=== PATIENT | female | born 1990 | race Caucasian/White ===

== ENCOUNTER → 2025-02-27 | Outpatient (CLI) | payer OTHER, SELFPAY ==
[2025-03-03 21:07] LABS: Chlamydia By Nucleic Acid AMP Negative (Negative); Gonococcus By Nucleic Acid AMP Negative (Negative)
== END | disposition home or self-care (01) ==
LOC: LABSPEC 15:17
PROVIDERS: PCP Nurse Practitioner Family; Referring Provider Advanced Practice Midwife; Visit Provider Advanced Practice Midwife
DX: O09.91 Supervision of high risk pregnancy, unspecified, first trimester (principal); Z3A.00 Weeks of gestation of pregnancy not specified
CPT/HCPCS: 87086; 87088; 87491; 87591

== ENCOUNTER → 2025-03-27 | Outpatient (CLI) | payer OTHER, SELFPAY ==
[2025-03-27 10:53] LABS: Absolute Lymphocyte Count 1.56 X10^3/uL (0.83-4.51); Absolute Neutrophil Count 7.1 X10^3/uL (2.0-7.7); Basophil# 0.04 X10^3/uL; Basophil% 0.4 % (0-1); Eosinophil# 0.08 X10^3/uL; Eosinophils% 0.9 % (0-5); Hematocrit 36.3 % (37-47); Hemoglobin 12.4 g/dL (12.0-15.0); Lymphocyte # 1.56 X10^3/ul (0.83-4.51); Lymphocyte % 16.8 % (19-41); Mean Corp Hgb Conc 34.2 g/dL (32-36); Mean Corpuscular Hgb 32.4 pg (27.0-32.0); Mean Corpuscular Volume 94.8 fL (81-99); Mean Platelet Vol. 11.5 fl (6.2-12.0); Monocyte# 0.49 X10^3/uL; Monocyte% 5.3 % (0-10); NRBC Flagged by Analyzer 0 % (0-5); Neutrophil # 7.07 X10^3/uL (2.7-7.7); Neutrophil % 76.1 % (47-70); Platelet Count 288 K/mm3 (150-450); RBC Distribution Width CV 13.9 % (11.6-14.6); RBC Distribution Width SD 47.7 fl (35.1-43.9); Red Blood Count 3.83 M/mm3 (4.2-5.4); White Blood Count 9.3 K/mm3 (4.4-11.0)
[2025-03-27 11:36] LABS: Hepatitis B Surface Antigen Nonreactive (Nonreactive); Hepatitis C Antibody Nonreactive (Nonreactive); Rubella IgG REAC (Nonreactive); Syphilis Antibodies Nonreactive (Nonreactive)
[2025-03-28 05:20] LABS: HIV Nonreactive (Nonreactive)
== END | disposition home or self-care (01) ==
PROVIDERS: PCP Nurse Practitioner Family; Referring Provider Advanced Practice Midwife; Visit Provider Advanced Practice Midwife
DX: O09.91 Supervision of high risk pregnancy, unspecified, first trimester (principal); Z3A.00 Weeks of gestation of pregnancy not specified
CPT/HCPCS: 36415; 85025; 86703; 86762; 86780; 86803; 86850; 86900; 86901; 87340

== ENCOUNTER → 2025-06-03 | Outpatient (CLI) | payer OTHER, SELFPAY ==
--- OUTSIDE RECORDS SUMMARY | 2025-06-03 18:24 | XMS RPT_ITS | CCD ---
Author Organization [facility] [place] Care Team Providers Care Traffic Assistant Name Role Phone Unavailable Unavailable Unavailable Benny Cooper Unavailable Unavailable Unavailable Unavailable Unavailable Angel Acevedo Unavailable Unavailable Vinay Ramos Unavailable Unavailable Unavailable Unavailable Unavailable Unavailable Unavailable Khang Herbert Unavailable Unavailable Marsh, Zayda Unavailable Unavailable Wood, Jeanine L Unavailable Mirella [facility] Primary Care Provide r JF WASHINGTON JR. Attending Unavailable [facility] Unavaila JF Vaca JR. Attending Unavailable [facility] Primary Care Unavaila ble Wood Jeanine L Unavailable Kenneth Benny R Unavailable Wood, . [facility] Primary Care Unav ailable MARSH M.D., ZAYDA Attending Unavailable MARSH M.D., ZAYDA Referring Unavailable Wood, Ms. [facility] Unav ailable MARSH M.D., ZAYDA Attending Unavailable Wood, Ms. [facility] Primary Care Unav ailable MARSH M.D., ZAYDA Attending Unavailable MARSH M.D., ZAYDA Referring Unavailable MARSH M.D., ZAYDA Attending Unavailable [facility], [facility]. [facility]av [facility] MARSH M.D., ZAYDA Referring Unavailable MARSH M.D., ZAYDA Attending Unavailable Wood, Ms. Jeanine Dariana Primary Care Unav ailable MARSH M.D., ZAYDA Referring Unavailable Wood, Ms. Jeanine Dariana Primary Care Unav ailable MARSH M.D., ZAYDA Referring Unavailable MARSH M.D., ZAYDA Attending Unavailable Sarbjit Villarreal Unavailable Unavailable Wood MATERIAL DISPATCHER-POLYETHYLENE COMBINER, Jeanine L Primary Care Provider Mirella MATERIAL DISPATCHER-POLYETHYLENE COMBINER, Jeanine L Primary Care Provider BENNY COOPER Attending Unavailable WOOD, JEANINE L Primary Care Unavailable WOOD, JEANINE L Attending Unavailable WOOD, JEANINE L Primary Care Unavailable WOOD SHELF FILLER-C, JEANINE Primary Care Provider MIRELLA SHELF FILLER-C, JEANINE Referring Provider Stephanie SHELF FILLER-C, Vernell Attending Provider [phone] Chris IZAGUIRRE, Ramone Attending Provider Ramone Bauer CNM Referring Provider Greg TIPTON, Dr. Holliday Attending Provider [phone] WOOD, JEANINE L Primary Care Unavailable RAMONE BAUER Referring Unavailable ARAM COTO Attending Unavailable WOOD, JEANINE Referring Unavailable Ramone Bauer Attending Unavailable WOOD, JEANINE Primary Care Unavailable Ramone Bauer Attending Unavailable Ramone Bauer Referring Unavailable WOOD, JEANINE Primary Care Unavailable Ramone Bauer Referring Unavailable WOOD, JEANINE Primary Care Unavailable Ramone Bauer Attending Unavailable WOOD, JEANINE Referring Unavailable Ramone Bauer Attending Unavailable WOOD, WOOLWICH Primary Care Unavailable WOOD, JEANINE Referring Unavailable WOOD, WOOLWICH Primary Care Unavailable Miya Garza Attending Unavailable WOOD, WOOLWICH Primary Care Unavailable Miya Garza Attending Unavailable WOOD, JEANINE Referring Unavailable WOOD, WOOLWICH Primary Care Unavailable Ramone Bauer Attending Unavailable WOOD, JEANINE Referring Unavailable WOOD, JEANINE Referring Unavailable Vernell Brown Attending Unavailable WOOD, WOOLWICH Primary Care Unavailable Allergies Allergy Classification Reported Allergen(s) Allergy Type Date of Onset Reaction(s) Facility Penicillins (antibiotic) (1 source) Penicillins; Translations: [Penicillins] Drug Allergy [facility] [address] Work Phone: Sulfonamides (antibiotic) (1 source) Sulfonamides (Antibiotic) Drug Allergy [facility] [address] Work Phone: (20 sources) Penicillins; Translations: [Penicillins] drug allergy 2 H[facility] [address] Work Phone: (20 sources) Sulfonamides (Antibiotic); Translations: [Sulfa Drugs] drug allergy [facility] [address] [place] Work Phone: (6 sources) sulfADIAZINE; Translations: [SULFADIAZINE] Drug Allergy 2 [facility] Comment on above: ALL SULFA DRUGS (2 sources) Penicillins Propensity to adverse reactions to drug 2 [facility] (4 sources) Penicillin; Translations: [PENICILLIN] Drug Allergy 3 [facility] (2 sources) Penicillins Drug Allergy 2 [facility] Work Phone: (4 sources) Sulfonamides (Antibiotic); Translations: [SULFA (SULFONAMIDE ANTIBIOTICS)] Drug Allergy 2 Unknown, [facility] Work Phone: (6 sources) Penicillins Allergy to substance 5 [facility] Comment on above: vomiting (6 sources) Sulfonamides (Antibiotic) Allergy to substance 5 [facility] (1 source) Penicillins Drug allergy (disorder) 5 [facility] (1 source) Sulfonamides (Antibiotic) Drug allergy (disorder) 5 [facility] Medications Current Medications Medication Drug Class(es) Dates Sig (Normalized) Sig (Original) acetaminophen 500 mg oral tablet (2 sources) Tylenol 500 mg o ral tablet ; 2 tab(s) orally , As Needed Quantity: 0 Refills: 0 Ordered: 30-Jun-2023 Rani Mclaughlin Generic Substitution Allowed take 3 capsules by mouth every s ix hours Tylenol 325 mg oral capsule ; 3 cap(s) orally every 6 hours Quantity: 0 Refills: 0 Ordered: 01-Mar-2022 Desire Aldrich Generic Substitution Allowed alpha-tocopherol acetate 30 unt / ascorbic acid 100 mg / beta carotene 1000 unt / calcium carbonate 200 mg / calcium pantothenate 7 mg / cholecalciferol 400 unt / docusate sodium 25 mg / ferrous fumarate 29 mg / folic acid 1 mg / niacinamide 15 mg / pyridoxine hydrochloride 20 mg / riboflavin 3 mg / thiamine 3 mg / vitamin b12 0.012 mg / zinc oxide 20 mg oral tablet (3 sources) Vitamin B12, Vitamin D, Vitamin C take 1 tablet by mouth once daily 19 ([place]) oral tablet ; 1 tab(s) orally once a day Quantity: 0 Refills: 0 Ordered: 28-May-2020 Edenilson Moran Generic Substitution Allowed ascorbic acid 100 mg oral tablet (7 sources) Vitamin C ascorbic acid (Vitamin C) 100 mg tablet Take 1 tablet (100 mg) by mouth. Active azithromycin 500 mg oral tablet (1 source) Macrolide Antimicrobial Start: End: 023 take 1 tablet by mouth once daily azithromycin 500 mg oral tablet ; 1 tab(s) orally once a day Quantity: 4 Refills: 0 Ordered: 30-Jun-2023 Phil Sarbjit Marie Start: 30-Jun-2023 End: 03-Jul-2023 Generic Substitution Allowed Comments: Do not take dairy products, antacids, or iron preparations within one hour of this medication.Finish all this medication unless otherwise directed by prescriber. Comment on above: Do not take dairy pr oducts, antacids, or iron preparations within one hour of this medication.Finish all this medication unless otherwise directed by prescriber. Benzocaine / Dextromethorphan (1 source) Uncompetitive F-jloozn-[id number]-aspartate Receptor Antagonist, Sigma-1 Agonist, Standardized Chemical Allergen benzocaine-dextromet h orphan 2 mg-5 mg oral lozenge ; 1 lozenge orally , As Needed Quantity: 0 Refills: 0 Ordered: 30-Jun-2023 Rani Mclaughlin Generic Substitution Allowed calcium carbonate 250 mg/ml oral suspension (2 sources) take 500 mg by mouth twice daily at mealtime calcium carbonate 500 mg/5 mL (1,250 mg/5 mL) Take 500 mg of calcium by mouth 2 (two) times a day with meals . 0 Active cholecalciferol 0.05 mg oral capsule (8 sources) Vitamin D Start: 025 take 1 capsule by mouth once daily Cholecalciferol (Vitamin D3) 50 mcg (2,000 unit) capsule Active 50 ug PO daily February 05, 2025 12:00am Vitamin D3 Quant ity: 0 Refills: 0 Ordered: 12-Jul-2021 Ish Harvey Status: Other Generic Substitution Allowed Vitamin D3 Quant ity: 0 Refills: 0 Ordered: 12-Jul-2021 Mekoleske, Kandus Generic Substitution Allowed docosahexaenoic acid 200 mg oral capsule (8 sources) Start: 02-05-2025 Docosahexaenoi c Acid ( Dha) 200 mg capsule Active mg PO February 05, 2025 12:00am docosahexaenoic acid (DHA ORAL) Take by mouth . 0 Active docusate sodium 100 mg oral capsule (1 source) take 1 capsule by mouth twice daily Colace 100 mg oral capsule ; 1 cap(s) orally 2 times a day Quantity: 0 Refills: 0 Ordered: 01-Mar-2022 Desire Aldrich Generic Substitution Allowed fluconazole 150 mg oral tablet (7 sources) Azole Antifungal Start: 06-22-2023 take 1 tablet by mouth every week fluconazole (Diflucan) 150 mg tablet Indications: Vaginitis due to Deisi albicans Take 1 tablet (150 mg) by mouth 1 (one) time per week. 4 tablet 06/22/2023 Active Start: 03-30-2023 take 1 tablet by hunter th every other day Fluconazole 100 MG Oral Tablet TAKE 1 TABLET Other every 2 days x 3 doses Quantity: 3 Refills: 2 Ordered: 30-Mar-2023 Zayda Marsh MD Start : 30-Mar-2023 Active take 1 tablet by hunter th four times weekly fluconazole 150 mg oral tablet ; 1 tab(s) orally 4 times a week Quantity: 0 Refills: 0 Ordered: 30-Jun-2023 Rani Mclaughlin Generic Substitution Allowed gentamicin 0.001 mg/mg topical ointment (2 sources) Start: 12-24-2021 gentamicin (GARAMYCIN) 0.1 % ointment Indications: Cellulitis and abscess of foot Apply topically 3 (three) times a day Apply to toe 3 times daily for one week . 30 g 0 12/24/2021 Active lansoprazole 30 mg delayed release oral capsule (1 source) Proton Pump Inhibitor take 1 capsule by mouth once daily lansoprazole 30 mg oral delayed release capsule ; 1 cap(s) orally once a day Quantity: 0 Refills: 0 Ordered: 02-Feb-2022 Ryan Jaramillo Generic Substitution Allowed lisdexamfetamine dimesylate 40 mg oral capsule (1 source) Central Nervous System Stimulant Start: 12-14-2024 take 1 capsule by mouth once daily in the morning lisdexamfetamine (Vyvanse) 40 mg capsule Take 1 capsule (40 mg) by mouth once daily in the morning. 12/14/2024 Active mupirocin 0.02 mg/mg topical ointment (1 source) RNA Synthetase Inhibitor Antibacterial Start: 01-08-2025 End: 01-15-2025 mupirocin (Bactroban) 2 % ointment Indications: Irritant contact dermatitis due to other chemical products Apply topically 2 times a day for 7 days. 22 g 01/08/2025 01/15/2025 Active Hernshaw-3 Fatty Acids (2 sources) Hernshaw-3 Fatty Acid take 3 capsules by mouth once daily Hernshaw-3 oral capsule ; 3 cap(s) orally once a day Quantity: 0 Refills: 0 Ordered: 30-Jun-2023 Rani Mclaughlin Generic Substitution Allowed Hernshaw-3 oral cap franco Quantity: 0 Refills: 0 Ordered: 27-Feb-2022 Kellee Perez Generic Substitution Allowed Hernshaw-3 Fatty Acids 1,000 mg capsule (6 sources) Start: 02-05-2025 take 1 capsule by mouth once daily Hernshaw-3 Fatty Acids 1,000 mg capsule Active 1000 mg PO daily February 05, 2025 12:00am omega-3 fatty acids-fish oil 300-1,000 mg capsule (3 sources) omega-3 fatty acids-fish oil 300-1,000 mg capsule Take by mouth. Active omega-3 fatty ac ids-fish oil 300-1,000 mg capsule Take by mouth. 0 Active ondansetron 4 mg disintegrating oral tablet (4 sources) Serotonin-3 Receptor Antagonist Start: 06-30-2023 take 1 tablet by mouth three times daily ondansetron 4 mg oral tablet, disintegrating ; 1 tab(s) orally 3 times a day Quantity: 12 Refills: 0 Ordered: 30-Jun-2023 Sarbjit Villarreal Start: 30-Jun-2023 Generic Substitution Allowed Start: 02-10-2022 take 1 tablet by hunter th every six hours Ondansetron HCl - 4 MG Oral Tablet TAKE 1 TABLET Every 6 hours PRN nausea Quantity: 30 Refills: 3 Ordered: 10-Feb-2022 Angel Acevedo DO Start : 10-Feb-2022 Active vit 49-iron fum-fol ic (Mini ) 6.75 mg iron- 200 mcg tablet (3 sources) End: 01-08-2025 vit 49-iron fum-fol ic (Mini ) 6.75 mg iron- 200 mcg tablet Take by mouth. 01/08/2025 Discontinued (Med List Cleanup) vit 49- iron fum-folic (Mini ) 6.75 mg iron- 200 mcg tablet Take by mouth. Active vit 49- iron fum-folic (Mini ) 6.75 mg iron- 200 mcg tablet Take by mouth. 0 Active vitamin #49-iron-FA (Mini ) 6.75 mg iron- 200 mcg Tab (2 sources) vitamin #49-iron-FA (Mini ) 6.75 mg iron- 200 mcg Tab Take by mouth . 0 Active sertraline 50 mg oral tablet (1 source) Serotonin Reuptake Inhibitor Start: 06-22-20 End: 08-07-20 take 0.5 tablet by mouth once daily sertraline (Zoloft) 50 mg tablet Indications: Anxiety with depression Take 0.5 tablets (25 mg) by mouth once daily. 15 tablet 0 06/22/2023 08/07/2023 Discontinued (Side effects) triamcinolone acetonide 1 mg/ml topical cream (1 source) Corticosteroid Start: 01-09-20 End: 01-19-20 triamcinolone (Kenalog) 0.1 % cream Indications: Irritant contact dermatitis due to other chemical products Apply topically 2 times a day for 10 days. 30 g 01/08/2025 01/18/2025 Active Completed/Discontinued Medications Medication Drug Class(es) Dates Sig (Normalized) Sig (Original) ciprofloxacin 500 mg oral tablet (4 sources) Quinolone Antimicrobial Start: 02-14-2023 take 1 tablet by mouth once daily Ciprofloxacin HCl - 500 MG Oral Tablet TAKE 1 TABLET EVERY 12 HOURS DAILY. Quantity: 28 Refills: 0 Ordered: 14-Feb-2023 Zayda Marsh MD Start : 14-Feb-2023 Active clindamycin 10 mg/ml topical lotion (10 sources) Lincosamide Antibacterial Start: 02-14-2023 Clindamycin Phosphate 1 % External Lotion APPLY SPARINGLY AND MASSAGE IN TWICE DAILY. Quantity: 1 Refills: 2 Ordered: 14-Feb-2023 Zayda Marsh MD Start : 14-Feb-2023 Active Start: 02-01-2023 take 1 capsule by [facility] once daily Clindamycin HCl - 300 MG Oral Capsule TAKE 1 CAPSULE EVERY 6 HOURS DAILY. Quantity: 28 Refills: 0 Ordered: 01-Feb-2023 Zayda Marsh MD Start : 01-Feb-2023 Active ibuprofen 800 mg oral tablet (8 sources) Nonsteroidal Anti-inflammatory Drug Start: 01-31-2023 take 1 tablet by mouth every eight hours Ibuprofen 800 MG Oral Tablet TAKE 1 TABLET Every 8 hours PRN Take as needed for pain Quantity: 30 Refills: 1 Ordered: 31-Jan-2023 Zayda Marsh MD Start : 31-Jan-2023 Active take 1 tablet by mouth every six hours Motrin 600 mg oral tablet ; 1 tab(s) orally every 6 hours Quantity: 0 Refills: 0 Ordered: 01-Mar-2022 Desrie Aldrich Generic Substitution Allowed Lidocaine (2 sources) Antiarrhythmic, Amide Local Anesthetic Start: 12-24-2021 End: 12-24-2021 lidocaine 20 mg/mL (2 %) injection 3 mL nystatin 625668 unt/ml / triamcinolone acetonide 1 mg/ml topical cream (9 sources) Polyene Antifungal, Corticosteroid Start: 04-11-2022 Nystatin-Triamcin olone 041064-0.1 UNIT/GM-% External Cream APPLY SPARINGLY TO AFFECTED AREA(S) TWICE DAILY Quantity: 1 Refills: 3 Ordered: 11-Apr-2022 Zayda Marsh MD Start : 11-Apr-2022 Active omeprazole 20 mg delayed release oral capsule (1 source) Proton Pump Inhibitor Start: 01-24-2020 take 1 capsule by mouth once daily before breakfast Omeprazole 20 MG Oral Capsule Delayed Release TAKE 1 CAPSULE DAILY EVERY MORNING BEFORE BREAKFAST. Quantity: 30 Refills: 4 Benny Cooper MD Start : 24-Jan-2020 Active pantoprazole 40 mg delayed release oral tablet (20 sources) Proton Pump Inhibitor Start: 10-18-2021 take 1 tablet by mouth once daily Pantoprazole Sodium 40 MG Oral Tablet Delayed Release TAKE 1 TABLET DAILY. Quantity: 30 Refills: 5 Ordered: 18-Oct-2021 Zayda Marsh MD Start : 18-Oct-2021 Active TABS (3 sources) TABS Refills: 0 DO Active TABS Re fills: 0 Active TABS (20 sources) TABS Qu antity: 0 Refills: 0 Ordered: 04-Nov-2019 DO Active TABS Re fills: 0 Active Problems Active Problems Problem Classification Problem Date Documented Date Episodic/Chronic Allergic reactions (4 sources) Irritant contact dermatitis caused by chemical; Translations: [Irritant contact dermatitis due to other chemical products] Onset: 01-08-2025 01-08-2025 Episodic Anxiety disorders (4 sources) Mixed anxiety and depressive disorder; Translations: [Other specified anxiety disorders] Onset: 06-22-2023 08-07-2023 Chronic Attention-deficit, conduct, and disruptive behavior disorders (20 sources) Attention deficit hyperactivity disorder; Translations: [Attention-deficit hyperactivity disorder, unspecified type] 02-05-2025 Chronic Comment on above: Vyvanse-stopped alex ng medication once she found out she was Attention-deficit, conduct, and disruptive behavior disorders (1 source) Attention-deficit hyperactivity disorder, unspecified type; Translations: [Attention-deficit hyperactivity disorder, unspecified type] Onset: 05-22-2025 Chronic Diseases of white blood cells (2 sources) Leukocytosis; Translations: [Leukocytosis, unspecified] 06-30-2023 Chronic Esophageal disorders (20 sources) Gastroesophageal reflux disease; Translations: [Esophageal reflux] Onset: 06-22-2023 06-22-2023 Chronic Fluid and electrolyte disorders (2 sources) Dehydration; Translations: [Dehydration] 06-30-2023 Episodic Headache; including migraine (2 sources) Headache; including migraine 10-15-2021 Comment on above: HEADACHE STUFFY/RUNN Y NOSE Immunizations and screening for infectious disease (20 sources) Patient encounter status; Translations: [Other specified vaccination] 04-09-2024 Episodic Comment on above: 08/19/20 WNL 9 NIL per records; Menstrual disorders (2 sources) Secondary amenorrhea; Translations: [Secondary amenorrhea] Chronic OB-related trauma to perineum and vulva (2 sources) First degree perineal laceration; Translations: [First-degree perineal laceration, unspecified as to episode of care or not applicable] 02-28-2022 Episodic Other circulatory disease (2 sources) Syncope due to orthostatic hypotension; Translations: [Orthostatic hypotension] 09-01-2023 Episodic Other complications of (20 sources) High risk ; Translations: [Supervision of high risk , unspecified, first trimester] 02-20-2025 Episodic Comment on above: Demond Mortensen, TAQUERIA 10/07/25 [employer] 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[employer], 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 PRR, Miguel Ángel Mortensen, TAQUERIA 10/07/25 [employer] Other complications of (1 source) Supervision of high risk , unspecified, first trimester; Translations: [Supervision of high risk , unspecified, first trimester] Onset: 05-22-2025 Episodic Other complications of (1 source) Supervision of other high risk pregnancies, unspecified trimester; Translations: [Supervision of other high risk pregnancies, unspecified trimester] Onset: 05-22-2025 Episodic Other connective tissue disease (20 sources) H/O: musculoskeletal disease; Translations: [Personal history of other musculoskeletal disorders] Episodic Other connective tissue disease (18 sources) Pain in lower limb; Translations: [Pain in limb] Episodic Other endocrine disorders (3 sources) Menarche; Translations: [History of Menarche] Chronic Other non-traumatic joint disorders (20 sources) Pain in wrist; Translations: [Pain in joint, forearm] Episodic Other and delivery including normal (20 sources) Primigravida; Translations: [Supervision of normal first ] Onset: 02-27-2025 Resolved: 01-24-2020 03-27-2025 Episodic Comment on above: elects NIPT, decline s gender & carrier x2 NIPT low risk, decli braden gender & carrier NIPT low risk, decli braden gender & carrier, nl anatomy Other screening for suspected conditions (not mental disorders or infectious disease) (20 sources) Cancer cervix screening status; Translations: [Screening for malignant neoplasms of cervix] Onset: 03-29-2023 Episodic Comment on above: 04/09/[address] Benny Cooper Other skin disorders (1 source) Ingrowing great toenail; Translations: [Ingrowing nail] Episodic Other upper respiratory infections (1 source) Acute bacterial pharyngitis; Translations: [Streptococcal sore throat] 06-30-2023 Episodic Residual codes; unclassified (1 source) Gestation period, 32 weeks; Translations: [32 weeks gestation of ] Episodic Residual codes; unclassified (10 sources) Gestation period, 39 weeks; Translations: [ state, incidental] Episodic Residual codes; unclassified (9 sources) Gestation period, 7 weeks; Translations: [ state, incidental] Episodic Residual codes; unclassified (8 sources) Gestation period, 11 weeks; Translations: [ state, incidental] Episodic Residual codes; unclassified (2 sources) Gestation period, 15 weeks; Translations: [ state, incidental] Episodic Residual codes; unclassified (20 sources) Gestation period, 17 weeks; Translations: [ state, incidental] Episodic Residual codes; unclassified (20 sources) Gestation period, 20 weeks; Translations: [ state, incidental] Episodic Residual codes; unclassified (20 sources) Gestation period, 24 weeks; Translations: [ state, incidental] Episodic Residual codes; unclassified (20 sources) Gestation period, 29 weeks; Translations: [ state, incidental] Episodic Residual codes; unclassified (20 sources) Gestation period, 31 weeks; Translations: [ state, incidental] Episodic Residual codes; unclassified (20 sources) Gestation period, 36 weeks; Translations: [ state, incidental] Episodic Residual codes; unclassified (12 sources) FH: Twin ; Translations: [Family history of other specified conditions] 02-27-2025 Episodic Comment on above: Grandmother is a twi n who also had twins Residual codes; unclassified (1 source) 20 weeks gestation of ; Translations: [20 weeks gestation of ] Onset: 05-22-2025 Episodic Residual codes; unclassified (1 source) 18 weeks gestation of ; Translations: [18 weeks gestation of ] Onset: 05-09-2025 Episodic Residual codes; unclassified (1 source) 16 weeks gestation of ; Translations: [16 weeks gestation of ] Onset: 04-24-2025 Episodic Residual codes; unclassified (1 source) 12 weeks gestation of ; Translations: [12 weeks gestation of ] Onset: 03-27-2025 Episodic Residual codes; unclassified (1 source) Other general symptoms and signs; Translations: [Other general symptoms and signs] Onset: 02-27-2025 Episodic Residual codes; unclassified (1 source) Family history of other specified conditions; Translations: [Family history of other specified conditions] Onset: 02-27-2025 Episodic Residual codes; unclassified (1 source) 8 weeks gestation of ; Translations: [8 weeks gestation of ] Onset: 02-27-2025 Episodic Skin and subcutaneous tissue infections (2 sources) Cellulitis and abscess of lower limb; Translations: [Cellulitis of unspecified part of limb] Episodic Syncope (4 sources) Syncope; Translations: [Syncope and collapse] 06-30-2023 Episodic Unclassified (1 source) 09-14-2021 Comment on above: Unclassified (1 source) 4 WK OB 09-14-2021 Comment on above: 4 WK OB Unclassified (2 sources) CONTRACTIONS 02-28-2022 Comment on above: CONTRACTIONS Unclassified (2 sources) FEVER LOW BLOOD PRESSURE 06-30-2023 Comment on above: FEVER LOW BLOOD PRES SURE Unclassified (1 source) Pharyngitis due to group A beta hemolytic Streptococci 06-30-2023 Past or Other Problems Problem Classification Problem Date Documented Date Episodic/Chronic Abdominal pain (20 sources) Pain in female pelvis; Translations: [Unspecified symptom associated with female genital organs] Onset: 06-22-2023 06-22-2023 Episodic Mycoses (3 sources) Candidiasis of vagina; Translations: [Vaginitis due to Deisi albicans] Onset: 06-22-2023 06-22-2023 Episodic Nonmalignant breast conditions (15 sources) Pain of breast; Translations: [Mastodynia] Onset: 06-22-2023 06-22-2023 Episodic Other complications of ; puerperium affecting management of mother (14 sources) Obstetric breast infections; Translations: [Nonpurulent mastitis associated with childbirth, condition or complication] Onset: 06-22-2023 Resolved: 06-22-2023 06-22-2023 Episodic Other complications of (20 sources) Abnormal findings on screening of mother; Translations: [Abnormal finding on screening] Onset: 06-22-2023 06-22-2023 Episodic Other complications of (20 sources) Nausea and vomiting; Translations: [Unspecified vomiting of , unspecified as to episode of care or not applicable] Onset: 06-22-2023 06-30-2023 Episodic Other complications of (1 source) Vomiting of , unspecified; Translations: [Unspecified vomiting of , unspecified as to episode of care or not applicable] Onset: 06-22-2023 06-22-2023 Episodic Other connective tissue disease (20 sources) Radial styloid tenosynovitis [de Quervain]; Translations: [De Quervain's tenosynovitis, bilateral] Onset: 06-22-2023 06-22-2023 Episodic Other connective tissue disease (20 sources) Dupuytren's contracture; Translations: [Contracture of palmar fascia] Resolved: 10-12-2020 Episodic Other connective tissue disease (3 sources) Pain in bilateral legs; Translations: [Pain in right leg] Onset: 06-22-2023 06-22-2023 Episodic Other female genital disorders (20 sources) Vaginal discharge; Translations: [Leukorrhea, not specified as infective] Onset: 06-22-2023 Resolved: 08-07-2023 08-07-2023 Episodic Other female genital disorders (20 sources) Pruritus of vagina; Translations: [Pruritus of genital organs] Onset: 06-22-2023 Resolved: 08-07-2023 08-07-2023 Episodic Other non-traumatic joint disorders (3 sources) Bilateral wrist pain; Translations: [Pain in right wrist] Onset: 06-22-2023 06-22-2023 Episodic Other skin disorders (20 sources) Bilateral ingrowing nail of toe of feet; Translations: [Ingrowing nail] Onset: 06-22-2023 Resolved: 06-22-2023 06-22-2023 Episodic Other skin disorders (20 sources) Disorder of pigmentation; Translations: [Dyschromia, unspecified] Onset: 06-22-2023 06-22-2023 Episodic Other skin disorders (1 source) Skin hypopigmented; Translations: [Other disorders of diminished melanin formation] Onset: 06-22-2023 06-22-2023 Episodic Spondylosis; intervertebral disc disorders; other back problems (20 sources) Sciatica; Translations: [Sciatica] Onset: 06-22-2023 06-22-2023 Episodic Unclassified (3 sources) Patient encounter status; Translations: [History of Vaginal Pap smear] Unclassified (3 sources) Onset: 08-07-2023 Resolved: 01-08-2025 08-07-2023 NEGATED: Highlighted row has not occurred!Residual codes; unclassified (20 sources) Disease Episodic Results Test Name Value Interpretation Reference Range Facility Laboratory - Chemistry and C hemistry - challengeOrdered By: Ramone Bauer on 05-22-2025 Glucose Ql (U) Negative [facility] Laboratory - UrinalysisOrder ed By: Ramone Bauer on 05-22-2025 Protein Ql (U) Negative [facility] Applications Support Specialist Office Visit Reporton 05-22-2025 Applications Support Specialist Office Visit Report [facility]'[address], [address] [place] [address] OFFICE VISIT Date of Service: 05/22/25 MR#: [id number] Acct: [id number] Name: LINETTE HUI Rep #: [id number] : 1990 Provider: DMITRIY Lew ams Age/Sex: 35/F Location: [facility] [place] Status: Signed Intake Vital Signs 03/27/25 08:56 05/09/25 14:07 05/22/25 11:00 Height 5 ft 7.5 in 5 ft 7.5 in 5 ft 7.5 in Weight: 191 lb 4 oz BMI 29.5 BP 121/69 H Intake Visit Reasons: 20wk ob Chief Complaint: 20wk OB Complex Care Nurse Required: No Is patient in pain?: No Allergies Penicillins Allergy (Mild, Verified 05/22/25 10:58) Hives Sulfa (Sulfonamide Antibiotics) Allergy (Mild, Verified 05/22/25 10:58) Hives Medications ???Medication ???Instructions ???Recorded ???Confirmed ???Type cholecalciferol (vitamin D3) 50 50 mcg PO QDAY 02/05/25 05/22/25 H istory mcg (2,000 unit) capsule docosahexaenoic acid 200 mg mg PO 02/05/25 05/22/25 History capsule ( DHA) omega-3 fatty acids 1,000 mg 1,000 mg PO QDAY 02/05/25 05/22/25 History capsule Last Menstrual Period: 12/31/24 : No PFSH PFSH Medical History ADHD Family History Father GBM (glioblastoma multiforme) Hypertension Mother Hypertension Alopecia Grandmother Heart disease Hypertension Grandfather Heart disease Hypertension Macular degeneration Brother Leukemia as a child Grandmother Macular degeneration Hypertension Aneurysm Social History adopted: No household members: spouse and children number of children: 2 current occupational status: employed 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 (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 ) ) pets and animals: No history of recent travel: No Smoking Status: Never smoker alcohol intake: former details: socially, but not since substance use type: marijuana and other details: occasionally but not since , last 10/2024 caffeine: Yes Type: coffee what type of physical activity do you participate in: running and bicycling frequency: 5-6 times per week deon/episcopal: Yazidism seatbelt use: always do you feel safe at home: Yes additional social history: - [facility] History 3 Elective abortions Hx Para 2 Spontaneous abortions Hx # Term Pregnancies Ectopic pregnancies Hx # Pregnancies Multiple births # of living children 2 Past Pregnancies Del. Date Name GA/Weeks Outcome Route Bth Weight Gen Labor Lgth Anesthesia Del Locatn Provider FOB 06/02/20 Prasanna 39 live - full term 7.8 Female 7 hours none [facility] 02/28/22 Miguel Ángel 39 live - full term Male 6 none HPI 20wk ob Details: LINETTE HUI is a 35 year old who presents for routine OB visit. OB Visit TAQUERIA Calculator Estimated Delivery Date Method Current WG Current Estimate 10/07/25 LMP (Certain) 20w 2d Other Estimates 10/05/25 Ultrasound #1 20w 4d Expected Delivery Route/Plan Labor Preferences- CB/BF classes: [] labor support person: [] labor intervention preferences: [] pain management options preferred: [] cut cord/dad catch: [] : [] PP control planned: [] discussed possible routes of delivery and associated risks: [] special requests: [] Specific Issue/Plans Covid status: [] Flu vaccine: [] Tdap vaccine: [] Rhogam: [] LARC form signed: [] Problem list reviewed and updated with the most current plan of care details and appropriate orders placed. Relevant counseling for the gestational age provided. Continue routine care and follow up unless otherwise noted in visit notes/problem list details Initial Weight: 178 lb Date -???-???-???-???-???-??? -???-???-???-???-???-??? - EGA Weight BP Urine Prot -???-???-???-???-???-??? -???-???-???-???-???-??? - Glucose FHR FuHt Pres Dilation -???-???-???-???-???-??? -???-???-???-???-???-??? - Effaced St Visit Note 02/27/25 -???-???-???-???-???-??? -???-???-???-???-???-??? - 8w 2d 178 lb 2 oz (+2 oz) 125/75 -???-???-???-???-???-??? -???-???-???-???-???-??? - 173 -???-???-???-???-???-??? -???-???-???-???-???-??? - KW- CRL cons with dates. accepts NIPT. 03/27/25 -???-???-???-???-???-??? -???-???-???-???-???-??? - 12w 2d 181 lb 2 oz (+3 lb 2 oz) 122/77 Negative -???-???-???-???-???-??? -???-???-???-???-???-??? - Negative 160 -???-???-???-???-???-??? -???-???-???-???-???-??? - kw- no vb/cr amping. US with MFM ordered. Bartholin cyst-to try loose (more content not included)... Normal [facility] Laboratory - Chemistry and C hemistry - challengeOrdered By: Miya Garza on 05-09-2025 Glucose Ql (U) Negative [facility] Laboratory - UrinalysisOrder ed By: Miya Garza on 05-09-2025 Protein Ql (U) Negative [facility] Applications Support Specialist Office Visit Reporton 05-09-2025 Applications Support Specialist Office Visit Report [facility] [address], [address] [place] [address] OFFICE VISIT Date of Service: 05/09/25 MR#: [id number] Acct: [id number] Name: LINETTE HUI Rep #: [id number] : 1990 Provider: Dr. Miya patiño MD Age/Sex: 35/F Location: [facility] [place] Status: Signed Intake Vital Signs 04/24/25 14:10 05/08/25 16:06 05/09/25 14:07 Height 5 ft 7.5 in 5 ft 7.5 in 5 ft 7.5 in Weight: 191 lb 4 oz BMI 29.5 BP 125/73 H Intake Visit Reasons: fu contractions per JV Complex Care Nurse Required: No Is patient in pain?: No Allergies Penicillins Allergy (Mild, Verified 05/09/25 14:05) Hives Sulfa (Sulfonamide Antibiotics) Allergy (Mild, Verified 05/09/25 14:05) Hives Medications ???Medication ???Instructions ???Recorded ???Confirmed ???Type cholecalciferol (vitamin D3) 50 50 mcg PO QDAY 02/05/25 05/09/25 H istory mcg (2,000 unit) capsule docosahexaenoic acid 200 mg mg PO 02/05/25 05/09/25 History capsule ( DHA) omega-3 fatty acids 1,000 mg 1,000 mg PO QDAY 02/05/25 05/09/25 History capsule Last Menstrual Period: 12/31/24 Zika: Zika virus screening: Negative : No PFSH PFSH Medical History ADHD Family History Father GBM (glioblastoma multiforme) Hypertension Mother Hypertension Alopecia Grandmother Heart disease Hypertension Grandfather Heart disease Hypertension Macular degeneration Brother Leukemia as a child Grandmother Macular degeneration Hypertension Aneurysm Social History adopted: No household members: spouse and children number of children: 2 current occupational status: employed 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 (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 ) ) pets and animals: No history of recent travel: No Smoking Status: Never smoker alcohol intake: former details: socially, but not since substance use type: marijuana and other details: occasionally but not since , last 10/2024 caffeine: Yes Type: coffee what type of physical activity do you participate in: running and bicycling frequency: 5-6 times per week deon/episcopal: Yazidism seatbelt use: always do you feel safe at home: Yes additional social history: - [facility] History 3 Elective abortions Hx Para 2 Spontaneous abortions Hx # Term Pregnancies Ectopic pregnancies Hx # Pregnancies Multiple births # of living children 2 Past Pregnancies Del. Date Name GA/Weeks Outcome Route Bth Weight Infant Gen Labor Lgth Anesthesia Del [facility] Provider FOB 06/02/20 Prasanna 39 live - full term 7.8 Female 7 hours none [facility] 02/28/22 Miguel Ángel 39 live - full term Male 6 none HPI fu contractions per JV Details: LINETTE HUI is a 35 year old who presents for routine OB visit. OB Visit TAQUERIA Calculator Estimated Delivery Date Method Current WG Current Estimate 10/07/25 LMP (Certain) 18w 3d Other Estimates 10/05/25 Ultrasound #1 18w 5d Expected Delivery Route/Plan Labor Preferences- CB/BF classes: [] labor support person: [] labor intervention preferences: [] pain management options preferred: [] cut cord/dad catch: [] : [] PP control planned: [] discussed possible routes of delivery and associated risks: [] special requests: [] Specific Issue/Plans Covid status: [] Flu vaccine: [] Tdap vaccine: [] Rhogam: [] LARC form signed: [] Problem list reviewed and updated with the most current plan of care details and appropriate orders placed. Relevant counseling for the gestational age provided. Continue routine care and follow up unless otherwise noted in visit notes/problem list details Initial Weight: 178 lb Date -???-???-???-???-???-??? -???-???-???-???-???-??? - EGA Weight BP Urine Prot -???-???-???-???-???-??? -???-???-???-???-???-??? - Glucose FHR FuHt Pres Dilation -???-???-???-???-???-??? -???-???-???-???-???-??? - Effaced St Visit Note 02/27/25 -???-???-???-???-???-??? -???-???-???-???-???-??? - 8w 2d 178 lb 2 oz (+2 oz) 125/75 -???-???-???-???-???-??? -???-???-???-???-???-??? - 173 -???-???-???-???-???-??? -???-???-???-???-???-??? - KW- CRL cons with dates. accepts NIPT. 03/27/25 -???-???-???-???-???-??? -???-???-???-???-???-??? - 12w 2d 181 lb 2 oz (+3 lb 2 oz) 122/77 Negative -???-???-???-???-???-??? -???-???-???-???-???-??? - Negative 160 -???-???-???-???-???-??? -???-???-???-???-???-??? - kw- no vb/cr (more content not included)... Normal [facility] Applications Support Specialist Office Visit Reporton 04-24-2025 Applications Support Specialist Office Visit Report [facility] [address], [address] [place] [address] OFFICE VISIT Date of Service: 04/24/25 MR#: [id number] Acct: [id number] Name: LINETTE HUI Rep #: [id number] : 1990 Provider: Dr. Miya patiño MD Age/Sex: 34/F Location: [facility] [place] Status: Signed Intake Vital Signs 02/27/25 13:02 03/27/25 08:56 04/24/25 14:10 Height 5 ft 7.5 in 5 ft 7.5 in 5 ft 7.5 in Weight: 181 lb 2 oz 188 lb 4 oz BMI 27.9 29.0 BP 122/77 H 127/77 H Intake Visit Reasons: 16wk ob Complex Care Nurse Required: No Is patient in pain?: No Allergies Penicillins Allergy (Mild, Verified 04/24/25 14:11) Hives Sulfa (Sulfonamide Antibiotics) Allergy (Mild, Verified 04/24/25 14:11) Hives Medications ???Medication ???Instructions ???Recorded ???Confirmed ???Type cholecalciferol (vitamin D3) 50 50 mcg PO QDAY 02/05/25 04/24/25 H istory mcg (2,000 unit) capsule docosahexaenoic acid 200 mg mg PO 02/05/25 04/24/25 History capsule ( DHA) omega-3 fatty acids 1,000 mg 1,000 mg PO QDAY 02/05/25 04/24/25 History capsule Last Menstrual Period: 12/31/24 Zika: Zika virus screening: Negative : No PFSH PFSH Medical History ADHD Family History Father GBM (glioblastoma multiforme) Hypertension Mother Hypertension Alopecia Grandmother Heart disease Hypertension Grandfather Heart disease Hypertension Macular degeneration Brother Leukemia as a child Grandmother Macular degeneration Hypertension Aneurysm Social History adopted: No household members: spouse and children number of children: 2 current occupational status: employed 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 (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 ) ) pets and animals: No history of recent travel: No Smoking Status: Never smoker alcohol intake: former details: socially, but not since substance use type: marijuana and other details: occasionally but not since , last 10/2024 caffeine: Yes Type: coffee what type of physical activity do you participate in: running and bicycling frequency: 5-6 times per week deon/episcopal: Yazidism seatbelt use: always do you feel safe at home: Yes additional social history: - [facility] History 3 Elective abortions Hx Para 2 Spontaneous abortions Hx # Term Pregnancies Ectopic pregnancies Hx # Pregnancies Multiple births # of living children 2 Past Pregnancies Del. Date Name GA/Weeks Outcome Route Bth Weight Infant Gen Labor Lgth Anesthesia Del [facility] Provider FOThalia 06/02/20 Prasanna 39 live - full term 7.8 Female 7 hours none [facility] 02/28/22 Miguel Ángel 39 live - full term Male 6 none HPI 16wk ob Details: LINETTE HUI is a 34 year old who presents for routine OB visit. OB Visit TAQUERIA Calculator Estimated Delivery Date Method Current WG Current Estimate 10/07/25 LMP (Certain) 16w 2d Other Estimates 10/05/25 Ultrasound #1 16w 4d Expected Delivery Route/Plan Labor Preferences- CB/BF classes: [] labor support person: [] labor intervention preferences: [] pain management options preferred: [] cut cord/dad catch: [] : [] PP control planned: [] discussed possible routes of delivery and associated risks: [] special requests: [] Specific Issue/Plans Covid status: [] Flu vaccine: [] Tdap vaccine: [] Rhogam: [] LARC form signed: [] Problem list reviewed and updated with the most current plan of care details and appropriate orders placed. Relevant counseling for the gestational age provided. Continue routine care and follow up unless otherwise noted in visit notes/problem list details Initial Weight: 178 lb Date -???-???-???-???-???-??? -???-???-???-???-???-??? - EGA Weight BP Urine Prot -???-???-???-???-???-??? -???-???-???-???-???-??? - Glucose FHR FuHt Pres Dilation -???-???-???-???-???-??? -???-???-???-???-???-??? - Effaced St Visit Note 02/27/25 -???-???-???-???-???-??? -???-???-???-???-???-??? - 8w 2d 178 lb 2 oz (+2 oz) 125/75 -???-???-???-???-???-??? -???-???-???-???-???-??? - 173 -???-???-???-???-???-??? -???-???-???-???-???-??? - KW- CRL cons with dates. accepts NIPT. 03/27/25 -???-???-???-???-???-??? -???-???-???-???-???-??? - 12w 2d 181 lb 2 oz (+3 lb 2 oz) 122/77 Negative -???-???-???-???-???-??? -???-???-???-???-???-??? - Negative 160 -???-???-???-???-???-??? -???-???-???-???-???-??? - kw- no vb/cr amping. (more content not included)... Normal [facility] HIVon 03-28-2025 HIV Non-Reactive Normal Nonreactive [facility] Comment on above: Result Comment: Non- Reactive Reactive Repeatedly reactive samples must be confirmed according to CDC recommended confirmatory algorithms. The subresults for either HIVAG or AHIV can be used as an aid in the selection of the confirmation algorithm for reactive samples. Send out specimens with Reactive results to [facility] for confirmation. Order the HIV antibody detection and differentiation: [id number] Performed By: #### L 3890.6102, L3890.6301, L3890.6006, L900.0098, L100.0100, BTS, L509.4006, L509.8002 ####[facility] [address] [place], [address] Absolute lymphocyte countOrd ered By: Ramone Bauer on 03-27-2025 Lymphocytes Auto (Unsp spec) [#/Vol] 1.56 10*3/uL 0.83-4.51 [facility] Absolute neutrophil countOrd ered By: Ramone Bauer on 03-27-2025 Neutrophils (Bld) [#/Vol] 7.1 10*3/uL 2.0-7.7 [facility] Automated lymphocyte count a s percentage of total leukocytesOrdered By: Ramone Bauer on 03-27-2025 Lymphocytes/100 WBC Auto (Unsp spec) 16.8 % Low 19-41 [facility] Basophil percentageOrdered B y: Ramone Bauer on 03-27-2025 Basophils/100 WBC (Bld) 0.4 % 0-1 [facility] CBC W/Diff, Automatedon - Absolute Lymph 1.56 X10 3/uL Normal 0.83-4.51 [facility] Comment on above: Performed By: #### L 3890.6102, L3890.6301, L3890.6006, L900.0098, L100.0100, BTS, L509.4006, L509.8002 #### [facility] [address] [place], [address] Absolute Neut 7.1 X10 3/uL Normal 2.0-7.7 [facility] Comment on above: Performed By: #### L 3890.6102, L3890.6301, L3890.6006, L900.0098, L100.0100, BTS, L509.4006, L509.8002 #### [facility] [address] [place], [address] Basophils/100 WBC (Bld) 0.4 % Normal 0-1 [facility] Comment on above: Performed By: #### L 3890.6102, L3890.6301, L3890.6006, L900.0098, L100.0100, BTS, L509.4006, L509.8002 #### [facility] [address] [place], [address] Eosinophils/100 WBC (Bld) 0.9 % Normal 0-5 [facility] Comment on above: Performed By: #### L 3890.6102, L3890.6301, L3890.6006, L900.0098, L100.0100, BTS, L509.4006, L509.8002 #### [facility] [address] [place], [address] Erythrocyte distribution width (RBC) [Ratio] 13.9 % Normal 11.6-14.6 [facility] Comment on above: Performed By: #### L 3890.6102, L3890.6301, L3890.6006, L900.0098, L100.0100, BTS, L509.4006, L509.8002 #### [facility] [address] [place], [address] Hematocrit (Bld) [Volume fraction] 36.3 % Low 37-47 [facility] Comment on above: Performed By: #### L 3890.6102, L3890.6301, L3890.6006, L900.0098, L100.0100, BTS, L509.4006, L509.8002 #### [facility] [address] [place], [address] Hemoglobin (Bld) [Mass/Vol] 12.4 g/dL Normal 12.0-15.0 [facility] Comment on above: Performed By: #### L 3890.6102, L3890.6301, L3890.6006, L900.0098, L100.0100, BTS, L509.4006, L509.8002 #### [facility] [address] [place], [address] IG% 0.500 Normal 0.0-0.9 [facility] Comment on above: Result Comment: IG% - Immature Granulocytes (promyelocytes, myelocytes and metamyelocytes) > 1% indicates that a LEFT SHIFT is Present. Performed By: #### L 3890.6102, L3890.6301, L3890.6006, L900.0098, L100.0100, BTS, L509.4006, L509.8002 #### [facility] [address] [place], [address] Lymphocytes/100 WBC (Bld) 16.8 % Low 19-41 [facility] Comment on above: Performed By: #### L 3890.6102, L3890.6301, L3890.6006, L900.0098, L100.0100, BTS, L509.4006, L509.8002 #### [facility] [address] [place], [address] MCH (RBC) [Entitic mass] 32.4 pg High 27.0-32.0 [facility] Comment on above: Performed By: #### L 3890.6102, L3890.6301, L3890.6006, L900.0098, L100.0100, BTS, L509.4006, L509.8002 #### [facility] [address] [place], [address] MCHC (RBC) [Mass/Vol] 34.2 g/dL Normal 32-36 [facility] Comment on above: Performed By: #### L 3890.6102, L3890.6301, L3890.6006, L900.0098, L100.0100, BTS, L509.4006, L509.8002 #### [facility] [address] [place], [address] MCV (RBC) [Entitic vol] 94.8 fL Normal 81-99 [facility] Comment on above: Performed By: #### L 3890.6102, L3890.6301, L3890.6006, L900.0098, L100.0100, BTS, L509.4006, L509.8002 #### [facility] [address] [place], [address] Monocytes/100 WBC (Bld) 5.3 % Normal 0-10 [facility] Comment on above: Performed By: #### L 3890.6102, L3890.6301, L3890.6006, L900.0098, L100.0100, BTS, L509.4006, L509.8002 #### [facility] [address] [place], [address] Neutrophils/100 WBC (Bld) 76.1 % High 47-70 [facility] Comment on above: Performed By: #### L 3890.6102, L3890.6301, L3890.6006, L900.0098, L100.0100, BTS, L509.4006, L509.8002 #### [facility] [address] [place], [address] Nucleated RBC (Bld) [#/Vol] 0 10*3/uL Normal 0-5 [facility] Comment on above: Performed By: #### L 3890.6102, L3890.6301, L3890.6006, L900.0098, L100.0100, BTS, L509.4006, L509.8002 #### [facility] [address] [place], [address] Platelet mean volume (Bld) [Entitic vol] 11.5 fL Normal 6.2-12.0 [facility] Comment on above: Performed By: #### L 3890.6102, L3890.6301, L3890.6006, L900.0098, L100.0100, BTS, L509.4006, L509.8002 #### [facility] [address] [place] [place], [address] Platelets (Bld) [#/Vol] 288 10*3/uL Normal 150-450 [facility] Comment on above: Performed By: #### L 3890.6102, L3890.6301, L3890.6006, L900.0098, L100.0100, BTS, L509.4006, L509.8002 #### [facility] [address] [place], [address] RBC (Bld) [#/Vol] 3.83 10*6/uL Low 4.2-5.4 [facility] Comment on above: Performed By: #### L 3890.6102, L3890.6301, L3890.6006, L900.0098, L100.0100, BTS, L509.4006, L509.8002 #### [facility] [address] [place], [address] RDW SD 47.7 fl High 35.1-43.9 [facility] Comment on above: Performed By: #### L 3890.6102, L3890.6301, L3890.6006, L900.0098, L100.0100, BTS, L509.4006, L509.8002 #### [facility] [address] [place], [address] WBC (Bld) [#/Vol] 9.3 10*3/uL Normal 4.4-11.0 [facility] Comment on above: Performed By: #### L 3890.6102, L3890.6301, L3890.6006, L900.0098, L100.0100, BTS, L509.4006, L509.8002 #### [facility] [address] [place], [address] Eosinophil percentageOrdered By: Ramone Bauer on 03-27-2025 Eosinophils/100 WBC (Bld) 0.9 % 0-5 [facility] Erythrocyte distribution wid th ratioOrdered By: Ramone Bauer on 03-27-2025 Erythrocyte distribution width (RBC) [Ratio] 13.9 % 11.6-14.6 [facility] Erythrocyte distribution wid th standard deviationOrdered By: Ramone Bauer on 03-27-2025 Erythrocyte distribution width (RBC) [Ratio] 47.7 fl High 35.1-43.9 [facility] Hematocrit Auto (Bld) [Volum e fraction]Ordered By: Ramone Bauer on 03-27-2025 Hematocrit (Bld) [Volume fraction] 36.3 % Low 37-47 [facility] Hemoglobin measurementOrdere d By: Ramone Bauer on 03-27-2025 Hemoglobin (Bld) [Mass/Vol] 12.4 g/dL 12.0-15.0 [facility] Hepatitis C Antibodyon 05-29 -2025 Hepatitis C Ab Non-Reactive Normal Nonreactive [facility] Comment on above: Result Comment: Reac tive: Presumptive evidence of antibodies to HCV. Follow CDC recommendations for supplemental testing. Non-Reactive: Antibodies to HCV were not detected; does not exclude the possibility of exposure to HCV Reactive Results are presumptive evidence of antibodies to HCV. Follow CDC recommendations for supplemental testing. Order confirmation testing: HCV Quant by PCR testing - HCVPCR #[id number] Non Reactive: < 0.8 Equivocal: >/= 0.8 to < 1.0 Reactive: >/= 1.[address] [facility] requires that a reactive/equivocal HCV antibody result be sent out for confirmation. HCV Quant by PCR testing. Performed By: #### L 3890.6102, L3890.6301, L3890.6006, L900.0098, L100.0100, BTS, L509.4006, L509.8002 ####[facility] [address] [facility] [place], [place], [id number] Immature granulocytes/100 WB C Auto (Bld)Ordered By: Ramone Bauer on 03-27-2025 Immature granulocytes/100 WBC (Bld) 0.500 % 0.0-0.9 [facility] Comment on above: IG% - Immature Granu locytes (promyelocytes, myelocytes and metamyelocytes) > 1% indicates that a LEFT SHIFT is Present. L3890.6102on 03-27-2025 HEP B Surf Ag Non-Reactive Normal Nonreactive [facility] Comment on above: Result Comment: Reac tive: Presumptive evidence of HBV. Repeatedly reactive samples must be confirmed using a neutralization test (Elecsys HBsAg Confirmatory Test) Non-Reactive: HBsAg not detected; does not exclude the possibility of exposure to HBV Performed By: #### L 3890.6102, L3890.6301, L3890.6006, L900.0098, L100.0100, BTS, L509.4006, L509.8002 ####[facility] [address] [place], [place], [id number] L509.4006on 03-27-2025 Rubella IgG REAC Normal Nonreactive [facility] Comment on above: Result Comment: Anti body Result: Interpretation Non-Reactive: Non-Immune Reactive: Immune The following results were obtained with the Elecsys Rubella IgG assay. Results from assays of other manufacturers cannot be used interchangeably. Performed By: #### L 3890.6102, L3890.6301, L3890.6006, L900.0098, L100.0100, BTS, L509.4006, L509.8002 #### [facility] Laboratory [address] [place], [address] Laboratory - Chemistry and C hemistry - challengeOrdered By: Ramone Bauer on 03-27-2025 Glucose Ql (U) Negative [facility] Laboratory - Microbiology an d Antimicrobial susceptibilityOrdered By: Ramone Bauer on 03-27-2025 HBV surface Ag Ql (S) Non-Reactive Nonreactive [facility] Comment on above: Reactive: Presumptiv e evidence of HBV. Repeatedly reactive samples must be confirmed using a neutralization test (Elecsys HBsAg Confirmatory Test)Non-Reactive: HBsAg not detected; does not exclude the possibility of exposure to HBV Laboratory - UrinalysisOrder ed By: Ramone Bauer on 03-27-2025 Protein Ql (U) Negative [facility] MCV (mean corpuscular volume ) determinationOrdered By: Ramone Bauer on 03-27-2025 MCV (RBC) [Entitic vol] 94.8 fL 81-99 [facility] Mean corpuscular hemoglobin (MCH) determinationOrdered By: Ramone Bauer on 03-27-2025 MCH (RBC) [Entitic mass] 32.4 pg High 27.0-32.0 [facility] Mean corpuscular hemoglobin concentration (MCHC) determinationOrdered By: Ramone Bauer on 03-27-2025 MCHC (RBC) [Mass/Vol] 34.2 g/dL 32-36 [facility] Mean platelet volume determi nationOrdered By: Ramone Bauer on 03-27-2025 Platelet mean volume (Bld) [Entitic vol] 11.5 fL 6.2-12.0 [facility] Monocyte percentageOrdered B y: Ramone Bauer on 03-27-2025 Monocytes/100 WBC (Bld) 5.3 % 0-10 [facility] NATERAon 03-27-2025 NATURA SEE SCANNED REPORT Normal [facility] Comment on above: Performed By: #### L 3890.6102, L3890.6301, L3890.6006, L900.0098, L100.0100, BTS, L509.4006, L509.8002 #### [facility] [address] [place], [address] Neutrophil percentageOrdered By: Ramone Bauer on 03-27-2025 Neutrophils/100 WBC (Bld) 76.1 % High 47-70 [facility] No Panel InformationOrdered By: Ramone Bauer on 03-27-2025 HIV (1&2) Antibody Non-Reactive Nonreactive [facility] Comment on above: Non-ReactiveReactive Repeatedly reactive samples must be confirmed according to CDC recommended confirmatory algorithms. The subresults for either HIVAG or AHIV can be used as an aid in the selection of the confirmation algorithm for reactive samples.Send out specimens with Reactive results to [facility] for confirmation.Order the HIV antibody detection and differentiation: #[id number] Nucleated red blood cell per centageOrdered By: Ramone Bauer on 03-27-2025 Nucleated RBC/100 WBC (Bld) [Ratio] 0 % 0-5 [facility] Applications Support Specialist Office Visit Reporton 03-27-2025 Applications Support Specialist Office Visit Report [facility] [address], [address] [place] [address] OFFICE VISIT Date of Service: 03/27/25 MR#: [id number] Acct: [id number] Name: LINETTE HUI Rep #: [id number] : 1990 Provider: DMITRIY Lew ams Age/Sex: 34/F Location: [facility] [place] Status: Signed Intake Vital Signs 02/05/25 10:26 02/27/25 13:02 03/27/25 08:56 Height 5 ft 7.5 in 5 ft 7.5 in 5 ft 7.5 in Weight: 181 lb 2 oz BMI 27.9 BP 122/77 H Intake Visit Reasons: 12WK OB Chief Complaint: 12wk OB Complex Care Nurse Required: No Is patient in pain?: No Allergies Penicillins Allergy (Mild, Verified 03/27/25 08:55) Hives Sulfa (Sulfonamide Antibiotics) Allergy (Mild, Verified 03/27/25 08:55) Hives Medications ???Medication ???Instructions ???Recorded ???Confirmed ???Type cholecalciferol (vitamin D3) 50 50 mcg PO QDAY 02/05/25 03/27/25 H istory mcg (2,000 unit) capsule docosahexaenoic acid 200 mg mg PO 02/05/25 03/27/25 History capsule ( DHA) omega-3 fatty acids 1,000 mg 1,000 mg PO QDAY 02/05/25 03/27/25 History capsule Last Menstrual Period: 12/31/24 Have you fallen in the past year?: No PFSH PFSH Medical History ADHD Family History Father GBM (glioblastoma multiforme) Hypertension Mother Hypertension Alopecia Grandmother Heart disease Hypertension Grandfather Heart disease Hypertension Macular degeneration Brother Leukemia as a child Grandmother Macular degeneration Hypertension Aneurysm Social History adopted: No household members: spouse and children number of children: 2 current occupational status: employed 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 (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 ) ) pets and animals: No history of recent travel: No Smoking Status: Never smoker alcohol intake: former details: socially, but not since substance use type: marijuana and other details: occasionally but not since , last 10/2024 caffeine: Yes Type: coffee what type of physical activity do you participate in: running and bicycling frequency: 5-6 times per week deon/episcopal: Yazidism seatbelt use: always do you feel safe at home: Yes additional social history: - [facility] History 3 Elective abortions Hx Para 2 Spontaneous abortions Hx # Term Pregnancies Ectopic pregnancies Hx # Pregnancies Multiple births # of living children 2 Past Pregnancies Del. Date Name GA/Weeks Outcome Route Bth Weight Gen Labor Lgth Anesthesia Del Locatn Provider FOB 06/02/20 Cicilia 39 live - full term 7.8 Female 7 hours none Magdy 02/28/22 Miguel Ángel 39 live - full term Male 6 none HPI 12WK OB Details: LINETTE HUI is a 34 year old who presents for routine OB visit. OB Visit TAQUERIA Calculator Estimated Delivery Date Method Current WG Current Estimate 10/07/25 LMP (Certain) 12w 2d Other Estimates 10/05/25 Ultrasound #1 12w 4d Expected Delivery Route/Plan Labor Preferences- CB/BF classes: [] labor support person: [] labor intervention preferences: [] pain management options preferred: [] cut cord/dad catch: [] : [] PP control planned: [] discussed possible routes of delivery and associated risks: [] special requests: [] Specific Issue/Plans Covid status: [] Flu vaccine: [] Tdap vaccine: [] Rhogam: [] LARC form signed: [] Problem list reviewed and updated with the most current plan of care details and appropriate orders placed. Relevant counseling for the gestational age provided. Continue routine care and follow up unless otherwise noted in visit notes/problem list details Initial Weight: 178 lb Date -???-???-???-???-???-??? -???-???-???-???-???-??? - EGA Weight BP Urine Prot -???-???-???-???-???-??? -???-???-???-???-???-??? - Glucose FHR FuHt Pres Dilation -???-???-???-???-???-??? -???-???-???-???-???-??? - Effaced St Visit Note 02/27/25 -???-???-???-???-???-??? -???-???-???-???-???-??? - 8w 2d 178 lb 2 oz (+2 oz) 125/75 -???-???-???-???-???-??? -???-???-???-???-???-??? - 173 -???-???-???-???-???-??? -???-???-???-???-???-??? - KW- CRL cons with dates. accepts NIPT. 03/27/25 -???-???-???-???-???-??? -???-???-???-???-???-??? - 12w 2d 181 lb 2 oz (+3 lb 2 oz) 122/77 Negative -???-???-???-???-???-??? -???-???-???-???-???-??? - Negative 160 -???-???-???-???-???-??? -???-???-???-???-???-??? - kw- no vb/cr amping. US with MFM ordered. Bartholin cys (more content not included)... Normal [facility] Platelet countOrdered By: Ha Bauer on 03-27-2025 Platelets (Bld) [#/Vol] 288 10*3/uL 150-450 [facility] RBC Auto (Bld) [#/Vol]Ordere d By: Ramone Bauer on 03-27-2025 RBC (Bld) [#/Vol] 3.83 10*6/uL Low 4.2-5.4 [facility] Syphilis Antibodieson 2024 Syphilis Abs Non-Reactive Normal Nonreactive [facility] Comment on above: Performed By: #### L 3890.6102, L3890.6301, L3890.6006, L900.0098, L100.0100, BTS, L509.4006, L509.8002 ####[facility] [address] [place], [place], [id number] Type AND Screenon 03-27-2025 ABO and Rh group Nom (Bld) Blood group O Rh(D) positive Normal [facility] Comment on above: Order Comment: PN Performed By: #### L 3890.6102, L3890.6301, L3890.6006, L900.0098, L100.0100, BTS, L509.4006, L509.8002 #### [facility] Laboratory [address] [place], [address] White blood cell (WBC) count Ordered By: Ramone Bauer on 03-27-2025 WBC (Bld) [#/Vol] 9.3 10*3/uL 4.4-11.0 [facility] Chlamydia/GC RADHA aptimaon CHLAMY,NUC ACID Negative Normal Negative [facility] Comment on above: Performed By: #### M 100.2200, L7000.1800 ####[facility] [address] [place], [address] GC BY NUC ACID Negative Normal Negative [facility] Comment on above: Result Comment: Perf ormed at: =G - [facility] [address] [id number] Application Services Manager: Lara Huston MD, Phone: [phone] Performed By: #### M 100.2200, L7000.1800 ####[facility] [address] [place], [address] Urine Cultureon 03-02-2025 [facility] Mixed Gram Positive Organisms [place] Count 25,000-50,000 MIXC Mixed contaminants. Submit a new specimen if indicated. Normal [facility] Comment on above: Performed By: #### M 100.2200, L7000.1800 ####[facility] [address] [place], [address] Chlamydia trachomatis rRNA d etection by probe and target amplification methodOrdered By: Ramone Bauer on 02-27-2025 C. trachomatis rRNA RADHA+probe Ql (Unsp spec) Negative Negative [facility] Neisseria gonorrhoeae nuclei c acid detection by amplified probe techniqueOrdered By: Ramone Bauer on 02-27-2025 N. gonorrhoeae DNA RADHA+probe Ql (Unsp spec) Negative Negative [facility] Comment on above: Performed at: =[facility] [address] [place] [id number] Director: Lara Huston MD, Phone: [phone] Applications Support Specialist Office Visit Reporton 02-27-2025 Applications Support Specialist Office Visit Report [facility] [address], [address] [place] [address] OFFICE VISIT Date of Service: 02/27/25 MR#: [id number] Acct: [id number] Name: LINETTE HUI Rep #: [id number] : 1990 Provider: DMITRIY Lew ams Age/Sex: 34/F Location: [facility] [place] Status: Signed Intake Vital Signs 02/05/25 10:26 02/27/25 13:02 Height 5 ft 7.5 in 5 ft 7.5 in Weight: 178 lb 2 oz BMI 27.4 BP 125/75 H Intake Visit Reasons: New OB, LMP 3/4, TAQUERIA 12 Chief Complaint: New OB Complex Care Nurse Required: No Is patient in pain?: No Allergies Penicillins Allergy (Mild, Verified 02/27/25 13:00) Hives Sulfa (Sulfonamide Antibiotics) Allergy (Mild, Verified 02/27/25 13:00) Hives Medications ???Medication ???Instructions ???Recorded ???Confirmed ???Type cholecalciferol (vitamin D3) 50 50 mcg PO QDAY 02/05/25 02/27/25 H istory mcg (2,000 unit) capsule docosahexaenoic acid 200 mg mg PO 02/05/25 02/27/25 History capsule ( DHA) omega-3 fatty acids 1,000 mg 1,000 mg PO QDAY 02/05/25 02/27/25 History capsule Last Menstrual Period: 12/31/24 : Yes Have you fallen in the past year?: No PFSH PFSH Medical History ADHD Family History Father GBM (glioblastoma multiforme) Hypertension Mother Hypertension Alopecia Grandmother Heart disease Hypertension Grandfather Heart disease Hypertension Macular degeneration Brother Leukemia as a child Grandmother Macular degeneration Hypertension Aneurysm Social History adopted: No household members: spouse and children number of children: 2 current occupational status: employed 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 (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 ) ) pets and animals: No history of recent travel: No Smoking Status: Never smoker alcohol intake: former details: socially, but not since substance use type: marijuana and other details: occasionally but not since , last 10/2024 caffeine: Yes Type: coffee what type of physical activity do you participate in: running and bicycling frequency: 5-6 times per week deon/episcopal: Yazidism seatbelt use: always do you feel safe at home: Yes additional social history: - [facility] History 3 Elective abortions Hx Para 2 Spontaneous abortions Hx # Term Pregnancies Ectopic pregnancies Hx # Pregnancies Multiple births # of living children 2 Past Pregnancies Del. Date Name GA/Weeks Outcome Route Bth Weight Gen Labor Lgth Anesthesia Del Locatn Provider FOB 06/02/20 Prasanna 39 live - full term 7.8 Female 7 hours none Magdy 02/28/22 Miguel Ángel 39 live - full term Male 6 none HPI New OB, LMP 3/4, TAQUERIA 10/07 Details: LINETTE HUI is a 34 year old who presents for New OB visit. OB Visit TAQUERIA Calculator Estimated Delivery Date Method Current WG Current Estimate 10/07/25 LMP (Certain) 8w 2d Other Estimates 10/05/25 Ultrasound #1 8w 4d Comments: HIV: Urine Culture: Sequential Screen: NIPT Screen: Estimated Due Date: 12/31/24 Expected Delivery Route/Plan Labor Preferences- CB/BF classes: [] labor support person: [] labor intervention preferences: [] pain management options preferred: [] cut cord/dad catch: [] : [] PP control planned: [] discussed possible routes of delivery and associated risks: [] special requests: [] Specific Issue/Plans Covid status: [] Flu vaccine: [] Tdap vaccine: [] Rhogam: [] LARC form signed: [] Problem list reviewed and updated with the most current plan of care details and appropriate orders placed. Relevant counseling for the gestational age provided. Continue routine care and follow up unless otherwise noted in visit notes/problem list details Initial Weight: 178 lb Date -???-???-???-???-???-??? -???-???-???-???-???-??? - EGA Weight BP Urine Prot -???-???-???-???-???-??? -???-???-???-???-???-??? - Glucose FHR FuHt Pres Dilation -???-???-???-???-???-??? -???-???-???-???-???-??? - Effaced St Visit Note 02/27/25 -???-???-???-???-???-??? -???-???-???-???-???-??? - 8w 2d 178 lb 2 oz (+2 oz) 125/75 -???-???-???-???-???-??? -???-???-???-???-???-??? - 173 -???-???-???-???-???-??? -???-???-???-???-???-??? - KW- CRL cons with dates. accepts NIPT. Menstrual History Last Menstrual Period: 12/31/24 Reported LMP: definite Normal amount/duration: Yes On hormonal BC at conception: (more content not included)... Normal [facility] Urine cultureOrdered By: Norris Bauer on 02-27-2025 Bacteria identified Cx Nom (U) Positive Abnormal [facility] Laboratory - Chemistry and C hemistry - challengeOrdered By: Vernell Brown on 02-05-2025 HCG ( test) Ql (U) Positive [facility] Office Visit Reporton 2024 Office Visit Report [facility] [address] [place] [address] OFFICE VISIT Date of Service: 02/05/25 MR#: [id number] Acct: [id number] Patient: LINETTE HUI Rep #: [id number] : 1990 Provider: JUVENAL irizarry Age/Sex: 34/F Location: [facility] [place] Status: Signed Intake Vital Signs 02/05/25 10:26 Height 5 ft 7.5 in Weight: 173 lb 4 oz BMI 26.7 Intake Visit Reasons: CONFIRMATION TEST(SHELF FILLER) 3RD Complex Care Nurse Required: No Is patient in pain?: No Allergies Penicillins Allergy (Mild, Verified 02/05/25 10:29) Hives Sulfa (Sulfonamide Antibiotics) Allergy (Mild, Verified 02/05/25 10:29) Hives Medications ???Medication ???Instructions ???Recorded ???Confirmed ???Type cholecalciferol (vitamin D3) 50 50 mcg PO QDAY 02/05/25 02/05/25 H istory mcg (2,000 unit) capsule docosahexaenoic acid 200 mg mg PO 02/05/25 02/05/25 History capsule ( DHA) omega-3 fatty acids 1,000 mg 1,000 mg PO QDAY 02/05/25 02/05/25 History capsule Is last menstrual period known: Yes Last menstrual period: 12/31/24 Post menopausal: No Patient : Yes Have you fallen in the past year?: No Nurse's Note: Patient was here today to get confirmation since she is new to our practice. She was previously taking Vyvanse for ADHD, however, once she found out she was she stopped taking it. I did check with Dr. Garza about medication and she recommended not taking medication and that we could discuss further at B appointment. Results POC Urine Office , Urine Positive Last Edit by Maya Kelley on 02/05/25 10:34 Assessment and Plan Assessment and Plan (1) Supervision of high risk in first trimester: Status: Acute Comment: Vincjob Orders: Orders POC Urine Today N91.2 - Amenorrhea, unspecified Plan confirmed RTO NOB Clinical Quality Measures Falls Risk Screening/Assistive Devices Have you fallen in the past year?: No 02/05/25 1038 Date Vernell Michelles SHELF FILLER SHELF FILLER-C Cosigner Signature: Date (if applicable) CC: Normal [facility] Cervical AND or Vaginal cyto logy studyon 04-09-2024 Cytology Cervical or vaginal smear or scraping study Pathology report.total SEE COMMENT Gynecologic Cytology Case: [id number] Authorizing Provider: Benny Cooper MD Collected: 04/09/2024905 Ordering Location: [facility] Received: 04/09/2024905 Office Building First Screen: CHASTITY Castro Rescreen: CHASTITY Nicole Specimen: ThinPrep Liquid-Based Pap-Imaging System Screen, CERVIX, SCREENING Cytology study comment SEE COMMENT A. THINPREP PAP CERVIX, SCREENING - Specimen Adequacy Satisfactory for evaluation; endocervical/transformat ion zone component is present General Categorization Negative for intraepithelial lesion or malignancy. Descriptive Interpretation Negative for intraepithelial lesion or malignancy Specimen does not meet the requisition-stated criteria for HPV testing. See Pap test interpretation above. Laboratory comment SEE COMMENT Slide(s) initially screened by CHASTITY Castro at [facility] [address] [facility] [phone] QC review performed by CHASTITY Nicole at [facility] [address] [place] [phone] By the signature on this report, the individual or group listed as making the Final Interpretation/Diagnosis certifies that they have reviewed this case. This specimen has been analyzed by the ThinPrep Imaging System ([employer] an automated imaging and review system, which assists the laboratory in evaluating cells on ThinPrep Pap tests. Following automated imaging, selected pablo from every slide were reviewed by a mixer wet pour and/or pathologist. Cervical cytology is a screening procedure primarily for squamous cancers and precursors and has associated false-negative and false-positives results as evidenced by published data. Your patient's test should be interpreted in this context, together with the patient's history and clinical findings. Regular sampling and follow-up of unexplained clinical signs and symptoms are recommended to minimize false negative results. LAB AP HPV HR Reflex if ASCUS only LAB AP HPV GENOTYPE QUESTION Yes Date last menstrual period 04/01/2024 LAB AP CONTRACEPTIVE HISTORY Condom Normal [facility] Ambulatory Cult, Genitalon 03-29-2023 Bacteria identified Aer cx Nom (Genital specimen) Abnormal [facility] [address] [employer] Work Phone: GENITAL CULTURE, BACT.on GENITAL CULTURE, BACT. PATIENT: Samantha HUI [place] [facility] [place] [id number] : [birth year] AGE: SEX: F ORDERED BY: ZAYDA MARSH SOURCE: GENITAL COLLECTED: 03/29/23 09:26 ANTIBIOTICS AT SUSANNAH.: RECEIVED : 03/29/23 18:44 SITE: Vaginal R E S U L T S GENITAL CULTURE, BACT. FINAL 04/02/23 07:41 Culture examined for Group A Streptococcus, Group B Streptococcus, Neisseria gonorrhoeae and Yeast ONLY. NO Neisseria gonorrhoeae ISOLATED. ISOLATE1 : Deisi albicans 1+ Normal [facility] Comment on above: Performed By: #### G ENLO #### [facility] [address] [place] [address] LMPon 03-29-2023 Last menstrual period start date 13Mar2023 [facility] [address] [employer] Work Phone: ASSIGNMENT EDITOR - Office Visiton 03-01 ASSIGNMENT EDITOR - Office Visit Diagnoses/Problems Assessed Screening for cervical cancer (V76.2) (Z12.4) Vaginal itching (698.1) (N89.8) Orders PAP INFORMATION TECHNOLOGY DIRECTOR, Cytology; Status:Hold For - Specimen/Data Collection,Retrospective Authorization; Requested for:[id number]; Last Menstrual Period (LMP): : 03/13/2023 PAP - Site : CERVICAL Cytology Order : ThinPrep PAP, Screening, HPV All Interp - Include Genotyping Cult, Genital; Status:In Progress - Specimen/Data Collected,Retrospective Authorization; Done: [id number] Site : Vaginal Provider Impressions Linette is a 32-year-old here for routine INFORMATION TECHNOLOGY DIRECTOR exam. Exam was benign. Pap smear was done cultures were taken follow-up in 1 year Chief Complaint Patient here today for annual exam with no concerns. last pap 08/18/2020 Reflex negative. LMP: 03/13/2023 History of Present IllnessLinette is a 32-year-old who comes in for routine INFORMATION TECHNOLOGY DIRECTOR exam. Patient currently is still breast-feeding. Her baby is now just over a-year-old. She declines any form of contraception. Patient reports she has been having some vague itching after her menstrual cycle externally. She reports the last time she had intercourse she had some strange burning sensation internally. Does not have any abnormality in her discharge or odor Review of Systems Constitutional: Denies any change in temperature or weight. Cardiovascular: Denies any chest pain or palpitations. Respiratory: Denies any shortness of breath or cough. Gastrointestinal: Denies any changes in her bowel habits or abdominal pain. Genitourinary: as noted in HPI. Musculoskeletal: Denies any change in her mobility. Psychiatric: Denies any change in her mood or in her sleep. Active Problems Problems 17 weeks gestation of (V22.2) (Z3A.17) 36 weeks gestation of (V22.2) (Z3A.36) Abnormal quad screen (796.5) (O28.0) Breast infection, (675.24) (O91.22) Breast pain in female (611.71) (N64.4) Chronic GERD (530.81) (K21.9) De Quervain's tenosynovitis, bilateral (727.04) (M65.4) Encounter for immunization (V03.89) (Z23) Encounter for screening for cervical cancer (V76.2) (Z12.4) Ingrown toenail of both feet (703.0) (L60.0) Multigravida in second trimester (V22.1) (Z34.82) Nausea and vomiting in (643.90) (O21.9) Pain in both lower extremities (729.5) (M79.604,M79.605) Pain in both wrists (719.43) (M25.531,M25.532) Pelvic pain in female (625.9) (R10.2) Positive urine test (V72.42) (Z32.01) with 20 completed weeks gestation (V22.2) (Z3A.20) with 24 completed weeks gestation (V22.2) (Z3A.24) with 29 completed weeks gestation (V22.2) (Z3A.29) with 31 completed weeks gestation (V22.2) (Z3A.31) Sciatica (724.3) (M54.30) Screen for STD (sexually transmitted disease) (V74.5) (Z11.3) Screening for cervical cancer (V76.2) (Z12.4) Skin hypopigmentation (709.00) (L81.9) Vaginal discharge (623.5) (N89.8) Vaginal itching (698.1) (N89.8) Past Medical History Problems History of Dupuytren's contracture (728.6) (M72.0) Resolved Date: 12 Oct 2020 History of tendinitis (V13.59) (Z87.39) History of Menarche (V21.8) AGE 15 History of Normal first in first trimester (V22.0) (Z34.01) Resolved Date: 24 Jan 2020 History of Vaginal Pap smear (V76.47) (Z12.72) 08/19/20 WNL 07/05/2019 NIL per records Surgical History Problems No history of surgery Family History Mother Family history of alopecia (V19.4) (Z84.0) Father Family history of glioblastoma (V16.8) (Z80.8) Family history of hypertension (V17.49) (Z82.49) Maternal Grandmother Family history of myocardial infarction (V17.3) (Z82.49) Paternal Grandmother Family history of hypertension (V17.49) (Z82.49) Family history of neoplasm of brain (V19.8) (Z84.89) Social History Problems Consumes alcohol occasionally (V49.89) (Z78.9) No advance directives (V49.89) (Z78.9) Non-smoker (V49.89) (Z78.9) Sexually active Allergies Medication Penicillins Recorded By: Monalisa Conway; 11/04/2019 3:08:28 PM Sulfa Drugs Recorded By: Monalisa Conway; 11/04/2019 3:08:28 PM Current Meds Medication NameInstruction TABS Vitals Vital Signs Recorded: 29Mar2023 09:09AM Voidvgjf861 Ntjaosqjk86 Height5 ft 7 in Pxcrsa874 lb BMI Qpkhzwbdfd77.98 kg/m2 BSA Calculated1.96 [id number] Physical Exam Constitutional: Healthy appearing. Head and Face: No obvious lesions. Neck: Supple without adenopathy. Cardiovascular: Regular rate and rhythm. Pulmonary: Lear to auscultation. Chest: No masses discharge retraction or skin changes. Abdomen: Soft nontender. Sternal genitalia revealed no lesions the vagina appeared well estrogenized normal discharge note cervix was nonfriable uterus and adnexa were normal nontender Musculoskeletal: Good mobility. Psychiatric: Appropriately oriented with normal mood and affect. Signatures Electronically signed by : Zayda Marsh MD; March 29 (more content not included)... Normal [facility] ASSIGNMENT EDITOR - Office Visiton 05-0 ASSIGNMENT EDITOR - Office Visit Provider Tim Barretta is here for follow-up on her nipple infection and bleeding. Breasts are much improved. Patient advised that if the problem recurs to reach out to the personal protection specialist. Patient due for an annual follow-up within the next month Chief Complaint Patient here today for follow up nipple pain. She has 1 antibiotic left, she is still having the nipple pain but she has been using nipple butter that has been helping with the cracking. She has been pumping and noticed blood in her milk. Since she has been on antibiotic she thinks she has a yeast infection, notes itching externally only. History of Present IllnessLinette is a 32-year-old who comes in for follow-up of nipple pain and bleeding. She reports she has been using some breast butter which has improved the dryness and bleeding. She also believes she developed a yeast infection externally which has now resolved with some ymob-nap-kbnbbem treatment Active Problems Problems 17 weeks gestation of (V22.2) (Z3A.17) 36 weeks gestation of (V22.2) (Z3A.36) Abnormal quad screen (796.5) (O28.0) Breast infection, (675.24) (O91.22) Breast pain in female (611.71) (N64.4) Chronic GERD (530.81) (K21.9) De Quervain's tenosynovitis, bilateral (727.04) (M65.4) Encounter for immunization (V03.89) (Z23) Encounter for screening for cervical cancer (V76.2) (Z12.4) Ingrown toenail of both feet (703.0) (L60.0) Multigravida in second trimester (V22.1) (Z34.82) Nausea and vomiting in (643.90) (O21.9) Pain in both lower extremities (729.5) (M79.604,M79.605) Pain in both wrists (719.43) (M25.531,M25.532) Pelvic pain in female (625.9) (R10.2) Positive urine test (V72.42) (Z32.01) with 20 completed weeks gestation (V22.2) (Z3A.20) with 24 completed weeks gestation (V22.2) (Z3A.24) with 29 completed weeks gestation (V22.2) (Z3A.29) with 31 completed weeks gestation (V22.2) (Z3A.31) Sciatica (724.3) (M54.30) Screen for STD (sexually transmitted disease) (V74.5) (Z11.3) Skin hypopigmentation (709.00) (L81.9) Vaginal discharge (623.5) (N89.8) Vaginal itching (698.1) (N89.8) Past Medical History Problems History of Dupuytren's contracture (728.6) (M72.0) Resolved Date: 12 Oct 2020 History of tendinitis (V13.59) (Z87.39) History of Menarche (V21.8) AGE 15 History of Normal first in first trimester (V22.0) (Z34.01) Resolved Date: 24 Jan 2020 History of Vaginal Pap smear (V76.47) (Z12.72) 08/19/20 WNL 07/05/2019 NIL per records Surgical History Problems No history of surgery Family History Mother Family history of alopecia (V19.4) (Z84.0) Father Family history of glioblastoma (V16.8) (Z80.8) Family history of hypertension (V17.49) (Z82.49) Maternal Grandmother Family history of myocardial infarction (V17.3) (Z82.49) Paternal Grandmother Family history of hypertension (V17.49) (Z82.49) Family history of neoplasm of brain (V19.8) (Z84.89) Social History Problems Consumes alcohol occasionally (V49.89) (Z78.9) No advance directives (V49.89) (Z78.9) Non-smoker (V49.89) (Z78.9) Sexually active Allergies Medication Penicillins Recorded By: Monalisa Conway; 11/04/2019 3:08:28 PM [facility]ulf[facility] Drugs Recorded By: Monalisa Conway; 11/04/2019 3:08:28 PM Current Meds Medication NameInstruction Ciprofloxacin HCl - 500 MG Oral TabletTAKE 1 TABLET EVERY 12 HOURS DAILY. Clindamycin HCl - 300 MG Oral CapsuleTAKE 1 CAPSULE EVERY 6 HOURS DAILY. Clindamycin Phosphate 1 % External LotionAPPLY SPARINGLY AND MASSAGE IN TWICE DAILY. Ibuprofen 800 MG Oral TabletTAKE 1 TABLET Every 8 hours PRN Take as needed for pain Pantoprazole Sodium 40 MG Oral Tablet Delayed ReleaseTAKE 1 TABLET DAILY. TABS Vitals Vital Signs Recorded: 28Feb2023 09:06AM Jntflgef014 Hqactbujl71 Height5 ft 7 in Vcyhbn180 lb 2 oz BMI Rtwckwjqqi08.84 kg/m2 BSA Calculated1.95 Physical Exam Constitutional: Healthy appearing in no distress. Head and Face: No obvious lesions. Chest: Breasts overall look much improved slight redness on the edge of the left areola and slight skin flaking around the areola region of both breast. No active bleeding or induration. Musculoskeletal: Good mobility. Psychiatric: Appropriately oriented with normal mood and affect. Signatures Electronically signed by : Zayda Marsh MD; Feb 28 2023 9:37AM EST (Author) Normal Touchworks Cult, Misc + smearon 023 Bacteria identified Cx Nom (Unsp spec) [facility] [address] Work Phone: MISCELLANEOUS CULT./SM.BACT. on 02-14-2023 MISCELLANEOUS CULT./SM.BACT. BREAST INFECTION PATIENT: LINETTE HUI [place] [facility] [place] [id number] : 89 AGE: SEX: F ORDERED BY: ZAYDA MARSH SOURCE: WOUND/ABSCESS COLLECTED: 02/14/23 15:04 ANTIBIOTICS AT [facility].: RECEIVED : 02/15/23 00:44 SITE: Wound/Abscess R E S U L T S GRAM STAIN FINAL 02/15/23 11:46 NO GRANULOCYTES OR ORGANISMS SEEN. MISCELLANEOUS CULT./SM.BACT. FINAL 02/17/23 13:51 2+MIXED SKIN GALLO Normal [facility] Comment on above: Performed By: #### C #### [facility] Cytology [id number] [facility] [address] ASSIGNMENT EDITOR - Office Visiton 01-28 ASSIGNMENT EDITOR - Office Visit Diagnoses/Problems Assessed Breast infection, (675.24) (O91.22) Orders Start: Ciprofloxacin HCl - 500 MG Oral Tablet (Cipro); TAKE 1 TABLET EVERY 12 HOURS DAILY Start: Clindamycin Phosphate 1 % External Lotion; APPLY SPARINGLY AND MASSAGE IN TWICE DAILY Provider Impressions Patient is a 32-year-old who comes in with nipple pain inflammation and excoriated skin separation. Cultures taken again with patient being allergic to penicillin and sulfa and did not respond to clindamycin discussed with pharmacy and considered the option of a macrolide versus ciprofloxacin. Per pharmacy recommendations we will try Cipro for 14 days and we will also do a topical clindamycin patient to follow-up in 2 weeks if no improvement Chief Complaint Patient here today with concern of nipple pain, cracking bleeding and pussing. She states after first round of antibiotic she got some relief but came back worse. History of Present IllnessVeronica is a 32-year-old who was here 2 weeks ago with nipple inflammation and her culture grew out group a strep. She was started on clindamycin for 7 days but reports that she is no better it is not as painful but now her nipples are cracking and will have a purulent discharge. She says it is incredibly painful to breast-feed or to even pump. Patient reports her breast nipples are very red and tender. Patient is allergic to penicillin and to sulfa both of those antibiotics she develops body rash. Active Problems Problems 17 weeks gestation of (V22.2) (Z3A.17) 36 weeks gestation of (V22.2) (Z3A.36) Abnormal quad screen (796.5) (O28.0) Breast infection, (675.24) (O91.22) Breast pain in female (611.71) (N64.4) Chronic GERD (530.81) (K21.9) De Quervain's tenosynovitis, bilateral (727.04) (M65.4) Encounter for immunization (V03.89) (Z23) Encounter for screening for cervical cancer (V76.2) (Z12.4) Ingrown toenail of both feet (703.0) (L60.0) Multigravida in second trimester (V22.1) (Z34.82) Nausea and vomiting in (643.90) (O21.9) Pain in both lower extremities (729.5) (M79.604,M79.605) Pain in both wrists (719.43) (M25.531,M25.532) Pelvic pain in female (625.9) (R10.2) Positive urine test (V72.42) (Z32.01) with 20 completed weeks gestation (V22.2) (Z3A.20) with 24 completed weeks gestation (V22.2) (Z3A.24) with 29 completed weeks gestation (V22.2) (Z3A.29) with 31 completed weeks gestation (V22.2) (Z3A.31) Sciatica (724.3) (M54.30) Screen for STD (sexually transmitted disease) (V74.5) (Z11.3) Skin hypopigmentation (709.00) (L81.9) Vaginal discharge (623.5) (N89.8) Vaginal itching (698.1) (N89.8) Past Medical History Problems History of Dupuytren's contracture (728.6) (M72.0) Resolved Date: 12 Oct 2020 History of tendinitis (V13.59) (Z87.39) History of Menarche (V21.8) AGE 15 History of Normal first in first trimester (V22.0) (Z34.01) Resolved Date: 24 Jan 2020 History of Vaginal Pap smear (V76.47) (Z12.72) 08/19/20 WNL 07/05/2019 NIL per records Surgical History Problems No history of surgery Family History Mother Family history of alopecia (V19.4) (Z84.0) Father Family history of glioblastoma (V16.8) (Z80.8) Family history of hypertension (V17.49) (Z82.49) Maternal Grandmother Family history of myocardial infarction (V17.3) (Z82.49) Paternal Grandmother Family history of hypertension (V17.49) (Z82.49) Family history of neoplasm of brain (V19.8) (Z84.89) Social History Problems Consumes alcohol occasionally (V49.89) (Z78.9) No advance directives (V49.89) (Z78.9) Non-smoker (V49.89) (Z78.9) Sexually active Allergies Medication Penicillins Recorded By: Monalisa Conway; 11/04/2019 3:08:28 PM [facility]ulf[facility] Drugs Recorded By: Monalisa Conway; 11/04/2019 3:08:28 PM Current Meds Medication NameInstruction Clindamycin HCl - 300 MG Oral CapsuleTAKE 1 CAPSULE EVERY 6 HOURS DAILY. Ibuprofen 800 MG Oral TabletTAKE 1 TABLET Every 8 hours PRN Take as needed for pain Nystatin-Triamcinolone 338661-7.1 UNIT/GM-% External CreamAPPLY SPARINGLY TO AFFECTED AREA(S) TWICE DAILY Pantoprazole Sodium 40 MG Oral Tablet Delayed ReleaseTAKE 1 TABLET DAILY. TABS Vitals Vital Signs Recorded: 14Feb2023 02:27PM Sfpsrnns098 Lfbqynumm40 Height5 ft 7 in Tqdmux556 lb 6 oz BMI Zrcznbjtkz39.88 kg/m2 BSA Calculated1.95 Physical Exam Constitutional: Healthy appearing in no distress. Head and Face: No obvious lesions. Neck: Good range of motion. Pulmonary: Breathing comfortably. Chest: Bilateral nipples are cracked and very scaly and slightly erythematous but no purulent discharge noted. Musculoskeletal: Good mobility. Psychiatric: Appropriately oriented with normal mood and affect. Signatures Electronically signed by : Zayda Marsh MD; Feb 14 2023 3:00PM EST (Author) Normal Touchworks Cult, Misc + smearon 023 Bacteria identified Cx Nom (Unsp spec) Abnormal [facility] [address] [employer] Work Phone: MISCELLANEOUS CULT./SM.BACT. on 01-31-2023 MISCELLANEOUS CULT./SM.BACT. GROUP A STREPTOCOCCUS Called- RB to [facility] WO[facility], 02/01/2023 11:22 GROUP A STREPTOCOCCUS Called- RB to [facility], 02/01/2023 11:22 PATIENT: LINETTE HUI [place] [facility] [place] [id number] : 89 AGE: SEX: F ORDERED BY: ZAYDA MARSH SOURCE: MISC COLLECTED: 01/31/23 09:51 ANTIBIOTICS AT [facility].: RECEIVED : 01/31/23 16:10 SITE: Miscellaneous NIPPLE R E S U L T S GRAM STAIN FINAL 01/31/23 19:58 NO GRANULOCYTES SEEN. 1+ GRAM (+) COCCI MISCELLANEOUS CULT./SM.BACT. FINAL 02/02/23 09:36 1+ MIXED SKIN GALLO ISOLATE1 : Group A streptococcus 1+ Normal [facility] Comment on above: Performed By: #### M [facility] #### [facility] [address] [place] [address] ASSIGNMENT EDITOR - Office Visiton ASSIGNMENT EDITOR - Office Visit Diagnoses/Problems Assessed Breast pain in female (611.71) (N64.4) Orders Start: Ibuprofen 800 MG Oral Tablet; TAKE 1 TABLET Every 8 hours PRN Take as needed for pain Provider Impressions Patient comes in for evaluation of bilateral nipple pain right greater than left. Physical exam was completely benign. Cultures were taken for evaluation of yeast. Advised patient to just take Motrin until the pain significantly improved we will call her with any abnormal test results Chief Complaint Patient here today with concerns of nipple pain in both breasts for about 4 days. She is 11 months post . History of Present IllnessVeronica comes in for evaluation of nipple pain. Patient has been breast-feeding for about 11 months. She says that towards the end of last week she was pumping and her breast nipples were not aligned with the pump. She says after she stopped pumping her breasts were very tender in the right breast was bleeding. She says since then she has been having exclusively nipple pain greater on the right than the left. She reports that it has become slightly better there was some itching that has now resolved. Patient is concerned that she may have thrush Active Problems Problems 17 weeks gestation of (V22.2) (Z3A.17) 36 weeks gestation of (V22.2) (Z3A.36) Abnormal quad screen (796.5) (O28.0) Breast pain in female (611.71) (N64.4) Chronic GERD (530.81) (K21.9) De Quervain's tenosynovitis, bilateral (727.04) (M65.4) Encounter for immunization (V03.89) (Z23) Encounter for screening for cervical cancer (V76.2) (Z12.4) Ingrown toenail of both feet (703.0) (L60.0) Multigravida in second trimester (V22.1) (Z34.82) Nausea and vomiting in (643.90) (O21.9) Pain in both lower extremities (729.5) (M79.604,M79.605) Pain in both wrists (719.43) (M25.531,M25.532) Pelvic pain in female (625.9) (R10.2) Positive urine test (V72.42) (Z32.01) with 20 completed weeks gestation (V22.2) (Z3A.20) with 24 completed weeks gestation (V22.2) (Z3A.24) with 29 completed weeks gestation (V22.2) (Z3A.29) with 31 completed weeks gestation (V22.2) (Z3A.31) Sciatica (724.3) (M54.30) Screen for STD (sexually transmitted disease) (V74.5) (Z11.3) Skin hypopigmentation (709.00) (L81.9) Vaginal discharge (623.5) (N89.8) Vaginal itching (698.1) (N89.8) Past Medical History Problems History of Dupuytren's contracture (728.6) (M72.0) Resolved Date: 12 Oct 2020 History of tendinitis (V13.59) (Z87.39) History of Menarche (V21.8) AGE 15 History of Normal first in first trimester (V22.0) (Z34.01) Resolved Date: 24 Jan 2020 History of Vaginal Pap smear (V76.47) (Z12.72) 08/19/20 WNL 07/05/2019 NIL per records Surgical History Problems No history of surgery Family History Mother Family history of alopecia (V19.4) (Z84.0) Father Family history of glioblastoma (V16.8) (Z80.8) Family history of hypertension (V17.49) (Z82.49) Maternal Grandmother Family history of myocardial infarction (V17.3) (Z82.49) Paternal Grandmother Family history of hypertension (V17.49) (Z82.49) Family history of neoplasm of brain (V19.8) (Z84.89) Social History Problems Consumes alcohol occasionally (V49.89) (Z78.9) No advance directives (V49.89) (Z78.9) Non-smoker (V49.89) (Z78.9) Sexually active Allergies Medication Penicillins Recorded By: Mnoalisa Conway; 11/04/2019 3:08:28 PM [facility] Drugs Recorded By: Monalisa Conway; 11/04/2019 3:08:28 PM Current Meds Medication NameInstruction Nystatin-Triamcinolone 362417-0.1 UNIT/GM-% External CreamAPPLY SPARINGLY TO AFFECTED AREA(S) TWICE DAILY Pantoprazole Sodium 40 MG Oral Tablet Delayed ReleaseTAKE 1 TABLET DAILY. TABS Vitals Vital Signs Recorded: 31Jan2023 09:12AM Egxagldq392 Ddbpllkwl67 Height5 ft 7 in Ppivyi140 lb 8 oz BMI Eddnphvvem01.74 kg/m2 BSA Calculated1.95 Physical Exam Constitutional: Healthy-appearing in no distress. Head and Face: No obvious lesions. Chest: No erythema no discharge no discoloration. Musculoskeletal: Good mobility. Psychiatric: Appropriately oriented with normal mood and affect. Signatures Electronically signed by : Zayda Marsh MD; Jan 31 2023 9:21AM EST (Author) Normal [facility] BASIC METABOLIC PANELon - Anion gap [Moles/Vol] 12 mmol/L Normal 10 - 20 [facility] Comment on above: Performed By: #### B MP #### [address] [address] Calcium [Mass/Vol] 9.3 mg/dL Normal 8.6 - 10.3 [facility] Comment on above: Performed By: #### B MP #### [address] [address] Chloride [Moles/Vol] 107 mmol/L Normal 98 - 107 [facility] Comment on above: Performed By: #### B MP #### [address] [address] Creatinine [Mass/Vol] 0.74 mg/dL Normal 0.50 - 1.05 [facility] Comment on above: Performed By: #### B MP #### [address] [address] eGFR FEMALE >90 Normal >90 [facility] Comment on above: Result Comment: CALC ULATIONS OF ESTIMATED GFR ARE PERFORMED USING THE 2020 CKD-EPI STUDY REFIT EQUATION WITHOUT THE RACE VARIABLE FOR THE IDMS-TRACEABLE CREATININE METHODS. https://jasn.asnjournals.org/content/early//ASN.63527 36[address] Performed By: #### B MP #### [address] [address] Glucose [Mass/Vol] 88 mg/dL Normal 74 - 99 [facility] Comment on above: Performed By: #### B MP #### [address] [address] HCO3 (Bld) [Moles/Vol] 24 mmol/L Normal 21 - 32 [facility] Comment on above: Performed By: #### B MP #### [address] [address] Potassium [Moles/Vol] 4.3 mmol/L Normal 3.5 - 5.3 [facility] Comment on above: Performed By: #### B MP #### [address] [address] Sodium [Moles/Vol] 139 mmol/L Normal 136 - 145 [facility] Comment on above: Performed By: #### B MP #### [address] [address] Urea nitrogen [Mass/Vol] 14 mg/dL Normal 6 - 23 [facility] Comment on above: Performed By: #### B MP #### [address] [address] CALCIUM, IONIZEDon 2 CALCIUM, IONIZED 1.17 mmol/L Normal 1.10 - 1.33 [facility] Comment on above: Performed By: #### I ONC1 #### [address] [address] CBCon 04-11-2022 Erythrocyte distribution width (RBC) [Ratio] 14.0 % Normal 11.5 - 14.5 [facility] Comment on above: Performed By: #### C BC #### [address] [address] Hematocrit (Bld) [Volume fraction] 38.5 % Normal 36.0 - 46.0 [facility] Comment on above: Performed By: #### C BC #### [address] [address] Hemoglobin (Bld) [Mass/Vol] 13.3 g/dL Normal 12.0 - 16.0 [facility] Comment on above: Performed By: #### C BC #### [address] [address] MCHC (RBC) [Mass/Vol] 34.6 g/dL Normal 32.0 - 36.0 [facility] Comment on above: Performed By: #### C BC #### [address] [address] MCV (RBC) [Entitic vol] 91 fL Normal 80 - 100 [facility] Comment on above: Performed By: #### C BC #### [address] [address] Platelets (Bld) [#/Vol] 291 10*3/uL Normal 150 - 450 [facility] Comment on above: Performed By: #### C BC #### [address] [address] RBC 4.22 x10E12/L Normal 4.00 - 5.20 [facility] Comment on above: Performed By: #### C BC #### [address] [address] WBC (Bld) [#/Vol] 7.2 10*3/uL Normal 4.4 - 11.3 [facility] Comment on above: Performed By: #### C BC #### [address] [address] Calcium, Ionized Levelon Calcium, Ionized Level 1.17 mmol/L See Below [facility] [address] Work Phone: [phone] Comment on above: Reference Range: 1.1 0 - 1.33 Cult, Genitalon 04-11-2022 Bacteria identified Aer cx Nom (Genital specimen) [facility] [address] [employer] Work Phone: [phone] FERRITINon 04-11-2022 FERRITIN 76 ug/L Normal 8 - 150 [facility] Comment on above: Performed By: #### F ERRI #### [address] [address] Ferritin, Serumon 04-11-2022 Ferritin [Mass/Vol] 76 ug/L 8 - 150 [facility] [address] Work Phone: [phone] GENITAL CULTURE, BACT.on GENITAL CULTURE, BACT. PATIENT: Samantha HUI [place] [facility] [place] [facility] [place] [id number] : 89 AGE: SEX: F ORDERED BY: ZAYDA MARSH SOURCE: GENITAL COLLECTED: 04/11/22 15:00 ANTIBIOTICS AT [facility].: RECEIVED : 04/11/22 23:56 SITE: Vaginal R E S U L T S GENITAL CULTURE, BACT. FINAL 04/15/22 09:19 NO PATHOGENS Culture examined for Group A Streptococcus, Group B Streptococcus, Neisseria gonorrhoeae and Yeast ONLY. NO Neisseria gonorrhoeae ISOLATED. Normal [facility] Comment on above: Performed By: #### G ENLO #### [facility] [address] [place] [address] Laboratory - Chemistry and C hemistry - challengeon 04-11-2022 Anion gap [Moles/Vol] 12 mmol/L 10 - 20 [facility] [address] Work Phone: [phone] Calcium [Mass/Vol] 9.3 mg/dL 8.6 - 10.3 [facility] [address] Work Phone: [phone] Chloride [Moles/Vol] 107 mmol/L 98 - 107 [facility] [address] Work Phone: [phone] CO2 [Moles/Vol] 24 mmol/L 21 - 32 [facility] [address] Work Phone: [phone] Creatinine [Mass/Vol] 0.74 mg/dL See Below [facility] [address] Work Phone: [phone] Comment on above: Reference Range: 0.5 0 - 1.05 Glucose [Mass/Vol] 88 mg/dL 74 - 99 [facility] [address] Work Phone: [phone] Potassium [Moles/Vol] 4.3 mmol/L 3.5 - 5.3 [facility] [address] Work Phone: [phone] Sodium [Moles/Vol] 139 mmol/L 136 - 145 [facility] [address] Work Phone: [phone] Urea nitrogen [Mass/Vol] 14 mg/dL 6 - 23 [facility] [address] [employer] Work Phone: [phone] Laboratory - Hematology and Cell countson 04-11-2022 Erythrocyte distribution width (RBC) [Ratio] 14.0 % See Below [facility] [address] [employer] Work Phone: [phone] Comment on above: Reference Range: 11. 5 - 14.5 Hematocrit (Bld) [Volume fraction] 38.5 % See Below [facility] [address] [employer] Work Phone: [phone] Comment on above: Reference Range: 36. 0 - 46.0 Hemoglobin (Bld) [Mass/Vol] 13.3 g/dL See Below [facility] [address] [employer] Work Phone: [phone] Comment on above: Reference Range: 12. 0 - 16.0 MCHC (RBC) [Mass/Vol] 34.6 g/dL See Below [facility] [address] [employer] Work Phone: [phone] Comment on above: Reference Range: 32. 0 - 36.0 MCV (RBC) [Entitic vol] 91 fL 80 - 100 [facility] [address] [employer] Work Phone: [phone] Platelets (Bld) [#/Vol] 291 10*3/uL 150 - 450 [facility] [address] [employer] Work Phone: [phone] RBC (Bld) [#/Vol] 4.22 {x10E12/L} See Below [facility] [employer] Work Phone: [phone] Comment on above: Reference Range: 4.0 0 - 5.20 WBC (Bld) [#/Vol] 7.2 10*3/uL 4.4 - 11.3 [facility] [employer] Work Phone: [phone] MAGNESIUMon 04-11-2022 Magnesium [Mass/Vol] 1.96 mg/dL Normal 1.60 - 2.40 [facility] Comment on above: Performed By: #### M G #### [facility] [address] [place] [address] Magnesium, Serumon 2 Magnesium [Mass/Vol] 1.96 mg/dL See Below [facility] [employer] Work Phone: Comment on above: Reference Range: 1.6 0 - 2.40 No Panel Informationon 04-11 >90 >90 [facility] [employer] Work Phone: Comment on above: CALCULATIONS OF HIRAM MATED GFR ARE PERFORMED USING THE 2020 CKD-EPI STUDY REFIT EQUATION WITHOUT THE RACE VARIABLE FOR THE IDMS-TRACEABLE CREATININE METHODS.https://jasn.asnjournals.org/content/early//A SN.6708451926 ASSIGNMENT EDITOR - Visiton 04-11-2022 ASSIGNMENT EDITOR - Visit Chief Complaint Patient here today for 6 weeks post . She had a vaginal delivery on 02/28/22 baby boy. She states she is breast feeding, would like to discuss control, has not been sexually active since and has not had a period. She does complain of vaginal itching, hemorrhoids and bruising easily. History of Present IllnessPatient is 6 weeks . Patient comes in and reports that she has not had bleeding in several weeks. She reports that approximately for about a week and a half she has had some external itching and discomfort. Patient is breast-feeding successfully. Patient is undecided about contraception Active Problems 17 weeks gestation of (V22.2) (Z3A.17) 36 weeks gestation of (V22.2) (Z3A.36) Abnormal quad screen (796.5) (O28.0) Chronic GERD (530.81) (K21.9) De Quervain's tenosynovitis, bilateral (727.04) (M65.4) Encounter for immunization (V03.89) (Z23) Encounter for screening for cervical cancer (V76.2) (Z12.4) Ingrown toenail of both feet (703.0) (L60.0) Multigravida in second trimester (V22.1) (Z34.82) Nausea and vomiting in (643.90) (O21.9) Pain in both wrists (719.43) (M25.531,M25.532) Pelvic pain in female (625.9) (R10.2) Positive urine test (V72.42) (Z32.01) with 20 completed weeks gestation (V22.2) (Z3A.20) with 24 completed weeks gestation (V22.2) (Z3A.24) with 29 completed weeks gestation (V22.2) (Z3A.29) with 31 completed weeks gestation (V22.2) (Z3A.31) Sciatica (724.3) (M54.30) Screen for STD (sexually transmitted disease) (V74.5) (Z11.3) Skin hypopigmentation (709.00) (L81.9) Vaginal discharge (623.5) (N89.8) Past Medical History History of Dupuytren's contracture (728.6) (M72.0) History of tendinitis (V13.59) (Z87.39) History of Menarche (V21.8) AGE 15 History of Normal first in first trimester (V22.0) (Z34.01) History of Vaginal Pap smear (V76.47) (Z12.72) 08/19/20 WNL 07/05/2019 NIL per records Surgical History No history of surgery Family History Family history of alopecia (V19.4) (Z84.0) Family history of glioblastoma (V16.8) (Z80.8) Family history of hypertension (V17.49) (Z82.49) Family history of myocardial infarction (V17.3) (Z82.49) Family history of hypertension (V17.49) (Z82.49) Family history of neoplasm of brain (V19.8) (Z84.89) Social History Consumes alcohol occasionally (V49.89) (Z78.9) No advance directives (V49.89) (Z78.9) Non-smoker (V49.89) (Z78.9) Sexually active Allergies Penicillins Recorded By: Monalisa Conway; 11/04/2019 3:08:28 PM Sulfa Drugs Recorded By: Monalisa Conway; 11/04/2019 3:08:28 PM Current Meds Pantoprazole Sodium 40 MG Oral Tablet Delayed Release; TAKE 1 TABLET DAILY; Therapy: [id number] to (Evaluate:[id number]) Requested for: 04Qfr0550; Last Rx:[id number] Ordered Rx By: Zayda Marsh; Dispense: 30 Days ; #:30 Tablet; Refill: 5;For: Chronic GERD; CHANELL = N; Verified Transmission to [facility] 1448; Last Updated By: Actifio; 10/18/2021 7:48:29 PM Ondansetron HCl - 4 MG Oral Tablet; TAKE 1 TABLET Every 6 hours PRN nausea; Therapy: [id number] to (Evaluate:93Sbe0183) Requested for: 82Ysx0370; Last Rx:[id number] Ordered Rx By: Angel Acevedo; Dispense: 8 Days ; #:30 Tablet; Refill: 3;For: Nausea and vomiting in ; CHANELL = N; Verified Transmission to [facility] 1448; Last Updated By: Actifio; 02/10/2022 9:14:55 PM TABS; Therapy: (Recorded:[id number]) to Recorded Dispense: 0 Days ; #: Sufficient; Refill: 0;For: SocHx: Non-smoker, PMH: Vaginal Pap smear; CHANELL = N; Record; Last Updated By: Monalisa Conway; 11/04/2019 3:08:28 PM Vitals Vital Signs Recorded: 11Apr2022 01:30PM Yymnumta470 Wtxxmeqyz68 Height5 ft 7 in Vnfplw060 lb 6 oz BMI Pcxmupgspy58.95 kg/m2 BSA Calculated2.07 Physical Exam Constitutional: Healthy-appearing in no physical distress. Head and Face: No obvious lesions. Neck: Full range of motion. Pulmonary: Breathing comfortably. Genitourinary: Sexual maturation: External genitalia revealed no lesions the vagina was dry with scant benign discharge. Musculoskeletal: Good mobility of her extremities. Psychiatric: Appropriately oriented with normal mood and affect. Wet mount negative yeast trichomoniasis or BV Diagnoses/Problems Pain in both lower extremities (729.5) (M79.604,M79.605) Vaginal discharge (623.5) (N89.8) Orders Pain in both lower extremities Basic Metabolic Panel; Status:Active; Requested for:11Apr2022; Perform:Lab Services - Lab To Draw (Blood Test); Due:10Jul2022;Ordered; For:Pain in both lower extremities; Ordered By:Zayda Marsh; Calcium, Ionized Level; Status:Active; Requested for:11Apr2022; Perform:Lab Services - Lab To Draw (Blood Test); Due:10Jul2022;Ordered; For:Pain in both lower extremities; Ordered By:Zayda Marsh; Calcium, Serum; Status:Active; Requested for:11Apr2022; Perform:Lab Servic (more content not included)... Normal [facility] VITAMIN B12on 04-11-2022 Cobalamin (Vitamin B12) [Mass/Vol] 835 pg/mL Normal 211 - 911 [facility] Comment on above: Performed By: #### V TB12 #### [address] [address] Vitamin B12, Serumon 022 Cobalamin (Vitamin B12) [Mass/Vol] 835 pg/mL 211 - 911 [facility] [address] [place] Work Phone: CBCon 03-01-2022 Erythrocyte distribution width (RBC) [Ratio] 14.3 % Normal 11.5 - 14.5 [facility] Comment on above: Performed By: #### C BC #### [address] [address] Hematocrit (Bld) [Volume fraction] 33.8 % Low 36.0 - 46.0 [facility] Comment on above: Performed By: #### C BC #### [address] [address] Hemoglobin (Bld) [Mass/Vol] 11.1 g/dL Low 12.0 - 16.0 [facility] Comment on above: Performed By: #### C BC #### [address] [address] MCHC (RBC) [Mass/Vol] 32.8 g/dL Normal 32.0 - 36.0 [facility] Comment on above: Performed By: #### C BC #### [address] [address] MCV (RBC) [Entitic vol] 95 fL Normal 80 - 100 [facility] Comment on above: Performed By: #### C BC #### [address] [address] Platelets (Bld) [#/Vol] 233 10*3/uL Normal 150 - 450 [facility] Comment on above: Performed By: #### C BC #### [address] [address] RBC 3.57 x10E12/L Low 4.00 - 5.20 [facility] Comment on above: Performed By: #### C BC #### [address] [address] WBC (Bld) [#/Vol] 13.2 10*3/uL High 4.4 - 11.3 [facility] Comment on above: Performed By: #### C BC #### [address] [address] Daily Progress Note - OB-Pos t-partumon 03-01-2022 Daily Progress Note - JQ-Feid-ggqwjj Current Stage: Stage: Post- Subjective Data: Post : Ambulate: Yes Flatus: Yes Tolerate Diet: Yes : PPD #1 Resting well. Breast feeding. Objective Information: Objective Information: T PRBPMAPSpO2 [id number]/[id number] % Date/Time03/01::::: 0:00 Range(36.5C - 36.8C ) (69 - 132 ) (14 - 20 ) (118 - 144 )/ (56 - 81 ) (76 - 98 ) (92% - 100% ) Pain reported at 03/01 5:43: 0 = None Physical Exam: Obstetric: Abdomen: soft and non-tender Respiratory/Thorax: normal respiratory effort, lungs clear, no wheezes or rhonchi Cardiovascular: S1 S2 RRR, no murmurs Extremities: no calf tenderness, reflexes 2+ Recent Lab Results: Results: CBC: 03/01/2022 05:37 \ Hgb / \ 11.1 L / WBC Plt 13.2 H 233 / Hct \ / 33.8 L \ RBC: 3.57 L MCV: 95 Assessment and Plan: Additional Dx: First degree perineal laceration: Entered Date: 28-Feb-2022 00:49 Single live : Entered Date: 02-Jun-2020 14:32 Normal spontaneous vaginal delivery: Entered Date: 02-Jun-2020 14:32 39 weeks gestation of : Entered Date: 01-Jun-2020 07:37 Assessment: PPD #1 Home today. Will discuss contraception at the post visit. Electronic Signatures: Benny Cooper) (Signed 01-Mar-2022 07:40) Authored: Current Stage, Subjective Data, Objective Data, Assessment and Plan, Note Completion Last Updated: 01-Mar-2022 07:40 by Benny Cooper) [facility] Discharge [id number] 022 Discharge Profile2 Discharge Orders: Anticipated Discharge Date: Anticipated Discharge [id number] Problem List: Additional Dx: First degree perineal laceration: Catalog Name: First degree perineal laceration during delivery Single live : Catalog Name: Single live Normal spontaneous vaginal delivery: Catalog Name: Encounter for full-term uncomplicated delivery 39 weeks gestation of : Catalog Name: 39 weeks gestation of Hospital Providers: Provider RoleProvider Name AttendingBenny Cooper DNAR: Code Status at Discharge: Full Code : Activity: Return to normal activity as tolerated. Patient Instructions: Pelvic Rest: DO NOT place anything in vagina until cleared by OB Provider. Diet: Regular. Follow-Up - OB Provider: Physician/Dept/Mario Centeno MD Call to Schedule in6 weeks [place] / [place] 4 / NICU: Patient / Family Instructions - Feeding: - FEEDING. Patient / Family Instructions - Care: - Cord Care: If cord is soiled, clean with soap and water and allow to dry well. Fold the top of the diaper down away form the cord. The cord should fall off in 1-4 weeks. Sponge bath every 2-3 days until cord falls off. - For Circumcised Babies: Cover the circumcised area with petroleum jelly (such as Vaseline) for the first 24 hours. As the penis heals, a soft yellow film forms. Healing takes 7-10 days. - Please have a thermometer at home to take temperature. A fever (temperature above 100 degrees Fahrenheit) in the first 2 months of life is a medical emergency and the baby should be seen by the dipper and baker right away. Discharge & Follow Up: - DISCHARGE & FOLLOW UP. - It is VERY IMPORTANT to keep your babys appointment with the dipper and baker within 48 hours. Safety: - SAFETY. - Do not use hot or cold water. Test water temperature before bathing baby. Never leave a baby in or near water. Supervise other children when around baby. - NEVER SHAKE A BABY. - To reduce the risk of Sudden Infant Syndrome: 1) Breastfeed. 2) Do not let baby sleep with anyone; baby should have own sleeping area. Have baby lie on back while asleep. 3) No smoke of any kind around the baby; limit smoke exposure (including smoke on clothes) when handling the baby. 4) Do not put anything in the crib. - Do not sleep in same bed/couch with baby. Call Provider If: - Breathing harder or faster than normal or having retractions. - Temperature greater than 100 degrees Fahrenheit. - Acting very sleepy and/or difficult to awaken or crying inconsolably. - Excessive vomiting. - Frequent watery stools. - Urinating less than 4 times a day - less than 4 wet diapers a day. - Cord area is red, smelly or has drainage. - Circumcision bleeds, swells, drains or has redness. - Increased yellowing of the eyes or skin (jaundice). - Any new concerning symptom. - Your babys doctors office is available 24 hours a day if you have questions or concerns about your babys health. You can also call a [place] nurse at [phone] ([phone]) any time of day or night. In case of medical emergency, you should take your child to the emergency room right away. Resources: - [employer]: [phone] ([facility]). - [employer]: [phone] ([place]). - [employer]: [phone] ([facility]). - [employer]: [phone] ([place]). - [employer]: [phone] ([place]). - [employer] [phone] ([facility]). - [employer]: [phone] ([place]). - United Way: 211. - Help Me Grow (if eligible): [phone]. Hospital Course (Home Care/Gold Form): Hospital Course: Hospital Course: include significant abnormal lab values Patient progressed through labor well and had a spontaneous vaginal delivery for a viable male infant on February 28, 2022. Patient discharged on post day 1. Provider FINAL REVIEW of Orders: Final Review: Final Review of Medication Reconciliation and Orders Completedby Physician Reviewing ProviderBenny Cooper MD at 01-Mar-2022 07:42:48 Other Clinician Instructions: Other Instructions: Other Clinician InstructionsAny woman can have complications after the of a baby including a blood clot, a heart problem, hypertensive disorder/eclampsia, depression, hemorrhage, or infection. Notify all providers of your delivery date up to one year after .* Call 911 or go to nearest emergency room right away if you have: PAIN or pressure in chest; OBSTRUCTED breathing or shortness of breath; SEIZURES; THOUGHTS of hurting yourself or your baby; heart palpitations/racing; change in alertness/confusion. Call your provider if you have: BLEEDING, soaking through a pad/hour, or blood clots the size of an egg or bigger; INCISION (episiotom (more content not included)... [facility] Order Reconciliationon 03-01 Order Reconciliation Page 1 Admission Reconciliation Document Reconciliation Type: Admission requested on behalf of Benny Cooper (Physician) done by Benny Cooper) Admission - Reconciliation: 01-Mar-2022 07:43 by: Benny Cooper) Home MedicationsEnteredLast Dose TakenReconciled with current Order Reconciliation Comment/ Additional Information lansoprazole 30 mg oral delayed release capsule 1 cap(s) orally once a day 01-Mar-2022 Reviewed and Held Hernshaw-3 oral capsule 01-Mar-2022 Reviewed and Held 19 ([place]) oral tablet 1 tab(s) orally once a [id number] Reviewed and Held Additional Current Orders Acetaminophen Tablet (TYLENOL)DOSE = 975 mg Oral Every 6 HoursClinician Notes: Give with Ibuprofen. Benzocaine 20% - Menthol 0.5% Topical Buckhead (DERMOPLAST)DOSE = 1 application(s) Topical 4 Times a Day, PRN DiscomfortApply to Perianal Area Bisacodyl Rectal Suppository (DULCOLAX)DOSE = 10 mg Rectal Daily, PRN Severe constipation Carboprost IntraMuscular (HEMABATE)DOSE = 250 microgram(s) IntraMuscular Once, PRN post bleeding in non-asthmatic patientClinician Notes: Consult provider prior to administration. diphenhydrAMINE Capsule (BENADRYL)DOSE = 25 mg Oral Every 6 Hours, PRN Itching Docusate Capsule (COLACE)DOSE = 100 mg Oral 2 Times a Day, PRN Stool Softening Enoxaparin SubCutaneous (LOVENOX)DOSE = 40 mg SubCutaneous Every 24 HoursClinician Notes: Wait 4 hours after neuraxial catheter removal AND 12 hours after placement of neuraxial catheter. BMI less than 35 with a score greater than 5 OR BMI 35 to 39.9 regardless of score. hydrALAZINE (APRESOLINE) Injectable DOSE = 5 mg IntraVenous Push Once, PRN Acute-onset, severe HTN w/out known, suspected CADClinician Notes: Consult provider prior to administration. Push over more than 2 minutes. Systolic greater than or equal to 160 OR Diastolic greater than or equal to 110. Contraindication: coronary artery disease (CAD); Caution in suspected CAD. Ibuprofen Tablet (ADVIL, MOTRIN)DOSE = 600 mg Oral Every 6 HoursClinician Notes: Give with Acetaminophen. Labetalol Injectable (TRANDATE)DOSE = 20 mg IntraVenous Push Once, PRN Acute-onset, sev HTN w/o active asthma, lucas<60Clinician Notes: Consult provider prior to administration. Push over more than 2 minutes. Systolic greater than or equal to 160 OR Diastolic greater than or equal to 110. Contraindications: active asthma, heart disease, heart failure, maternal bradycardia < 60. Lanolin Topical Ointment (LANSINOH)DOSE = 1 application(s) Topical Every 24 Hours, PRN Dry SkinApply to NippleClinician Notes: After and PRN Loperamide Capsule (IMODIUM)DOSE = 4 mg Oral Every 2 Hours, PRN If Carboprost given or loose stoolsClinician Notes: Max dose of 16mg / 24 hours Magnesium Hydroxide -Al Hydrox -Simethicone Oral Liquid (MAALOX)DOSE = 30 mL Oral Every 4 Hours, PRN Indigestion Magnesium Hydroxide Oral Liquid CONCENTRATE (MILK OF MAGNESIA)DOSE = 10 mL Oral Every 24 Hours, PRN Constipation Measles -Mumps -Rubella (Live) MMR Vaccine DOSE = 0.5 mL SubCutaneous Once, PRN if patient screen is non- immune or equivocalClinician Notes: administer if patient screen is non- immune or equivocal medroxyPROGESTERone Injectable (PROVERA)DOSE = 150 mg IntraMuscular Once, PRN contraceptionClinician Notes: Before DischargeNotes from Pharmacy: Low Risk Hazardous Drug- Single Nitrile Glove Methylergonovine Injectable (METHERGINE)DOSE = 0.2 mg IntraMuscular Once, PRN PPH in pts w/o HTN or receiving ART for HIV mgmt.Clinician Notes: Consult provider prior to administration.Notes from Pharmacy: Reproductive Risk - Single Nitrile Glove Metoclopramide Injectable (REGLAN)DOSE = 10 mg IntraVenous Push Every 6 Hours, PRN persistent PONV if first line ineffective miSOPROStol Rectal Tablet (Cytotec)DOSE = 800 microgram(s) Rectal Once, PRN post bleedingClinician Notes: Consult provider prior to administration.Notes from Pharmacy: Reproductive Risk - Single Nitrile Glove NIFEdipine (PROCARDIA) CapsuleDOSE = 10 mg Oral Once, PRN Acute-onset, severe HTN w/out IV access/ pref oralClinician Notes: Consult provider prior to administration. Systolic greater than or equal to 160 OR Diastolic greater than or equal to 110. Capsules administered orally and swallowed whole; Do not puncture or crush; Do not administer sublingually. Ondansetron Injectable (ZOFRAN)DOSE = 4 mg IntraVenous Push Every 6 Hours, PRN PONV, first line Oxytocin 30 units/ NaCL 0.9% 500 mL Infusion with Bolus from Bag IntraVenous (PITOCIN)INITIAL Bolus = 600 milliunits/min infused over 30 minutesDose Rate: 60 milliunits/minAdmin Rate = 60 mL/hrStop After 1 DosesClinician Notes: Conditional order. 600 milliunits/min x 30 mins., then 60 milliunits/min for the remainder of the bag. Consult Provider prior to administration.Notes from Pharmacy: DOSE Rate = 60 milliunits/min = 60 mL/hr. Sodium Chl (more content not included)... [facility] Order Reconciliation Page 1 Discharge Reconciliation Document Reconciliation Type: Discharge requested on behalf of Benny Cooper (Physician) done by Benny Cooper) Discharge - Reconciliation: 01-Mar-2022 07:43 by: Benny Cooper) Home Medications EnteredHOME MEDICATIONS AT DISCHARGE DateReconciliation Comment/ Additional Information lansoprazole 30 mg oral delayed release capsule 1 cap(s) orally once a day 02-Feb-2022 09:50 lansoprazole 30 mg oral delayed release capsule 1 cap(s) orally once a day 02-Feb-2022 09:50 lansoprazole 30 mg oral delayed release capsule is continued as lansoprazole 30 mg oral delayed release capsule Hernshaw-3 oral capsule 27-Feb-2022 19:19 Hernshaw-3 oral capsule 27-Feb-2022 19:19 Hernshaw-3 oral capsule is continued as Hernshaw-3 oral capsule 19 ([place]) oral tablet 1 tab(s) orally once a day 28-May-2020 17:21 19 ([place]) oral tablet 1 tab(s) orally once a day 28-May-2020 17:21 19 ([place]) oral tablet is continued as 19 ([place]) oral tablet Current OrdersDateHOME MEDICATIONS AT DISCHARGE DateReconciliation Comment/ Additional Information Acetaminophen Tablet (TYLENOL)DOSE = 975 mg Oral Every 6 HoursClinician Notes: Give with Ibuprofen. 28-Feb-2022 00:43 Acetaminophen is not required Benzocaine 20% - Menthol 0.5% Topical Buckhead (DERMOPLAST)DOSE = 1 application(s) Topical 4 Times a Day, PRN DiscomfortApply to Perianal Area 28-Feb-2022 00:43 Benzocaine 20% - Menthol 0.5% Topical is not required Bisacodyl Rectal Suppository (DULCOLAX)DOSE = 10 mg Rectal Daily, PRN Severe constipation 28-Feb-2022 00:43 Bisacodyl Rectal is not required Carboprost IntraMuscular (HEMABATE)DOSE = 250 microgram(s) IntraMuscular Once, PRN post bleeding in non-asthmatic patientClinician Notes: Consult provider prior to administration. 28-Feb-2022 00:43 Carboprost IntraMuscular is not required diphenhydrAMINE Capsule (BENADRYL)DOSE = 25 mg Oral Every 6 Hours, PRN Itching 28-Feb-2022 00:43 diphenhydrAMINE is not required Docusate Capsule (COLACE)DOSE = 100 mg Oral 2 Times a Day, PRN Stool Softening 28-Feb-2022 00:43 Docusate is not required Enoxaparin SubCutaneous (LOVENOX)DOSE = 40 mg SubCutaneous Every 24 HoursClinician Notes: Wait 4 hours after neuraxial catheter removal AND 12 hours after placement of neuraxial catheter. BMI less than 35 with a score greater than 5 OR BMI 35 to 39. 28-Feb-2022 00:43 Enoxaparin SubCutaneous is not required hydrALAZINE (APRESOLINE) Injectable DOSE = 5 mg IntraVenous Push Once, PRN Acute-onset, severe HTN w/out known, suspected CADClinician Notes: Consult provider prior to administration. Push over more than 2 minutes. Systolic greater than or equal to 16 28-Feb-2022 00:43 hydrALAZINE (APRESOLINE) Injectable is not required Ibuprofen Tablet (ADVIL, MOTRIN)DOSE = 600 mg Oral Every 6 HoursClinician Notes: Give with Acetaminophen. 28-Feb-2022 00:43 Ibuprofen is not required Labetalol Injectable (TRANDATE)DOSE = 20 mg IntraVenous Push Once, PRN Acute-onset, sev HTN w/o active asthma, lucas<60Clinician Notes: Consult provider prior to administration. Push over more than 2 minutes. Systolic greater than or equal to 160 OR 28-Feb-2022 00:43 Labetalol Injectable is not required Lanolin Topical Ointment (LANSINOH)DOSE = 1 application(s) Topical Every 24 Hours, PRN Dry SkinApply to NippleClinician Notes: After and PRN 28-Feb-2022 00:43 Lanolin Topical is not required Loperamide Capsule (IMODIUM)DOSE = 4 mg Oral Every 2 Hours, PRN If Carboprost given or loose stoolsClinician Notes: Max dose of 16mg / 24 hours 28-Feb-2022 00:43 Loperamide is not required Magnesium Hydroxide -Al Hydrox -Simethicone Oral Liquid (MAALOX)DOSE = 30 mL Oral Every 4 Hours, PRN Indigestion 28-Feb-2022 00:43 Magnesium Hydroxide -Al Hydrox -Simethicone Oral Liquid is not required Magnesium Hydroxide Oral Liquid CONCENTRATE (MILK OF MAGNESIA)DOSE = 10 mL Oral Every 24 Hours, PRN Constipation 28-Feb-2022 00:43 Magnesium Hydroxide Oral Liquid CONCENTRATE is not required Measles -Mumps -Rubella (Live) MMR Vaccine DOSE = 0.5 mL SubCutaneous Once, PRN if patient screen is non- immune or equivocalClinician Notes: administer if patient screen is non- immune or equivocal 28-Feb-2022 00:43 Measles -Mumps -Rubella (Live) MMR Vaccine is not required medroxyPROGESTERone Injectable (PROVERA)DOSE = 150 mg IntraMuscular Once, PRN contraceptionClinician Notes: Before DischargeNotes from Pharmacy: Low Risk Hazardous Drug- Single Nitrile Glove 28-Feb-2022 00:43 medroxyPROGESTERone Injectable is not required Methylergonovine Injectable (METHERGINE)DOSE = 0.2 mg IntraMuscular Once, PRN PPH in pts w/o HTN or receiving ART for HIV mgmt.Clinician Notes: Consult provider prior to administration.Notes from Pharmacy: Reproductive Risk - Single Nitrile Glove 28-Feb-2022 00:43 Methylergonovine Injectable is not required (more content not included)... [facility] Admission Risk Screen - [place] 02-28-2022 Admission Risk Screen - OB Allergies: Allergies: penicillin: Hives/Urticaria sulfADIAZINE: Hives/Urticaria Patient Verification: New W ID Band Applied in my Departmentyes Patient Identity Verified Bypatient ID Band FULL Name, include Middle, spelling matches patient's ID used for verificationyes ID Band Matches Patient ID used for Verficationyes ID Band MRN Matches EMR MRNyes Visitor Restriction: Coronavirus Visitor Restriction: Reasonable restrictions to in-person visitors will be observed due to current coronavirus pandemic. Travel History: COVID-19 Screening Completedno exposure or symptoms(1) Travel or Exposure Past 30 DaysNO travel to International locations in the past 30 days Advance Directive: Advance Directive/DNRno Advance Directive Information Givenyes Crowell Fall Screen: History of falling (immediate or previous)no (0) Secondary Diagnosisyes (15) Intravenous Therapy/ Heparin/Saline Lockno (0) Gait/Transferringnormal/ bedrest/wheelchair (0) Ambulatory Aidsnone/bedrest/nurse assist (0) Mental Statusoriented to own ability (0) Score: Low risk (<25). Moderate risk (25-44). High risk (>44).15 Crowell InterventionsLOW INTERVENTIONS: *patient oriented to surroundings and call system, * patient/family falls education completed and documented, *patients fall status communicated during bedside handoff, *whiteboard updated, *mode of toileting discussed with patient, *bed in low position with brakes locked, *call light in reach, * non-skid footwear Functional screen: Functional Screen: In the recent/past 2-4 weeks, patient or family have noticedno issues that require a rehabilitation consult at this time Learning Assessment (Patient): Patient is Able to be Assessed for Learningyes Factors Influencing Readiness to Learninterest in learning Factors that Impact Ability to Learnvisual problems Devices/Methods Used to Communicateglasses Learning Preferencesverbal instruction; skill demonstration Cultural Considerationsnone Developmental Considerationsnone Mu-Ism Considerationsnone Learning Assessment (Other Learner): Other learner availableno Nutrition Risk Screen: Nutrition Risk Screenno indicators present Nutrition Consult needed this visitno Can Patient Participate in Room Serviceyes Pain Screen: Pain Control Method: Laborepidural Pain Control Method: Postpartummedication Pain Scalenumerical 0-10 Pain Scale Educationteaching provided Acceptable Pain Level4 = Moderate Presence of Painyes Expression of Pain (nonverbal)guarding, moaning Chronic Painno Skin - Barry Scale: Barry Scale (daily): Barry: Sensory Perception (response to environment)(4) no impairment Barry: Moisture (degree skin exposed to moisture)(4) rarely moist Barry: Activity (ability to walk)(4) walks frequently Barry: Mobility (amount/control of body movement)(4) no limitation Barry: Nutrition (quality of food intake)(4) excellent Barry: Friction and Shear(3) no apparent problem Barry: Score23 Pressure Injury Present on Admissionno Spiritual Screen: Are there any cultural, spiritual, adventism practices/values/needs that are important for us to knowno Do you want a visit/item from [facility] Would you like your Fruit And Vegetable Packer/Microelectronics Engineer notifiedno Depression Screen: During the past month, have you often been bothered by feeling down, depressed or hopelessno During the past month, have you often had little interest or pleasure in doing thingsno Have you had any thoughts of harming anyone elseno [place] Suicide: Risk Screen Not Applicable/Able to Answerable to be screened In the Past Month: Have you wished you were or could go to sleep and not wake upno In the Past Month: Have you had any actual thoughts of killing yourselfno Lifetime: Have you ever done, started to do, or prepared to do anything to end your lifeno [place] Suicide Risknegative Family Violence Screen: Are you or have you been threatened or abused physically, emotionally, or sexually by anyoneno Do you feel UNSAFE going back to the place where you are livingno Clinical assessment: Are there any apparent signs of injuries/behaviors that could be related to abuse/neglectno Social Service Consult for abuse/neglect needed this visitno Vaccinations: Vaccination - Influenza Vaccination Screen: Is it flu season (between and January 27)No Vaccination - Pneumonia Vaccination Screen: Patient has received a previous pneumonia vaccine:no/unknown... Immunocompetent persons with underlying chronic conditions or reside in oysterman care facilitiesnone of these conditions Persons with Functional or Anatomic Asplenianone of these conditions Immunocompromised Personsnone of these conditions Pneumonia vaccine NOT indicated due to:patient DOES NOT have a condition that indicates vaccination No contraindications to vaccine Pneumonia vaccin (more content not included)... [facility] CBCon 02-28-2022 Erythrocyte distribution width (RBC) [Ratio] 13.7 % Normal 11.5 - 14.5 [facility] Comment on above: Performed By: #### C BC #### [address] [address] Hematocrit (Bld) [Volume fraction] 38.2 % Normal 36.0 - 46.0 [facility] Comment on above: Performed By: #### C BC #### [address] [address] Hemoglobin (Bld) [Mass/Vol] 12.7 g/dL Normal 12.0 - 16.0 [facility] Comment on above: Performed By: #### C BC #### [address] [address] MCHC (RBC) [Mass/Vol] 33.2 g/dL Normal 32.0 - 36.0 [facility] Comment on above: Performed By: #### C BC #### [address] [address] MCV (RBC) [Entitic vol] 93 fL Normal 80 - 100 [facility] Comment on above: Performed By: #### C BC #### [place] [id number] Platelets (Bld) [#/Vol] 264 10*3/uL Normal 150 - 450 [facility] Comment on above: Performed By: #### C BC #### [place] [id number] RBC 4.11 x10E12/L Normal 4.00 - 5.20 [facility] Comment on above: Performed By: #### C BC #### [place] [id number] WBC (Bld) [#/Vol] 21.1 10*3/uL High 4.4 - 11.3 [facility] Comment on above: Performed By: #### C BC #### [place] [id number] CORONAVIRUS 2019, SCREEN ASY MPTOMATICon 02-28-2022 Lab Specimen Source Nasal, Nasopharyngeal [facility] Comment on above: Performed By: #### C OVSC ####[place] [id number] SARS-CoV-2 (COVID-19) RNA RADHA+probe Ql (Unsp spec) Not detected Normal Not Detected [facility] Comment on above: Result Comment: . This test has received FDA Emergency Use Authorization (EUA) and has been verified by [facility]. This test is only authorized for the duration of time that circumstances exist to justify the authorization of the emergency use of in vitro diagnostic tests for the detection of SARS-CoV-2 virus and/or diagnosis of COVID-19 infection under section 564(b)(1) of the Act, 21 U.S.C. 360bbb-3(b)(1), unless the authorization is terminated or revoked sooner. [facility] is certified under CLIA-88 as qualified to perform high complexity testing. Testing is performed in the [facility] laboratory located at [address] [place] [address]. SARS-CoV-2/Flu/RSV Multiplex Test: Fact sheet for providers: https://www.fda.gov/media/393377/download Fact sheet for patients: https://www.fda.gov/media/520681/download Performed By: #### C OVSC ####[place] [address] Covid 19 Resultson 2 SARS-CoV-2 (COVID-19) RNA RADHA+probe Ql (Unsp spec) NEGATIVE COVID-19 Test Coronaviruses are common world-wide and are the cause of many common colds. SARS-COV2 is a new coronavirus that began circulating worldwide in 2019 so we are calling it COVID-19. It has been estimated that four out of five patients with COVID-19 will recover at home without the need for medical attention. Symptoms of COVID-19 may include cough, fever, shortness of breath, loss of taste or smell and other flu-like symptoms including chills, sore muscles, sore throat, and headache. Severe illness is more common in older people and people with other health problems such as high blood pressure, obesity, and immune system problems. If the test is positive, you have COVID-19. You will be contacted by the ordering physicians office and instructed to remain on home isolation, in accordance with CDC guidelines. You may also be contacted by the [facility] to see if any of your close contacts may have been exposed to the virus and need to quarantine. If the test is negative, you likely do not have COVID-19 at this time, but you still may have a different illness that can spread to other people (like Influenza, or the Flu) and could still be at risk for getting COVID-19. We recommend that you stay away from other people to limit the spread of illness until your symptoms are improving and you are fever-free for 24 hours without the use of fever lowering medications such as acetaminophen or ibuprofen. No test is 100% accurate so if you are still concerned you may have COVID-19, talk to your doctor about the need to continue to stay away from others. Medicines Unless your provider told you not to use the following: Acetaminophen (Tylenol and others) is generally safe. Anti-inflammatory medications, such as Ibuprofen (Advil or Motrin) or Naproxen (Aleve) can also be used. Mcll-zem-jchahob cough and cold medicines can be used according to the instructions on the package. Some mais-dil-wwkrdyg medicines also contain acetaminophen. Make sure you are not taking more than your recommended dose. For those not hospitalized, there is no specific treatment available for this illness. Antibiotics do not treat Coronaviruses. Follow-Up Follow up with your doctor by scheduling a virtual visit or consider follow-up at one of our urgent care fever clinics. If you are having difficulty breathing, or are very weak and having difficulty standing, this is a medical emergency. Call 911 or have someone take you to the nearest emergency room immediately. If possible, wear a facemask. Additional guidance from the CDC for patients who tested POSITIVE for COVID-19 How to isolate: Isolate yourself in a specific room at home and limit your contact with others. Use a separate bathroom from other members of the household, when possible. Leave home only to get essential medical care. Do not go to work, school or public areas. Avoid using public transportation, ride-sharing, or taxis. Restrict contact with pets and other animals. If you must care for your pet or be around animals while you are sick, wash your hands before and after your interaction and wear a facemask. Make sure that shared spaces in the home have good airflow, such as by an air conditioner or an opened window, weather permitting. Personal Hygiene Procedures: Wear a face mask when in the same room as other people or pets. If a face mask interferes with your breathing, others should wear a mask when sharing space with you. Frequent hand-washing: wash your hands with soap and water for at least 20 seconds. If soap and water are not available, use alcohol-based hand entry level web developer. Avoid touching your eyes, nose, and mouth with unwashed hands. Household Hygiene Procedures: Avoid sharing personal household items such as dishes, glassware, cups, eating utensils, towels or bedding with other people or pets in your home. After use, these items should be washed with soap and hot water. Disinfect all high-touch surfaces every day with antibacterial cleaning solutions such as Lysol wipes, bleach, cleansers, etc. High-touch surfaces include tabletops, doorknobs, bathroom fixtures, toilets, phones, keyboards, tablets and bedside tables. Immediately clean any surfaces that may have blood, poop or body fluids on them, using antibacterial cleaning solutions such as Lysol wipes, bleach, cleansers, etc. If clothing or bedding come into contact with blood, poop or body fluids, they should be washed immediately. Follow the directions on the laundry detergent and clothing labels but hot water is recommended when possible. Stopping home isolation precautions: If possible, consult your doctor before stopping home isolation precautions. According to the CDC, you can discontinue home isolation precautions when you have met both of these criteria: Your fever and respiratory symptoms have been gone for 24 kaden (more content not included)... [facility] Daily Progress Note - OB-Pos t-partumon 02-28-2022 Daily Progress Note - AW-Udxs-cnxrta Current Stage: Stage: Post- Subjective Data: Post : Ambulate: Yes Flatus: Yes Tolerate Diet: Yes : PPD #1/2 Resting well. Breast feeding Objective Information: Objective Information: T PRBPMAPSpO2 Value36.19685186/105179% Date/Time02/28 8: 8: 8: 8: 8: 8:24 Range(36.6C - 36.7C ) (69 - 132 ) (16 - 20 ) (120 - 144 )/ (59 - 81 ) (85 - 98 ) (92% - 100% ) Pain reported at 02/28 10:36: 1 = Mild Physical Exam: Constitutional: alert, oriented Obstetric: Abdomen: Soft and nontender Respiratory/Thorax: normal respiratory effort, lungs clear, no wheezes or rhonchi Cardiovascular: S1 S2 RRR, no murmurs Extremities: no calf tenderness, reflexes 2+ Recent Lab Results: Results: CBC: 02/28/2022 01:14 \ Hgb / \ 12.7 / WBC Plt 21.1 H 264 / Hct \ / 38.2 \ RBC: 4.11 MCV: 93 Assessment and Plan: Additional Dx: First degree perineal laceration: Entered Date: 28-Feb-2022 00:49 Single live : Entered Date: 02-Jun-2020 14:32 Normal spontaneous vaginal delivery: Entered Date: 02-Jun-2020 14:32 39 weeks gestation of : Entered Date: 01-Jun-2020 07:37 Assessment: PPD#1/2 Progressing well. Electronic Signatures: Benny Cooper) (Signed 28-Feb-2022 12:27) Authored: Current Stage, Subjective Data, Objective Data, Assessment and Plan, Note Completion Last Updated: 28-Feb-2022 12:27 by Benny Cooper) [facility] Delivery Recordon 02-28-2022 Delivery Record Lab Tests/Results: Labs: Labs: Blood Typed Date: 17-Aug-2021 Blood Type: O positive Antibody Screen Results: negative Chlamydia Date: 17-Aug-2021 Chlamydia Results: negative Gonorrhea Date: 17-Aug-2021 Gonorrhea Results: negative Group B Strep Date: 02-Feb-2022 Strep Results: negative GCT (dd-mmm-yy): 01-Dec-2021 GCT result: 97 HBsAG Date: 17-Aug-2021 HBsAG Results: negative HIV Date: 17-Aug-2021 HIV Results: negative Rubella Date: 17-Aug-2021 Rubella Results: immune Rubella Comments: Result Value POSITIVE Syphilis (mmm-dd-yyyy): 17-Aug-2021 Syphilis Results: negative Delivery Information: [place] A Delivery Information: Baby A Delivery: Rupture of Membranes date/[id number]-[id number]-[id number] 00:08 Amniotic Fluid Colormeconium staining Delivery Typevaginal delivery Delivery Locationlabor and delivery Delivery Date/[id number] 00:12 Length of Time of ROM (rounded down to nearest hour)0 Sexmale Identification Band [id number] Electronic Transponder [id number] ID Bands Verified byVernell Cha RN 4th ID band toVinny FOB Weight (kg)3.545 kilogram(s) Length (cm)51.5 centimeter(s) Head Circumference (cm)33 centimeter(s) Chest Circumference (cm)33.5 Delivery of Placenta (hh:mm)00:17 Baby A: Placenta disposaldiscarded 1 Min: Heart [place] than 100 beats/min Respiratory Rategood, crying Muscle Tonewell flexed Reflex Irritabilitycough or sneeze Colorblue, pale 1 Minute Score, Baby A8 Apgars assessed byVernell Cha RN 5 Min: Heart [place] than 100 beats/min Respiratory Rategood, crying Muscle Tonewell flexed Reflex Irritabilitycough or sneeze Colorbody pink, extremities blue 5 Minute Score, Baby A9 Apgars assessed byKChelsea Cha RN Resuscitation Efforts: Vigorous at Birthyes Baby A: Transfer Baby A: Transfer toRemains with mother Delivery Team: Baby NurseC. ZITA Perez Electronic Signatures: Deb Cha (RN) (Signed 28-Feb-2022 03:22) Authored: Lab Tests/Results, [place] Delivery Information Last Updated: 28-Feb-2022 03:22 by Deb Cha (RN) [facility] Discharge Planning [id number] 0 5 Discharge Planning Note2 Discharge Planning: Anticipated Discharge [id number] Discharge Planning Date and Time: 02/28/2022 @ 0000 Discharge Planning initiated on admission and formally reevaluated at this time. Patient independent with ambulation and ADL's prior to admission. Additional home going needs anticipated at this time: #### Handouts given to and reviewed with patient/caregiver per unit folder standards. Patient verbalizes understanding and denies any other post-discharge needs. Plan to continue to assess home going/discharge needs. Coordinate with interdisciplinary team as needed. Signature: Vernell Cha RN Date and Time: #### According to plan, patient discharged home with #### Discharge instructions printed and reviewed. Teaching provided on new medications, self-care, signs and symptoms to report, and follow-up appointments. Patient verbalized understanding and denies any questions at time of discharge. Patient instructed to call provider with any additional questions after discharge. Signature: #### Assessment: Discharge Planning Assessment [id number] Lives Withspouse(1) Arrived Fromepping (1) Resource/Environmental Concernsnone(1) Anticipated Transition Toepping(1) Services Anticipated at Transitionnon(1) Nursing Checklist: Lines/Cathetersremoved/a ppropriate for next level of care Discharge Med Rec Reconciled with Sanjeev Patient has Prescriptionsno prescriptions needed Transportation for Discharge Confirmedyes Follow up Reviewedyes DME equipment orderedno, need prescription Discharge Instructions Reviewed WithFamily Discharge Instructions Outcomeverbalize recall/understanding Discharge Instructions Review Completed with Patient/Family (diet, activity, pt instructions)yes Discharge Documentation: Discharge/Transfer Date/[id number] 11:30 Discharged Accompanied Byspouse Discharge Modeambulatory Transportation Methodprivate car Code StatusCode Status order at time of discharge: Full Code [place] DNR Form Sent with Patient and/or Familyn/a Final DispositionHome Electronic Signatures: Desire Aldrich (RN) (Signed 01-Mar-2022 12:05) Authored: Discharge Planning, Nursing Checklist, Discharge Documentation Deb Cha) (Signed 28-Feb-2022 01:53) Authored: Discharge Planning, Assessment Last Updated: 01-Mar-2022 12:05 by Desire Aldrich (ZITA) References: 1. Data Referenced From Patient Profile - OB v3 28-Feb-2022 01:49 [facility] Patient Profile - OB v3on Patient Profile - OB v3 Profile: Initial Info: How to be AddressedVeronica(1) Spoken Language PreferredEnglish (2) Source of Informationpatient Reason for admission this visitexpected delivery Wants Family/Rep Notified of Admissionn/a; family present Notify PCPdeferred, unable to answer Informed of Patient Visiting Rightsyes Arrived From[place] Patient Belongingsnone Home Meds have been Reviewed and Verified with Patient/Familyyes Medications Brought to Hospitalno Info: Gravida2 (2) Term Deliveries1 (2) Deliveries0 (2) Abortions0 (2) Living Children1 (2) Patient stated [id number] Calculation of EGA based on patient stated EDD39.2 Records availableyes Trimester Care Initiatedfirst Care ProviderDr Marsh Current Risksnone Testsnonstress test; ultrasound Previous live (any gestational age)yes Most Recent Live [id number] All Previous Delivery Type(s)vaginal delivery All Previous /Delivery Complicationsnone [place]anno Baby's Post Discharge Care Provider (Provider Name, Address and Phone Number) Dr Tam Logan Benefits of Breast Milk DiscussionThe benefits of exclusive breast milk feeding and the risk of adding formula have been discussed with patient / mother. Discussion Date / [id number] 00:40 Previous Experienceyes General Health: Current Weight in kg100 kilogram(s) Current Weight in spv126.4 pound(s) Weight Methodactual (measured) Scale Typestanding Pre Weight (lb)179 pound(s) Total Weight Gain (lb)41 pound(s) Height in feet5 feet Height in inches7.32 inch(es) Height in cm170.9 centimeter(s) Height Methodstated BMI (kg/m2)34.238 square meter Patient or Family Member Reaction to Anesthesiano previous reaction Blood Avoidance/Restrictionsno ne Previous Transfusion Reactionno Rsp Based Care: How would you like to participate in your careunable to answer What is the number one concern for you during this hospitalizationunable to answer What is the most important thing we can do to support you during this hospitalizationunable to answer Is there anything we need to know to best care for youunable to answer Substance: Smoking Statusnever smoker (3) Alcohol Usedenies(3) Drug Usedenies (3) Drug 2 Usedenies (3) Health Mgmt: Symptoms/Conditions Managed at [place] Relationship/Environ: Primary Source of Support/Comfortspouse Lives Withspouse Resource/Environmental Concernsnone Anticipated Transition Toepping Services Anticipated at Transitionnone Additional Information: Information Review: Allergies and Significant Events have been Reviewed and Verified with Patient/Familyyes Allergy, Intolerance, Adverse Event: Allergies: penicillin: Drug, Hives/Urticaria, Active sulfADIAZINE: Drug, Hives/Urticaria, Active Electronic Signatures: Deb Cha (ZITA) (Signed 28-Feb-2022 03:25) Authored: Initial Info, Info, General Health, Rsp Based Care, Substance, Health Mgmt, Relationship/Environ, Additional Information Last Updated: 28-Feb-2022 03:25 by Deb Cha (ZITA) References: 1. Data Referenced From Patient Profile - OB v2 02-Jun-2020 07:17 2. Data Referenced From Triage Note - OB v4 27-Feb-2022 19:12 3. Data Referenced From History and Physical - OB 28-Feb-2022 00:43 [facility] SYPHILIS SCREENING WITH REFL EXon 02-28-2022 SYPHILIS TOTAL AB Non-Reactive Normal NONREACTIVE [facility] Comment on above: Result Comment: No s ignificant level of Treponema pallidum antibody detected. Repeat testing in 2 to 4 weeks may be considered if early infection or incubating syphilis infection is suspected. Performed By: #### S YPHR #### [facility] [address] [place], [place] [id number] Lab Specimen Source Normal [facility] Comment on above: Performed By: #### S YPHR #### [facility] [address] [place], [place] [id number] TYPE + SCREENon 02-28-2022 ABO TYPE O [facility] Comment on above: Performed By: #### T +S ####[place] [address] RH TYPE Positive [facility] Comment on above: Performed By: #### T +S ####[place] [address] Risk Screen - OB Triageon Risk Screen - OB Triage Allergies: Allergies: Allergies: penicillin: Hives/Urticaria sulfADIAZINE: Hives/Urticaria Patient Verification: Patient Verification: New W ID Band Applied in my Departmentyes Patient Identity Verified Bypatient ID Band FULL Name, include Middle, spelling matches patient's ID used for verificationyes ID Band Matches Patient ID used for Verficationyes ID Band MRN Matches EMR MRNyes Travel History: Travel History: COVID-19 Screening Completedno exposure or symptoms Travel or Exposure Past 30 DaysNO travel to International locations in the past 30 days Advance Directives: Advance Directive: Advance Directive/DNRno Advance Directive Information Givenyes Falls Risk: Crowell Fall Screen: History of falling (immediate or previous)no (0) Secondary Diagnosisyes (15) Intravenous Therapy/ Heparin/Saline Lockno (0) Gait/Transferringnormal/ bedrest/wheelchair (0) Ambulatory Aidsnone/bedrest/nurse assist (0) Mental Statusoriented to own ability (0) Score: Low risk (<25). Moderate risk (25-44). High risk (>44).15 Crowell InterventionsLOW INTERVENTIONS: *patient oriented to surroundings and call system, * patient/family falls education completed and documented, *patients fall status communicated during bedside handoff, *whiteboard updated, *mode of toileting discussed with patient, *bed in low position with brakes locked, *call light in reach, * non-skid footwear Learning Assessment (Patient): Learning Assessment (Patient): Patient is Able to be Assessed for Learningyes Factors Influencing Readiness to Learninterest in learning Factors that Impact Ability to Learnvisual problems Devices/Methods Used to Communicateglasses Learning Preferencesverbal instruction; skill demonstration Cultural Considerationsnone Developmental Considerationsnone Mu-Ism Considerationsnone Learning Assessment (Other Learner): Other learner availableno Depression/Suicide: Depression Screen: During the past month, have you often been bothered by feeling down, depressed or hopelessno During the past month, have you often had little interest or pleasure in doing thingsno Have you had any thoughts of harming anyone elseno [place] Suicide: Risk Screen Not Applicable/Able to Answerable to be screened In the Past Month: Have you wished you were or could go to sleep and not wake upno In the Past Month: Have you had any actual thoughts of killing yourselfno Lifetime: Have you ever done, started to do, or prepared to do anything to end your lifeno [place] Suicide Risknegative Family Violence: Abuse Screen: Are you or have you been threatened or abused physically, emotionally, or sexually by anyoneno Do you feel UNSAFE going back to the place where you are livingno Clinical assessment: Are there any apparent signs of injuries/behaviors that could be related to abuse/neglectno Electronic Signatures: Kellee Perez (ZITA) (Signed 27-Feb-2022 19:29) Authored: Allergies, Patient Verification, Travel History, Advance Directives, Crowell Fall Screen, Learning Assessment (Patient), Learning Assessment (Other Learner), Depression/Suicide, Family Violence Last Updated: 27-Feb-2022 19:29 by Kellee Perez (ZITA) [facility] Discharge [id number] 04-21-2 022 Discharge Profile2 Discharge Orders: DNAR: Code Status at Discharge: Full Code Other Clinician Instructions: Other Instructions: Other Clinician InstructionsCall Provider If: Regular painful contractions every 5 min or less for one hour. Time your contractions from the beginning of one to the beginning of another. Pressure in your vagina or lower abdomen that may feel like the baby is pushing down. Gush of fluid or blood from the vagina (it is normal to have spotting after vaginal exam or intercourse). Your baby is not moving as much as usual.. Electronic Signatures: Zayda Marsh) (Signed 17-Feb-2022 18:24) Co-Signer: Discharge Orders, Other Clinician Instructions, Gold Form - Telegraph Dispatcher Summary Coty PersaudRN) (Signed 17-Feb-2022 16:42) Authored: Discharge Orders, Other Clinician Instructions, Gold Form - Telegraph Dispatcher Summary Last Updated: 17-Feb-2022 18:24 by Zayda Marsh) [facility] Risk Screen - OB Triageon Risk Screen - OB Triage Allergies: Allergies: Allergies: penicillin: Hives/Urticaria sulfADIAZINE: Hives/Urticaria Patient Verification: Patient Verification: New W ID Band Applied in my Departmentyes Patient Identity Verified Bypatient ID Band FULL Name, include Middle, spelling matches patient's ID used for verificationyes ID Band Matches Patient ID used for Verficationyes ID Band MRN Matches EMR MRNyes Travel History: Travel History: COVID-19 Screening Completedno exposure or symptoms Travel or Exposure Past 30 DaysNO travel to International locations in the past 30 days Advance Directives: Advance Directive: Advance Directive/DNRno Advance Directive Information Givenpatient/family declined Falls Risk: Crowell Fall Screen: History of falling (immediate or previous)no (0) Secondary Diagnosisyes (15) Intravenous Therapy/ Heparin/Saline Lockno (0) Gait/Transferringnormal/ bedrest/wheelchair (0) Ambulatory Aidsnone/bedrest/nurse assist (0) Mental Statusoriented to own ability (0) Score: Low risk (<25). Moderate risk (25-44). High risk (>44).15 Crowell InterventionsLOW INTERVENTIONS: *patient oriented to surroundings and call system, * patient/family falls education completed and documented, *patients fall status communicated during bedside handoff, *whiteboard updated, *mode of toileting discussed with patient, *bed in low position with brakes locked, *call light in reach, * non-skid footwear Learning Assessment (Patient): Learning Assessment (Patient): Patient is Able to be Assessed for Learningyes Factors Influencing Readiness to Learninterest in learning Factors that Impact Ability to Learnnone Devices/Methods Used to Communicatenone Learning Preferencesverbal instruction Cultural Considerationsnone Developmental Considerationsnone Mu-Ism Considerationsnone Learning Assessment (Other Learner): Other learner availableno Depression/Suicide: Depression Screen: During the past month, have you often been bothered by feeling down, depressed or hopelessno During the past month, have you often had little interest or pleasure in doing thingsno Have you had any thoughts of harming anyone elseno [place] Suicide: Risk Screen Not Applicable/Able to Answerable to be screened In the Past Month: Have you wished you were or could go to sleep and not wake upno In the Past Month: Have you had any actual thoughts of killing yourselfno Lifetime: Have you ever done, started to do, or prepared to do anything to end your lifeno [place] Suicide Risknegative Family Violence: Abuse Screen: Are you or have you been threatened or abused physically, emotionally, or sexually by anyoneno Has anyone ever threatened to hurt your family or your petsno Does anyone try to keep you from having/contacting other friends or doing things outside your homeno Do you feel UNSAFE going back to the place where you are livingno Do you feel anyone has exploited or taken advantage of you financially or of your personal propertyno Clinical assessment: Are there any apparent signs of injuries/behaviors that could be related to abuse/neglectno Electronic Signatures: Coty Persaud (ZITA) (Signed 17-Feb-2022 15:39) Authored: Allergies, Patient Verification, Travel History, Advance Directives, Crowell Fall Screen, Learning Assessment (Patient), Learning Assessment (Other Learner), Depression/Suicide, Family Violence Last Updated: 17-Feb-2022 15:39 by Coty Persaud (ZITA) [facility] Triage Note - OB v4on 2021 Triage Note - OB v4 Triage: General Info: Time of Arrival on [id number] 15:18 Acuity Level4 Chief Complaintcontractions Spoken Language PreferredEnglish (1) Source of Informationpatient Weight in kg100.3 kilogram(s) Weight in czk250.1 pound(s) Weight Methodactual (measured) Scale Typestanding Height in feet5 feet Height in inches7.4 inch(es) Height in cm171.1 centimeter(s) Height Methodstated BMI (kg/m2)34.261 square meter Blood Avoidance/Restrictionsno ne(1) Previous Transfusion Reactionno(1) Patient Belongingsremains with patient Patient Belongings Remaining with Patientcash/credit card; purse/wallet; cell phone/electronics Home Meds have been Reviewed and Verified with Patient/Familyyes Info: Gravida2 Term Deliveries1 Deliveries0 Abortions0 Living Children1 Patient stated [id number] Calculation of EGA based on patient stated EDD37.5 Records availableyes Trimester Care Initiatedfirst Current Risksnone Testsnonstress test; ultrasound Previous live (any gestational age)yes All Previous /Delivery Complicationsnone Substance: Smoking Statusnever smoker Alcohol Usedenies Drug Usedenies Drug 2 Usedenies Disposition/Disch: Dispositiondischarged from facility, home with own care Patient Meets Criteria for Home Blood Pressure Monitorno Admission/Observation/Di scharge/Transfer Date/[id number]-[id number]-0551 16:50 Discharged Accompanied Byspouse Discharge Modeambulatory Transportation Methodprivate car Travel History: Travel or ExposureNO travel to International locations in the past 30 days Additional Information: Information Review: Allergies have been Reviewed and Verified with Patient/Familyyes Allergy, Intolerance, Adverse Event: Allergies: penicillin: Drug, Hives/Urticaria, Active sulfADIAZINE: Drug, Hives/Urticaria, Active Electronic Signatures: Coty Persaud (ZITA) (Signed 17-Feb-2022 16:57) Authored: General Info, Info, Substance, Disposition/Disch, Travel History, Additional Information Last Updated: 17-Feb-2022 16:57 by Coty Persaud (ZITA) References: 1. Data Referenced From Triage Note - OB v4 10-Feb-2022 16:11 [facility] Risk Screen - OB Triageon 04 -14-2022 Risk Screen - OB Triage Allergies: Allergies: Allergies: penicillin: Hives/Urticaria sulfADIAZINE: Hives/Urticaria Patient Verification: Patient Verification: New W ID Band Applied in my Departmentyes Patient Identity Verified Bypatient ID Band FULL Name, include Middle, spelling matches patient's ID used for verificationyes ID Band Matches Patient ID used for Verficationyes ID Band MRN Matches EMR MRNyes Travel History: Travel History: COVID-19 Screening Completedno exposure or symptoms Travel or Exposure Past 30 DaysNO travel to International locations in the past 30 days Advance Directives: Advance Directive: Advance Directive/DNRno Advance Directive Information Givenpatient/family declined Falls Risk: Crowell Fall Screen: History of falling (immediate or previous)no (0) Secondary Diagnosisno (0) Intravenous Therapy/ Heparin/Saline Lockyes (20) Gait/Transferringnormal/ bedrest/wheelchair (0) Ambulatory Aidsnone/bedrest/nurse assist (0) Mental Statusoriented to own ability (0) Score: Low risk (<25). Moderate risk (25-44). High risk (>44).20 Crowell InterventionsLOW INTERVENTIONS: *patient oriented to surroundings and call system, * patient/family falls education completed and documented, *patients fall status communicated during bedside handoff, *whiteboard updated, *mode of toileting discussed with patient, *bed in low position with brakes locked, *call light in reach, * non-skid footwear Learning Assessment (Patient): Learning Assessment (Patient): Patient is Able to be Assessed for Learningyes Factors Influencing Readiness to Learninterest in learning Factors that Impact Ability to Learnvisual problems Devices/Methods Used to Communicateglasses Learning Preferencesverbal instruction; skill demonstration Cultural Considerationsnone Developmental Considerationsnone Mu-Ism Considerationsnone Learning Assessment (Other Learner): Other learner availableno Depression/Suicide: Depression Screen: During the past month, have you often been bothered by feeling down, depressed or hopelessno During the past month, have you often had little interest or pleasure in doing thingsno Have you had any thoughts of harming anyone elseno [place] Suicide: Risk Screen Not Applicable/Able to Answerable to be screened In the Past Month: Have you wished you were or could go to sleep and not wake upno In the Past Month: Have you had any actual thoughts of killing yourselfno Lifetime: Have you ever done, started to do, or prepared to do anything to end your lifeno [place] Suicide Risknegative Family Violence: Abuse Screen: Are you or have you been threatened or abused physically, emotionally, or sexually by anyoneno Do you feel UNSAFE going back to the place where you are livingno Clinical assessment: Are there any apparent signs of injuries/behaviors that could be related to abuse/neglectno Electronic Signatures: Bianka Najera (RN) (Signed 10-Feb-2022 17:21) Authored: Allergies, Patient Verification, Travel History Kellee Perez (RN) (Signed 10-Feb-2022 21:15) Authored: Advance Directives, Crowell Fall Screen, Learning Assessment (Patient), Learning Assessment (Other Learner), Depression/Suicide, Family Violence Last Updated: 10-Feb-2022 21:15 by Kellee Perez (RN) [facility] Triage Note - OB v4on 2021 Triage Note - OB v4 Triage: General Info: Time of Arrival on [id number] 16:00 Patient arrived viaambulatory Arrived Fromepping Acuity Level3 Time Acuity Level [id number]-[id number]-4631 16:05 Modified Acuity Level4 Time Modified Acuity Level [id number]-[id number] 17:30 Chief ComplaintNausea and diarrhea since last night around 9pm. Spoken Language PreferredEnglish Source of Informationpatient Weight in kg101.4 kilogram(s) Weight in wtr276.5 pound(s) Weight Methodactual (measured) Scale Typestanding Height in feet5 feet Height in inches7.44 inch(es) Height in cm171.2 centimeter(s) Height Methodstated BMI (kg/m2)34.596 square meter Blood Avoidance/Restrictionsno ne Previous Transfusion Reactionno(1) Patient Belongingsremains with patient Patient Belongings Remaining with Patientcash/credit card; purse/wallet; cell phone/electronics Home Meds have been Reviewed and Verified with Patient/Familyyes Info: Gravida2 Term Deliveries1 Deliveries0 Abortions0 Living Children1 Records availableyes Trimester Care Initiatedfirst Current Risksnone Testsnonstress test; ultrasound Previous live (any gestational age)yes All Previous /Delivery Complicationsnone Substance: Smoking Statusnever smoker Alcohol Usedenies Drug Usedenies Drug 2 Usedenies Disposition/Disch: Dispositiondischarged from facility, home with own care Patient Meets Criteria for Home Blood Pressure Monitorno Admission/Observation/Di scharge/Transfer Date/[id number]-[id number]-3456 18:25 Discharge Modeambulatory Transportation Methodprivate car Travel History: Travel or ExposureNO travel to International locations in the past 30 days Additional Information: Information Review: Allergies have been Reviewed and Verified with Patient/Familyyes Allergy, Intolerance, Adverse Event: Allergies: penicillin: Drug, Hives/Urticaria, Active sulfADIAZINE: Drug, Hives/Urticaria, Active Electronic Signatures: Kellee Perez (RN) (Signed 10-Feb-2022 21:40) Authored: General Info, Info, Substance, Disposition/Disch, Travel History, Additional Information Last Updated: 10-Feb-2022 21:40 by Kellee Perez (ZITA) References: 1. Data Referenced From Triage Note - OB v4 02-Feb-2022 09:52 [facility] No Panel Informationon 02-08 Please click on the link to view the study images [facility] [address] [employer] Work Phone: [facility] [employer] Work Phone: Laboratory - Microbiology an d Antimicrobial susceptibilityon 02-02-2022 Bacteria identified Aer cx Nom (Genital specimen) [facility] [employer] Work Phone: Risk Screen - OB Triageon Risk Screen - OB Triage Allergies: Allergies: Allergies: penicillin: Hives/Urticaria sulfADIAZINE: Hives/Urticaria Patient Verification: Patient Verification: New W ID Band Applied in my Departmentyes Patient Identity Verified Bypatient ID Band FULL Name, include Middle, spelling matches patient's ID used for verificationyes ID Band Matches Patient ID used for Verficationyes ID Band MRN Matches EMR MRNyes Travel History: Travel History: COVID-19 Screening Completedno exposure or symptoms Travel or Exposure Past 30 DaysNO travel to International locations in the past 30 days Advance Directives: Advance Directive: Advance Directive/DNRno Advance Directive Information Givenpatient/family declined Falls Risk: Crowell Fall Screen: History of falling (immediate or previous)no (0) Secondary Diagnosisno (0) Intravenous Therapy/ Heparin/Saline Lockno (0) Gait/Transferringnormal/ bedrest/wheelchair (0) Ambulatory Aidsnone/bedrest/nurse assist (0) Mental Statusoriented to own ability (0) Score: Low risk (<25). Moderate risk (25-44). High risk (>44).0 Crowell InterventionsLOW INTERVENTIONS: *patient oriented to surroundings and call system, * patient/family falls education completed and documented, *patients fall status communicated during bedside handoff, *whiteboard updated, *mode of toileting discussed with patient, *bed in low position with brakes locked, *call light in reach, * non-skid footwear Learning Assessment (Patient): Learning Assessment (Patient): Patient is Able to be Assessed for Learningyes Factors Influencing Readiness to Learnanxiety; fatigue; pain Factors that Impact Ability to Learnnone Devices/Methods Used to Communicatenone Learning Preferencesskill demonstration; verbal instruction Cultural Considerationsnone Developmental Considerationsnone Mu-Ism Considerationsnone Learning Assessment (Other Learner): Other learner availableno Depression/Suicide: Depression Screen: During the past month, have you often been bothered by feeling down, depressed or hopelessno During the past month, have you often had little interest or pleasure in doing thingsno Have you had any thoughts of harming anyone elseno [place] Suicide: Risk Screen Not Applicable/Able to Answerable to be screened In the Past Month: Have you wished you were or could go to sleep and not wake upno In the Past Month: Have you had any actual thoughts of killing yourselfno Lifetime: Have you ever done, started to do, or prepared to do anything to end your lifeno [place] Suicide Risknegative Family Violence: Abuse Screen: Are you or have you been threatened or abused physically, emotionally, or sexually by anyoneno Do you feel UNSAFE going back to the place where you are livingno Clinical assessment: Are there any apparent signs of injuries/behaviors that could be related to abuse/neglectno Electronic Signatures: Ryan Jaramillo) (Signed 02-Feb-2022 09:52) Authored: Allergies, Patient Verification, Travel History, Advance Directives, Crowell Fall Screen, Learning Assessment (Patient), Learning Assessment (Other Learner), Depression/Suicide, Family Violence Last Updated: 02-Feb-2022 09:52 by Ryan Jaramillo (RN) [facility] Triage Note - OB v4on 2021 Triage Note - OB v4 Triage: General Info: Time of Arrival on [id number] 09:53 Patient arrived viaambulatory Arrived Fromphysician office Acuity Level4 Time Acuity Level Uidybhpl95-Ggw-2637 09:53 Chief ComplaintNST for high FHR Source of Informationpatient Weight in kg91 kilogram(s) Weight in srv383.6 pound(s) Weight Methodactual (measured) Scale Typestanding Previous Transfusion Reactionno Patient Belongingsnone Home Meds have been Reviewed and Verified with Patient/Familyno Info: Gravida2 Term Deliveries1 Deliveries0 Abortions0 Living Children1 Patient stated [id number] Calculation of EGA based on patient stated EDD35.4 Records availableyes Trimester Care Initiatedfirst Current Risksnone Testsnonstress test; ultrasound Previous live (any gestational age)yes All Previous /Delivery Complicationsnone Substance: Smoking Statusnever smoker Alcohol Usedenies Drug Usedenies Drug 2 Usedenies Disposition/Disch: Dispositiondischarged from facility, home with own care Patient Meets Criteria for Home Blood Pressure Monitorno Travel History: Travel or ExposureNO travel to International locations in the past 30 days Additional Information: Information Review: Allergies have been Reviewed and Verified with Patient/Familyyes Allergy, Intolerance, Adverse Event: Allergies: penicillin: Drug, Hives/Urticaria, Active sulfADIAZINE: Drug, Hives/Urticaria, Active Electronic Signatures: Ryan Jaramillo (RN) (Signed 02-Feb-2022 09:55) Authored: General Info, Info, Substance, Disposition/Disch, Travel History, Additional Information Last Updated: 02-Feb-2022 09:55 by Ryan Jaramillo (RN) [facility] Clinical Event Note-tdapon 0 12-28-2021 Clinical Event Note-tdap Clinical Event: Clinical Event Note: Topictdap Details 12-28-2021 Pt here for tdap injection. EDC 03/05/22Gestational age 30.2 Pt denies any leaking of fluid/ bleeding/ contractions/ or pain. States fetus is active. Tdap injection explained and vaccine information sheet given. Pt verbalizes understanding. Allergies reviewed with patient. No contraindications to tdap noted. Tdap vaccine given IM Pt tolerated well. Injection site without any complications. Pt discharged home ambulatory 12-28-2021 @ 1035 Electronic Signatures: Bianka Najera) (Signed 28-Dec-2021 10:42) Authored: Clinical Event Note Last Updated: 28-Dec-2021 10:42 by Bianka Najera (ZITA) [facility] [place] Information[place] 12-28 [facility] [employer] Work Phone: US AGE FOL-UP PER FETU Son 12-28-2021 US AGE FOL-UP PER FETUS Patient Name: LINETTE HUI STUDY: US AGE FOL-UP PER FETUS 12/28/2021 10:00 am INDICATION: Abnormal quad screen. COMPARISON: Ultrasound dated 11/22/2021 ACCESSION NUMBER(S): [id number] ORDERING CLINICIAN: ZAYDA MARSH TECHNIQUE: Routine ultrasound of the pelvis was performed. Evaluation of the female pelvis was performed by transabdominal. FINDINGS: There is a single live intrauterine gestation in vertex position. BPD 78mm, 31 weeks, 3 days HC 286mm, 31 weeks, 3 days AC 261mm, 30 weeks, 2 days FL 59mm, 30 weeks, 5 days This results in a composite gestational age of 31 weeks, 0 days, + / -15 days. The estimated date of delivery by ultrasound is 03/01/2022. By dates the fetus should be 30 weeks, 3 days, which is concordant with the ultrasound dating. There is an estimated weight of 1608 g + / -241 g (44th percentile). heart rate measures 141 beats per minute. Evaluation of anatomy is limited as the study was done for the evaluation of growth. The placenta is and anterior position. No evidence of placenta previa is seen. The amniotic fluid volume is within normal limits, with the amniotic fluid index measuring up to 10.0 cm.. Maternal anatomy: The cervix is not well visualized. IMPRESSION: Single live intrauterine gestation corresponding to 31 weeks, 0 days, + / -15 days. Evaluation of anatomy was not performed. Recommend continued routine follow-up imaging evaluation. Electronically signed by: OFELIA OLVERA MD [facility] Skin prepon 12-24-2021 Prepped for left gre at phenol matrixectomy. [facility] Tobacco Screening.on 022 Fall risk assessment a) No falls within the last year [facility] [address] Work Phone: [phone] Tobacco use status [facility] b) No [facility] [address] Work Phone: [phone] Complete Blood Count + Diffe rentialon 12-01-2021 Basophils/100 WBC (Bld) 0.2 % 0.0 - 2.0 [facility] [address] [employer] Work Phone: [phone] Erythrocyte distribution width (RBC) [Ratio] 13.4 % See Below [facility] [address] [employer] Work Phone: [phone] Comment on above: Reference Range: 11. 5 - 14.5 Hematocrit (Bld) [Volume fraction] 35.5 % below low threshold See Below [facility] [address] [employer] Work Phone: [phone] Comment on above: Reference Range: 36. 0 - 46.0 Hemoglobin (Bld) [Mass/Vol] 12.0 g/dL See Below [facility] [address] [employer] Work Phone: [phone] Comment on above: Reference Range: 12. 0 - 16.0 Lymphocytes/100 WBC (Bld) 15.2 % See Below [facility] [address] [employer] Work Phone: [phone] Comment on above: Reference Range: 13. 0 - 44.0 MCHC (RBC) [Mass/Vol] 33.8 g/dL See Below [facility] [employer] Work Phone: [phone] Comment on above: Reference Range: 32. 0 - 36.0 MCV (RBC) [Entitic vol] 94 fL 80 - 100 [facility] [address] [employer] Work Phone: [phone] Monocytes/100 WBC (Bld) 5.2 % 2.0 - 10.0 [facility] [employer] Work Phone: [phone] Neutrophils/100 WBC (Bld) 77.9 % See Below [facility] [address] [employer] Work Phone: [phone] Comment on above: Reference Range: 40. 0 - 80.0 Platelets (Bld) [#/Vol] 272 10*3/uL 150 - 450 [facility] [employer] Work Phone: [phone] RBC (Bld) [#/Vol] 3.79 {x10E12/L} below low threshold See Below [facility] [address] [employer] Work Phone: [phone] Comment on above: Reference Range: 4.0 0 - 5.20 WBC (Bld) [#/Vol] 11.3 10*3/uL 4.4 - 11.3 [facility] [employer] Work Phone: [phone] Complete Blood Count + Differential 0.00 {x10E9/L} See Below [facility] [employer] Work Phone: [phone] Comment on above: Reference Range: 0.0 0 - 0.10 Complete Blood Count + Differential 0.20 {x10E9/L} See Below [facility] [employer] Work Phone: [phone] Comment on above: Reference Range: 0.0 0 - 0.70 Complete Blood Count + Differential 0.60 {x10E9/L} See Below [facility] [address] [employer] Work Phone: [phone] Comment on above: Reference Range: 0.1 0 - 1.00 Complete Blood Count + Differential 1.70 {x10E9/L} See Below [facility] [employer] Work Phone: [phone] Comment on above: Reference Range: 1.2 0 - 4.80 Complete Blood Count + Differential 8.80 {x10E9/L} above high threshold See Below [facility] [employer] Work Phone: [phone] Comment on above: Reference Range: 1.2 0 - 7.70 Percent differential counts (%) should be interpreted in the context of the absolute cell counts (cells/L). Complete Blood Count + Differential 1.5 % 0.0 - 6.0 [facility] [employer] Work Phone: Glucose, 1 Hour Screen, Preg nancyon 12-01-2021 Glucose 1 Hr post 50 g glucose PO [Mass/Vol] 97 mg/dL <135 [facility] [employer] Work Phone: Comment on above: Diagnostic value wit h glucose loading dose of 50 g. Reference values from [employer]. Diabetes Care 2015;38(Suppl.1):S8-S16 No Panel Informationon 11-22 [facility] [employer] Work Phone: US AGE FOL-UP PER FETU Son 11-22-2021 US AGE FOL-UP PER FETUS Patient Name: LINETTE HUI STUDY: US AGE FOL-UP PER FETUS 11/22/2021 2:27 pm INDICATION: anatomy scan Z3A.17: 17 weeks gestation of . COMPARISON: Ultrasound dated 10/13/2021 ACCESSION NUMBER(S): [id number] ORDERING CLINICIAN: ZAYDA MARSH TECHNIQUE: Routine ultrasound of the pelvis was performed. Evaluation of the female pelvis was performed by transabdominal. FINDINGS: There is a single live intrauterine gestation in variable position. BPD 63mm, 25 weeks, 5 days HC 237mm, 25 weeks, 5 days AC 207mm, 25 weeks, 2 days FL 47mm, 25 weeks, 4 days This results in a composite gestational age of 25 weeks, 4 days, + / -13 days. The estimated date of delivery by ultrasound is 03/03/2022. By dates the fetus should be 25 weeks, 2 days, which is concordant with the ultrasound dating. There is an estimated weight of 812 g + / -122 g (47th percentile). heart rate measures 147 beats per minute. Evaluation of anatomy is limited as the study was done for the evaluation of growth. The placenta is in anterior position. No evidence of placenta previa is seen. The amniotic fluid volume is within normal limits, with the amniotic fluid index measuring up to 13.3 cm. Maternal anatomy: The cervix is closed, measuring up to 5.2 cm in length. IMPRESSION: Single live intrauterine gestation corresponding to 25 weeks, 4 days, + / -13 days. Evaluation of anatomy was not performed. Recommend continued routine follow-up imaging evaluation. Electronically signed by: OFELIA OLVERA MD [facility] INFLUENZA A/B, COVID 2019 PC R,SYMPTOMATICon 10-15-2021 Date and time of symptom onset [id number] [facility] [employer] Work Phone: INFLUENZA A/B, COVID 2019 PCR,SYMPTOMATIC Not detected See Below [facility] [employer] Work Phone: Comment on above: Reference Range: Not Detected.This assay is designed to detect the N, ORF1ab and/or S genes of SARS-CoV-2 via nucleic acid amplification. A Negative (NOT DETECTED) result does not preclude 2019-nCoV infection since the adequacy of sample collection and/or low viral burden may result in presence of viral nucleic acids below the clinical sensitivity of this test method. Negative (NOT DETECTED) result should not be used as the sole basis for treatment or other patient management decisions. Rather negative results should be combined with clinical observations, patient history, and epidemiological information to make patient management decisions.Fact sheet for providers: https://www.fda.gov/media/888040/downloadFact sheet for patients: https://www.fda.gov/media/915521/downloadThis test has received FDA Emergency Use Authorization (EUA) and has been verified by [facility] ([facility]). This test is only authorized for the duration of time that circumstances exist to justify the authorization of the emergency use of in vitro diagnostic tests for the detection of SARS-CoV-2 virus and/or diagnosis of COVID-19 infection under section 564(b)(1) of the Act, 21 U.S.C. 360bbb-3(b)(1), unless the authorization is terminated or revoked sooner. [facility] is certified under CLIA-88 as qualified to perform high complexity testing. Testing is performed in the [facility] laboratories located at [address] [place] [address]. Reference Range: Not Detected Respiratory virus testing is performed routinely by PCR for Influenza A/B and RSV. If Influenza and RSV PCR are negative, testing for parainfluenza 1,2,3 viruses and adenovirus is routinely performed for oncology inpatients and intensive care unit patients at [facility] and is available on request on other patients by calling Laboratory Client Services at [phone] Not Detected results do not preclude Influenza A/B or RSV infections since the adequacy of sample collection or low viral burden may impact the clinical sensitivity of this test method..The TaqManTM SARS-CoV-2, Flu A, Flu B Multiplex Assay is a multiplex, real-time RT-PCR assay for the detection of RNA from the SARS-CoV-2, Influenza A, and Influenza B viruses. A negative result does not preclude the possibility of SARS-CoV-2, Influenza A, or Influenza B infections, and should not be used as the sole basis for patient management decision as a negative result may be caused by very low levels of infection, collection errors, or testing errors. .This test was developed and its performance characteristics were determined by the Microbiology Laboratory, Department of Pathology, [facility], [place], [place]. It has not been cleared or approved by the US Food and Drug Administration; however, FDA clearance or approval is not currently required for clinical use. This test should not be regarded as investigational or for research purposes. SOURCE: Nasal, Nasop haryngealReference Range: Not Detected Respiratory virus testing is performed routinely by PCR for Influenza A/B and RSV. If Influenza and RSV PCR are negative, testing for parainfluenza 1,2,3 viruses and adenovirus is routinely performed for oncology inpatients and intensive care unit patients at [facility] and is available on request on other patients by calling Laboratory Client Services at [phone]. Not Detected results do not preclude Influenza A/B or RSV infections since the adequacy of sample collection or low viral burden may impact the clinical sensitivity of this test method. Provider Note - ED v3on - Provider Note - ED v3 Provider Note: Chart Review: ED NOTES ED NOTES: Pt presents for evaluation of nasal congestion, headache, diarrhea and nausea x 1 week. Pt is currently . Has not been taking any meds OTC. Pt ill with COVID 1. She denies fever, n/v, fatigue, sore throat, loss taste/smell, chest pains, SOB or any other constitutional symptoms or complaints. Pt is fully vaccinated for COVID 19. HISTORY OF PRESENTING ILLNESS LINETTE is a 31 year old Female and was seen by me at 15-Oct-2021 17:00. Triage Information: Most recent Vital Sign Value Date PAST MEDICAL HISTORY ALLERGIES/INTOLERANCES: Allergy Allergen: penicillin Type: Drug Reaction: Hives/Urticaria Allergen: sulfADIAZINE Type: Drug Reaction: Hives/Urticaria HEALTH HISTORY: No documented data. OUTPATIENT MEDICATIONS: Home Medications Review Status for Reconciliation: Complete Med Status: Patient Currently Takes Medications Drug Name: 19 ([place]) oral tablet Instructions: 1 tab(s) orally once a day Drug Name: Vitamin C 100 mg oral tablet Instructions: 100 milligram(s) orally once a day Drug Name: Vitamin D3 Instructions: null SIGNIFICANT EVENTS: No documented data. ASSIGNMENT EDITOR: Is : no Is : no REVIEW OF SYSTEMS All other systems reviewed and are negative REVIEW OF SYSTEMS: Comments See HPI PHYSICAL EXAM CONSTITUTIONAL: Well appearing, well nourished, awake, alert, oriented to person, place, time/situation and in no apparent distress. HENMT: Airway patent, ears with clear tympanic membranes bilaterally. Nasal mucosa clear. Mouth with normal mucosa. Throat has no vesicles, no oropharyngeal exudates and uvula is midline. Face with no lymph node enlargement. EYES: Clear bilaterally, pupils equal, round and reactive to light. CARDIOVASCULAR: Normal rate, regular rhythm. Heart sounds S1, S2. No murmurs, rubs or gallops. PMI non-displaced. RESPIRATORY: Breath sounds clear and equal bilaterally. NEUROLOGICAL: Alert and oriented, no focal deficits, no motor or sensory deficits. SKIN: Skin normal color for race, warm, dry and intact. No evidence of trauma. PSYCHIATRIC: Alert and oriented to person, place, time/situation. normal mood and affect. No apparent risk to self or others. CRITICAL CARE VITAL SIGNS: 97.7 F - 127/86 - 79 BPM - 16 - 98% RA MDM MDM/ED COURSE: Nasal swab obtained for COVID 19 and flu A&B testing. Pt exam otherwise unremarkable and was discharged with instructions to return to , f/u with PCP or go to ER if symptoms continue to worsen or do not improve. DISPOSITION Diagnosis/Annotation: ED Dx Name:Acute upper respiratory infection Code:J06.9 Disposition: discharged Type: home CONSULT CRITICAL CARE TIME Is this a critically ill patient: no Electronic Signatures: Khang Herbert (MATERIAL DISPATCHER-POLYETHYLENE COMBINER) (Signed 19-Oct-2021 21:06) Authored: ED Notes, HPI, PMH, ROS, PE, Results/Vital Signs, MDM/ED Course, Clinical Impression, Attestation, Chart Review, Scores Last Updated: 19-Oct-2021 21:06 by Khang Herbert (MATERIAL DISPATCHER-POLYETHYLENE COMBINER) [facility] Falls Risk Screeningon 10-13 Fall risk assessment a) No falls within the last year [facility] Work Phone: Tobacco use status CPHS b) No [facility] Work Phone: No Panel Informationon 10-13 Normal [facility] Work Phone: Laboratory - Chemistry and C hemistry - challengeon 09-22-2021 Second trimester quad maternal screen panel SEE BELOW [facility] [employer] Work Phone: [phone] Comment on above: Genetics test res ults are available electronically in the [facility] under Diagnostic Testing-> Genetics.Results will be sent on a separate report. Complete Blood Count + Diffe rentialon 08-17-2021 Basophils/100 WBC (Bld) 0.7 % 0.0 - 2.0 [facility] [employer] Work Phone: Erythrocyte distribution width (RBC) [Ratio] 13.8 % See Below [facility] [employer] Work Phone: [phone] Comment on above: Reference Range: 11. 5 - 14.5 Hematocrit (Bld) [Volume fraction] 38.9 % See Below [facility] [employer] Work Phone: Comment on above: Reference Range: 36. 0 - 46.0 Hemoglobin (Bld) [Mass/Vol] 12.8 g/dL See Below [facility] [employer] Work Phone: Comment on above: Reference Range: 12. 0 - 16.0 Lymphocytes/100 WBC (Bld) 20.9 % See Below [facility] [place] Work Phone: [phone] Comment on above: Reference Range: 13. 0 - 44.0 MCHC (RBC) [Mass/Vol] 32.9 g/dL See Below [facility] [place] Work Phone: [phone] Comment on above: Reference Range: 32. 0 - 36.0 MCV (RBC) [Entitic vol] 97 fL 80 - 100 [facility] [place] Work Phone: [phone] Monocytes/100 WBC (Bld) 6.0 % 2.0 - 10.0 [facility] [employer] Work Phone: [phone] Neutrophils/100 WBC (Bld) 71.2 % See Below [facility] [place] Work Phone: [phone] Comment on above: Reference Range: 40. 0 - 80.0 Platelets (Bld) [#/Vol] 313 10*3/uL 150 - 450 [facility] [employer] Work Phone: [phone] RBC (Bld) [#/Vol] 4.00 {x10E12/L} See Below [facility] [employer] Work Phone: [phone] Comment on above: Reference Range: 4.0 0 - 5.20 WBC (Bld) [#/Vol] 8.1 10*3/uL 4.4 - 11.3 [facility] [employer] Work Phone: [phone] Complete Blood Count + Differential 0.10 {x10E9/L} See Below [facility] [place] Work Phone: [phone] Comment on above: Reference Range: 0.0 0 - 0.10 Reference Range: 0.0 0 - 0.70 Complete Blood Count + Differential 0.50 {x10E9/L} See Below [facility] [place] Work Phone: [phone] Comment on above: Reference Range: 0.1 0 - 1.00 Complete Blood Count + Differential 1.70 {x10E9/L} See Below [facility] [employer] Work Phone: [phone] Comment on above: Reference Range: 1.2 0 - 4.80 Complete Blood Count + Differential 5.70 {x10E9/L} See Below [facility] [address] [employer] Work Phone: [phone] Comment on above: Reference Range: 1.2 0 - 7.70 Percent differential counts (%) should be interpreted in the context of the absolute cell counts (cells/L). Complete Blood Count + Differential 1.2 % 0.0 - 6.0 [facility] [employer] Work Phone: [phone] Complete Blood Count + Differential 0.1 {/100_WBC} [facility] [place] [address] [employer] Work Phone: [phone] Cult, Urineon 08-17-2021 Bacteria identified Cx Nom (U) [facility] [place] [address] [employer] Work Phone: [phone] GC + Chlamydia By Amplified Detectionon 08-17-2021 C. trachomatis rRNA RADHA+probe Ql (Unsp spec) Negative Negative [facility] [employer] Work Phone: [phone] Comment on above: The APTIMA Combo 2 a ssay is FDA-approved for Chlamydia trachomatis and Neisseria gonorrhoeae testing on female endocervical and vaginal swabs, ThinPrep liquid pap samples, male urine samples and urethral swabs. Performance characteristics for Chlamydia trachomatis and Neisseria gonorrhoeae testing on specific zgx-CDK-jaoowclv sample types (female urine samples) have been validated by [facility]. This laboratory is certified by CLIA to perform high complexity testing. Samples from all other sites are not validated for this method. N. gonorrhoeae rRNA RADHA+probe Ql (Unsp spec) Negative Negative [facility] [address] [employer] Work Phone: [phone] Comment on above: SOURCE: Urine The AP PERICO Combo 2 assay is FDA-approved for Chlamydia trachomatis and Neisseria gonorrhoeae testing on female endocervical and vaginal swabs, ThinPrep liquid pap samples, male urine samples and urethral swabs. Performance characteristics for Chlamydia trachomatis and Neisseria gonorrhoeae testing on specific vay-OTD-vvelxart sample types (female urine samples) have been validated by [facility]. This laboratory is certified by CLIA to perform high complexity testing. Samples from all other sites are not validated for this method. HIV 1/2 ANTIGEN/ANTIBODY SCR EEN WITH REFLEX TO CONFIRMATIONon 08-17-2021 HIV 1+2 Ab Qn (S) Non-Reactive See Below [facility] [employer] Work Phone: [phone] Comment on above: SOURCE: Reference Ra nge: NONREACTIVE HIV Ag/Ab screen is performed using the Siemens Bright!Tax HIV Ag/Ab Combo assay which detects the presence of HIV p24 antigen as well as antibodies to HIV-1 (Group M and O) and HIV-2..No laboratory evidence of HIV infection. If acute HIV infection is suspected, consider testing for HIV RNA by PCR (viral load). Hepatitis B Surface Antigeno n 08-17-2021 Hepatitis B Surface Antigen Non-Reactive See Below [facility] [employer] Work Phone: [phone] Comment on above: SOURCE: Reference Ra nge: NONREACTIVE Biotin interference may cause falsely decreased results. Patients taking a Biotin dose of up to 5 mg/day should refrain from taking Biotin for 24 hours before sample collection. Providers may contact their local laboratory for further information. Laboratory - Blood bankon ABO group Nom (Bld) O [facility] [employer] Work Phone: [phone] Blood group antibody screen Ql Negative [facility] [employer] Work Phone: [phone] Rh immune globulin screen (Bld) [Interp] Positive [facility] [employer] Work Phone: [phone] ABO group Nom (Bld) Canceled [facility] [place] Work Phone: [phone] Blood group antibody screen Ql Canceled [facility] [place] Work Phone: [phone] Rh immune globulin screen (Bld) [Interp] Canceled [facility] [employer] Work Phone: [phone] Rubella IgG Antibodyon 08-17 Rubella virus IgG IA Ql Positive [facility] [employer] Work Phone: Comment on above: SOURCE: INTERPRETATI VE COMMENT NEGATIVE: No IgG antibodies specific to Rubella detected. It is likely that the patient has not had a previous exposure to Rubella through infection or vaccination. Alternatively, the patient may have been exposed to Rubella but a failure to respond may indicate immunodeficiency. EQUIVOCAL:Equivocal results; obtain additional sample for retesting. POSITIVE: IgG antibody to Rubella detected. This may indicate that the patient was exposed to Rubella through infection or vaccination.The interpretation of serological tests should take into accountthe immunological status of the patient. Test results forpatients, including immunocompromised patients, neonates, andpediatric patients, reflect their capacity to respondimmunologically to the virus as well as their exposure to thepathogen. Patients treated with IVIG may demonstrate alteredresults in serological assays. SYPHILIS SCREENING WITH REFL EXon 08-17-2021 T. pallidum IgG+IgM IA Ql (S) Non-Reactive See Below [facility] [employer] Work Phone: Comment on above: SOURCE: Reference Ra nge: NONREACTIVENo significant level of Treponema pallidum antibody detected. Repeat testing in 2 to 4 weeks may be considered if early infection or incubating syphilis infection is suspected. TYPE + SCREENon 08-17-2021 ABO TYPE O [facility] Comment on above: Performed By: #### T +S #### [place] [address] RH TYPE Positive [facility] Comment on above: Performed By: #### T +S #### [address] [address] ABO TYPE Canceled [facility] Comment on above: Order Comment: TEST TYPE + SCREEN WAS CANCELLED, 08/17/2021 11:29 ERROR. Performed By: #### T +S #### [facility] [address] [place] [address] RH TYPE Canceled [facility] Comment on above: Order Comment: TEST TYPE + SCREEN WAS CANCELLED, 08/17/2021 11:29 ERROR. Performed By: #### T +S #### [facility] [address] [place] [address] Cult, Genitalon 07-23-2021 Bacteria identified Aer cx Nom (Genital specimen) [facility] [place] Work Phone: GENITAL CULTURE, BACT.on GENITAL CULTURE, BACT. PATIENT: Samantha HUI LOCATION: [facility]#: [id number] : 89 AGE: SEX: F ORDERED BY: ZAYDA MARSH SOURCE: GENITAL COLLECTED: 07/23/21 16:09 ANTIBIOTICS AT [facility].: RECEIVED : 07/23/21 23:29 SITE: VAGINAL R E S U L T S GENITAL CULTURE, BACT. FINAL 07/27/21 12:05 Culture examined for Group A Streptococcus, Group B Streptococcus, Neisseria gonorrhoeae and Yeast ONLY. NO Neisseria gonorrhoeae ISOLATED. [facility] Comment on above: Performed By: #### G ENLO #### [facility] [address] [place] [address] IO HCG, Urine Test on 07-23-2021 HCG ( test) Ql (U) Positive [facility] [address] Work Phone: LMPon 07-23-2021 Last menstrual period start date [id number] [address] Work Phone: CORONAVIRUS 2019 BY PCRon SARS-CoV-2 (COVID-19) RNA RADHA+probe Ql (Unsp spec) Not detected Normal Not Detect[facility] Comment on above: Result Comment: . This assay is designed to detect the N, ORF1ab and/or S genes of SARS-CoV-2 via nucleic acid amplification. A Negative (NOT DETECTED) result does not preclude 2019-nCoV infection since the adequacy of sample collection and/or low viral burden may result in presence of viral nucleic acids below the clinical sensitivity of this test method. Negative (NOT DETECTED) result should not be used as the sole basis for treatment or other patient management decisions. Rather negative results should be combined with clinical observations, patient history, and epidemiological information to make patient management decisions. Fact sheet for providers: https://www.fda.gov/media/964156/download Fact sheet for patients: https://www.fda.gov/media/791499/download This test has received FDA Emergency Use Authorization (EUA) and has been verified by [facility] ([facility]). This test is only authorized for the duration of time that circumstances exist to justify the authorization of the emergency use of in vitro diagnostic tests for the detection of SARS-CoV-2 virus and/or diagnosis of COVID-19 infection under section 564(b)(1) of the Act, 21 U.S.C. 360bbb-3(b)(1), unless the authorization is terminated or revoked sooner. [facility] is certified under CLIA-88 as qualified to perform high complexity testing. Testing is performed in the [facility] laboratories located at [address] [place] [address]. Performed By: #### C OV19 #### [address] [place] [address] Covid 19 Resultson 1 SARS-CoV-2 (COVID-19) RNA RADHA+probe Ql (Unsp spec) NEGATIVE COVID-19 Test Coronaviruses are common world-wide and are the cause of many common colds. SARS-COV2 is a new coronavirus that began circulating worldwide in 2019 so we are calling it COVID-19. It has been estimated that four out of five patients with COVID-19 will recover at home without the need for medical attention. Symptoms of COVID-19 may include cough, fever, shortness of breath, loss of taste or smell and other flu-like symptoms including chills, sore muscles, sore throat, and headache. Severe illness is more common in older people and people with other health problems such as high blood pressure, obesity, and immune system problems. If the test is positive, you have COVID-19. You will be contacted by the ordering physicians office and instructed to remain on home isolation, in accordance with CDC guidelines. You may also be contacted by the [facility] to see if any of your close contacts may have been exposed to the virus and need to quarantine. If the test is negative, you likely do not have COVID-19 at this time, but you still may have a different illness that can spread to other people (like Influenza, or the Flu) and could still be at risk for getting COVID-19. We recommend that you stay away from other people to limit the spread of illness until your symptoms are improving and you are fever-free for 24 hours without the use of fever lowering medications such as acetaminophen or ibuprofen. No test is 100% accurate so if you are still concerned you may have COVID-19, talk to your doctor about the need to continue to stay away from others. Medicines Unless your provider told you not to use the following: Acetaminophen (Tylenol and others) is generally safe. Anti-inflammatory medications, such as Ibuprofen (Advil or Motrin) or Naproxen (Aleve) can also be used. Ytyp-sjr-kjrzygi cough and cold medicines can be used according to the instructions on the package. Some sscu-thf-lsfacal medicines also contain acetaminophen. Make sure you are not taking more than your recommended dose. For those not hospitalized, there is no specific treatment available for this illness. Antibiotics do not treat Coronaviruses. Follow-Up Follow up with your doctor by scheduling a virtual visit or consider follow-up at one of our urgent care fever clinics. If you are having difficulty breathing, or are very weak and having difficulty standing, this is a medical emergency. Call 911 or have someone take you to the nearest emergency room immediately. If possible, wear a facemask. Additional guidance from the CDC for patients who tested POSITIVE for COVID-19 How to isolate: Isolate yourself in a specific room at home and limit your contact with others. Use a separate bathroom from other members of the household, when possible. Leave home only to get essential medical care. Do not go to work, school or public areas. Avoid using public transportation, ride-sharing, or taxis. Restrict contact with pets and other animals. If you must care for your pet or be around animals while you are sick, wash your hands before and after your interaction and wear a facemask. Make sure that shared spaces in the home have good airflow, such as by an air conditioner or an opened window, weather permitting. Personal Hygiene Procedures: Wear a face mask when in the same room as other people or pets. If a face mask interferes with your breathing, others should wear a mask when sharing space with you. Frequent hand-washing: wash your hands with soap and water for at least 20 seconds. If soap and water are not available, use alcohol-based hand entry level web developer. Avoid touching your eyes, nose, and mouth with unwashed hands. Household Hygiene Procedures: Avoid sharing personal household items such as dishes, glassware, cups, eating utensils, towels or bedding with other people or pets in your home. After use, these items should be washed with soap and hot water. Disinfect all high-touch surfaces every day with antibacterial cleaning solutions such as Lysol wipes, bleach, cleansers, etc. High-touch surfaces include tabletops, doorknobs, bathroom fixtures, toilets, phones, keyboards, tablets and bedside tables. Immediately clean any surfaces that may have blood, poop or body fluids on them, using antibacterial cleaning solutions such as Lysol wipes, bleach, cleansers, etc. If clothing or bedding come into contact with blood, poop or body fluids, they should be washed immediately. Follow the directions on the laundry detergent and clothing labels but hot water is recommended when possible. Stopping home isolation precautions: If possible, consult your doctor before stopping home isolation precautions. According to the CDC, you can discontinue home isolation precautions when you have met both of these criteria: Your fever and respiratory symptoms have been gone for 24 kaden (more content not included)... [facility] CORONAVIRUS 2019 BY PCRon DATE OF SYMPTOM ONSET [YYYYMMDD]? [id number] [facility] Comment on above: Performed By: #### C OV19 #### [facility] [address] [place] [address] Lab Specimen Source Nasal, Nasopharyngeal [facility] Comment on above: Performed By: #### C OV19 #### [facility] [address] [place] [address] Coronavirus 2019 RNA by PCR, Symptomaticon 07-12-2021 Date and time of symptom onset [id number] [address] [facility] Work Phone: Coronavirus 2019 RNA by PCR, Symptomatic Not detected Normal See Below [facility] Work Phone: Comment on above: SOURCE: Nasal, Nasop haryngealReference Range: Not Detected.This assay is designed to detect the N, ORF1ab and/or S genes of SARS-CoV-2 via nucleic acid amplification. A Negative (NOT DETECTED) result does not preclude 2019-nCoV infection since the adequacy of sample collection and/or low viral burden may result in presence of viral nucleic acids below the clinical sensitivity of this test method. Negative (NOT DETECTED) result should not be used as the sole basis for treatment or other patient management decisions. Rather negative results should be combined with clinical observations, patient history, and epidemiological information to make patient management decisions.Fact sheet for providers: https://www.fda.gov/media/167876/downloadFact sheet for patients: https://www.fda.gov/media/200639/downloadThis test has received FDA Emergency Use Authorization (EUA) and has been verified by [facility] ([facility]). This test is only authorized for the duration of time that circumstances exist to justify the authorization of the emergency use of in vitro diagnostic tests for the detection of SARS-CoV-2 virus and/or diagnosis of COVID-19 infection under section 564(b)(1) of the Act, 21 U.S.C. 360bbb-3(b)(1), unless the authorization is terminated or revoked sooner. [facility] is certified under CLIA-88 as qualified to perform high complexity testing. Testing is performed in the [facility] laboratories located at [address] [place] [address]. Provider Note - ED v3on 06-30 Provider Note - ED v3 Provider Note: Chart Review ED NOTES ED NOTES: Presents for evaluation of URI. Symptoms including cough, congestion, body aches, malaise, and headache have been present for several days and refractory to OTC meds. No fever, chills, loss of taste/smell, nausea, vomiting, abdominal pain, CP, or SOB. No exacerbating factors. No known COVID 19 exposure. Pt is 6 weeks and also . HISTORY OF PRESENTING ILLNESS LINETTE is a 31 year old Female and was seen by me at 12-Jul-2021 14:05. Triage Information: Most recent Vital Sign Value Date PAST MEDICAL HISTORY ALLERGIES/INTOLERANCES: Allergy Allergen: penicillin Type: Drug Reaction: Hives/Urticaria Allergen: sulfADIAZINE Type: Drug Reaction: Hives/Urticaria HEALTH HISTORY: No documented data. OUTPATIENT MEDICATIONS: Home Medications Review Status for Reconciliation: Incomplete Med Status: Incomplete Medication History Drug Name: 19 ([place]) oral tablet Instructions: 1 tab(s) orally once a day Drug Name: Vitamin C 100 mg oral tablet Instructions: 100 milligram(s) orally once a day Drug Name: Vitamin D3 Instructions: null SIGNIFICANT EVENTS: No documented data. ASSIGNMENT EDITOR: Is : yes Is : yes REVIEW OF SYSTEMS All other systems reviewed and are negative REVIEW OF SYSTEMS: Comments See HPI PHYSICAL EXAM CONSTITUTIONAL: Well appearing, well nourished, awake, alert, oriented to person, place, time/situation and in no apparent distress. HENMT: Airway patent, ears with clear tympanic membranes bilaterally. Nasal mucosa clear. Mouth with normal mucosa. Throat has no vesicles, no oropharyngeal exudates and uvula is midline. Face with no lymph node enlargement. EYES: Clear bilaterally, pupils equal, round and reactive to light. CARDIOVASCULAR: Normal rate, regular rhythm. Heart sounds S1, S2. No murmurs, rubs or gallops. PMI non-displaced. RESPIRATORY: Breath sounds clear and equal bilaterally. NEUROLOGICAL: Alert and oriented, no focal deficits, no motor or sensory deficits. SKIN: Skin normal color for race, warm, dry and intact. No evidence of trauma. PSYCHIATRIC: Alert and oriented to person, place, time/situation. normal mood and affect. No apparent risk to self or others. CRITICAL CARE VITAL SIGNS: T PRBP SpO2O2(LPM) %FiO2 Method 12-Jul-2021 13:53:[id number] 97 MDM MDM/ED COURSE: Discussed supportive measures, and symptom management. Discussed etiology of a more routine viral infection versus Covid infection. Advised patient Covid result turnaround time is about 24 hours, advised self-isolation until results come back. Discussed signs and symptoms of worsening illness and to seek immediate medical attention if these occur. Patient verbalized understanding and agrees with treatment plan. The patient's clinical presentation is otherwise unremarkable at this time. Based on exam and clinical findings the patient is stable for discharge with instructions to follow-up with primary care or seek immediate medical attention for worsening symptoms or any new concerns. DISPOSITION Diagnosis/Annotation: ED Dx Name:Acute upper respiratory infection Code:J06.9 Disposition: discharged Type: home CONSULT CRITICAL CARE TIME Is this a critically ill patient: no Electronic Signatures for Addendum Section: Ish Harvey (NATALEE II) (Signed Addendum 13-Jul-2021 09:22) PATIENT NOTIFIED OF NEGATIVE COVID RESULTS Electronic Signatures: Khang Herbert (MATERIAL DISPATCHER-POLYETHYLENE COMBINER) (Signed 12-Jul-2021 14:23) Authored: ED Notes, HPI, PMH, ROS, PE, Results/Vital Signs, MDM/ED Course, Clinical Impression, Attestation, Chart Review, Scores Ish Harvey (NATALEE CHRIS) (Signature Pending) Authored: PE Last Updated: 13-Jul-2021 09:22 by Ish Harvey (NATALEE II) [facility] Glucose, 1 Hour Screen, [place] [facility] Glucose 1 Hr post 50 g glucose PO [Mass/Vol] 78 mg/dL <135 [facility] [address] [employer] Work Phone: [phone] Comment on above: Diagnostic value wit h glucose loading dose of 50 g. Reference values from [place] [employer]. Diabetes Care 2015;38(Suppl.1):S8-S16 Hematologyon 03-16-2020 Hematocrit (Bld) [Volume fraction] 35.9 % below low threshold See Below [facility] [address] [employer] Work Phone: [phone] Comment on above: Reference Range: 36. 0 - 46.0 Hemoglobin (Bld) [Mass/Vol] 12.1 g/dL See Below [facility] [address] [employer] Work Phone: [phone] Comment on above: Reference Range: 12. 0 - 16.0 MCV (RBC) [Entitic vol] 98 fL 80 - 100 [facility] [address] [employer] Work Phone: [phone] Platelets (Bld) [#/Vol] 271 {x10E9/L} 150 - 450 [facility] [address] [employer] Work Phone: [phone] RBC (Bld) [#/Vol] 3.66 {x10E12/L} below low threshold See Below [facility] [address] Work Phone: [phone] Comment on above: Reference Range: 4.0 0 - 5.20 WBC (Bld) [#/Vol] 12.3 {x10E9/L} above high threshold 4.4 - 11.3 [facility] [address] [place] Work Phone: [phone] Metabolic Panelon 03-16-2020 Glucose [Mass/Vol] 72 mg/dL below low threshold 74 - 99 [facility] [address] [place] Work Phone: [phone] Otheron 03-16-2020 Erythrocyte distribution width (RBC) [Ratio] 13.5 % See Below [facility] [address] Work Phone: [phone] Comment on above: Reference Range: 11. 5 - 14.5 MCHC (RBC) [Mass/Vol] 33.8 g/dL See Below [facility] [address] [place] Work Phone: [phone] Comment on above: Reference Range: 32. 0 - 36.0 NONE [facility] [address] [place] Work Phone: [phone] IO HCG, Urine Test on 11-04-2019 HCG ( test) Ql (U) Positive [facility] [address] [employer] Work Phone: [phone] Comment on above: MEDLINE [id number] P: 02/26/2021 Vital Signs Date Time Vital Sign Value Performing Clinician Facility 06-03-2025 09:50-0400 Body height 171.45 cm [employer] Work Phone: [facility] 06-03-2025 09:45-0400 Body mass index (BMI) [Ratio] 30.1 kg/m2 [employer] Work Phone: [facility] 06-03-2025 09:45-0400 Body weight 88.53 kg [employer] Work Phone: [facility] 06-03-2025 09:45-0400 Diastolic blood pressure 68 mm[Hg] JEANINE WOOD [employer] Work Phone: [facility] 06-03-2025 09:45-0400 Systolic blood pressure 119 mm[Hg] JEANINE WOOD [employer] Work Phone: [facility] 05-22-2025 11:00-0400 Body height 171.45 cm JEANINE WOOD [employer] Work Phone: [facility] 05-22-2025 11:00-0400 Body mass index (BMI) [Ratio] 29.5 kg/m2 JEANINE WOOD [employer] Work Phone: [facility] 05-22-2025 11:00-0400 Body weight 86.74 kg JEANINE WOOD [employer] Work Phone: [facility] 05-22-2025 11:00-0400 Diastolic blood pressure 69 mm[Hg] JEANINE WOOD [employer] Work Phone: [facility] 05-22-2025 11:00-0400 Systolic blood pressure 121 mm[Hg] JEANINE WOOD [employer] Work Phone: [facility] 05-09-2025 14:07-0400 Body height 171.45 cm JEANINE WOOD [employer] Work Phone: [facility] 05-09-2025 14:07-0400 Body mass index (BMI) [Ratio] 29.5 kg/m2 JEANINE WOOD [employer] Work Phone: [facility] 05-09-2025 14:07-0400 Body weight 86.74 kg JEANINE WOOD [employer] Work Phone: [facility] 05-09-2025 14:07-0400 Diastolic blood pressure 73 mm[Hg] JEANINE WOOD [employer] Work Phone: [facility] 05-09-2025 14:07-0400 Systolic blood pressure 125 mm[Hg] JEANINE WOOD [employer] Work Phone: [facility] 04-24-2025 14:10-0400 Body height 171.45 cm JEANINE WOOD [employer] Work Phone: [facility] 04-24-2025 14:10-0400 Body mass index (BMI) [Ratio] 29 kg/m2 JEANINE WOOD [employer] Work Phone: [facility] 04-24-2025 14:10-0400 Body weight 85.38 kg JEANINE WOOD [employer] Work Phone: [facility] 04-24-2025 14:10-0400 Diastolic blood pressure 77 mm[Hg] JEANINE WOOD [employer] Work Phone: [facility] 04-24-2025 14:10-0400 Systolic blood pressure 127 mm[Hg] JEANINE WOOD [employer] Work Phone: [facility] 03-27-2025 08:56-0400 Body height 171.45 cm JEANINE WOOD [employer] Work Phone: [facility] 03-27-2025 08:56-0400 Body mass index (BMI) [Ratio] 27.9 kg/m2 JEANINE WOOD [employer] Work Phone: [facility] 03-27-2025 08:56-0400 Body weight 82.15 kg JEANINE WOOD [employer] Work Phone: [facility] 03-27-2025 08:56-0400 Diastolic blood pressure 77 mm[Hg] JEANINE WOOD [employer] Work Phone: [facility] 03-27-2025 08:56-0400 Systolic blood pressure 122 mm[Hg] JEANINE WOOD [employer] Work Phone: [facility] 02-27-2025 13:02-0400 Body mass index (BMI) [Ratio] 27.4 kg/m2 JEANINE WOOD [employer] Work Phone: [facility] 02-27-2025 13:02-0400 Body weight 80.79 kg JEANINE WOOD [employer] Work Phone: [facility] 02-27-2025 13:02-0400 Diastolic blood pressure 75 mm[Hg] JEANINE WOOD [employer]C Work Phone: [facility] 02-27-2025 13:02-0400 Systolic blood pressure 125 mm[Hg] JEANINE WOOD [employer] Work Phone: [facility] 02-05-2025 10:26-0400 Body mass index (BMI) [Ratio] 26.7 kg/m2 JEANINE WOOD [employer] Work Phone: [facility] 02-05-2025 10:26-0400 Body weight 78.58 kg JEANINE WOOD [employer] Work Phone: [facility] 01-08-2025 07:54-0400 Body height 170.2 cm Jeanine Wood MATERIAL DISPATCHER-POLYETHYLENE COMBINER Work Phone: [facility] 01-08-2025 07:54-0400 Body mass index (BMI) [Ratio] 26.63 kg/m2 Jeanine Wood MATERIAL DISPATCHER-POLYETHYLENE COMBINER Work Phone: [facility] 01-08-2025 07:54-0400 Body weight 77.11 kg Jeanine Wood MATERIAL DISPATCHER-POLYETHYLENE COMBINER Work Phone: [facility] 01-08-2025 07:54-0400 Diastolic blood pressure 60 mm[Hg] Jeanine Wood MATERIAL DISPATCHER-POLYETHYLENE COMBINER Work Phone: [facility] 01-08-2025 07:54-0400 Heart rate 70 /min Jeanine Wood MATERIAL DISPATCHER-POLYETHYLENE COMBINER Work Phone: [facility] 01-08-2025 07:54-0400 SaO2% (BldA) [Mass fraction] 99 % Jeanine Wood MATERIAL DISPATCHER-POLYETHYLENE COMBINER Work Phone: [facility] 01-08-2025 07:54-0400 Systolic blood pressure 98 mm[Hg] Jeanine Wood MATERIAL DISPATCHER-POLYETHYLENE COMBINER Work Phone: [facility] 04-09-2024 09:04-0400 Body height 170.2 cm Benny Cooper MD Work Phone: [facility] 04-09-2024 09:04-0400 Body mass index (BMI) [Ratio] 25.81 kg/m2 Benny Cooper MD Work Phone: [facility] 04-09-2024 09:04-0400 Body weight 74.75 kg Benny Cooper MD Work Phone: [facility] 04-09-2024 09:04-0400 Diastolic blood pressure 68 mm[Hg] Benny Cooper MD Work Phone: [facility] 04-09-2024 09:04-0400 Systolic blood pressure 112 mm[Hg] Benny Cooper MD Work Phone: [facility] 08-07-2023 08:54-0400 Body height 170.2 cm Jeanine Wood MATERIAL DISPATCHER-POLYETHYLENE COMBINER Work Phone: [facility] 08-07-2023 08:54-0400 Body mass index (BMI) [Ratio] 29.49 kg/m2 Jeanine Wood MATERIAL DISPATCHER-POLYETHYLENE COMBINER Work Phone: [facility] 08-07-2023 08:54-0400 Body weight 85.41 kg Jeanine Wood MATERIAL DISPATCHER-POLYETHYLENE COMBINER Work Phone: [facility] 08-07-2023 08:54-0400 Diastolic blood pressure 70 mm[Hg] Jeanine Wood MATERIAL DISPATCHER-POLYETHYLENE COMBINER Work Phone: [facility] 08-07-2023 08:54-0400 Heart rate 77 /min Jeanine Wood MATERIAL DISPATCHER-POLYETHYLENE COMBINER Work Phone: [facility] 08-07-2023 08:54-0400 SaO2% (BldA) [Mass fraction] 96 % Jeanine Wood MATERIAL DISPATCHER-POLYETHYLENE COMBINER Work Phone: [facility] 08-07-2023 08:54-0400 Systolic blood pressure 118 mm[Hg] Jeanine Wood MATERIAL DISPATCHER-POLYETHYLENE COMBINER Work Phone: [facility] 06-30-2023 15:00-0400 Diastolic blood pressure 60 mm[Hg] Jeanine Wood Other Phone: [facility] 06-30-2023 15:00-0400 Heart rate 96 /min Jeanine Wood Other Phone: [facility] 06-30-2023 15:00-0400 Respiratory rate 17 /min Jeanine Vu Other Phone: [facility] 06-30-2023 15:00-0400 SaO2% (BldA) [Mass fraction] 96 % Jeanine Vu Other Phone: [facility] 06-30-2023 15:00-0400 Systolic blood pressure 107 mm[Hg] Jeanine Wood Other Phone: [facility] 06-30-2023 12:12-0400 Body height 172.7 cm Jeanine Wood Other Phone: [facility] 06-30-2023 12:12-0400 Body temperature 98.24 [degF] Jeanine Vu Other Phone: [facility] 06-30-2023 12:12-0400 Body weight 81.8 kg Jeanine [employer] Other Phone: [facility] 03-29-2023 09:09-0400 Body height 170.18 cm Jeanine Cuellar [employer] Work Phone: [employer] Work Phone: 03-29-2023 09:09-0400 Body mass index (BMI) [Ratio] 28.98 kg/m2 Jeanine Cuellar [employer] Work Phone: [employer] Work Phone: 03-29-2023 09:09-0400 Body surface area Derived from formula 1.96 m2 Jeanine [employer] Work Phone: [employer] [address] Work Phone: 03-29-2023 09:09-0400 Body weight 83.92 kg Jeanine [employer] Work Phone: [facility] [address] Work Phone: 03-29-2023 09:09-0400 Diastolic blood pressure 72 mm[Hg] Jeanine [employer] Work Phone: [employer] [place] Work Phone: 03-29-2023 09:09-0400 Systolic blood pressure 118 mm[Hg] Jeanine L Wood Work Phone: [employer] [address] [place] Work Phone: 02-28-2023 09:06-0400 Body height 170.18 cm Jeanine L Wood Work Phone: [facility] [address] [place] Work Phone: 02-28-2023 09:06-0400 Body mass index (BMI) [Ratio] 28.84 kg/m2 Jeanine L Wood Work Phone: [facility] [address] [place] Work Phone: 02-28-2023 09:06-0400 Body surface area Derived from formula 1.95 m2 Jeanine L Wood Work Phone: [place] [address] [place] Work Phone: 02-28-2023 09:06-0400 Body weight 83.52 kg Jeanine L Wood Work Phone: [place] [address] [place] Work Phone: 02-28-2023 09:06-0400 Diastolic blood pressure 78 mm[Hg] Jeanine L Wood Work Phone: [place] [address] [place] Work Phone: 02-28-2023 09:06-0400 Systolic blood pressure 118 mm[Hg] Jeanine L Wood Work Phone: [facility] [place] [address] [place] Work Phone: 02-14-2023 14:27-0400 Body height 170.18 cm Jeanine L Wood Work Phone: [facility] [place] [address] [place] Work Phone: 02-14-2023 14:27-0400 Body mass index (BMI) [Ratio] 28.88 kg/m2 Jeanine L Wood Work Phone: [facility] [place] [address] [place] Work Phone: 02-14-2023 14:27-0400 Body surface area Derived from formula 1.95 m2 Jeanine L Wood Work Phone: [place] [address] [place] Work Phone: 02-14-2023 14:27-0400 Body weight 83.63 kg Jeanine L Wood Work Phone: [place] [address] [place] Work Phone: 02-14-2023 14:27-0400 Diastolic blood pressure 72 mm[Hg] Jeanine L Wood Work Phone: [facility] [place] [address] [place] Work Phone: 02-14-2023 14:27-0400 Systolic blood pressure 118 mm[Hg] Jeanine L Wood Work Phone: [facility] [address] [place] Work Phone: 01-31-2023 09:12-0400 Body height 170.18 cm Jeanine Cuellar Wood Work Phone: [place] [address] [place] Work Phone: 01-31-2023 09:12-0400 Body mass index (BMI) [Ratio] 28.74 kg/m2 Jeanine Cuellar Wood Work Phone: [place] [address] [place] Work Phone: 01-31-2023 09:12-0400 Body surface area Derived from formula 1.95 m2 Jeanine L Wood Work Phone: [place] [address] [place] Work Phone: 01-31-2023 09:12-0400 Body weight 83.24 kg Jeanine L Wood Work Phone: [place] [address] [place] Work Phone: 01-31-2023 09:12-0400 Diastolic blood pressure 78 mm[Hg] Jeanine L Wood Work Phone: [place] [address] [place] Work Phone: 01-31-2023 09:12-0400 Systolic blood pressure 118 mm[Hg] Jeanine Cuellar Wood Work Phone: [employer] [address] [place] Work Phone: 04-11-2022 13:30-0400 Body height 170.18 cm Jeanine Cuellar Wood Work Phone: [employer] Work Phone: 04-11-2022 13:30-0400 Body mass index (BMI) [Ratio] 32.95 kg/m2 Jeanine Cuellar Wood Work Phone: [employer] Work Phone: 04-11-2022 13:30-0400 Body surface area Derived from formula 2.07 m2 Jeanine Cuellar Wood Work Phone: [employer] Work Phone: 04-11-2022 13:30-0400 Body weight 95.43 kg Jeanine Cuellar Wood Work Phone: [employer] Work Phone: 04-11-2022 13:30-0400 Diastolic blood pressure 82 mm[Hg] Jeanine Cuellar Wood Work Phone: [employer] Work Phone: 04-11-2022 13:30-0400 Systolic blood pressure 118 mm[Hg] Jeanine Cuellar Wood Work Phone: [employer] [address] [place] Work Phone: 03-01-2022 13:16-0400 Body temperature 98.24 [degF] Jeanine Wood Other Phone: [facility] 03-01-2022 13:16-0400 Diastolic blood pressure 76 mm[Hg] Jeanine Wood Other Phone: [facility] 03-01-2022 13:16-0400 Heart rate 90 /min Jeanine Wood Other Phone: [facility] 03-01-2022 13:16-0400 Respiratory rate 16 /min Jeanine [employer] Other Phone: [facility] 03-01-2022 13:16-0400 SaO2% (BldA) [Mass fraction] 100 % Jeanine [employer] Other Phone: [facility] 03-01-2022 13:16-0400 Systolic blood pressure 130 mm[Hg] Jeanine [employer] Other Phone: [facility] 02-23-2022 09:33-0400 Body height 170.18 cm Jeanine Cuellar [employer] Work Phone: [employer] Work Phone: 02-23-2022 09:33-0400 Body mass index (BMI) [Ratio] 35.42 kg/m2 Jeanine [employer] Work Phone: [employer] Work Phone: 02-23-2022 09:33-0400 Body surface area Derived from formula 2.13 m2 Jeanine [employer] Work Phone: [facility] [employer] Work Phone: 02-23-2022 09:33-0400 Body weight 102.57 kg Jeanine [employer] Work Phone: [facility] Work Phone: 02-23-2022 09:33-0400 Diastolic blood pressure 82 mm[Hg] Jeanine [employer] Work Phone: [facility] Work Phone: 02-23-2022 09:33-0400 Systolic blood pressure 126 mm[Hg] Jeanine [employer] Work Phone: [facility] Work Phone: 02-16-2022 09:17-0400 Body height 170.18 cm Jeanine [employer] Work Phone: [facility] Work Phone: 02-16-2022 09:17-0400 Body mass index (BMI) [Ratio] 35.71 kg/m2 Jeanine Cuellar Wood Work Phone: [employer] [address] [place] Work Phone: 02-16-2022 09:17-0400 Body surface area Derived from formula 2.14 m2 Jeanine Cuellar Wood Work Phone: [facility] [place] [address] [place] Work Phone: 02-16-2022 09:17-0400 Body weight 103.42 kg Jeanine Cuellar Wood Work Phone: [facility] [address] [place] Work Phone: 02-16-2022 09:17-0400 Diastolic blood pressure 82 mm[Hg] Jeanine Cuellar [employer] Work Phone: [place] [address] [place] Work Phone: 02-16-2022 09:17-0400 Systolic blood pressure 126 mm[Hg] Jeanine Cuellar [employer] Work Phone: [place] [address] [place] Work Phone: 02-08-2022 14:41-0400 Body height 170.18 cm Jeanine Cuellar [employer] Work Phone: [employer] [address] [place] Work Phone: 02-08-2022 14:41-0400 Body mass index (BMI) [Ratio] 35.1 kg/m2 Jeanine Cuellar Wood Work Phone: [place] [address] [place] Work Phone: 02-08-2022 14:41-0400 Body surface area Derived from formula 2.12 m2 Jeanine Cuellar Wood Work Phone: [employer] Work Phone: 02-08-2022 14:41-0400 Body weight 101.67 kg Jeanine Cuellar Wood Work Phone: [place] [address] [place] Work Phone: 02-08-2022 14:41-0400 Diastolic blood pressure 82 mm[Hg] Jeanine Cuellar Wood Work Phone: [facility] [address] [place] Work Phone: 02-08-2022 14:41-0400 Systolic blood pressure 120 mm[Hg] Jeanine Cuellar Wood Work Phone: [place] [address] [place] Work Phone: 02-02-2022 09:08-0400 Body height 170.18 cm Jeanine Cuellar Wood Work Phone: [place] [address] [place] Work Phone: 02-02-2022 09:08-0400 Body mass index (BMI) [Ratio] 34.67 kg/m2 Jeanine Cuellar Wood Work Phone: [place] [address] [place] Work Phone: 02-02-2022 09:08-0400 Body surface area Derived from formula 2.11 m2 Jeanine Cuellar [employer] Work Phone: [place] [address] [place] Work Phone: 02-02-2022 09:08-0400 Body weight 100.4 kg Jeanine Cuellar Wood Work Phone: [place] [address] [place] Work Phone: 02-02-2022 09:08-0400 Diastolic blood pressure 78 mm[Hg] Jeanine Cuellar Wood Work Phone: [place] [address] [place] Work Phone: 02-02-2022 09:08-0400 Systolic blood pressure 114 mm[Hg] Jeanine Cuellar Wood Work Phone: [place] [address] [place] Work Phone: 01-18-2022 08:55-0400 Body height 170.18 cm Jeanine Cuellar Wood Work Phone: [place] [address] [place] Work Phone: 01-18-2022 08:55-0400 Body mass index (BMI) [Ratio] 34.15 kg/m2 Jeanine Cuellar [employer] Work Phone: [place] [address] [employer] Work Phone: 01-18-2022 08:55-0400 Body surface area Derived from formula 2.1 m2 Jeanine Cuellar [employer] Work Phone: [place] [address] [place] Work Phone: 01-18-2022 08:55-0400 Body weight 98.9 kg Jeanine Cuellar [employer] Work Phone: [place] [address] [employer] Work Phone: 01-18-2022 08:55-0400 Diastolic blood pressure 68 mm[Hg] Jeanine Cuellar [employer] Work Phone: [facility] [address] [employer] Work Phone: 01-18-2022 08:55-0400 Systolic blood pressure 108 mm[Hg] Jeanine Cuellar [employer] Work Phone: [place] [address] [employer] Work Phone: 01-05-2022 08:34-0500 Body temperature 98.1 [degF] Jf Washington Jr. DPM Work Phone: [facility] 01-05-2022 08:34-0500 Diastolic blood pressure 71 mm[Hg] Jf Washington Jr. DPM Work Phone: [facility] 01-05-2022 08:34-0500 Heart rate 78 /min Jf Washington Jr. DPM Work Phone: [facility] 01-05-2022 08:34-0500 Systolic blood pressure 106 mm[Hg] Jf Washington Jr. DPM Work Phone: [facility] 01-04-2022 08:55-0500 Body height 170.18 cm Jeanine Vu Work Phone: [place] [address] [employer] Work Phone: 01-04-2022 08:55-0500 Body mass index (BMI) [Ratio] 33.87 kg/m2 Jeanine Cuellar [employer] Work Phone: [place] [address] [place] Work Phone: 01-04-2022 08:55-0500 Body surface area Derived from formula 2.09 m2 Jeanine Cuellar [employer] Work Phone: [facility] [place] [address] [place] Work Phone: 01-04-2022 08:55-0500 Body weight 98.09 kg Jeanine Cuellar [employer] Work Phone: [place] [address] [place] Work Phone: 01-04-2022 08:55-0500 Diastolic blood pressure 78 mm[Hg] Jeanine Cuellar [employer] Work Phone: [place] [address] [place] Work Phone: 01-04-2022 08:55-0500 Systolic blood pressure 118 mm[Hg] Jeanine Cuellar [employer] Work Phone: [place] [address] [place] Work Phone: 12-24-2021 16:13-0500 Body temperature 98.1 [degF] Jf Washington Jr. DPM Work Phone: [facility] 12-24-2021 16:13-0500 Diastolic blood pressure 74 mm[Hg] Jf Washington Jr. DPM Work Phone: [facility] 12-24-2021 16:13-0500 Heart rate 73 /min Jf Washington Jr. DPM Work Phone: [facility] 12-24-2021 16:13-0500 Systolic blood pressure 129 mm[Hg] Jf Washington Jr. DPM Work Phone: [facility] 12-21-2021 08:43-0500 Body height 170.18 cm Jeanine Vu Work Phone: [place] [address] [place] Work Phone: 12-21-2021 08:43-0500 Body mass index (BMI) [Ratio] 33.54 kg/m2 Jeanine Cuellar [employer] Work Phone: [place] [address] [place] Work Phone: 12-21-2021 08:43-0500 Body surface area Derived from formula 2.08 m2 Jeanine Cuellar [employer] Work Phone: [place] [address] [place] Work Phone: 12-21-2021 08:43-0500 Body weight 97.13 kg Jeanine Cuellar [employer] Work Phone: [place] [address] [place] Work Phone: 12-21-2021 08:43-0500 Diastolic blood pressure 72 mm[Hg] Jeanine Cuellar [employer] Work Phone: [place] [address] [place] Work Phone: 12-21-2021 08:43-0500 Systolic blood pressure 118 mm[Hg] Jeanine Cuellar [employer] Work Phone: [place] [address] [place] Work Phone: 12-09-2021 09:42-0500 Body height 170.18 cm Jeanine Cuellar [employer] Work Phone: [facility] 300 Work Phone: 12-09-2021 09:42-0500 Body mass index (BMI) [Ratio] 33.09 kg/m2 Jeanine Cuellar [employer] Work Phone: [facility] 300 Work Phone: 12-09-2021 09:42-0500 Body surface area Derived from formula 2.07 m2 Jeanine Cuellar [employer] Work Phone: [facility] 300 Work Phone: 12-09-2021 09:42-0500 Body temperature 97.2 [degF] Jeanine Cuellar [employer] Work Phone: [facility] 300 Work Phone: 12-09-2021 09:42-0500 Body weight 95.82 kg Jeanine Vu Work Phone: [facility] 300 Work Phone: 12-06-2021 10:47-0500 Body height 171.45 cm Jeanine Vu Work Phone: [facility] [address] [place] Work Phone: 12-06-2021 10:47-0500 Body mass index (BMI) [Ratio] 32.58 kg/m2 Jeanine Cuellar [employer] Work Phone: [facility] [address] [place] Work Phone: 12-06-2021 10:47-0500 Body surface area Derived from formula 2.08 m2 Jeanine Cuellar [employer] Work Phone: [facility] [address] [place] Work Phone: 12-06-2021 10:47-0500 Body temperature 97.5 [degF] Jeanine Cuellar [employer] Work Phone: [facility] [address] [place] Work Phone: 12-06-2021 10:47-0500 Body weight 95.77 kg Jeanine Vu Work Phone: [facility] [address] [place] Work Phone: 12-06-2021 10:47-0500 Diastolic blood pressure 82 mm[Hg] Jeanine Cuellar Wood Work Phone: [facility] [address] [place] Work Phone: 12-06-2021 10:47-0500 Systolic blood pressure 114 mm[Hg] Jeanine Cuellar Wood Work Phone: [facility] [address] [place] Work Phone: 10-18-2021 10:36-0500 Body height 171.45 cm Zayda Vossmona DO Work Phone: [facility] [address] [place] Work Phone: 10-18-2021 10:36-0500 Body mass index (BMI) [Ratio] 30.15 kg/m2 Zayda Marsh DO Work Phone: [place] [employer] [facility] Work Phone: 10-18-2021 10:36-0500 Body surface area Derived from formula 2.01 m2 Zayda Marsh DO Work Phone: [employer] [employer] [facility] Work Phone: 10-18-2021 10:36-0500 Body temperature 97.3 [degF] Zayda Marsh DO Work Phone: [facility] [employer] Work Phone: 10-18-2021 10:36-0500 Body weight 88.62 kg Zayda Marsh DO Work Phone: [facility] [address] [place] Work Phone: 10-18-2021 10:36-0500 Diastolic blood pressure 78 mm[Hg] Zayda Marsh DO Work Phone: [facility] [employer] Work Phone: 10-18-2021 10:36-0500 Systolic blood pressure 112 mm[Hg] Zayda Marsh DO Work Phone: [place] [address] [place] Work Phone: 10-15-2021 19:11-0500 Body height 171 cm [facility] 10-15-2021 19:11-0500 Body temperature 97.7 [degF] [facility] 10-15-2021 19:11-0500 Diastolic blood pressure 86 mm[Hg] [facility] 10-15-2021 19:11-0500 Heart rate 79 /min [facility] 10-15-2021 19:11-0500 SaO2% (BldA) [Mass fraction] 98 % [facility] 10-15-2021 19:11-0500 Systolic blood pressure 127 mm[Hg] [facility] 10-13-2021 10:51-0500 Body height 171.45 cm Mary Alice Urrutia [facility] Work Phone: IJ-Mlvlbmkn-Afgmpy 320 Work Phone: 10-13-2021 10:51-0500 Body mass index (BMI) [Ratio] 30.55 kg/m2 Mary Alice Urrutia [facility] Work Phone: CY-Tvxxxvfr-Wrzbcw 320 Work Phone: 10-13-2021 10:51-0500 Body surface area Derived from formula 2.02 m2 Mary Alice Urrutia [employer] Work Phone: TD-Cqcsffgu-Ryhycg 320 Work Phone: 10-13-2021 10:51-0500 Body weight 89.81 kg Mary Alice Urrutia [employer] Work Phone: WR-Pcltvazo-Ygjfzu 320 Work Phone: 10-13-2021 10:51-0500 Diastolic blood pressure 81 mm[Hg] Mary Alice Urrutia [facility] Work Phone: EW-Doccfvie-Vzxvqm 320 Work Phone: 10-13-2021 10:51-0500 Systolic blood pressure 131 mm[Hg] Mary Alice Urrutia [facility] Work Phone: RO-Osvlabsj-Ksbawo 320 Work Phone: 10-13-2021 10:51-0500 0 1 Mary Alice Urrutia [facility] Work Phone: MG-Eeodvyee-Nftwwo [address] Work Phone: Comment on above: Alicja 09-14-2021 09:34-0500 Body height 171.45 cm Zayda Marsh DO Work Phone: [address] Work Phone: 09-14-2021 09:34-0500 Body mass index (BMI) [Ratio] 28.7 kg/m2 Zayda Vossmona DO Work Phone: [place] [address] [place] Work Phone: 09-14-2021 09:34-0500 Body surface area Derived from formula 1.97 m2 Zayda Marsh DO Work Phone: [facility] [address] [place] Work Phone: 09-14-2021 09:34-0500 Body temperature 97.5 [degF] Zaydavince VossMarsh DO Work Phone: [facility] [address] [place] Work Phone: 09-14-2021 09:34-0500 Body weight 84.37 kg Zaydavince VossMarsh DO Work Phone: [place] [address] [place] Work Phone: 09-14-2021 09:34-0500 Diastolic blood pressure 64 mm[Hg] Zaydavince Marroquina DO Work Phone: [facility] [address] [place] Work Phone: 09-14-2021 09:34-0500 Systolic blood pressure 102 mm[Hg] Zayda Marsh DO Work Phone: [facility] [address] [place] Work Phone: 08-17-2021 10:04-0400 Body height 171.45 cm Zaydavince VossMarsh DO Work Phone: [facility] [address] [place] Work Phone: 08-17-2021 10:04-0400 Body mass index (BMI) [Ratio] 27.62 kg/m2 Zayda Marsh DO Work Phone: [facility] [address] [place] Work Phone: 08-17-2021 10:04-0400 Body surface area Derived from formula 1.94 m2 Zayda Marsh DO Work Phone: [facility] [place] [address] [place] Work Phone: 08-17-2021 10:04-0400 Body temperature 98 [degF] Zaydavince VossMarsh DO Work Phone: [address] Work Phone: 08-17-2021 10:04-0400 Body weight 81.19 kg Zayda Marroquina DO Work Phone: [address] Work Phone: 08-17-2021 10:04-0400 Diastolic blood pressure 80 mm[Hg] Zaydavince Marroquina DO Work Phone: [address] Work Phone: 08-17-2021 10:04-0400 Systolic blood pressure 110 mm[Hg] Zaydavince VossMarsh DO Work Phone: [address] Work Phone: 07-23-2021 15:42-0400 Body height 171.45 cm Zayda Vossmona DO Work Phone: QE-Guazoqnnzn-Rmtxl nd [address] Work Phone: 07-23-2021 15:42-0400 Body mass index (BMI) [Ratio] 26.94 kg/m2 Zaydavince VossMarsh DO Work Phone: HP-Aiesghpzyi-Jnkyt nd [address] Work Phone: 07-23-2021 15:42-0400 Body surface area Derived from formula 1.92 m2 Zayda Marsh DO Work Phone: RI-Riktkmpjrb-Eotji nd [address] Work Phone: 07-23-2021 15:42-0400 Body temperature 98.5 [degF] Zayda Marsh DO Work Phone: KL-Wvciojvpvd-Sgstw nd [address] Work Phone: 07-23-2021 15:42-0400 Body weight 79.2 kg Zaydavince VossMarsh DO Work Phone: MA-Hkahvlqerk-Rfwfr nd [address] Work Phone: 07-23-2021 15:42-0400 Diastolic blood pressure 68 mm[Hg] Zayda Marsh DO Work Phone: OI-Ookgponcly-Amtkm nd [address] Work Phone: 07-23-2021 15:42-0400 Systolic blood pressure 122 mm[Hg] Zayda Marroquina DO Work Phone: RJ-Hidmqqwnpq-Esxiy nd [address] Work Phone: 03-16-2020 17:03-0400 BMI (Body Mass Index) 30.17 kg/m2 Benny Leija-Syl [address] [place] Work Phone: 03-16-2020 17:03-0400 Body Temperature 97.9 [degF] Benny Wen nd [address] [place] Work Phone: Comment on above: Method: Oral 03-16-2020 17:03-0400 Body weight 90 kg Benny joshi [address] [place] Work Phone: 03-16-2020 17:03-0400 BP Diastolic 70 mm[Hg] Benny Leija-Alfonso joshi [address] [place] Work Phone: Comment on above: Location: LUE; Position: Sitting 03-16-2020 17:03-0400 BP Systolic 116 mm[Hg] Benny Dias d [address] [place] Work Phone: Comment on above: Location: LUE; Position: Sitting 03-16-2020 17:03-0400 BSA (Body Surface Area) 2.04 m2 Benny Leija-Syl [address] [place] Work Phone: 03-16-2020 17:03-0400 Height 172.72 cm Benny Carrerolan d [address] [place] Work Phone: 11-04-2019 17:18-0500 BMI (Body Mass Index) 25.61 kg/m2 Angel Acevedo [facility] [address] [place] Work Phone: 11-04-2019 17:18-0500 Body weight 76.4 kg Angel Leija-Ashlan d [address] [place] Work Phone: 11-04-2019 17:18-0500 BP Diastolic 76 mm[Hg] Angel Acevedo [facility] [address] [place] Work Phone: 11-04-2019 17:18-0500 BP Systolic 118 mm[Hg] Angel Acevedo [facility] [address] [place] Work Phone: 11-04-2019 17:18-0500 BSA (Body Surface Area) 1.9 m2 Angel Leija[facility] [address] [place] Work Phone: 11-04-2019 17:18-0500 Height 172.72 cm Angel Leija-Ashlan d [address] [place] Work Phone: Encounters Encounter Date Encounter Type Care Provider Facility Start: 06-03-2025 End: 06-03-2025 ambulatory JEANINE WOOD SHELF FILLER-C Work Phone: -[facility] Start: 06-03-2025 End: 06-03-2025 Patient encounter procedure Vernell Brown SHELF FILLER-C -[facility] Work Phone: Start: 05-22-2025 End: 05-22-2025 Patient encounter procedure Ramone Bauer CNM -[facility] Work Phone: Start: 05-22-2025 End: 05-22-2025 ambulatory JEANINE WOOD SHELF FILLER-C Work Phone: -[facility] Start: 05-13-2025 End: 05-13-2025 ambulatory JEANINE [facility] Start: 05-09-2025 End: 05-09-2025 ambulatory JEANINE WOOD SHELF FILLER-C Work Phone: -[facility] Start: 05-09-2025 End: 05-09-[address] Miya Garza MD -[facility] Work Phone: Start: 04-24-2025 End: 04-24-[address] Miya Garza MD -[facility] Work Phone: Start: 04-24-2025 End: 04-24-2025 ambulatory JEANINE VU SHELF FILLER-C Work Phone: [place] [facility] [facility] Work Phone: Start: 03-27-2025 End: 03-27-2025 Patient encounter procedure Ramone Bauer CNM -[facility] Work Phone: Start: 03-27-2025 End: 03-27-2025 ambulatory JEANINE MIRELLA SHELF FILLER-C Work Phone: [facility] Work Phone: Start: 03-27-2025 End: 03-27-2025 ambulatory Ramone Bauer Facility:[facility] Start: 02-27-2025 End: 02-27-2025 Patient encounter procedure Ramone Bauer CNM -[facility] Work Phone: Start: 02-27-2025 End: 02-27-2025 Patient encounter procedure [facility] Work [facility]: Start: 02-27-2025 End: 02-27-2025 ambulatory [facility] Facility:[facility] Start: 02-27-2025 End: 02-27-2025 ambulatory Ramone Bauer Facility:[facility] Start: 02-05-2025 End: 02-05-2025 Patient encounter procedure Vernell Brown SHELF FILLER-C -[facility] Work Phone: Start: 02-05-2025 End: 02-05-2025 ambulatory [facility] Facility:[facility] Start: 01-08-2025 End: 01-08-2025 Office outpatient visit 15 minutes [facility] MATERIAL DISPATCHER-POLYETHYLENE COMBINER Work Phone: [facility] Comment on above: Irritant contact donald matitis due to other chemical products (Primary Dx) Start: 01-08-2025 End: 01-08-2025 ambulatory [facility] Ambulatory Start: 04-09-2024 End: 04-09-2024 Patient encounter status Benny Cooper MD Work Phone: [facility] Start: 04-09-2024 End: 04-09-2024 Periodic preventive med est patient 18-39 yrs Benny Cooper MD Work Phone: [facility] Comment on above: Encounter for gyneco logical examination without abnormal finding; Encounter for screening for cervical cancer Start: 04-09-2024 End: 04-09-[facility] Start: 04-09-2024 End: 04-09-2024 Encounter for gynecological examination (general) (routine) [facility] abnormal [facility] Start: 08-07-2023 End: 08-07-2023 Office outpatient visit 15 minutes Jeanine Vu MATERIAL DISPATCHER-POLYETHYLENE COMBINER Work Phone: [facility] Comment on above: Anxiety with depress ion (Primary Dx) Start: 06-30-2023 End: 06-30-2023 Emergency department patient visit Sarbjit Villarreal [facility] Emergency 10 Start: 04-03-2023 Chart Update Jeanine joshi Work Phone: [facility] [address] [place] Work Phone: Start: 03-31-2023 Chart Update Jeanine joshi Work Phone: [facility] [address] [place] Work Phone: Start: 03-30-2023 AUDIT Jeanine joshi Work Phone: [facility] [address] [place] Work Phone: Start: 03-30-2023 Chart Update Jeanine joshi Work Phone: [facility] [address] [place] Work Phone: Start: 03-29-2023 Periodic preventive med est patient 18-39 yrs Jeanine Polo Vu Work Phone: [facility] [address] [place] Work Phone: Start: 03-29-2023 ambulatory Ms. Jeanine Cuellar macy Vu Facility:[facility] Start: 02-28-2023 Office outpatient vi sit 15 minutes Jeanine Polo Mirella Work Phone: [facility] [address] [place] Work Phone: Start: 02-28-2023 ambulatory ZAYDA MARSH M.D. Facmark lity:[id number] Start: 02-17-2023 Chart Update Jeanine Cuellar Pat d Work Phone: [facility] [address] [place] Work Phone: Start: 02-16-2023 Chart Update Jeanine Cuellar Pat d Work Phone: [facility] [address] [place] Work Phone: Start: 02-15-2023 Chart Update Jeanine Cuellar Pat d Work Phone: [facility] [address] [place] Work Phone: Start: 02-14-2023 ambulatory ZAYDA MARSH M.D. Faci lity:[id number] Start: 02-02-2023 Chart Update Jeanine Cuellar Pat d Work Phone: [facility] [address] [place] Work Phone: Start: 02-01-2023 Chart Update Jeanine Rojaso d Work Phone: [facility] [address] [place] Work Phone: Start: 01-31-2023 Office outpatient vi sit 15 minutes Jeanine Polo Mirella Work Phone: [facility] [address] [place] Work Phone: Start: 01-31-2023 ambulatory Ms. Jeanine Vu Facility:[id number] Start: 08-30-2022 AUDIT Jeanine Cuellar Pat d Work Phone: [facility] [address] [place] Work Phone: Start: 04-15-2022 Chart Update Jeanine Cuellar Pat d Work Phone: [facility] [address] [place] Work Phone: Start: 04-13-2022 Chart Update Jeanine Cuellar Pat d Work Phone: [facility] [address] [place] Work Phone: Start: 04-12-2022 Chart Update Jeanine Cuellar Pat d Work Phone: [facility] [address] [place] Work Phone: Start: 04-11-2022 Patient encounter procedure Jeanine Vu Work Phone: [facility] [address] [place] Work Phone: Start: 04-11-2022 ambulatory . Jeanine Vu Facility:[id number] Start: 02-28-2022 End: 03-01-2022 Evaluation and management of inpatient Benny Cooper [facility] L&D 402 Start: 02-23-2022 Office outpatient vi sit 15 minutes Jeanine Vu Work Phone: [facility] [address] [place] Work Phone: Start: 02-16-2022 Office outpatient vi sit 10 minutes Jeanine Vu Work Phone: [facility] [address] [place] Work Phone: Start: 02-10-2022 AUDIT Jeanine Rojaso d Work Phone: [facility] [address] [place] Work Phone: Start: 02-09-2022 Chart Update Jeanine Cuellar Pat d Work Phone: [facility] [address] [place] Work Phone: Start: 02-08-2022 Office outpatient vi sit 15 minutes Jeanine Vu Work Phone: [facility] [address] [place] Work Phone: Start: 02-04-2022 Chart Update Jeanine Cuellar Pat d Work Phone: [facility] [address] [place] Work Phone: Start: 02-02-2022 Office outpatient vi sit 15 minutes Jeanine Vu Work Phone: [facility] [address] [place] Work Phone: Start: 01-18-2022 Office outpatient vi sit 15 minutes Jeanine L [employer] Work Phone: [employer] Work Phone: Start: 01-05-2022 End: 01-05-2022 ambulatory JF WASHINGTON JR. [facility] Ambulatory Start: 01-05-2022 End: 01-05-2022 Postop follow up visit related to original px Jf Washington DPM Work Phone: [facility] Comment on above: Cellulitis and absce ss of foot (Primary Dx) Start: 01-04-2022 Office outpatient vi sit 10 minutes Jeanine L [employer] Work Phone: [employer] Work Phone: Start: 12-28-2021 Chart Update Jeanine joshi Work Phone: [facility] [employer] Work Phone: Start: 12-24-2021 End: 12-24-2021 ambulatory JF WASHINGTON JR. [facility] Ambulatory Start: 12-24-2021 End: 12-24-2021 Office outpatient new 30 minutes Jf Washington DPM Work Phone: [facility] Comment on above: Cellulitis and absce ss of foot (Primary Dx); Ingrown nail of great toe of left foot Start: 12-21-2021 Office outpatient ne w 20 minutes Jeanine L Wood Work Phone: [facility] Work Phone: Start: 12-09-2021 Office outpatient vi sit 15 minutes Jeanine L Wood Work Phone: [facility] 300 Work Phone: Start: 12-06-2021 Office outpatient vi sit 10 minutes Jeanine L Wood [facility]: Start: 12-03-2021 Chart Update Jeanine Pat d Work Phone: [facility] [address] [place] Work Phone: Start: 11-15-2021 Phys/qhp telephone evaluation 11-20 min Zayda Marsh DO Work Phone: [facility] [address] [place] Work Phone: Start: 10-19-2021 Telephone encounter Mary Alice Butler iello LGC Work Phone: [facility]-Rirrniqm-Frrywrus [address] Work Phone: Start: 10-18-2021 Office outpatient vi sit 10 minutes Zayda Marsh DO Work Phone: [facility] [employer] [place] Work Phone: Start: 10-15-2021 End: 10-15-2021 Emergency department patient visit [facility] Start: 09-28-2021 AUDIT Angel Knightir DO Work Phone: [facility] [employer] Work Phone: Start: 09-15-2021 Patient encounter procedure Coty Goodwin OTR/L Work Phone: [facility] [place] Work Phone: Start: 09-15-2021 PTEVALADUL, Provider : Brian Wyatt, Status: Pen, Time: 4:00 PM Zayda Marsh DO Work Phone: [facility] Work Phone: Start: 09-14-2021 Office outpatient vi sit 10 minutes Zayda Marsh DO Work Phone: [facility] Work Phone: Start: 08-31-2021 Other Zayda Marsh DO Work Phone: [facility] [employer] Work Phone: Start: 08-20-2021 Chart Update Zayda Marsh DO Work Phone: [facility] [address] [place] Work Phone: Start: 08-18-2021 Chart Update Zayda Marsh DO Work Phone: [facility] [address] [place] Work Phone: Start: 08-17-2021 Chart Update Zayda Marsh DO Work Phone: [facility] [address] [place] Work Phone: Start: 08-17-2021 Office outpatient ne w 20 minutes Zayda Marsh DO Work Phone: [facility] [address] [place] Work Phone: Start: 07-23-2021 Office outpatient vi sit 10 minutes Zayda Marsh DO Work Phone: [address] Work Phone: Start: 01-11-2021 Patient encounter procedure Vinay Ramos [facility] 300 Work Phone: Start: 11-10-2020 Patient encounter procedure Vinay Raoms [facility] 300 Work Phone: Start: 10-12-2020 Patient encounter procedure Vinay Ramos [facility] 300 Work Phone: Start: 09-17-2020 Patient encounter procedure Vinay Ramos [facility] 300 Work Phone: Start: 08-18-2020 Patient encounter procedure Vinay Ramos [facility] Medicine 300 Work Phone: Start: 06-30-2020 Patient encounter procedure Vinay Ramos [facility] Medicine 300 Work Phone: Start: 06-01-2020 Patient encounter procedure Vinay Ramos [facility] 300 Work Phone: Start: 05-25-2020 Patient encounter procedure Vinay Ramos [facility] Medicine 300 Work Phone: Start: 05-18-2020 Patient encounter procedure Vinay Ramos [facility] Orthopedics and Sports [facility] 300 Work Phone: Start: 05-11-2020 Patient encounter procedure Vinay Ramos [facility] Orthopedics and [facility] 300 Work Phone: Start: 04-28-2020 Patient encounter procedure Vinay Ramos [facility] 300 Work Phone: Start: 04-13-2020 Patient encounter procedure Vinay Ramos [facility] Orthopedics and [facility] 300 Work Phone: Start: 03-31-2020 [facility] [address] Work Phone: Start: 03-16-2020 Patient encounter procedure Benny Wood [address] Work Phone: Start: 02-19-2020 Patient encounter procedure Benny Wood [address] Work Phone: Start: 01-24-2020 Patient encounter procedure Benny Wood [address] Work Phone: Start: 12-24-2019 Patient encounter procedure Benny Wood [address] Work Phone: Start: 11-26-2019 Patient encounter procedure Benny Wood [address] Work Phone: Start: 11-04-2019 Patient encounter procedure [place] [address] Work Phone: Menarche Vinay Ramos [facility] Sports Medicine 300 Work Phone: Comment on above: AGE 15; Procedures Date Procedure Procedure Detail Performing Clinician Start: 03-27-2025 Hepatitis C antibody measurement JEANINE SANFORD Work Phone: Comment on above: Reactive: Presumptiv e evidence of antibodies to HCV. Follow CDC recommendations for supplemental testing.Non-Reactive: Antibodies to HCV were not detected; does not exclude the possibility of exposure to HCVReactive Results are presumptive evidence of antibodies to HCV. Follow CDC recommendations for supplemental testing.Order confirmation testing: HCV Quant by PCR testing - HCVPCR #[id number] Non Reactive: < 0.8 Equivocal: >/= 0.8 to < 1.0 Reactive: >/= 1.0The [facility] requires that a reactive/equivocal HCV antibody result be sent out for confirmation. HCV Quant by PCR testing. Start: 03-27-2025 Procedure JEANINE DUMONT [facility] Work Phone: Start: 03-27-2025 Rubella IgG measurement [facility] Work Phone: Comment on above: Antibody Result: Int erpretationNon-Reactive: Non- ImmuneReactive: ImmuneThe following results were obtained with the [employer] Rubella IgG assay. Results from assays of other manufacturers cannot be used interchangeably. Start: 03-27-2025 Serologic test for syphilis [facility] Work Phone: Start: 02-27-2025 Urine culture [facility] Work Phone: Start: 04-09-2024 Microscopic observat ion [Identifier] in Cervix by Cyto stain Jeanine Bowman MATERIAL DISPATCHER-POLYETHYLENE COMBINER Work Phone: Start: 06-30-2023 End: 06-30-2023 EKG impression Sarbjit Villarreal Start: 03-29-2023 Microscopic observat ion [Identifier] in Cervix by Cyto stain Jeanine Bowman MATERIAL DISPATCHER-POLYETHYLENE COMBINER Work Phone: Start: 02-28-2022 Antibody screen Comment on above: Performed By: #### T +S ####[address] [address] Start: 12-24-2021 SKIN PREP Jf johnson DPM Work Phone: Start: 10-13-2021 Medical genetics cou nseling each 30 minutes Mary Alice Urrutia [facility] Work Phone: Start: 08-17-2021 End: 08-17-2021 Antibody screen Comment on above: Performed By: #### T +S #### [address] [address] Order Comment: TEST TYPE + SCREEN WAS CANCELLED, 08/17/2021 11:29 ERROR. Performed By: #### T +S #### [facility] [address] [place] [address] Start: 02-19-2020 Complete Blood Count Anemia Panel with reflex Benny Cooper Start: 02-19-2020 Glucose post glucose dose Benny Cooper History of No histor y of surgery Angel Acevedo No history of surgery Zayda Marsh DO Work Phone: Plan of Treatment Date Care Activity Detail Author Start: 2042 Zoster Vaccines (1 o f 2) Zoster Vaccines (1 of 2) [facility] Start: 12-29-2031 DTaP/Tdap/Td Vaccine s (2 - Td or Tdap) DTaP/Tdap/Td Vaccines (2 - Td or Tdap) [facility] Start: 12-29-2031 Tetanus vaccination Tetanus: Every 1 0yrs [facility] Start: 04-09-2027 Screening for malign ant neoplasm of cervix [facility] Start: 03-29-2026 Screening for malign ant neoplasm of cervix [facility] Start: 04-15-2025 End: 04-15-2025 Patient encounter procedure 04/15/2025 8:45 AM EDT Office Visit [facility] [address] [place] [id number] Benny Cooper MD [address] [place] [address] [facility] Medical Office, [address] [address] [facility] Start: 04-10-2025 Yearly Adult Physical Yearly A dult Physical [facility] Start: 03-27-2025 CBC W Auto Different ial panel - Blood [facility] Start: 03-27-2025 Hepatitis C antibody measurement [facility] Start: 03-27-2025 Procedure [facility] Start: 03-27-2025 Rubella IgG measurement [facility] Start: 03-27-2025 Serologic test for syphilis [facility] Start: 03-27-2025 [facility] Start: 06-30-2024 COVID-19 Vaccine ( season) COVID-19 Vaccine ( season) [facility] Start: 06-30-2024 Influenza vaccination Influenz a Vaccine (#1) [facility] Start: 04-09-2024 End: 04-09-2025 Cytology Cervical or vaginal smear or scraping study [email or web address] Service Area Work Phone: Comment on above: Expected: 04/09/2024 (Approximate), Expires: 04/09/2025 Start: 04-02-2024 [facility] Start: 04-02-2024 End: 04-02-2024 Patient encounter procedure 04/02/2024 8:30 AM EDT Office Visit [facility] Medical Office Building [address] [place] [address] Zayda Marsh MD [address] [facility] Medical Office, [facility] [address] [place] [address] [facility] Building Start: 06-30-2023 COVID-19 Vaccine ( season) COVID-19 Vaccine ( season) [facility] Start: 06-30-2023 Influenza vaccination Influenz a Vaccine (#1) [facility] Start: 03-29-2023 Patient encounter procedure ANNUAL, Provider: Zayda Marsh, Status: Pen, Time: 9:[address] Work Phone: Start: 02-28-2023 FUV, Provider: Zayda Marsh, Status: Pen, Time: 9:00 AM FUV, Provider: Zayda Marsh, Status: Pen, Time: 9:00 AM [address] Work Phone: Start: 10-14-2022 Patient encounter procedure ANNUAL, Provider: Zayda Marsh, Status: Pen, Time: 11:15 AM [place] [address] [employer] Work Phone: Start: 02-28-2022 EPVOB, Provider: Zayda Marsh, Status: Pen, Time: 9:45 AM EPVOB, Provider: Zayda Marsh, Status: Sebastián, Time: 9:45 AM [employer] Work Phone: Start: 02-28-2022 End: 03-01-2023 [facility] Comment on above: Consult provider rebeka or to administration. Push over more than 2 minutes. Systolic greater than or equal to 160 OR Diastolic greater than or equal to 110. Contraindications: active asthma, heart disease, heart failure, maternal bradycardia < 60. Consult provider rebeka or to administration. Push over more than 2 minutes. Systolic greater than or equal to 160 OR Diastolic greater than or equal to 110. Contraindication: coronary artery disease (CAD); Caution in suspected CAD. Consult provider rebeka or to administration. Systolic greater than or equal to 160 OR Diastolic greater than or equal to 110. Capsules administered orally and swallowed whole; Do not puncture or crush; Do not administer sublingually. administer if patien t screen is non- immune or equivocal After and PRN Before Discharge Consult provider rebeka or to administration. Max dose of 16mg / 2 4 hours Conditional order. 6 00 milliunits/min x 30 mins., then 60 milliunits/min for the remainder of the bag. Consult Provider prior to administration. Start: 02-23-2022 EPVOB, Provider: Zayda Marsh, Status: Sebastián, Time: 9:15 AM EPVOB, Provider: Zayda Marsh, Status: Sebastián, Time: 9:15 AM [place] [employer] Work Phone: Start: 02-16-2022 EPVOB, Provider: Zayda Marsh, Status: Sebastián, Time: 9:00 AM EPVOB, Provider: Zayda Marsh, Status: Sebastián, Time: 9:00 AM [employer] Work Phone: Start: 02-08-2022 EPVOB, Provider: Zayda Marsh, Status: Sebastián, Time: 2:45 PM EPVOB, Provider: Zayda Marsh, Status: Sebastián, Time: 2:45 PM [employer] Work Phone: Start: 02-02-2022 EPVOB, Provider: Zayda Marsh, Status: Pen, Time: 8:45 AM EPVOB, Provider: Zayda Marsh, Status: Pen, Time: 8:45 AM [facility] [employer] Work Phone: Start: 01-18-2022 EPVOB, Provider: Zayda Marsh, Status: Pen, Time: 8:45 AM EPVOB, Provider: Zayda Marhs, Status: Pen, Time: 8:45 AM [facility] [employer] Work Phone: Start: 01-05-2022 End: 01-05-2022 Patient encounter procedure 01/05/2022 Office Visit Podiatry Jf Washington Jr., DPM [address] [place] [address] [facility] Start: 01-04-2022 EPVOB, Provider: Zayda Marsh, Status: Pen, Time: 8:45 AM EPVOB, Provider: Zayda Marsh, Status: Pen, Time: 8:45 AM [facility] [employer] Work Phone: Start: 12-21-2021 EPVOB, Provider: Zayda Marsh, Status: Pen, Time: 8:30 AM EPVOB, Provider: Zayda Marsh, Status: Pen, Time: 8:30 AM [facility] [employer] Work Phone: Start: 12-09-2021 FUV, Provider: Vinay Ramos, Status: Pen, Time: 9:30 AM FUV, Provider: Vinay Ramos, Status: Pen, Time: 9:30 AM [facility] [employer] Work Phone: Start: 12-06-2021 EPVOB, Provider: Zayda Marsh, Status: Pen, Time: 10:30 AM EPVOB, Provider: Zayda Marsh, Status: Pen, Time: 10:[address] Work Phone: Start: 11-15-2021 EPVOB, Provider: Zayda Mrash, Status: Pen, Time: 10:00 AM EPVOB, Provider: Zayda Marsh, Status: Pen, Time: 10:[address] Work Phone: Start: 10-18-2021 EPVOB, Provider: Zayda Marsh, Status: Pen, Time: 9:00 AM EPVOB, Provider: Zayda Marsh, Status: Pen, Time: 9:00 AM [facility] Work Phone: Start: 10-18-2021 Patient encounter procedure [facility] Start: 10-12-2021 EPVOB, Provider: Zayda Marsh, Status: Pen, Time: 11:30 AM EPVOB, Provider: Zayda Marsh, Status: Pen, Time: 11:[address] Work Phone: Start: 09-20-2021 EPV, Provider: Jeanine Vu, Status: Pen, Time: 8:00 AM EPV, Provider: Jeanine Vu, Status: Pen, Time: 8:[address] Work Phone: Start: 09-15-2021 PTEVALADUL, Provider : Brian Wyatt, Status: Pen, Time: 4:00 PM PTEVALADUL, Provider: Brian Wyatt, Status: Pen, Time: 4:[address] Work Phone: Start: 09-14-2021 EPVOB, Provider: Zayda Marsh, Status: Pen, Time: 9:30 AM EPVOB, Provider: Zayda Marsh, Status: Pen, Time: 9:[address] Work Phone: Start: 08-17-2021 EPVOB, Provider: Zayda Marsh, Status: Pen, Time: 9:30 AM EPVOB, Provider: Zayda Marsh, Status: Pen, Time: 9:[address] Work Phone: Start: 07-28-2021 COVID-19 Vaccine (3 - Booster for Moderna series) COVID-19 Vaccine (3 - Booster for Moderna series) [facility] Start: 06-30-2021 Influenza vaccination Sequenti al Influenza Vaccine (#1) [facility] Start: 04-22-2021 COVID-19 Vaccine (3 - Moderna series) COVID-19 Vaccine (3 - Moderna series) [facility] Start: 2013 Screening for malign ant neoplasm of cervix HPV/Cotest [facility] Start: 2011 Hepatitis B Vaccines (1 of 3 - 19+ 3-dose series) Hepatitis B Vaccines (1 of 3 - 19+ 3-dose series) [facility] Start: 2010 Hepatitis C screening Hepatiti s C Screening [facility] Start: 2007 HIV screening HIV Screening [facility] Start: 2005 Varicella vaccination Varicell a Vaccines (1 of 2 - 13+ 2-dose series) [facility] Start: 2004 Depression screening using PHQ-9 (Patient Health Questionnaire 9) score Depression Screening (PHQ-2/9) [facility] Start: 1995 History and physical examination, annual for health maintenance Wellness Visit [facility] Start: 1993 MMR Vaccines (1 of 1 - Standard series) MMR Vaccines (1 of 1 - Standard series) [facility] Start: 1993 Varicella vaccination Varicell a Vaccines (1 of 2 - 2-dose childhood series) [facility] Start: 1992 Hepatitis B Vaccines (1 of 3 - 3-dose series) Hepatitis B Vaccines (1 of 3 - 3-dose series) [facility] Start: 1992 Lipid panel Lipid Panel [facility] Start: 1992 Screening for malign ant neoplasm of cervix Pap Smear [facility] Start: 1992 Tetanus vaccination Tetanus: Every 1 0yrs [facility] Start: 1992 Yearly Adult Physical Yearly A dult Physical [facility] Erythrocyte mean corpuscular volume determination [facility] Hematocrit [Volume Fraction] of Blood [facility] Hemoglobin [Mass/volume] in Blood [facility] Hepatitis B virus surface Ag [Presence] in Serum [facility] Leukocytes [#/volume ] in Blood [facility] Mean corpuscular hemoglobin concentration determination [facility] Mean corpuscular hemoglobin determination [facility] Neutrophil count [facility] Neutrophil percent differential count [facility] Platelets [#/volume] in Blood [facility] Red blood cell count [facility] Red cell distributio n width determination [facility] Source specific culture [facility] Orthopedics and Sports [facility] 300 Work Phone: [facility] NEGATED: Highlighted row has been ruled out! Planned Goals not documented [facility] Medicine 300 Work Phone: Immunizations Immunization Date Immunization Notes Care Provider Casandra agustin 12-28-2021 tetanus toxoid, redu venkata diphtheria toxoid, and acellular pertussis vaccine, adsorbed Jeanine L Wood Work Phone: [address] Work Phone: 02-25-2021 Moderna COVID-19 Vaccine 100 MCG/0.5ML Intramuscular Suspension Angel Dyer DO Work Phone: [address] Work Phone: 01-27-2021 Moderna COVID-19 Vaccine 100 MCG/0.5ML Intramuscular Suspension Angel Dyer DO Work Phone: [address] Work Phone: 08-30-2020 influenza, seasonal, injectable Vinay Ramos [facility] Medicine 300 Work Phone: Comment on above: Series: 08-30-2020 influenza, seasonal, injectable Vinay Ramos [facility] Sports Medicine 300 Work Phone: Payers Date Payer Category Payer Private Health Insurance [id number] 2025 Self-pay 2020 Managed Care (Private) [facility] [id number] 2020 Private Health Insurance [id number] 2020 Unknown 2020 Private Health Insurance [id number] 1992 Unknown [id number] [id number]. 2.903 1992 Unknown [id number] 2.16840.1.206706.3.579. 2.903 1992 Unknown [id number] 2.16840.1.499761.3.579. 2.356 1992 Unknown [id number] 2.16840.1.060346.3.579. 2.356 1992 Unknown [id number] 2.16840.1.921411.3.579. 2.356 1992 Unknown [id number] 2.16840.1.646281.3.579. 2.356 1992 Unknown [id number] 2.16840.1.642295.3.579. 2.356 1992 Unknown [id number] 2.16840.1.322920.3.579. 2.356 1992 Unknown [id number] 2.16840.1.326406.3.579. 2.1244 1992 Unknown [id number] 2.16.840.1.805692.3.579. 2.1244 1992 Unknown [id number] 2.16.840.1.099568.3.579. 2.479 Unknown [id number] 2.16.840.1.430756.3.579. 2.462 Unknown [id number] 2.16.840.1.722657.3.579. 2.462 Unknown [id number] 2.16.840.1.959527.3.579. 2.462 Unknown [id number] 2.16.840.1.970205.3.579. 2.462 Unknown [id number] 2.16.840.1.034428.3.579. 2.462 Unknown [id number] 2.16.840.1.354983.3.579. 2.462 Unknown [id number] 2.16.840.1.577294.3.579. 2.462 Unknown [id number] [id number]. 2.462 Social History Date Type Detail Facility Assertion Unknown if ever smoked Women [address] Work Phone: Start: 06-22-2023 End: 04-09-2024 Sexually active Sexually active [address] Work Phone: Tobacco smoking consumption unknown [facility] Start: 12-24-2021 End: 05-08-2025 Tobacco smoking status NHIS Never smoked tobacco [facility] Start: 12-24-2021 End: 06-22-2023 Tobacco use and exposure Smokeless tobacco non-user [facility] Start: 12-24-2021 End: 01-05-2022 Alcohol intake Ex-drinker (finding) [facility] Start: 1990 Sex Assigned At Not on file [facility] Start: 12-14-2021 End: 04-09-2024 Exposure to SARS-CoV-2 (event) Not sure [facility] Start: 08-07-2023 End: 01-08-2025 Alcohol intake Lifetime non-drinker (finding) [facility] Work Phone: Start: 06-22-2023 End: 04-09-2024 Tobacco use panel [facility] Work Phone: Within the last year , have you been afraid of your partner or ex-partner? No [facility] Work Phone: How often to you hav e a drink containing alcohol? Never [facility] Work Phone: How many standard drinks containing alcohol do you have on a typical day? Patient does not drink [facility] Work Phone: Do you feel stress - tense, restless, nervous, or anxious, or unable to sleep at night because your mind is troubled all the time - these days [OSQ] Not at all [facility] Work Phone: (I/We) worried kathleen er (my/our) food would run out before (I/we) got money to buy more. Never true [facility] Work Phone: Start: 1990 Sex assigned at Female [facility] Start: 01-07-2025 Gender identity Identifies as female gender (finding) [facility] Work Phone: Start: 01-07-2025 Sexual orientation Heterosexual (finding) [facility] Work Phone: Functional Status Date Assessment Result Facility Functional observable [facility] NEGATED: Highlighted row Functional performance Functional status health issues are not documented Disease [facility] [employer] Work Phone: Mental Status Date Assessment Result Facility 03-01-2022 Cognitive functi ons 27:40 [facility] NEGATED: Highlighted row Cognitive function [Interpretation] Cognitive status health issues are not documented Disease [place] [address] [employer] Work Phone: Clinical Notes 11-10-2020 to 05-22-2025 Note Date & Type Note Facility 05-22-2025 Progress note [facility] 05-09-2025 Progress note [facility] 05-09-2025 Progress note Note Date/Time May 09, 2025 2:23pm [facility] [address], [address] [place] [address] OFFICE VISIT Date of Service: 05/09/25 MR#: [id number] Acct: [id number] Name: LINETTE HUI Rep #: [id number] : 1990 Provider: Dr. Maxime Garza MD Age/Sex: 35/F Location: [facility] [place] Status: Signed Intake Vital Signs 04/24/25 14:10 05/08/25 16:06 05/09/25 14:07 Height 5 ft 7.5 in 5 ft 7.5 in 5 ft 7.5 in Weight: 191 lb 4 oz BMI 29.5 BP 125/73 H Intake Visit Reasons: fu contractions per JV Complex Care Nurse Required: No Is patient in pain?: No Allergies Penicillins Allergy (Mild, Verified 05/09/25 14:05) Hives Sulfa (Sulfonamide Antibiotics) Allergy (Mild, Verified 05/09/25 14:05) Hives Medications ?Medication ?Instructions ?Recorded ?Confirmed ?Type cholecalciferol (vitamin D3) 50 50 mcg PO QDAY 5 05/09/25 History mcg (2,000 unit) capsule docosahexaenoic acid 200 mg mg PO 02/05/25 05/09/25 Hi story capsule ( DHA) omega-3 fatty acids 1,000 mg 1,000 mg PO QDAY 02/05/25 05/09/25 History capsule Last Menstrual Period: 12/31/24 Zika: Zika virus screening: Negative : No PFSH PFSH Medical History ADHD Family History Father GBM (glioblastoma multiforme) Hypertension Mother Hypertension Alopecia Grandmother Heart disease Hypertension Grandfather Heart disease Hypertension Macular degeneration Brother Leukemia as a child Grandmother Macular degeneration Hypertension Aneurysm Social History adopted: No household members: spouse and children number of children: 2 current occupational status: employed 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 (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 ) ) pets and animals: No history of recent travel: No Smoking Status: Never smoker alcohol intake: former details: socially, but not since substance use type: marijuana and other details: occasionally but not since , last 10/2024 caffeine: Yes Type: coffee what type of physical activity do you participate in: running and bicycling frequency: 5-6 times per week deon/episcopal: Yazidism seatbelt use: always do you feel safe at home: Yes additional social history: - [facility] History 3 Elective abortions Hx Para 2 Spontaneous abortions Hx # Term Pregnancies Ectopic pregnancies Hx # Pregnancies Multiple births # of living children 2 Past Pregnancies Del. Date Name GA/Weeks Outcome Route Bth Weight Infant Gen Labor Lgth Anesthesia Del Locatn Provider FOB 06/02/20 Prasanna 39 live - full term 7.8 Female 7 hours n one Gui nt 02/28/22 Miguel Ángel 39 live - full term Male 6 none HPI fu contractions per JV Details: LINETTE HUI is a 35 year old who presents for routine OB visit. OB Visit TAQUERIA Calculator Estimated Delivery Date Method Current WG Current Estimate 10/07/25 LMP (Certain) 18w 3d Other Estimates 10/05/25 Ultrasound #1 18w 5d Expected Delivery Route/Plan Labor Preferences- CB/BF classes: [] labor support person: [] labor intervention preferences: [] pain management options preferred: [] cut cord/dad catch: [] : [] PP control planned: [] discussed possible routes of delivery and associated risks: [] special requests: [] Specific Issue/Plans Covid status: [] Flu vaccine: [] Tdap vaccine: [] Rhogam: [] LARC form signed: [] Problem list reviewed and updated with the most current plan of care details and appropriate orders placed. Relevant counseling for the gestational age provided. Continue routine care and follow up unless otherwise noted in visit notes/problem list details Initial Weight: 178 lb Date -?-?-?-?-?-?-?-?-?-?-?-?- EGA Weight BP Urine Prot -?-?-?-?-?-?-?-?-?-?-?-?- Glucose FHR FuHt Pres Dilation -?-?-?-?-?-?--?-?-?-?-?-?- Effaced St Visit Note 02/27/25 -?-?-?-?-?-?-?-?-?-?-?-?- 8w 2d 178 lb 2 oz (+2 oz) 125/75 -?-?-?-?-?-?-?-?-?-?-?-?- 173 -?-?-?-?-?-?-?-?-?-?-?-?- KW- CRL cons wit h dates. accepts NIPT. 03/27/25 -?-?-?-?-?-?-?-?-?-?-?-?- 12w 2d 181 lb 2 oz (+3 lb 2 oz) 122/77 Negative -?-?-?-?-?-?-?-?-?-?-?-?- Negative 160 -?--?-?-?-?-?-?-?-?-?-?-?- kw- no vb/crampi ng. US with MFM ordered. Bartholin cyst-to try loose clothing and warm compress kw- no vb/cramping. US with MFM ordered. Bartholin cyst-to try loose clothing and warm compress. Labs today 04/24/25 -?-?-?-?-?-?-?-?-?-?-?-?- 16w 2d 188 lb 4 oz (+10 lb 4 oz) 127/77 -?-?-?-?-?-?-?-?-?-?-?-?- 145 -?-?-?-?-?-?-?-?-?-?-?-?- SM- no vb crampi ng 05/09/25 -?-?-?-?-?-?-?-?-?-?-?-?- 18w 3d 191 lb 4 oz (+13 lb 4 oz) 125/73 Negative -?-?-?-?-?-?-?-?-?-?-?-?- Negative 145 -?-?-?-?-?-?-?-?-?-?-?-?- Sm- she was feel ing crampy throughout the day, had diarrhea yesterday and now feeling better today ACOG First Trimester First Trimester: Desire for , Alcohol, Tobacco Cessation, Illicit/Recreational Drug/Substance Use, Intimate Partner Violence, Barriers to care, Anticipated Course of Care, Use of Any medications, Sexual activity, Exercise, Dental Care, Sauna/Hot tub use, Seat Belt use, Childbirth classes/Hospital facilities, Travel, Indications for Ultrasound and Screening for Aneuploidy; Discussed Unstable Housing, Discussed Communication Barriers, Discussed Environmental/Work Hazards, Discussed Toxoplasmosis Precations and Discussed Second Trimester Second Trimester: Signs and Symptoms of Labor, Selecting a care provider, Reproductive Life Planning & Contreception, Care Planning, Depression/Anxiety and Intimate Partner Violence; Discussed Tobacco Cessation Third Trimester Third Trimester: Pain Management Plans, Labor support person(s), Immediate Larc, Signs and Symptoms of Preeclampsia, Feeding No , Education and Family Medical Leave or Disability Forms Results POC Urinalysis 2 Dip (Clinic) Office Urine Glucose Negative Last Edit by Vernell Dyer on 05/09/25 14:12 Office Urine Protein Negative Last Edit by Vernell Dyer on 05/09/25 14:12 Coding Level of Care Code OB Routine Diagnoses Occupational risk complicating O09.899 ADHD F90.9 18 weeks gestation of Z3A.18 Weeks of gestation: 18 weeks Supervision of high risk in first trimester O09.91 Assessment and Plan Assessment and Plan (1) Occupational risk complicating : 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[employer], 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 (2) ADHD: Status: Acute Comment: Linda-stopped taking medication once she found out she was (3) : Status: Acute Qualifiers: Weeks of gestation: 18 weeks Qualified Code(s): Z3A.18 - 18 weeks gestation of Comment: NIPT low risk, declines gender & carrier (4) Supervision of high risk in first trimester: Status: Acute Comment: PRR, PC Miguel Ángel Guerra, TAQUERIA 10/07/25 [facility] Orders: Orders POC Urinalysis 2 Dip (Clinic) Today 05/09/25 1423 <Electronically signed by Miya lou MD> Date _ Miya Garza MD Cosign Signature: Date (if applicable) CC: ~ [place] [employer] [facility] Work Phone: 1(204) 717-579606-26-2025 [facility] [address], [address] [place] [id number] OFFICE VISIT Date of Service: 04/24/25 MR#: [id number] Acct: [id number] Name: LINETTE HUI Rep #: [id number] : 1990 Provider: Dr. Maxime Garza MD Age/Sex: 34/F Location: [facility] [place] Status: Signed Intake Vital Signs 02/27/25 13:02 03/27/25 08:56 04/24/25 14:10 Height 5 ft 7.5 in 5 ft 7.5 in 5 ft 7.5 in Weight: 181 lb 2 oz 188 lb 4 oz BMI 27.9 29.0 BP 122/77 H 127/77 H Intake Visit Reasons: 16wk ob Complex Care Nurse Required: No Is patient in pain?: No Allergies Penicillins Allergy (Mild, Verified 04/24/25 14:11) Hives Sulfa (Sulfonamide Antibiotics) Allergy (Mild, Verified 04/24/25 14:11) Hives Medications ?Medication ?Instructions ?Recorded ?Confirmed ?Type cholecalciferol (vitamin D3) 50 50 mcg PO QDAY 5 04/24/25 History mcg (2,000 unit) capsule docosahexaenoic acid 200 mg mg PO 02/05/25 04/24/25 Hi story capsule ( DHA) omega-3 fatty acids 1,000 mg 1,000 mg PO QDAY 02/05/25 04/24/25 History capsule Last Menstrual Period: 12/31/24 Zika: Zika virus screening: Negative : No PFSH PFSH Medical History ADHD Family History Father GBM (glioblastoma multiforme) Hypertension Mother Hypertension Alopecia Grandmother Heart disease Hypertension Grandfather Heart disease Hypertension Macular degeneration Brother Leukemia as a child Grandmother Macular degeneration Hypertension Aneurysm Social History adopted: No household members: spouse and children number of children: 2 current occupational status: employed 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 (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) ) pets and animals: No history of recent travel: No Smoking Status: Never smoker alcohol intake: former details: socially, but not since substance use type: marijuana and other details: occasionally but not since , last 10/2024 caffeine: Yes Type: coffee what type of physical activity do you participate in: running and bicycling frequency: 5-6 times per week deon/episcopal: Yazidism seatbelt use: always do you feel safe at home: Yes additional social history: - [facility] History 3 Elective abortions Hx Para 2 Spontaneous abortions Hx # Term Pregnancies Ectopic pregnancies Hx # Pregnancies Multiple births # of living children 2 Past Pregnancies Del. Date Name GA/Weeks Outcome Route Bth Weight Infant Gen Labor Lgth Anesthesia Del Locatn Provider FOB 06/02/20 Prasanna 39 live - full term 7.8 Female 7 hours n one [facility] 02/28/22 Miguel Ángel 39 live - full term Male 6 none HPI 16wk ob Details: LINETTE HUI is a 34 year old who presents for routine OB visit. OB Visit TAQUERIA Calculator Estimated Delivery Date Method Current WG Current Estimate 10/07/25 LMP (Certain) 16w 2d Other Estimates 10/05/25 Ultrasound #1 16w 4d Expected Delivery Route/Plan Labor Preferences- CB/BF classes: [] labor support person: [] labor intervention preferences: [] pain management options preferred: [] cut cord/dad catch: [] : [] PP control planned: [] discussed possible routes of delivery and associated risks: [] special requests: [] Specific Issue/Plans Covid status: [] Flu vaccine: [] Tdap vaccine: [] Rhogam: [] LARC form signed: [] Problem list reviewed and updated with the most current plan of care details and appropriate ordersplaced. Relevant counseling for the gestational age provided. Continue routine care and follow up unless otherwise noted in visit notes/problem list details Initial Weight: 178 lb Date -?-?-?-?-?-?-?-?-?-?-?-?- EGA Weight BP Urine Prot -?-?-?-?-?-?-?-?--?-?-?-?- Glucose FHR FuHt Pres Dilation -?-?-?-?-?-?-?-?-?-?-?-?- Effaced St Visit Note 02/27/25 -?-?-?-?-?-?-?-?-?-?-?-?- 8w 2d 178 lb 2 oz (+2 oz) 125/75 -?-?-?-?-?-?-?-?-?-?-?-?- 173 -?-?-?-?-?-?-?-?-?-?-?-?- KW- CRL cons wit h dates. accepts NIPT. 03/27/25 -?-?-?-?-?-?-?-?-?-?-?-?- 12w 2d 181 lb 2 oz (+3 lb 2 oz) 122/77 Negative -?-?-?-?-?-?-?-?-?-?-?-?- Negative 160 -?-?-?-?-?-?-?-?-?--?-?-?- kw- no vb/crampi ng. US with MFM ordered. Bartholin cyst-to try loose clothing and warm compress kw- no vb/cramping. US with MFM ordered. Bartholin cyst-to try loose clothing and warm compress. Labs today 04/24/25 -?-?-?-?-?-?-?-?-?-?-?-?- 16w 2d 188 lb 4 oz (+10 lb 4 oz) 127/77 -?-?-?-?-?-?-?-?-?-?-?-?- 145 -?-?-?-?-?-?-?-?-?-?-?-?- SM- no vb crampi ng ACOG First Trimester First Trimester: Desire for , Alcohol, Tobacco Cessation, Illicit/Recreational Drug/Substance Use, Intimate Partner Violence, Barriers to care, Anticipated Course of Care, Use of Any medications, Sexual activity, Exercise, Dental Care, Sauna/Hot tub use, Seat Belt use, Childbirth c lasses/Hospital facilities, Travel, Indications for Ultrasound and Screening for Aneuploidy; Discussed Unstable Housing, Discussed Communication Barriers, Discussed Environmental/Work Hazards, Discussed Toxoplasmosis Precations and Discussed Second Trimester Second Trimester: Signs and Symptoms of Labor, Selecting a care provider, Reproductive Life Planning & Contreception, Care Planning, Depression/Anxiety and Intimate Partner Violence; Discussed Tobacco Cessation Third Trimester Third Trimester: Pain Management Plans, Labor support person(s), Immediate Larc, Signs and Symptoms of Preeclampsia, Infant Feeding No , Education and Family Medical Leave or Disability Forms Coding Level of Care Code OB Routine Diagnoses Occupational risk complicating O09.899 ADHD F90.9 16 weeks gestation of Z3A.16 Weeks of gestation: 16 weeks Supervision of high risk in first trimester O09.91 Assessment and Plan Assessment and Plan (1) Occupational risk complicating : 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[employer], 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 (2) ADHD: Status: Acute Comment: Linda-stopped taking medication once she found out she was (3) : Status: Acute Qualifiers: Weeks of gestation: 16 weeks Qualified Code(s): Z3A.16 - 16 weeks gestation of Comment: NIPT low risk, declines gender & carrier (4) Supervision of high risk in first trimester: Status: Acute Comment: PRR, PC Miguel Ángel Guerra, TAQUERIA 10/07/25 [facility] Orders: Orders POC Urinalysis 2 Dip (Clinic) Today 04/24/25 1442 dasha TIPTON> Date _ Miya Garza MD Cosigner Signature: Date (if applicable) CC: ~ [facility]06-26-2025 Progress note Author Miya Garza [facility] Note Date/Time April 24, 2025 2:42 pm [facility] [address] [place] [address], [address] [place] [address] OFFICE VISIT Date of Service: 04/24/25 MR#: [id number] Acct: [id number] Name: LINETTE HUI Rep #: [id number] : 1990 Provider: Dr. Maxime Garza MD Age/Sex: 34/F Location: [facility] [place] Status: Signed Intake Vital Signs 02/27/25 13:02 03/27/25 08:56 04/24/25 14:10 Height 5 ft 7.5 in 5 ft 7.5 in 5 ft 7.5 in Weight: 181 lb 2 oz 188 lb 4 oz BMI 27.9 29.0 BP 122/77 H 127/77 H Intake Visit Reasons: 16wk ob Complex Care Nurse Required: No Is patient in pain?: No Allergies Penicillins Allergy (Mild, Verified 04/24/25 14:11) Hives Sulfa (Sulfonamide Antibiotics) Allergy (Mild, Verified 04/24/25 14:11) Hives Medications ?Medication ?Instructions ?Recorded ?Confirmed ?Type cholecalciferol (vitamin D3) 50 50 mcg PO QDAY 5 04/24/25 History mcg (2,000 unit) capsule docosahexaenoic acid 200 mg mg PO 02/05/25 04/24/25 Hi story capsule ( DHA) omega-3 fatty acids 1,000 mg 1,000 mg PO QDAY 02/05/25 04/24/25 History capsule Last Menstrual Period: 12/31/24 Zika: Zika virus screening: Negative : No PFSH PFSH Medical History ADHD Family History Father GBM (glioblastoma multiforme) Hypertension Mother Hypertension Alopecia Grandmother Heart disease Hypertension Grandfather Heart disease Hypertension Macular degeneration Brother Leukemia as a child Grandmother Macular degeneration Hypertension Aneurysm Social History adopted: No household members: spouse and children number of children: 2 current occupational status: employed 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 (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 ) ) pets and animals: No history of recent travel: No Smoking Status: Never smoker alcohol intake: former details: socially, but not since substance use type: marijuana and other details: occasionally but not since , last 10/2024 caffeine: Yes Type: coffee what type of physical activity do you participate in: running and bicycling frequency: 5-6 times per week deon/episcopal: Yazidism seatbelt use: always do you feel safe at home: Yes additional social history: - [facility] PT History 3 Elective abortions Hx Para 2 Spontaneous abortions Hx # Term Pregnancies Ectopic pregnancies Hx # Pregnancies Multiple births # of living children 2 Past Pregnancies Del. Date Name GA/Weeks Outcome Route Bth Weight Gen Labor Lgth Anesthesia Del [facility] Provider FOB 06/02/20 Prasanna 39 live - full term 7.8 Female 7 hours n one [facility] 02/28/22 Miguel Ángel 39 live - full term Male 6 none HPI 16wk ob Details: LINETTE HUI is a 34 year old who presents for routine OB visit. OB Visit TAQUERIA Calculator Estimated Delivery Date Method Current WG Current Estimate 10/07/25 LMP (Certain) 16w 2d Other Estimates 10/05/25 Ultrasound #1 16w 4d Expected Delivery Route/Plan Labor Preferences- CB/BF classes: [] labor support person: [] labor intervention preferences: [] pain management options preferred: [] cut cord/dad catch: [] : [] PP control planned: [] discussed possible routes of delivery and associated risks: [] special requests: [] Specific Issue/Plans Covid status: [] Flu vaccine: [] Tdap vaccine: [] Rhogam: [] LARC form signed: [] Problem list reviewed and updated with the most current plan of care details and appropriate orders placed. Relevant counseling for the gestational age provided. Continue routine care and follow up unless otherwise noted in visit notes/problem list details Initial Weight: 178 lb Date -?-?-?-?-?-?-?-?-?-?-?-?- EGA Weight BP Urine Prot -?-?-?-?-?-?-?-?--?-?-?-?- Glucose FHR FuHt Pres Dilation -?-?-?-?-?-?-?-?-?-?-?-?- Effaced St Visit Note 02/27/25 -?-?-?-?-?-?-?-?-?-?-?-?- 8w 2d 178 lb 2 oz (+2 oz) 125/75 -?-?-?-?-?-?-?-?-?-?-?-?- 173 -?-?-?-?-?-?-?-?-?-?-?-?- KW- CRL cons wit h dates. accepts NIPT. 03/27/25 -?-?-?-?-?-?-?-?-?-?-?-?- 12w 2d 181 lb 2 oz (+3 lb 2 oz) 122/77 Negative -?-?-?-?-?-?-?-?-?-?-?-?- Negative 160 -?-?-?-?-?-?-?-?-?--?-?-?- kw- no vb/crampi ng. US with MFM ordered. Bartholin cyst-to try loose clothing and warm compress kw- no vb/cramping. US with MFM ordered. Bartholin cyst-to try loose clothing and warm compress. Labs today 04/24/25 -?-?-?-?-?-?-?-?-?-?-?-?- 16w 2d 188 lb 4 oz (+10 lb 4 oz) 127/77 -?-?-?-?-?-?-?-?-?-?-?-?- 145 -?-?-?-?-?-?-?-?-?-?-?-?- SM- no vb crampi ng ACOG First Trimester First Trimester: Desire for , Alcohol, Tobacco Cessation, Illicit/Recreational Drug/Substance Use, Intimate Partner Violence, Barriers to care, Anticipated Course of Care, Use of Any medications, Sexual activity, Exercise, Dental Care, Sauna/Hot tub use, Seat Belt use, Childbirth classes/Hospital facilities, Travel, Indications for Ultrasound and Screening for Aneuploidy; Discussed Unstable Housing, Discussed Communication Barriers, Discussed Environmental/Work Hazards, Discussed Toxoplasmosis Precations and Discussed Second Trimester Second Trimester: Signs and Symptoms of Labor, Selecting a care provider, Reproductive Life Planning & Contreception, Care Planning, Depression/Anxiety and Intimate Partner Violence; Discussed Tobacco Cessation Third Trimester Third Trimester: Pain Management Plans, Labor support person(s), Immediate Larc, Signs and Symptoms of Preeclampsia, Infant Feeding No , [place] Education and Family Medical Leave or Disability Forms Coding Level of Care Code OB Routine Diagnoses Occupational risk complicating O09.899 ADHD F90.9 16 weeks gestation of Z3A.16 Weeks of gestation: 16 weeks Supervision of high risk in first trimester O09.91 Assessment and Plan Assessment and Plan (1) Occupational risk complicating : 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[employer], 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 (2) ADHD: Status: Acute Comment: Samanthayvsoloe-stopped taking medication once she found out she was (3) : Status: Acute Qualifiers: Weeks of gestation: 16 weeks Qualified Code(s): Z3A.16 - 16 weeks gestation of Comment: NIPT low risk, declines gender & carrier (4) Supervision of high risk in first trimester: Status: Acute Comment: PRR, PC Miguel Ángel Guerra, TAQUERIA 10/07/25 [facility] Orders: Orders POC Urinalysis 2 Dip (Clinic) Today 04/24/25 1442 <Electronically signed by Miya lou MD> Date _ Miya Garza MD Cosigner Signature: Date (if applicable) CC: ~ [facility] Work Phone: 1(900) 373-346705-29-2025 [facility] [address] [place] [address], [address] [place] [id number] OFFICE VISIT Date of Service: 03/27/25 MR#: [id number] Acct: [id number] Name: LINETTE HUI Rep #: [id number] : 1990 Provider: DMITRIY Bauer Age/Sex: 34/F Location: [facility] [place] Status: Signed Intake Vital Signs 02/05/25 10:26 02/27/25 13:02 03/27/25 08:56 Height 5 ft 7.5 in 5 ft 7.5 in 5 ft 7.5 in Weight: 181 lb 2 oz BMI 27.9 BP 122/77 H Intake Visit Reasons: 12WK OB Chief Complaint: 12wk OB Complex Care Nurse Required: No Is patient in pain?: No Allergies Penicillins Allergy (Mild, Verified 03/27/25 08:55) Hives Sulfa (Sulfonamide Antibiotics) Allergy (Mild, Verified 03/27/25 08:55) Hives Medications ?Medication ?Instructions ?Recorded ?Confirmed ?Type cholecalciferol (vitamin D3) 50 50 mcg PO QDAY 5 03/27/25 History mcg (2,000 unit) capsule docosahexaenoic acid 200 mg mg PO 02/05/25 03/27/25 Hi story capsule ( DHA) omega-3 fatty acids 1,000 mg 1,000 mg PO QDAY 02/05/25 03/27/25 History capsule Last Menstrual Period: 12/31/24 Have you fallen in the past year?: No PFSH PFSH Medical History ADHD Family History Father GBM (glioblastoma multiforme) Hypertension Mother Hypertension Alopecia Grandmother Heart disease Hypertension Grandfather Heart disease Hypertension Macular degeneration Brother Leukemia as a child Grandmother Macular degeneration Hypertension Aneurysm Social History adopted: No household members: spouse and children number of children: 2 current occupational status: employed 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 (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) ) pets and animals: No history of recent travel: No Smoking Status: Never smoker alcohol intake: former details: socially, but not since substance use type: marijuana and other details: occasionally but not since , last 10/2024 caffeine: Yes Type: coffee what type of physical activity do you participate in: running and bicycling frequency: 5-6 times per week deon/episcopal: Yazidism seatbelt use: always do you feel safe at home: Yes additional social history: - [facility] PT History 3 Elective abortions Hx Para 2 Spontaneous abortions Hx # Term Pregnancies Ectopic pregnancies Hx # Pregnancies Multiple births # of living children 2 Past Pregnancies Del. Date Name GA/Weeks Outcome Route Bth Weight Gen Labor Lgth Anesthesia Del Locatn Provider FOB 06/02/20 Prasanna 39 live - full term 7.8 Female 7 hours n one [facility] 02/28/22 Miguel Ángel 39 live - full term Male 6 none HPI 12WK OB Details: LINETTE HUI is a 34 year old who presents for routine OB visit. OB Visit TAQUERIA Calculator Estimated Delivery Date Method Current WG Current Estimate 10/07/25 LMP (Certain) 12w 2d Other Estimates 10/05/25 Ultrasound #1 12w 4d Expected Delivery Route/Plan Labor Preferences- CB/BF classes: [] labor support person: [] labor intervention preferences: [] pain management options preferred: [] cut cord/dad catch: [] : [] PP control planned: [] discussed possible routes of delivery and associated risks: [] special requests: [] Specific Issue/Plans Covid status: [] Flu vaccine: [] Tdap vaccine: [] Rhogam: [] LARC form signed: [] Problem list reviewed and updated with the most current plan of care details and appropriate ordersplaced. Relevant counseling for the gestational age provided. Continue routine care and follow up unless otherwise noted in visit notes/problem list details Initial Weight: 178 lb Date -?-?-?-?-?--?-?-?-?-?-?-?- EGA Weight BP Urine Prot -?-?-?-?-?-?-?-?-?-?-?-?- Glucose FHR FuHt Pres Dilation -?-?-?-?-?-?-?-?-?-?-?-?- Effaced St Visit Note 02/27/25 -?-?-?-?-?-?-?-?-?-?-?-?- 8w 2d 178 lb 2 oz (+2 oz) 125/75 -?-?-?-?-?-?-?-?-?-?-?-?- 173 -?-?-?-?-?-?-?-?-?-?-?-?- KW- CRL cons wit h dates. accepts NIPT. 03/27/25 -?-?-?-?-?-?-?-?-?-?-?-?- 12w 2d 181 lb 2 oz (+3 lb 2 oz) 122/77 Negative -?-?-?-?-?-?-?-?-?-?-?-?- Negative 160 -?-?-?-?-?-?-?-?-?-?-?-?- kw- no vb/crampi ng. US with MFM ordered. Bartholin cyst-to try loose clothing and warm compress kw- no vb/cramping. US with MFM ordered. Bartholin cyst-to try loose clothing and warm compress. Labs today ACOG First Trimester First Trimester: Desire for , Alcohol, Tobacco Cessation, Illicit/Recreational Drug/Substance Use, Intimate Partner Violence, Barriers to care, Anticipated Course of Care, Use of Any medications, Sexual activity, Exercise, Dental Care, Sauna/Hot tub use, Seat Belt use, Childbirth c lasses/Hospital facilities, Travel, Indications for Ultrasound and Screening for Aneuploidy; Discussed Unstable Housing, Discussed Communication Barriers, Discussed Environmental/Work Hazards and Discussed Toxoplasmosis Precations Second Trimester Second Trimester: Signs and Symptoms of Labor, Selecting a care provider, Reproductive Life Planning & Contreception, Care Planning, Depression/Anxiety and Intimate Partner Violence; Discussed Tobacco Cessation Third Trimester Third Trimester: Pain Management Plans, Labor support person(s), Immediate Larc, Signs and Symptoms of Preeclampsia, Infant Feeding, Education and Family Medical Leave or Disability Forms ROS Const Reports system reviewed and no additional complaints, except as documented Eyes Reports system reviewed and no additional complaints, except as documented ENT Reports system reviewed and no additional complaints, except as documented Card Reports system reviewed and no additional complaints, except as documented Resp Reports system reviewed and no additional complaints, except as documented GI Reports system reviewed and no additional complaints, except as documented, Denies nausea and Denies vomiting Reports system reviewed and no additional complaints, except as documented Musc Reports system reviewed and no additional complaints, except as documented Skin/Breast Reports system reviewed and no additional complaints, except as documented Neuro Yes system reviewed and no additional complaints, except as documented Psych Reports system reviewed and no additional complaints, except as documented Endo Reports system reviewed and no additional complaints, except as documented [place]/Lymph Reports system reviewed and no additional complaints, except as documented Aller/Immun Reports system reviewed and no additional complaints, except as documented Exam Const General: cooperative, healthy appearing and no acute distress Orientation: alert, awake and oriented x3 Neck Neck: normal visual inspection and full ROM Resp Effort & Inspection: normal respiratory effort, able to speak in complete sentences and symmetric chest movement GI Inspection: normal to inspection Palpation: soft and other Other: gravid Skin General: no rashes or lesions noted Neuro General: patient alert, patient awake and patient oriented x3 Cognition: normal cognition Speech: speech normal Gait: normal gait Motor: muscle tone normal throughout Extrem General: normal to inspection and full ROM Psych Appearance: grossly normal Mental Status: mental status grossly normal Mood: congruent mood Affect: normal affect Speech and Movement: speech and movement normal Attitude: cooperative Thought Process: normal Thought Content: normal Judgment: judgment good Results POC Urinalysis 2 Dip (Clinic) Office Urine Glucose Negative Last Edit by Shweta Olivia on 03/27/25 09:06 Office Urine Protein Negative Last Edit by Shweta Olivia on 03/27/25 09:06 Coding Level of Care Code OB Routine Diagnoses Occupational risk complicating O09.899 ADHD F90.9 12 weeks gestation of Z3A.12 Weeks of gestation: 12 weeks Supervision of high risk in first trimester O09.91 Assessment and Plan Assessment and Plan (1) Occupational risk complicating : 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 see problem list details for updated plan management information and see below for orders placed atthis visit. GA appropriate handout given. Clinical Quality Measures Falls Risk Screening/Assistive Devices Have you fallen in the past year?: No 03/27/25 0920 s DMITRIY> Date _ Ramone Bauer CNM Cosignkim Signature: Date (if applicable) CC: ~ [facility]04-09-2025 Evaluation note* Diagnosis Onset Date Resolution Status Admit Date Supervision of high risk in first trimester acute Apr 2024 9:10am ADHD acute February 27, 2025 12:58pm Occupational risk complicati ng acute February 27, 2025 12 :58pm acute February 27, 2025 12:58pm Supervision of high risk in first trimester acute February 27, 2025 12:58pm Family history of identical twins resolved February 27, 2025 12 :58pm Normal Pap smear resolved February 27, 2025 12:58pm Normal vaginal delivery resolved 2024 12:58pm ADHD acute March 27, 2025 8:48am Occupational risk complicati ng acute March 27, 2025 8 :48am acute March 27, 2025 8:48am Supervision of high risk in first trimester acute March 27, 2025 8:48am [facility] Work Phone: [phone] Evaluation note* Diagnosis Onset Date Resolution Status Admit Date Supervision of high risk in first trimester acute Apr 2024 9:10am ADHD acute February 27, 2025 12:58pm Occupational risk complicati ng acute February 27, 2025 12 :58pm acute February 27, 2025 12:58pm Supervision of high risk in first trimester acute February 27, 2025 12:58pm Family history of identical twins resolved February 27, 2025 12 :58pm Normal Pap smear resolved February 27, 2025 12:58pm Normal vaginal delivery resolved M ay 2024 12:58pm ADHD acute March 27, 2025 8:48am Occupational risk complicati ng acute March 27, 2025 8 :48am acute March 27, 2025 8:48am Supervision of high risk in first trimester acute March 27, 2025 8:48am ADHD acute April 24 2:08pm Occupational risk complicati ng acute April 24, 2025 2:08pm acute April 24 2:08pm Supervision of high risk in first trimester acute Mar 2:08pm [facility] Work Phone: [phone] Evaluation note* Diagnosis Onset Date Resolution Status Admit Date Supervision of high risk in first trimester acute Jan 9:10am ADHD acute February 27, 2025 12:58pm Occupational risk complicati ng acute February 27, 2025 12 :58pm acute February 27, 2025 12:58pm Supervision of high risk in first trimester acute February 27, 2025 12:58pm Family history of identical twins resolved February 27, 2025 12 :58pm Normal Pap smear resolved February 27, 2025 12:58pm Normal vaginal delivery resolved M ay 2024 12:58pm ADHD acute March 27, 2025 8:48am Occupational risk complicati ng acute March 27, 2025 8 :48am acute March 27, 2025 8:48am Supervision of high risk in first trimester acute March 27, 2025 8:48am ADHD acute April 24 2:08pm Occupational risk complicati ng acute April 24, 2025 2:08pm acute April 24 2:08pm Supervision of high risk in first trimester acute Mar 2:08pm ADHD acute May 09 2:01pm Occupational risk complicati ng acute May 09, 2025 2:01pm acute May 09 2:01pm Supervision of high risk in first trimester acute Apr 2:01pm [facility] Work Phone: [phone]) 221-337204-09-2025 Evaluation note* Diagnosis Onset Date Resolution Status Admit Date Supervision of high risk in first trimester acute Jan 9:10am ADHD acute February 27, 2025 12:58pm Occupational risk complicati ng acute February 27, 2025 12 :58pm acute February 27, 2025 12:58pm Supervision of high risk in first trimester acute February 27, 2025 12:58pm Family history of identical twins resolved February 27, 2025 12 :58pm Normal Pap smear resolved February 27, 2025 12:58pm Normal vaginal delivery resolved 2024 12:58pm ADHD acute March 27, 2025 8:48am Occupational risk complicati ng acute March 27, 2025 8 :48am acute March 27, 2025 8:48am Supervision of high risk in first trimester acute March 27, 2025 8:48am ADHD acute April 24 2:08pm Occupational risk complicati ng acute April 24, 2025 2:08pm acute April 24 2:08pm Supervision of high risk in first trimester acute Mar 2:08pm ADHD acute May 09 2:01pm Occupational risk complicati ng acute May 09, 2025 2:01pm acute May 09 2:01pm Supervision of high risk in first trimester acute Apr 2:01pm ADHD acute May 22 10:57am Occupational risk complicati ng acute May 22, 2025 10:57am acute May 22 10:57am Supervision of high risk in first trimester acute Apr 10:57am [place] [employer] Work Phone: [phone] 403-409904-09-2025 Evaluation note* Diagnosis Onset Date Resolution Status Admit Date Supervision of high risk in first trimester acute Jan 9:10am ADHD acute February 27, 2025 12:58pm Occupational risk complicati ng acute February 27, 2025 12 :58pm acute February 27, 2025 12:58pm Supervision of high risk in first trimester acute February 27, 2025 12:58pm Family history of identical twins resolved February 27, 2025 12 :58pm Normal Pap smear resolved February 27, 2025 12:58pm Normal vaginal delivery resolved 2024 12:58pm ADHD acute March 27, 2025 8:48am Occupational risk complicati ng acute March 27, 2025 8 :48am acute March 27, 2025 8:48am Supervision of high risk in first trimester acute March 27, 2025 8:48am ADHD acute April 24 2:08pm Occupational risk complicati ng acute April 24, 2025 2:08pm acute April 24 2:08pm Supervision of high risk in first trimester acute Mar 2:08pm ADHD acute May 09 2:01pm Occupational risk complicati ng acute May 09, 2025 2:01pm acute May 09 2:01pm Supervision of high risk in first trimester acute Apr 2:01pm ADHD acute May 22 10:57am Occupational risk complicati ng acute May 22, 2025 10:57am acute May 22 10:57am Supervision of high risk in first trimester acute Apr 10:57am ADHD acute June 03 9:36am Occupational risk complicati ng acute June 03, 2025 9:36am acute June 03 9:36am Supervision of high risk in first trimester acute May 9:36am [place] [employer] Work Phone: 1([phone]) 100-561903-12-2025 History of Present illness Narrative* 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 female who presents for Skin Irritation (Bilateral axillary skin irritation , weeping ). Linette comes to the office for bilateral axillary rash that started in early October. Initially felt like a razor burn w/ itchy red bumps. She has tried avoiding shaving and using deodorant. Has been running training for a marathon and developed chafing to bilateral axilla. Over weekend rash started weeping and is now flaky Deodorant- all natural, no antiperspirant Rash This is a new problem. The current episode started 1 to 4 weeks ago. The problem has been waxing and waning since onset. The affected locations include the left axilla and right axilla. The rash is characterized by dryness, pain, redness, draining, itchiness, peeling and scaling. She was exposed tonothing. Pertinent negatives include no anorexia, congestion, cough, diarrhea, eye pain, facial edema, fatigue, fever, joint pain, nail changes, rhinorrhea, shortness of breath, sore throat or vomiting. Treatments tried: lotions. The treatment provided no relief. Review of Systems Constitutional: Negative for fatigue and fever. HENT: Negative for congestion, rhinorrhea and sore throat. Eyes: Negative for pain. Respiratory: Negative for cough and shortness of breath. Gastrointestinal: Negative for anorexia, diarrhea and vomiting. Musculoskeletal: Negative for joint pain. Skin: Positive for rash. Negative for nail changes. Objective BP 98/60 Pulse 70 Ht 1.702 m (5' 7) Wt 77.1 kg (170 lb) SpO2 99% No BMI 26.63 kg/m Physical Exam Vitals and nursing note reviewed. Constitutional: Appearance: Normal appearance. HENT: Head: Normocephalic. Skin: General: Skin is warm. Findings: Rash present. Rash is purpuric. Comments: + Lichenification Skin under dashawn axilla dark red, dry. No open areas under skin Neurological: Mental Status: She is alert. Assessment/Plan Problem List Items Addressed This Visit ICD-10-CM Irritant contact dermatitis due to other chemical products - Primary L24.5 Relevant Medications triamcinolone (Kenalog) 0.1 % cream mupirocin (Bactroban) 2 % ointment [facility] Work Phone: 1(645) 742-503503-12-2025 Instructions* Patient Instructions* ELIZABETH Harvey - 01/08/2025 8:00 AM EDT Apply Bactroban ointment (antibiotic) and triamcinolone cream (steroid) twice a day x 7-10 days Avoid deodorant under her armpits until healed Change razors and ensure razor is in the upright position Use mild soap such as Ivory or Dove unscented Avoid tight fitting close and change upper garments after completion of running * Attachments The following attachments cannot be sent through Care Everywhere. * Contact dermatitis (Spanish) documented [facility] Work Phone: 1([phone]) 476-120710-09-2023 History of Present illness Narrative* ELIZABETH Harvey - 08/07/2023 9:00 AM EDT Subjective Patient ID: Linette Hui is a 33 y.o. female who presents for Follow-up (Med check, stopped zoloft after 5 days due to side effects ). Linette comes to the office for a 6WK medication re-ck. Started on Zoloft 25mg @ last OV & patient stopped medication after 5D feeling it worsened her anxiety & panic. Medication made her feel trapped on the inside. Feels she has issues w/ concentrations. Indeciveness. Makes lists but unable to complete as they are overwhelming. + anxiety especially when others are holding her child. 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 Continues to breastfeed. Previous CBT. Aunt w/ psychiatric illness. Discussed options for treatment vs referral to psychiatry. Patient willrefer self w/ local psychiatry. Review of Systems Psychiatric/Behavioral: Positive for decreased concentration and dysphoric mood. Negative for agitation, sleep disturbance and suicidal ideas. The patient is nervous/anxious. Objective BP 118/70 Pulse 77 Ht 1.702 m (5' 7) Wt 85.4 kg (188 lb 4.8 oz) SpO2 96% BMI 29.49 kg/m Physical Exam Vitals and nursing note reviewed. Constitutional: Appearance: Normal appearance. HENT: Head: Normocephalic. Cardiovascular: Rate and Rhythm: Normal rate and regular rhythm. Heart sounds: Normal heart sounds. Pulmonary: Effort: Pulmonary effort is normal. Breath sounds: Normal breath sounds. Musculoskeletal: Cervical back: Normal range of motion. Skin: General: Skin is warm and dry. Neurological: General: No focal deficit present. Mental Status: She is alert and oriented to person, place, and time. Psychiatric: Mood and Affect: Mood normal. Thought Content: Thought content normal. Assessment/Plan Problem List Items Addressed This Visit None 1. Anxiety with depression referral to psychiatry [facility] Work Phone: [phone]) 516-414805-31-2023 NoteAccession #: [id number] Date of Procedure: 03/29/2023 Pathologist: [facility], Cytology Date Reported: 04/07/2023 Date Received: 03/29/2023 Submitting Physician: ZAYDA MARSH M.D. FINAL CYTOLOGICAL INTERPRETATION A. THINPREP PAP CERVICAL: Specimen Adequacy: SATISFACTORY FOR EVALUATION. Quality Indicator: Absence of endocervical/transformation zone component. General Categorization: NEGATIVE FOR INTRAEPITHELIAL LESION OR MALIGNANCY. HIGH RISK HPV TEST RESULT: HPV GENOTYPE 16 NEGATIVE HPV GENOTYPE 18 NEGATIVE HPV GENOTYPE OTHER NEGATIVE Reference Range: Negative Slide(s) initially screened by a Pattern Molder at [facility], [address] [place] [address] QC review performed at [facility], [address] [place] [id number] Testing for high-risk (HR) type of human papilloma virus (HPV) is performed by the Christa jayme HPV Test. The jayme HPV Test is a qualitative polymerase chain reaction that amplifies DNA of HPV16, HPV18 and 12 other high-risk HPV types (31, 33, 35, 39, 45, 51, 52, 56, 58, 59, 66, and 68) associated with cervical cancer and its precursor lesions. A positive result indicates the presence of HPV DNA due to one or more of the 14 genotypes: 16, 18, 31, 33, 35, 39, 45, 51, 52, 56, 58, 59, 66, and 68. Negative results indicate HPV DNA concentrations are undetectable or below the pre-set threshold for detection. False negative results may be associated with unoptimized sampling. A negative HR HPV result does not exclude the possibility of future cytologic HSIL or underlying CIN2-3 or cancer. This test is approved for cervical specimens by the US Food and Drug Administration. Results of this test should be interpreted in conjunction with the patient?s Pap test results. Please refer to ASCCP current guidelines for the use of HPV DNA testing, result interpretation, and patient management. The performance of this test was verified by the Molecular Diagnostic Laboratory at [facility]. The lab is certified under the Clinical Laboratory Amendments of 1988 (CLIA 88) as qualified to perform high complexity clinical laboratory testing. This specimen has been analyzed by the PaxfirePrep Imaging System ([employer] an automated imaging and review system, which assists the laboratory in evaluating cells on ThinPrep Pap tests. Following automated imaging, selected pablo from every slide were reviewed by a mixer wet pour and/or pathologist. Electronically Signed Out By [facility], Cytology//JMD/LSM By the signature on this report, the individual or group listed as making the Final Interpretation/Diagnosis certifies that they have reviewed this case. Diagnostic interpretation performed at [facility] [address] [place] [address] Educational Note: Cervical cytology is a screening procedure primarily for squamous cancers and precursors and has associated false-negative and false-positive results as evidenced by published data. Your patient?s test should be interpreted in this context, together with patient?s history and clinical findings. Regular sampling and follow-up of unexplained clinical signs and symptoms are recommended to minimize false negative results. Clinical History Date of Last Menstrual Period: 03/13/2023 Other Clinical Conditions: HPV Test for All Interpretations - Include HPV Genotype Annual Clinical Diagnosis History: Screening for cervical cancer - (Z12.4) Source of Specimen A: THINPREP PAP CERVICAL [facility] Department of Pathology [address] [place], [place] [address] CenterComment on above:Performed By: #### C #### [facility] Cytology [address] [facility] [id number] History of Present illness NarrativeVeronica comes in for evaluation of nipple pain. Patient has been breast-feeding for about 11 months. She says that towards the end of last week she was pumping and her breast nipples were not aligned with the pump. She says after she stopped pumping her breasts were very tender in the right breastwas bleeding. She says since then she has been having exclusively nipple pain greater on the right than the left. She reports that it has become slightly better there was some itching that has now resolved. Patient is concerned that she may have [employer] Work Phone: 1([phone]) 308-985705-03-2022 NoteSend Summary: Discharge Summary Providers: Provider RoleProvider Name AttendingBenny Cooper Note Recipients: none Discharge: Summary: Admission Date: .27-Feb-2022 23:46:00 Discharge Date: 01-Mar-2022 Attending Physician at Discharge: Benny Cooper Admission Reason: term Final Discharge Diagnoses: Single live Procedures: Normal spontaneous vaginal delivery Condition at Discharge: Satisfactory Disposition at Discharge: .Home Vital Signs: T PRBPMAPSpO2 [id number]/839250% Date/Time03/01 5:435/3 5:435/3 5:435/3 5:435/3 5:435/3 0:00 Range(36.5C - 36.8C ) (69 - 132 ) (14 - 20 ) (118 - 144 )/ (56 - 81 ) (76 - 98 ) (92% - 100% ) Date: Weight/Scale Type:Height: 28-Feb-2022 01:67187 kg / yczyzibr667.9 cm Physical Exam: Lungs: clear bilaterally Hear: regular rate and rhythm Abdomen: soft and non-tender Hospital Course: Patient progressed through labor well and had a spontaneous vaginal delivery for a viable male infant on February 28, 2022. Patient discharged on post day 1. Immunizations: Immunizations: 28-Dec-2021 Tdap: Immunizations, 28-Dec-2021 Discharge Information: and Continuing Care: Lab Results - Pending: None Radiology Results - Pending: None [place] Suicide Risk: negative Discharge Instructions: Activity: Return to normal activity as tolerated Nutrition/Diet: Regular Follow Up Appointments: Follow-Up - OB Provider: Physician/Dept/Service: Zayda Centeno MD Call to Schedule in: 6 weeks Discharge Medications: Home Medication 19 ([place]) oral tablet - 1 tab(s) orally once a day lansoprazole 30 mg oral delayed release capsule - 1 cap(s) orally once a day [place]-3 oral capsule - null PRN Medication DNR Status: Code StatusCode Status order at time of discharge: Full Code Electronic Signatures: Benny Cooper) (Signed 01-Mar-2022 07:45) Authored: Send Summary, Summary Content, Immunizations, Ongoing Care, DNR Status, Note Completion Last Updated: 01-Mar-2022 07:45 by Benny Cooper)[facility] 02[facility] NoteProvider Information: Maternal Delivery Information: Delivery Type: vaginal delivery Did this pt receive corticosteroids at any time during this : No Was intraamniotic infection diagnosed during this labor: no What antibiotic(s) were administered during labor and/or pre-incision: none Rupture of Membranes: spontaneous Spontaneous Labor: yes Augmentation: no Vaginal Delivery Type: spontaneous Vaginal Delivery Complications: none Delivery Anesthesia: local Presentation/Lie: vertex Vertex Presentation: occiput anterior Perineal Laceration: first degree 3-O Chromic QBL (mL): 71 mL Blood Products Transfused during Delivery (indicate number of units given): none Choose Baby: A Cord Characteristics: no anomalies noted Delayed Cord Clamping (equal to or greater than 30 seconds): yes Day of Delivery (Baby A): 28-Feb-2022 Gestational Age at Delivery (wk.days): 39.2 Term: term 37.0 to 41.6 weeks Live : yes Vaginal Delivery Provider: Benny Cooper MD Dictation: no Hemorrhage Risk Screen: Hemorrhage Low Risk Factors (T&S)patient with no medium or high risk factors(1) Hemorrhage Risk Assessmenthemorrhage risks reviewed and additional factors added if applicable Hemorrhage Risk Score LowPatient is at Low Risk for an OB hemorrhage. Order Type & Screen. Electronic Signatures: Benny Cooper) (Signed 28-Feb-2022 00:48) Authored: Provider Information, Hemorrhage Risk, Note Completion Last Updated: 28-Feb-2022 00:48 by Benny Cooper) References: 1. Data Referenced From History and Physical - OB 28-Feb-2022 00:43[place] [address]-02-2022 NoteHPI/OB History: Care Provider: Zayda Marsh MD [facility] Descriptive Info: HPI Patient is a 31-year-old white female 2 para 1, EDC March 05, 2022. Patient presents to labor and delivery complaining of contractions every 2 to 3 minutes. Past medical history: Term vaginal delivery in 2019 Family history: Noncontributory Social history: Denies smoking or ethanol consumption Review of Systems: Constitutional: No fever or chills Respiratory: No shortness of breath, or cough Cardiovascular: No chest pain or syncope Breasts: No breast pain, no masses, no nipple discharge Gastrointestinal: No nausea, vomiting, or diarrhea, no abdominal pain Genitourinary: No dysuria or frequency Gynecology: Negative except as noted in history of present illness All other: All other systems reviewed and negative for complaint PHYSICAL EXAMINATION: Well-developed, well nourished, in no acute distress, alert and oriented x three, is pleasant and cooperative. HEENT: Clear. Pupils equal, round and reactive to light and accommodation. Extraocular muscles are intact. Oral mucosa pink without exudate. NECK: No lymphadenopathy, no thyromegaly. LUNGS: Clear bilaterally. HEART: Regular rate and rhythm without murmurs. ABDOMEN: Normoactive bowel sounds, soft and nontender, no guarding or rebound tenderness, no CVA tenderness. EXTREMITIES: No clubbing, cyanosis or edema. NEUROLOGIC: Cranial nerves II-XII grossly intact. : Normal external female genitalia, normal vulva, normal vagina. Normal urethral meatus, urethra and bladder. Initial vaginal exam reveals cervix to be 5 cm dilated, vertex. Labs: Labs: Labs: Blood Typed Date: 17-Aug-2021 Blood Type: O positive Antibody Screen Results: negative Chlamydia Date: 17-Aug-2021 Chlamydia Results: negative Gonorrhea Date: 17-Aug-2021 Gonorrhea Results: negative Group B Strep Date: 02-Feb-2022 Strep Results: negative GCT (dd-mmm-yy): 01-Dec-2021 GCT result: 97 HBsAG Date: 17-Aug-2021 HBsAG Results: negative HIV Date: 17-Aug-2021 HIV Results: negative Rubella Date: 17-Aug-2021 Rubella Results: immune Rubella Comments: Result Value POSITIVE Syphilis (mmdevante-dd-yyyy): 17-Aug-2021 Syphilis Results: negative Antepartum/: Antepartum/PP: Final [id number] Current EGA:39.2 Patient is > or = 35.0 wks EGAyes Determined byLeopolds EFW (kg)3.289 kilogram(s) EFW (lb)7 pound(s) EFW (oz)4 ounce(s) Presentationcephalic presentation verified bycervical exam Hemorrhage Low Risk Factors (T&S)patient with no medium or high risk factors Hemorrhage Risk Assessmenthemorrhage risk completed on admission Hemorrhage Risk ScorePatient is at Low Risk for an OB hemorrhage. Order Type Screen. TOLACno Social History: Social History: Smoking Statusnever smoker (1) Alcohol Usedenies(1) Drug Usedenies (1) Drug 2 Usedenies (1) Allergies: penicillin: Hives/Urticaria sulfADIAZINE: Hives/Urticaria Medications Prior to Admission: Admission Medication Reconciliation has not been completed for this patient. Objective: Objective Information: T PRBPMAPSpO2 [id number]/6868870% Date/Time02/28 0:235/2 0:395/2 0:235/2 0:395/2 0:395/2 0:42 Range(36.6C - 36.6C ) (86 - 132 ) (20 - 20 ) (134 - 134 )/ (61 - 61 ) (88 - 88 ) (92% - 100% ) Pain reported at 02/28 0:23: 5 = Moderate Recent Lab Results: Results: CBC: 12/01/2021 16:36 \ Hgb / \ 12.0 / WBC Plt 11.3 272 / Hct \ / 35.5 L \ RBC: 3.79 L MCV: 94 Neutrophil %: 77.9 Assessment and Plan: Problem List: Additional Dx: 39 weeks gestation of : Assessment: 1. Term in labor 2. Anticipate normal spontaneous vaginal delivery Electronic Signatures: Benny Cooper) (Signed 28-Feb-2022 00:47) Authored: HPI/OB History, Labs, Antepartum/PP, Social History, Allergies, Medications Prior to Admission, Objective, Assessment and Plan, Note Completion Last Updated: 28-Feb-2022 00:47 by Benny Cooper) References: 1. Data Referenced From Triage Note - OB v4 27-Feb-2022 19:12[facility]03[facility]09[facility] History of Present illness Narrative* Jf Washington Jr., DPM - 01/05/2022 8:56 AM EST Patient is a pleasant 31-year-old female who comes in today status post left lateral great nail avulsion and matrixectomy. States that she is doing excellent with her gentamicin no erythema no pain no discomfort. Neuro: Light touch is normal Babinski's is normal. Vascular: DP PT pulses are easily palpable 2-4. CFT is fair no edema. Derm: No erythema present no draining appearance no streaking lymphangitis the nail is avulsed inappropriately straight no pain with compression can easily wiggle toes. Assessment plan: Patient is a pleasant 31-year-old female postop day 1 status post left lateral nail avulsion chemical matrixectomy. Today she is healed. Can discontinue her bandages at nighttime andonly wear a Band-Aid during the day finish topical gentamicin for the next week and follow-up as needed. documented in this [id number] History of Present illness Narrative* Jf Washington Jr., DPM - 12/24/2021 4:41 PM EST HPI Chief Complaint Patient presents with Ingrown Toenail Patient states she has had chronic toenails since she was 12. L>R. States she tries to dig them out when she can. Patient is a pleasant 31-year-old female who comes in today with an ingrown painful left great nail. She states it is quite red as she recently squeezed some pus out of it. She states that this is been going on for many weeks recently however has been happening for now 2 decades. She states that she is constantly been taking this out however she is getting tired of doing this and it is no longer helpful. Past Medical History: Diagnosis Date Tenosynovitis, de Quervain History reviewed. No pertinent surgical history. Social History Socioeconomic History Marital status: Tobacco Use Smoking status: Never Smoker Smokeless tobacco: Never Used Substance and Sexual Activity Alcohol use: Not Currently Drug use: Never Review of Systems Constitutional: Negative for chills and fever. Respiratory: Negative for chest tightness and shortness of breath. Cardiovascular: Negative for chest pain, palpitations and leg swelling. Gastrointestinal: Negative for nausea and vomiting. Skin: Negative for color change and wound. Physical Exam -Patient is AOx3. Linear and appropriate humor and thought process. Vascular: DP PT pulses are easily palpable 2 out of 4. CFT is fair no edema. Derm: Mild erythema present to the distal lateral nail fold with some serous output. No streaking no lymphangitis no undermining or crepitation. Neuro: Light touch is normal Babinski's is normal. Musculoskeletal: Muscle strength is 5/5 fair tone. Can easily wiggle toes not in clicking or catching. Does have a substantially ingrown painful left lateral nail. None medially the right is minimally ingrown. Impression/Plan Problem List Items Addressed This Visit None Patient is a pleasant 31-year-old female with acute on chronic ingrown infected paronychia. -Start topical gentamicin 0.1% 3 times daily to the nail fold. - additionally did go over options including a nail avulsion with matrixectomy for permanency givenher chronicity. Ultimately she would like to proceed with a nail avulsion with matrixectomy given her chronicity of ingrown nail. Procedure: After timeout consent was performed, and alcohol prep, did block the toe with 3 cc of 2%lidocaine plain. -Tourniquet was applied and taken down at the end of the procedure. -A Philo was used to lift the lateral nail fold. This was split with an Spanish anvil distally to proximally. This was then finished with a 6100 blade just below her eponychial hyponychium. The offending nail border was bluntly avulsed and passed off the nail fold. The corner of the matrix below was sharply excised and passed off the surgical field and a gentle matrixectomy was performed with topical phenol. -A copious amount of normal saline was used to irrigate the site and the location and topical hydrogel was applied postoperatively. -Again tourniquet removed at the end of procedure with excellent capillary refill time. Can take this bandage off tomorrow and apply topical gentamicin 3 times daily with a Band-Aid. Follow-up in 1-2weeks to reevaluate. documented in this [id number] Instructions* Patient Instructions* JUANPABLO HernandezOLOGIST - 12/24/2021 4:35 PM EST Nail Surgery Post-Operative Instructions General Information Stay off your feet as much as possible today. You may wear any shoe, sandal, or open toe footwear that does not squeeze or constrict your toe. Your toe may remain numb for up to 6-10 hours after the procedure. Bleeding/Drainage Slight bleeding, discoloration and/or red, pink, orange drainage is normal. Discomfort You can elevate your foot to help alleviate minor swelling, bleeding and discomfort. You may also take aspirin, Tylenol or other jphw-fuc-frtfxxr pain relievers as directed on the package. If pain isnot controlled to your comfort, please contact our office. Removing the surgical bandage/dressing The day after the surgery, carefully remove the dressing and shower/bathe as normal. If the gauze or dressing sticks to the surgical area, dampen it with water or shower/bathe with the dressing in place. This will make the dressing easier to remove with minimal discomfort. Blot dry with a clean cloth. A band-aid and antibiotic ointment should be changed twice daily on the surgical area until your follow-up appointment with the doctor. documented in this [id number] History of Present illness NarrativePatient is a 31-year-old who comes in for confirmation of . She reports her last menstrualperiod was May 19, 2021. This was a planned she is taking her vitamins. Overallshe is feeling pretty good she reports that she experiences nausea on a daily basis at dinnertime but it is manageable and at this point declined any antiemetics. She reports she is currently breast-feeding and has been slowly weaning her toddler. The patient also reports that she has noticed a significant increase in her discharge very thick and mucousy denies any odor or itching. However would like to have it evaluated. She reports some mild tenderness and has no other concerns today. [facility] [address] Work Phone: [phone]) 900-533801-12-2021 History of Present illness NarrativePatient is a pleasant 31-year-old female presenting today for follow-up in regards to her bilateralDe Quervain's tenosynovitis. Her last corticosteroid injection was performed on 11/10/2020 which seemed to give her significant relief for quite some time, but has become increasingly symptomatic again. Following the previous injections she experienced discoloration in her hands but has now resolved. Patient states her right hand has been more symptomatic than the left and is relating this to her being right hand dominant. She has been doing occupational therapy in which she has been tolerating well. She has stabilizing braces for both wrists and states she believes her pain worsens when she is wearing them. States she would like to do repeat injections today for her right wrist. She is currently and has clearance from her OB for injections.[facility] [address] Work Phone: chief complaint Narrative - Reportedpatient referred by Lv Acevedo for the purpose of genetics consultation. [facility] Work Phone: Evaluation note* Diagnosis Cellulitis and abscess of foot- Primary Cellulitis and abscess of foot, except toes Ingrown nail of great toe of left foot [facility] Diagnosis Cellulitis and abscess of foot- Primary Cellulitis and abscess of foot, except toes [facility]* Extremities: no calf tenderness, reflexes 2+Respiratory/Thorax: normal respiratory effort, lungs clear, no wheezes or rhonchiCardiovascular: S1 S2 RRR, no murmurs [facility] Diagnosis Anxiety with depression- Primary documented in this encounter [facility] Work Phone: Evaluation note* Diagnosis Encounter for gynecological examination without abnormal finding Encounter for screening for cervical cancer documented in this encounter [facility] Work Phone: Evaluation note* Diagnosis Irritant contact dermatitis due to other chemical products- Primary documented in this encounter [facility] Work Phone: History of Present illness Narrative* LINETTE HUI was evaluated today for B De Quervain's tenosynovitis . LINETTE has had this condition with her previous and in caring for her child. Pt has increasing pain and symptoms as her progresses. Pt has B thumb pain. Pt seen for eval only this date to provide HEP, strengthening, positioning and joint protection. * Interdisciplinary Team Communication: occupational therapy . * Clinical Presentation: stable and/or uncomplicated characteristics * Level of Complexity: low * Problems To Be Addressed: decreased ADL performance, decreased IADL performance, decreased knowledge of orthosis wear and care, decreased knowledge of precautions, decreased knowledge of HEP and pain. [facility] Work Phone: History of Present illness NarrativePatient is 6 weeks . Patient comes in and reports that she has not had bleeding in several weeks. She reports that approximately for about a week and a half she has had some external itching and discomfort. Patient is breast-feeding successfully. Patient is undecided about contraceptionWIntellipharmaceutics International[facility] Work Phone: History of Present illness NarrativeVerneymar is a 32-year-old who comes in for follow-up of nipple pain and bleeding. She reports she has been using some breast butter which has improved the dryness and bleeding. 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 Patient currently is still breast-feeding. Her baby is now just over a-year-old. She declines any form of contraception. Patient reports she has been having some vague itching after her menstrual cycle externally. She reports the last time she had intercourse she had some strange burning sensation internally. Does not have any abnormality in her discharge or odorWomencare-[facility]le[facility] [employer] Work Phone: History of Present illness Narrative* Benny Cooper MD - 04/09/2024 9:15 AM EDT Linette Hui is a 33 y.o. female who is here for a routine exam. PCP = Jeanine Vu APRN-KIRBY Chief Complaint Patient presents with Gynecologic Exam Patient is here for yearly exam and pap test. Patient does not do regular self breast exams and hasno concerns at this time. LMP: 04/01/24. Presents for annual exam. She voices no complaints and is doing well. Denies any bowel or bladder problems. Denies any breast problems. Uses condoms for contraception. OB History 2 Para 2 Term 2 0 AB 0 Living 2 SAB 0 IAB 0 Ectopic 0 Multiple 0 Live Births 2 Social History Substance and Sexual Activity Sexual Activity Yes Partners: Male control/protection: Condom Male Current contraception: Condoms Past Medical History: Diagnosis Date Breast infection, ([facility]) 06/22/2023 Encounter for screening for malignant neoplasm of vagina Vaginal Pap smear Encounter for supervision of normal first , first trimester ([facility]) 11/26/2019 Normal first in first trimester Ingrown toenail of both feet 06/22/2023 Other conditions influencing health status Menarche 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 Dupuytren's contracture Personal history of other diseases of the musculoskeletal system and connective tissue History of tendinitis Past Surgical History: Procedure Laterality Date OTHER SURGICAL HISTORY 11/04/2019 No history of surgery Past med hx and past surg hx reviewed and notable for: none Review of Systems: Constitutional: No fever or chills Respiratory: No shortness of breath, or cough Cardiovascular: No chest pain or syncope Breasts: No breast pain, no masses, no nipple discharge Gastrointestinal: No nausea, vomiting, or diarrhea, no abdominal pain Genitourinary: No dysuria or frequency Gynecology: Negative except as noted in history of present illness All other: All other systems reviewed and negative for complaint Objective BP 112/68 Ht 1.702 m (5' 7) Wt 74.8 kg (164 lb 12.8 oz) LMP 04/01/2024 (Exact Date) BMI 25.81 kg/m PHYSICAL EXAMINATION: Well-developed, well nourished, in no acute distress, alert and oriented x three, is pleasant and cooperative. HEENT: Clear. Pupils equal, round and reactive to light and accommodation. Extraocular muscles are intact. Oral mucosa pink without exudate. NECK: No lymphadenopathy, no thyromegaly. BREASTS: Symmetric, no palpable masses. No nipple discharge or retraction. LUNGS: Clear bilaterally. HEART: Regular rate and rhythm without murmurs. ABDOMEN: Normoactive bowel sounds, soft and nontender, no guarding or rebound tenderness, no CVA tenderness. EXTREMITIES: No clubbing, cyanosis or edema. NEUROLOGIC: Cranial nerves II-XII grossly intact. : Normal external female genitalia, normal vulva, normal vagina. Normal urethral meatus, urethra and bladder. Normal appearing cervix. Normal-sized uterus, no adnexal masses or tenderness. Pap smear performed today. Actions performed during this visit include: - Clinical breast exam - Clinical pelvic exam - No orders of the defined types were placed in this encounter. Problem List Items Addressed This Visit None Visit Diagnoses Encounter for gynecological examination without abnormal finding Relevant Orders THINPREP PAP TEST Encounter for screening for cervical cancer Relevant Orders THINPREP PAP TEST Provider Impression: 1. Annual Thank you for coming to your annual exam. Your findings during the exam were normal. Please return for your next visit in 1 year. [facility] Work [facility] Hospital Discharge instructions* Activity:Return to normal activity as tolerated. * Patient Instructions:Pelvic Rest: DO NOT place anything in vagina until cleared by OB Provider. * Follow-Up - OB Provider:Physician/Dept/Service: Kindra Arambula to Schedule in: 6 weeks * Call Provider If:- Breathing harder or faster than normal or having retractions. - Temperature greater than 100 degrees Fahrenheit. - Acting very sleepy and/or difficult to awaken or crying inconsolably. - Excessive vomiting. - Frequent watery stools. - Urinating less than 4 times a day - less than4 wet diapers a day. - Cord area is red, smelly or has drainage. - Circumcision bleeds, swells, drains or has redness. - Increased yellowing of the eyes or skin (jaundice). - Any new concerning symptom. - Your baby s doctor s office is available 24 hours a day if you have questions or concerns about your baby s health. You can also call a [place] nurse at [address] [place] [address] ([phone]) any time of day or night. In case of medical emergency, you should take your child to the emergency room right away. * Gold Form - Other Clinicians:Other Clinician Instructions: Any woman can have complications after the of a baby including a blood clot, a heart problem, hypertensive disorder/eclampsia, depression, hemorrhage, or infection. Notify all providers of your delivery date up to one year after .* Call 911 or go to nearest emergency room right away if you have: PAIN or pressure in chest; OBSTRUCTED breathing or shortness of breath; SEIZURES; THOUGHTS of hurting yourself or your baby; heart palpitations/racing; change in alertness/confusion.Call your provider if you have: BLEEDING, soaking t hrough a pad/hour, or blood clots the size of an egg or bigger; INCISION (episiotomy stitches or site) that is not healing (increased redness, pain, drainage/pus, or separation); RED or swollen leg/calf that is painful or warm to touch, especially in one leg more than the other; TEMPERATURE of 100.4 F or higher or chills; HEADACHE that does not get better with medicine, rest or hydration, or bad headache with vision changes like spots or flashing lights; increased swelling of face, hands or legs; severe cramps or upper right belly pain; red or swollen breast that is painful or warm to touch; an unusual, foul odor from your vaginal discharge; pain, burning, or difficulty during urination; severe constipation (more than 5 days); feelings of depression (such as depressed mood, lossof interest in enjoyable things, unable to care for yourself, trouble sleeping, lack of appetite, or feeling worthless). If you can t reach your provider or symptoms worsen, call 911 or go to [facility] room. *Information obtained from KEO s: Save Your Life: Get Care for These POST- Warning Signs Pericare Use frankie bottle with warm water every time you use the bathroom Squirt water on the outside vaginal area. Do not squirt water inside the vagina Warm water helps rinse/wash off the blood. It is also comforting and promotes healing Take it home and use it for the first week Uterine Changes/Lochia You re going to feel menstrual-like cramps for about the first week Cramping may get worse after each baby Cramping typically gets worse while Uterus may take up to 6 weeks to move back to its normal size in your pelvis The first few days will be heavy, then take the course of a period Vaginal bleeding can last 2-6 weeks, usually less if you re Discuss signs of hemorrhage (saturated pad in <1hr, egg sized blood clots) [place]-sized blood clots are normal Bright red for the first week, then pink, then brown Bowel Function It may take several days for normal bowel function to return Increasing fluid intake, such as water, apple juice, and prune juice, and eating plenty of fresh fruits and vegetables may help avoid constipation You may take a stool softener until normal bowel function returns If you are constipated, and have tried a mild laxative without results, contact your doctor or cutter finisher Activity No pushing, pulling, or lifting anything heavier than 20lbs until follow up visit (vag del.) No pushing, pulling, or lifting anything heavier than 10lbs until follow up visit (c/s del.) Accept help from family/friends when it is offered Try to sleep while the baby sleeps, or at least rest/relax If it hurts, don t do it, if you re tired, sleep, if you re hungry, eat Sexual Activity/Pelvic Rest Pelvic rest for 6 weeks or until cleared by your OB provider. This means no sex, no tampons, no douching, no baths, pools,or hot tubs. Sitz baths are ok Contraception Ask patient what their plans for control are Remind them of pelvic rest until their follow-up appt. with the OB provider is not a method of control You can get right away Condoms and abstinence are the only ways to prevent STDs o Condoms o Depo (may lower your milk supply) o Nexplanon o IUD o Oral contraceptives (progestin only) Incision/Laceration/Episiotomy Look at your incision every day and report increased redness, pain, drainage, foul odor or separation of your incision. You may shower and wash your incisiongently and pat dry. Your stitches will dissolve on their own, you do not need to come back to have them removed Stitches take about 2 weeks to heal. You may feel tightness, pulling, or itching as they heal Breast Care - Lactating Proper latch = prevention of problems After feeding, manually expresssome colostrum/milk, or apply lanolin ointment and gently rub on to nipple and areola Avoid using drying soaps in the shower, dry nipples can crack Wear a supportive bra Airing out is good practice Breast Care - Dry Breast Try to eliminate any extra stimulation to the breasts/nipples Wear a supportive bra (sports bra is best) Keep your back to running water in the shower Resist the temptation to check for milk. Any time milk leaks out, it signals hormones to make more milk If your milk starts to come in, do not pump to relieve discomfort. Instead, use cold compresses such as ice packs, cabbage leaves (rinse clean and snap the veins of the leaf and place in your bra,) or frozen vegetables (never consume after thawing) Apply cold compress to breast for 10-15 minutes each time the baby takesa bottleWhen to Call Provider - Other Persistent pain Dizziness, faintness Breasts, perineum, or legs that are hot, red, painful, or swollen Nausea and/or vomiting Pain, burning, frequency, or difficulty peeing Anything that seems abnormal or that you may have questions about Any difficulty please call [phone] to speak with a datastage consultant.Please join our mom's support group, which is the second Monday of every month from [phone] in the Birthing & Women's Unit, 4th floor [facility]. No registration required.Thank you for choosing [facility]. * Patient / Family Instructions - Care:- Cord Care: If cord is soiled, clean with soap and water and allow to dry well. Fold the top of the diaper down away form the cord. The cord should fall off in 1-4 weeks. Sponge bath every 2-3 days until cord falls off. - For Circumcised Babies: Cover the circumcised area with petroleum jelly (such as Vaseline) for the first 24 hours. As the penis heals, a soft yellow film forms. Healing takes 7-10 days. - Please have a thermometer at home to take temperature. A fever (temperature above 100 degrees Fahrenheit) in the first 2 months of life is a medical emergency and the baby should be seen by the dipper and baker right away. * Discharge & Follow Up:- DISCHARGE & FOLLOW UP. - It is VERY IMPORTANT to keep your baby s appointment with the dipper and baker within 48 hours. * Safety:- SAFETY. - Do not use hot or cold water. Test water temperature before bathing baby. Never leave a baby in or near water. Supervise other children when around baby. - NEVER SHAKE A BABY. - Toreduce the risk of Sudden Syndrome: 1) Breastfeed. 2) Do not let baby sleep with anyone; baby should have own sleeping area. Have baby lie on back while asleep. 3) No smoke of any kind around the baby; limit smoke exposure (including smoke on clothes) when handling the baby. 4) Do not put anything in the crib. - Do not sleep in same bed/couch with baby. * Resources:- Belt Buckle Maker Services: [phone] ([facility]). - Belt Buckle Maker Services: [phone] ([place]). - Belt Buckle Maker Services: [phone] ([facility]). - Belt Buckle Maker Services: [phone] ([place]). - Belt Buckle Maker Services: [phone] ([place]). - La ctation Manager Process Excellence services [phone] ([facility]). - Belt Buckle Maker Services: [phone] ([place]). - United Way: 211. - Help Me Grow (if eligible): [phone]. [facility]* Name Dates Details Instructions not documented [facility] 300 Work Phone: progress note Author Ramone Bauer [facility] Note Date/Time March 27, 2025 9:20a m [facility] [address] [place] [address], [address] [place] [address] OFFICE VISIT Date of Service: 03/27/25 MR#: [id number] Acct: [id number] Name: LINETTE HUI Rep #: [id number] : 1990 Provider: DMITRIY Bauer Age/Sex: 34/F Location: [facility] [place] Status: Signed Intake Vital Signs 02/05/25 10:26 02/27/25 13:02 03/27/25 08:56 Height 5 ft 7.5 in 5 ft 7.5 in 5 ft 7.5 in Weight: 181 lb 2 oz BMI 27.9 BP 122/77 H Intake Visit Reasons: 12WK OB Chief Complaint: 12wk OB Complex Care Nurse Required: No Is patient in pain?: No Allergies Penicillins Allergy (Mild, Verified 03/27/25 08:55) Hives Sulfa (Sulfonamide Antibiotics) Allergy (Mild, Verified 03/27/25 08:55) Hives Medications ?Medication ?Instructions ?Recorded ?Confirmed ?Type cholecalciferol (vitamin D3) 50 50 mcg PO QDAY 5 03/27/25 History mcg (2,000 unit) capsule docosahexaenoic acid 200 mg mg PO 02/05/25 03/27/25 Hi story capsule ( DHA) omega-3 fatty acids 1,000 mg 1,000 mg PO QDAY 02/05/25 03/27/25 History capsule Last Menstrual Period: 12/31/24 Have you fallen in the past year?: No PFSH PFSH Medical History ADHD Family History Father GBM (glioblastoma multiforme) Hypertension Mother Hypertension Alopecia Grandmother Heart disease Hypertension Grandfather Heart disease Hypertension Macular degeneration Brother Leukemia as a child Grandmother Macular degeneration Hypertension Aneurysm Social History adopted: No household members: spouse and children number of children: 2 current occupational status: employed 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 (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 ) ) pets and animals: No history of recent travel: No Smoking Status: Never smoker alcohol intake: former details: socially, but not since substance use type: marijuana and other details: occasionally but not since , last 10/2024 caffeine: Yes Type: coffee what type of physical activity do you participate in: running and bicycling frequency: 5-6 times per week deon/episcopal: Yazidism seatbelt use: always do you feel safe at home: Yes additional social history: - [employer] pediatric PT History 3 Elective abortions Hx Para 2 Spontaneous abortions Hx # Term Pregnancies Ectopic pregnancies Hx # Pregnancies Multiple births # of living children 2 Past Pregnancies Del. Date Name GA/Weeks Outcome Route Bth Weight Infant Gen Labor Lgth Anesthesia Del Locatn Provider FOB 06/02/20 Prasanna 39 live - full term 7.8 Female 7 hours n one Magdy 02/28/22 Miguel Ángel 39 live - full term Male 6 none HPI 12WK OB Details: LINETTE HUI is a 34 year old who presents for routine OB visit. OB Visit TAQUERIA Calculator Estimated Delivery Date Method Current WG Current Estimate 10/07/25 LMP (Certain) 12w 2d Other Estimates 10/05/25 Ultrasound #1 12w 4d Expected Delivery Route/Plan Labor Preferences- CB/BF classes: [] labor support person: [] labor intervention preferences: [] pain management options preferred: [] cut cord/dad catch: [] : [] PP control planned: [] discussed possible routes of delivery and associated risks: [] special requests: [] Specific Issue/Plans Covid status: [] Flu vaccine: [] Tdap vaccine: [] Rhogam: [] LARC form signed: [] Problem list reviewed and updated with the most current plan of care details and appropriate orders placed. Relevant counseling for the gestational age provided. Continue routine care and follow up unless otherwise noted in visit notes/problem list details Initial Weight: 178 lb Date -?-?-?-?-?--?-?-?-?-?-?-?- EGA Weight BP Urine Prot -?-?-?-?-?-?-?-?-?-?-?-?- Glucose FHR FuHt Pres Dilation -?-?-?-?-?-?-?-?-?-?-?-?- Effaced St Visit Note 02/27/25 -?-?-?-?-?-?-?-?-?-?-?-?- 8w 2d 178 lb 2 oz (+2 oz) 125/75 -?-?-?-?-?-?-?-?-?-?-?-?- 173 -?-?-?-?-?-?-?-?-?-?-?-?- KW- CRL cons wit h dates. accepts NIPT. 03/27/25 -?-?-?-?-?-?-?-?-?-?-?-?- 12w 2d 181 lb 2 oz (+3 lb 2 oz) 122/77 Negative -?-?-?-?-?-?-?-?-?-?-?-?- Negative 160 -?-?-?-?-?-?-?-?-?-?-?-?- kw- no vb/crampi ng. US with MFM ordered. Bartholin cyst-to try loose clothing and warm compress kw- no vb/cramping. US with MFM ordered. Bartholin cyst-to try loose clothing and warm compress. Labs today ACOG First Trimester First Trimester: Desire for , Alcohol, Tobacco Cessation, Illicit/Recreational Drug/Substance Use, Intimate Partner Violence, Barriers to care, Anticipated Course of Care, Use of Any medications, Sexual activity, Exercise, Dental Care, Sauna/Hot tub use, Seat Belt use, Childbirth classes/Hospital facilities, Travel, Indications for Ultrasound and Screening for Aneuploidy; Discussed Unstable Housing, Discussed Communication Barriers, Discussed Environmental/Work Hazards and Discussed Toxoplasmosis Precations Second Trimester Second Trimester: Signs and Symptoms of Labor, Selecting a care provider, Reproductive Life Planning & Contreception, Care Planning, Depression/Anxiety and Intimate Partner Violence; Discussed Tobacco Cessation Third Trimester Third Trimester: Pain Management Plans, Labor support person(s), Immediate Larc, Signs and Symptoms of Preeclampsia, Infant Feeding, [place] Education and Family Medical Leave or Disability Forms ROS Const Reports system reviewed and no additional complaints, except as documented Eyes Reports system reviewed and no additional complaints, except as documented ENT Reports system reviewed and no additional complaints, except as documented Card Reports system reviewed and no additional complaints, except as documented Resp Reports system reviewed and no additional complaints, except as documented GI Reports system reviewed and no additional complaints, except as documented, Denies nausea and Denies vomiting Reports system reviewed and no additional complaints, except as documented Musc Reports system reviewed and no additional complaints, except as documented Skin/Breast Reports system reviewed and no additional complaints, except as documented Neuro Yes system reviewed and no additional complaints, except as documented Psych Reports system reviewed and no additional complaints, except as documented Endo Reports system reviewed and no additional complaints, except as documented [place]/Lymph Reports system reviewed and no additional complaints, except as documented Aller/Immun Reports system reviewed and no additional complaints, except as documented Exam Const General: cooperative, healthy appearing and no acute distress Orientation: alert, awake and oriented x3 Neck Neck: normal visual inspection and full ROM Resp Effort & Inspection: normal respiratory effort, able to speak in complete sentences and symmetric chest movement GI Inspection: normal to inspection Palpation: soft and other Other: gravid Skin General: no rashes or lesions noted Neuro General: patient alert, patient awake and patient oriented x3 Cognition: normal cognition Speech: speech normal Gait: normal gait Motor: muscle tone normal throughout Extrem General: normal to inspection and full ROM Psych Appearance: grossly normal Mental Status: mental status grossly normal Mood: congruent mood Affect: normal affect Speech and Movement: speech and movement normal Attitude: cooperative Thought Process: normal Thought Content: normal Judgment: judgment good Results POC Urinalysis 2 Dip (Clinic) Office Urine Glucose Negative Last Edit by Shweta Olivia on 03/27/25 09:06 Office Urine Protein Negative Last Edit by Shweta Olivia on 03/27/25 09:06 Coding Level of Care Code OB Routine Diagnoses Occupational risk complicating O09.899 ADHD F90.9 12 weeks gestation of Z3A.12 Weeks of gestation: 12 weeks Supervision of high risk in first trimester O09.91 Assessment and Plan Assessment and Plan (1) Occupational risk complicating : 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 see problem list details for updated plan management information and see below for orders placed at this visit. [place] appropriate handout given. Clinical Quality Measures Falls Risk Screening/Assistive Devices Have you fallen in the past year?: No 03/27/25 0920 <Electronically signed by Ramone bolden CNM> Date _ Ramone Bauer CNM Cosigner Signature: Date (if applicable) CC: ~ [facility] Work Phone: Progress note Author Ramone Bauer [facility] Note Date/Time May 22, 2025 11:2 [facility] [place] [address], [facility] [address] [place] [address] OFFICE VISIT Date of Service: 05/22/25 MR#: [id number] Acct: [id number] Name: LINETTE HUI Rep #: [id number] : 1990 Provider: DMITRIY Bauer Age/Sex: 35/F Location: [facility] [place] Status: Signed Intake Vital Signs 03/27/25 08:56 05/09/25 14:07 05/22/25 11:00 Height 5 ft 7.5 in 5 ft 7.5 in 5 ft 7.5 in Weight: 191 lb 4 oz BMI 29.5 BP 121/69 H Intake Visit Reasons: 20wk ob Chief Complaint: 20wk OB Complex Care Nurse Required: No Is patient in pain?: No Allergies Penicillins Allergy (Mild, Verified 05/22/25 10:58) Hives Sulfa (Sulfonamide Antibiotics) Allergy (Mild, Verified 05/22/25 10:58) Hives Medications ?Medication ?Instructions ?Recorded ?Confirmed ?Type cholecalciferol (vitamin D3) 50 50 mcg PO QDAY 5 05/22/25 History mcg (2,000 unit) capsule docosahexaenoic acid 200 mg mg PO 02/05/25 05/22/25 Hi story capsule ( DHA) omega-3 fatty acids 1,000 mg 1,000 mg PO QDAY 02/05/25 05/22/25 History capsule Last Menstrual Period: 12/31/24 : No PFSH PFSH Medical History ADHD Family History Father GBM (glioblastoma multiforme) Hypertension Mother Hypertension Alopecia Grandmother Heart disease Hypertension Grandfather Heart disease Hypertension Macular degeneration Brother Leukemia as a child Grandmother Macular degeneration Hypertension Aneurysm Social History adopted: No household members: spouse and children number of children: 2 current occupational status: employed 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 (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 ) ) pets and animals: No history of recent travel: No Smoking Status: Never smoker alcohol intake: former details: socially, but not since substance use type: marijuana and other details: occasionally but not since , last 10/2024 caffeine: Yes Type: coffee what type of physical activity do you participate in: running and bicycling frequency: 5-6 times per week deon/episcopal: Yazidism seatbelt use: always do you feel safe at home: Yes additional social history: - [employer] [facility] History 3 Elective abortions Hx Para 2 Spontaneous abortions Hx # Term Pregnancies Ectopic pregnancies Hx # Pregnancies Multiple births # of living children 2 Past Pregnancies Del. Date Name GA/Weeks Outcome Route Bth Weight Infant Gen Labor Lgth Anesthesia Del Locatn Provider FOB 06/02/20 Prasanna 39 live - full term 7.8 Female 7 hours n one Magdy 02/28/22 Miguel Ángel 39 live - full term Male 6 none HPI 20wk ob Details: LINETTE HUI is a 35 year old who presents for routine OB visit. OB Visit TAQUERIA Calculator Estimated Delivery Date Method Current WG Current Estimate 10/07/25 LMP (Certain) 20w 2d Other Estimates 10/05/25 Ultrasound #1 20w 4d Expected Delivery Route/Plan Labor Preferences- CB/BF classes: [] labor support person: [] labor intervention preferences: [] pain management options preferred: [] cut cord/dad catch: [] : [] PP control planned: [] discussed possible routes of delivery and associated risks: [] special requests: [] Specific Issue/Plans Covid status: [] Flu vaccine: [] Tdap vaccine: [] Rhogam: [] LARC form signed: [] Problem list reviewed and updated with the most current plan of care details and appropriate orders placed. Relevant counseling for the gestational age provided. Continue routine care and follow up unless otherwise noted in visit notes/problem list details Initial Weight: 178 lb Date -?-?-?-?-?-?-?-?-?-?-?-?- EGA Weight BP Urine Prot -?-?-?-?-?-?-?-?-?-?-?-?- Glucose FHR FuHt Pres Dilation -?-?-?-?-?-?-?-?-?-?-?-?- Effaced St Visit Note 02/27/25 -?-?-?-?-?-?-?-?-?-?-?-?- 8w 2d 178 lb 2 oz (+2 oz) 125/75 -?-?-?-?--?-?-?-?-?-?-?-?- 173 -?-?-?-?-?-?-?-?-?-?-?-?- KW- CRL cons wit h dates. accepts NIPT. 03/27/25 -?-?-?-?-?-?-?-?-?-?-?-?- 12w 2d 181 lb 2 oz (+3 lb 2 oz) 122/77 Negative -?-?-?-?-?-?-?-?-?-?-?-?- Negative 160 -?-?-?-?-?-?-?-?-?-?-?-?- kw- no vb/crampi ng. US with MFM ordered. Bartholin cyst-to try loose clothing and warm compress kw- no vb/cramping. US with MFM ordered. Bartholin cyst-to try loose clothing and warm compress. Labs today 04/24/25 -?-?-?-?-?-?-?-?-?-?-?-?- 16w 2d 188 lb 4 oz (+10 lb 4 oz) 127/77 -?-?-?-?-?-?-?-?-?-?-?-?- 145 -?-?-?-?-?-?-?-?-?-?-?-?- SM- no vb crampi ng 05/09/25 -?-?-?-?-?-?-?-?-?-?-?-?- 18w 3d 191 lb 4 oz (+13 lb 4 oz) 125/73 Negative -?-?-?-?-?-?-?-?-?-?-?-?- Negative 145 -?-?-?-?-?-?-?-?-?-?-?-?- Sm- she was feel ing crampy throughout the day, had diarrhea yesterday and now feeling better today 05/22/25 -?-?-?-?-?-?-?-?-?-?-?-?- 20w 2d 191 lb 4 oz (+13 lb 4 oz) 121/69 Negative -?-?-?-?-?-?-?-?-?-?-?-?- Negative 145 -?-?-?-?-?--?-?-?-?-?-?-?- KW- no vb/crampi ng. +FM. anatomy reviewed. ACOG First Trimester First Trimester: Desire for , Alcohol, Tobacco Cessation, Illicit/Recreational Drug/Substance Use, Intimate Partner Violence, Barriers to care, Anticipated Course of Care, Use of Any medications, Sexual activity, Exercise, Dental Care, Sauna/Hot tub use, Seat Belt use, Childbirth classes/Hospital facilities, Travel, Indications for Ultrasound and Screening for Aneuploidy; Discussed Unstable Housing, Discussed Communication Barriers, Discussed Environmental/Work Hazards, Discussed Toxoplasmosis Precations and Discussed Second Trimester Second Trimester: Signs and Symptoms of Labor, Selecting a care provider, Reproductive Life Planning & Contreception, Care Planning, Depression/Anxiety and Intimate Partner Violence; Discussed Tobacco Cessation Third Trimester Third Trimester: Pain Management Plans, Labor support person(s), Immediate Larc, Signs and Symptoms of Preeclampsia, Infant Feeding No , [place] Education and Family Medical Leave or Disability Forms ROS Const Reports system reviewed and no additional complaints, except as documented Eyes Reports system reviewed and no additional complaints, except as documented ENT Reports system reviewed and no additional complaints, except as documented Card Reports system reviewed and no additional complaints, except as documented Resp Reports system reviewed and no additional complaints, except as documented GI Reports system reviewed and no additional complaints, except as documented, Denies nausea and Denies vomiting Reports system reviewed and no additional complaints, except as documented Musc Reports system reviewed and no additional complaints, except as documented Skin/Breast Reports system reviewed and no additional complaints, except as documented Neuro Yes system reviewed and no additional complaints, except as documented Psych Reports system reviewed and no additional complaints, except as documented Endo Reports system reviewed and no additional complaints, except as documented [place]/Lymph Reports system reviewed and no additional complaints, except as documented Aller/Immun Reports system reviewed and no additional complaints, except as documented Exam Const General: cooperative, healthy appearing and no acute distress Orientation: alert, awake and oriented x3 Neck Neck: normal visual inspection and full ROM Resp Effort & Inspection: normal respiratory effort, able to speak in complete sentences and symmetric chest movement GI Inspection: normal to inspection Palpation: soft and other Other: gravid Skin General: no rashes or lesions noted Neuro General: patient alert, patient awake and patient oriented x3 Cognition: normal cognition Speech: speech normal Gait: normal gait Motor: muscle tone normal throughout Extrem General: normal to inspection and full ROM Psych Appearance: grossly normal Mental Status: mental status grossly normal Mood: congruent mood Affect: normal affect Speech and Movement: speech and movement normal Attitude: cooperative Thought Process: normal Thought Content: normal Judgment: judgment good Results POC Urinalysis 2 Dip (Clinic) Office Urine Glucose Negative Last Edit by Shweta Olivia on 05/22/25 11:05 Office Urine Protein Negative Last Edit by Shweta Olivia on 05/22/25 11:05 Coding Level of Care Code OB Routine Diagnoses Occupational risk complicating O09.899 ADHD F90.9 20 weeks gestation of Z3A.20 Weeks of gestation: 20 weeks Supervision of high risk in first trimester O09.91 Assessment and Plan Assessment and Plan (1) Occupational risk complicating : 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 see problem list details for updated plan management information and see below for orders placed at this visit. [place] appropriate handout given. 05/22/25 4276 <Electronically signed by Ramone bolden CNM> Date _ Ramone Bauer CNM Cosigner Signature: Date (if applicable) CC: ~ [facility] Work Phone: Reason for referral (narrative)No reason for referral information availableBlRobert H. [facility]ard [facility] Work Phone: Family History Grandmother Name Dates Details Family history of myocardial infarction(V17.3, Z82.49) Status:Active Grandmother Name Dates Details Family history of hypertensi on(V17.49, Z82.49) Status:Active Father Name Dates Details Family history of hypertensi on(V17.49, Z82.49) Status:Active Family history of glioblasto ma(V16.8, Z80.8) Status:Active Grandmother Name Dates Details Family history of myocardial infarction(V17.3, Z82.49) Status:Active Grandmother Name Dates Details Family history of hypertensi on(V17.49, Z82.49) Status:Active Father Name Dates Details Family history of hypertensi on(V17.49, Z82.49) Status:Active Family history of glioblasto ma(V16.8, Z80.8) Status:Active Grandmother Name Dates Details Family history of myocardial infarction(V17.3, Z82.49) Status:Active Grandmother Name Dates Details Family history of hypertensi on(V17.49, Z82.49) Status:Active Father Name Dates Details Family history of hypertensi on(V17.49, Z82.49) Status:Active Family history of glioblasto ma(V16.8, Z80.8) Status:Active Grandmother Name Dates Details Family history of myocardial infarction(V17.3, Z82.49) Status:Active Grandmother Name Dates Details Family history of hypertensi on(V17.49, Z82.49) Status:Active Family history of neoplasm o f brain(V19.8, Z84.89) Status:Active Mother Name Dates Details Family history of alopecia(V 19.4, Z84.0) Status:Active Father Name Dates Details Family history of hypertensi on(V17.49, Z82.49) Status:Active Family history of glioblasto ma(V16.8, Z80.8) Status:Active Unknown Family Member Name Dates Details Family history of hypertensi on: Father, Paternal Grandmother(V17.49, Z82.49) Status:Active Family history of glioblasto ma: Father(V16.8, Z80.8) Status:Active Family history of myocardial infarction: Maternal Grandmother(V17.3, Z82.49) Status:Active Family history of neoplasm o f brain: Paternal Grandmother(V19.8, Z84.89) Status:Active Family history of alopecia: Mother(V19.4, Z84.0) Status:Active Unknown Family Member Name Dates Details Family history of hypertensi on: Father, Paternal Grandmother(V17.49, Z82.49) Status:Active Family history of glioblasto ma: Father(V16.8, Z80.8) Status:Active Family history of myocardial infarction: Maternal Grandmother(V17.3, Z82.49) Status:Active Family history of neoplasm o f brain: Paternal Grandmother(V19.8, Z84.89) Status:Active Family history of alopecia: Mother(V19.4, Z84.0) Status:Active Unknown Family Member Name Dates Details Family history of hypertensi on: Father, Paternal Grandmother(V17.49, Z82.49) Status:Active Family history of glioblasto ma: Father(V16.8, Z80.8) Status:Active Family history of myocardial infarction: Maternal Grandmother(V17.3, Z82.49) Status:Active Family history of neoplasm o f brain: Paternal Grandmother(V19.8, Z84.89) Status:Active Family history of alopecia: Mother(V19.4, Z84.0) Status:Active Unknown Family Member Name Dates Details Family history of hypertensi on: Father, Paternal Grandmother(V17.49, Z82.49) Status:Active Family history of glioblasto ma: Father(V16.8, Z80.8) Status:Active Family history of myocardial infarction: Maternal Grandmother(V17.3, Z82.49) Status:Active Family history of neoplasm o f brain: Paternal Grandmother(V19.8, Z84.89) Status:Active Family history of alopecia: Mother(V19.4, Z84.0) Status:Active Unknown Family Member Name Dates Details Family history of hypertensi on: Father, Paternal Grandmother(V17.49, Z82.49) Status:Active Family history of glioblasto ma: Father(V16.8, Z80.8) Status:Active Family history of myocardial infarction: Maternal Grandmother(V17.3, Z82.49) Status:Active Family history of neoplasm o f brain: Paternal Grandmother(V19.8, Z84.89) Status:Active Family history of alopecia: Mother(V19.4, Z84.0) Status:Active Unknown Family Member Name Dates Details Family history of hypertensi on: Father, Paternal Grandmother(V17.49, Z82.49) Status:Active Family history of glioblasto ma: Father(V16.8, Z80.8) Status:Active Family history of myocardial infarction: Maternal Grandmother(V17.3, Z82.49) Status:Active Family history of neoplasm o f brain: Paternal Grandmother(V19.8, Z84.89) Status:Active Family history of alopecia: Mother(V19.4, Z84.0) Status:Active Unknown Family Member Name Dates Details Family history of hypertensi on: Father, Paternal Grandmother(V17.49, Z82.49) Status:Active Family history of glioblasto ma: Father(V16.8, Z80.8) Status:Active Family history of myocardial infarction: Maternal Grandmother(V17.3, Z82.49) Status:Active Family history of neoplasm o f brain: Paternal Grandmother(V19.8, Z84.89) Status:Active Family history of alopecia: Mother(V19.4, Z84.0) Status:Active Unknown Family Member Name Dates Details Family history of hypertensi on: Father, Paternal Grandmother(V17.49, Z82.49) Status:Active Family history of glioblasto ma: Father(V16.8, Z80.8) Status:Active Family history of myocardial infarction: Maternal Grandmother(V17.3, Z82.49) Status:Active Family history of neoplasm o f brain: Paternal Grandmother(V19.8, Z84.89) Status:Active Family history of alopecia: Mother(V19.4, Z84.0) Status:Active Unknown Family Member Name Dates Details Family history of hypertensi on: Father, Paternal Grandmother(V17.49, Z82.49) Status:Active Family history of glioblasto ma: Father(V16.8, Z80.8) Status:Active Family history of myocardial infarction: Maternal Grandmother(V17.3, Z82.49) Status:Active Family history of neoplasm o f brain: Paternal Grandmother(V19.8, Z84.89) Status:Active Family history of alopecia: Mother(V19.4, Z84.0) Status:Active Unknown Family Member Name Dates Details Family history of hypertensi on: Father, Paternal Grandmother(V17.49, Z82.49) Status:Active Family history of glioblasto ma: Father(V16.8, Z80.8) Status:Active Family history of myocardial infarction: Maternal Grandmother(V17.3, Z82.49) Status:Active Family history of neoplasm o f brain: Paternal Grandmother(V19.8, Z84.89) Status:Active Family history of alopecia: Mother(V19.4, Z84.0) Status:Active Unknown Family Member Name Dates Details Family history of hypertensi on: Father, Paternal Grandmother(V17.49, Z82.49) Status:Active Family history of glioblasto ma: Father(V16.8, Z80.8) Status:Active Family history of myocardial infarction: Maternal Grandmother(V17.3, Z82.49) Status:Active Family history of neoplasm o f brain: Paternal Grandmother(V19.8, Z84.89) Status:Active Family history of alopecia: Mother(V19.4, Z84.0) Status:Active Unknown Family Member Name Dates Details Family history of hypertensi on: Father, Paternal Grandmother(V17.49, Z82.49) Status:Active Family history of glioblasto ma: Father(V16.8, Z80.8) Status:Active Family history of myocardial infarction: Maternal Grandmother(V17.3, Z82.49) Status:Active Family history of neoplasm o f brain: Paternal Grandmother(V19.8, Z84.89) Status:Active Family history of alopecia: Mother(V19.4, Z84.0) Status:Active Unknown Family Member Name Dates Details Family history of hypertensi on: Father, Paternal Grandmother(V17.49, Z82.49) Status:Active Family history of glioblasto ma: Father(V16.8, Z80.8) Status:Active Family history of myocardial infarction: Maternal Grandmother(V17.3, Z82.49) Status:Active Family history of neoplasm o f brain: Paternal Grandmother(V19.8, Z84.89) Status:Active Family history of alopecia: Mother(V19.4, Z84.0) Status:Active Unknown Family Member Name Dates Details Family history of hypertensi on: Father, Paternal Grandmother(V17.49, Z82.49) Status:Active Family history of glioblasto ma: Father(V16.8, Z80.8) Status:Active Family history of myocardial infarction: Maternal Grandmother(V17.3, Z82.49) Status:Active Family history of neoplasm o f brain: Paternal Grandmother(V19.8, Z84.89) Status:Active Family history of alopecia: Mother(V19.4, Z84.0) Status:Active Unknown Family Member Name Dates Details Family history of hypertensi on: Father, Paternal Grandmother(V17.49, Z82.49) Status:Active Family history of glioblasto ma: Father(V16.8, Z80.8) Status:Active Family history of myocardial infarction: Maternal Grandmother(V17.3, Z82.49) Status:Active Family history of neoplasm o f brain: Paternal Grandmother(V19.8, Z84.89) Status:Active Family history of alopecia: Mother(V19.4, Z84.0) Status:Active Unknown Family Member Name Dates Details Family history of hypertensi on: Father, Paternal Grandmother(V17.49, Z82.49) Status:Active Family history of glioblasto ma: Father(V16.8, Z80.8) Status:Active Family history of myocardial infarction: Maternal Grandmother(V17.3, Z82.49) Status:Active Family history of alopecia: Mother(V19.4, Z84.0) Status:Active Family history of neoplasm o f brain: Paternal Grandmother(V19.8, Z84.89) Status:Active Unknown Family Member Name Dates Details Family history of hypertensi on: Father, Paternal Grandmother(V17.49, Z82.49) Status:Active Family history of glioblasto ma: Father(V16.8, Z80.8) Status:Active Family history of myocardial infarction: Maternal Grandmother(V17.3, Z82.49) Status:Active Family history of neoplasm o f brain: Paternal Grandmother(V19.8, Z84.89) Status:Active Family history of alopecia: Mother(V19.4, Z84.0) Status:Active Unknown Family Member Name Dates Details Family history of hypertensi on: Father, Paternal Grandmother(V17.49, Z82.49) Status:Active Family history of glioblasto ma: Father(V16.8, Z80.8) Status:Active Family history of myocardial infarction: Maternal Grandmother(V17.3, Z82.49) Status:Active Family history of alopecia: Mother(V19.4, Z84.0) Status:Active Family history of neoplasm o f brain: Paternal Grandmother(V19.8, Z84.89) Status:Active Unknown Family Member Name Dates Details Family history of hypertensi on: Father, Paternal Grandmother(V17.49, Z82.49) Status:Active Family history of glioblasto ma: Father(V16.8, Z80.8) Status:Active Family history of myocardial infarction: Maternal Grandmother(V17.3, Z82.49) Status:Active Family history of neoplasm o f brain: Paternal Grandmother(V19.8, Z84.89) Status:Active Family history of alopecia: Mother(V19.4, Z84.0) Status:Active Unknown Family Member Name Dates Details Family history of hypertensi on: Father, Paternal Grandmother(V17.49, Z82.49) Status:Active Family history of glioblasto ma: Father(V16.8, Z80.8) Status:Active Family history of myocardial infarction: Maternal Grandmother(V17.3, Z82.49) Status:Active Family history of neoplasm o f brain: Paternal Grandmother(V19.8, Z84.89) Status:Active Family history of alopecia: Mother(V19.4, Z84.0) Status:Active Unknown Family Member Name Dates Details Family history of hypertensi on: Father, Paternal Grandmother(V17.49, Z82.49) Status:Active Family history of glioblasto ma: Father(V16.8, Z80.8) Status:Active Family history of myocardial infarction: Maternal Grandmother(V17.3, Z82.49) Status:Active Family history of neoplasm o f brain: Paternal Grandmother(V19.8, Z84.89) Status:Active Family history of alopecia: Mother(V19.4, Z84.0) Status:Active Unknown Family Member Name Dates Details Family history of hypertensi on: Father, Paternal Grandmother(V17.49, Z82.49) Status:Active Family history of glioblasto ma: Father(V16.8, Z80.8) Status:Active Family history of myocardial infarction: Maternal Grandmother(V17.3, Z82.49) Status:Active Family history of neoplasm o f brain: Paternal Grandmother(V19.8, Z84.89) Status:Active Family history of alopecia: Mother(V19.4, Z84.0) Status:Active Unknown Family Member Name Dates Details Family history of hypertensi on: Father, Paternal Grandmother(V17.49, Z82.49) Status:Active Family history of glioblasto ma: Father(V16.8, Z80.8) Status:Active Family history of myocardial infarction: Maternal Grandmother(V17.3, Z82.49) Status:Active Family history of neoplasm o f brain: Paternal Grandmother(V19.8, Z84.89) Status:Active Family history of alopecia: Mother(V19.4, Z84.0) Status:Active Unknown Family Member Name Dates Details Family history of hypertensi on: Father, Paternal Grandmother(V17.49, Z82.49) Status:Active Family history of glioblasto ma: Father(V16.8, Z80.8) Status:Active Family history of myocardial infarction: Maternal Grandmother(V17.3, Z82.49) Status:Active Family history of neoplasm o f brain: Paternal Grandmother(V19.8, Z84.89) Status:Active Family history of alopecia: Mother(V19.4, Z84.0) Status:Active Unknown Family Member Name Dates Details Family history of myocardial infarction: Maternal Grandmother(V17.3, Z82.49) Status:Active Family history of neoplasm o f brain: Paternal Grandmother(V19.8, Z84.89) Status:Active Family history of alopecia: Mother(V19.4, Z84.0) Status:Active Family history of glioblasto ma: Father(V16.8, Z80.8) Status:Active Family history of hypertensi on: Father, Paternal Grandmother(V17.49, Z82.49) Status:Active Unknown Family Member Name Dates Details Family history of myocardial infarction: Maternal Grandmother(V17.3, Z82.49) Status:Active Family history of alopecia: Mother(V19.4, Z84.0) Status:Active Family history of neoplasm o f brain: Paternal Grandmother(V19.8, Z84.89) Status:Active Family history of glioblasto ma: Father(V16.8, Z80.8) Status:Active Family history of hypertensi on: Father, Paternal Grandmother(V17.49, Z82.49) Status:Active Unknown Family Member Name Dates Details Family history of hypertensi on: Father, Paternal Grandmother(V17.49, Z82.49) Status:Active Family history of glioblasto ma: Father(V16.8, Z80.8) Status:Active Family history of myocardial infarction: Maternal Grandmother(V17.3, Z82.49) Status:Active Family history of neoplasm o f brain: Paternal Grandmother(V19.8, Z84.89) Status:Active Family history of alopecia: Mother(V19.4, Z84.0) Status:Active Unknown Family Member Name Dates Details Family history of hypertensi on: Father, Paternal Grandmother(V17.49, Z82.49) Status:Active Family history of glioblasto ma: Father(V16.8, Z80.8) Status:Active Family history of myocardial infarction: Maternal Grandmother(V17.3, Z82.49) Status:Active Family history of neoplasm o f brain: Paternal Grandmother(V19.8, Z84.89) Status:Active Family history of alopecia: Mother(V19.4, Z84.0) Status:Active Unknown Family Member Name Dates Details Family history of hypertensi on: Father, Paternal Grandmother(V17.49, Z82.49) Status:Active Family history of glioblasto ma: Father(V16.8, Z80.8) Status:Active Family history of myocardial infarction: Maternal Grandmother(V17.3, Z82.49) Status:Active Family history of neoplasm o f brain: Paternal Grandmother(V19.8, Z84.89) Status:Active Family history of alopecia: Mother(V19.4, Z84.0) Status:Active Unknown Family Member Name Dates Details Family history of hypertensi on: Father, Paternal Grandmother(V17.49, Z82.49) Status:Active Family history of glioblasto ma: Father(V16.8, Z80.8) Status:Active Family history of myocardial infarction: Maternal Grandmother(V17.3, Z82.49) Status:Active Family history of neoplasm o f brain: Paternal Grandmother(V19.8, Z84.89) Status:Active Family history of alopecia: Mother(V19.4, Z84.0) Status:Active Unknown Family Member Name Dates Details Family history of hypertensi on: Father, Paternal Grandmother(V17.49, Z82.49) Status:Active Family history of glioblasto ma: Father(V16.8, Z80.8) Status:Active Family history of myocardial infarction: Maternal Grandmother(V17.3, Z82.49) Status:Active Family history of neoplasm o f brain: Paternal Grandmother(V19.8, Z84.89) Status:Active Family history of alopecia: Mother(V19.4, Z84.0) Status:Active Unknown Family Member Name Dates Details Family history of hypertensi on: Father, Paternal Grandmother(V17.49, Z82.49) Status:Active Family history of glioblasto ma: Father(V16.8, Z80.8) Status:Active Family history of myocardial infarction: Maternal Grandmother(V17.3, Z82.49) Status:Active Family history of neoplasm o f brain: Paternal Grandmother(V19.8, Z84.89) Status:Active Family history of alopecia: Mother(V19.4, Z84.0) Status:Active Unknown Family Member Name Dates Details Family history of hypertensi on: Father, Paternal Grandmother(V17.49, Z82.49) Status:Active Family history of glioblasto ma: Father(V16.8, Z80.8) Status:Active Family history of myocardial infarction: Maternal Grandmother(V17.3, Z82.49) Status:Active Family history of neoplasm o f brain: Paternal Grandmother(V19.8, Z84.89) Status:Active Family history of alopecia: Mother(V19.4, Z84.0) Status:Active Unknown Family Member Name Dates Details Family history of hypertensi on: Father, Paternal Grandmother(V17.49, Z82.49) Status:Active Family history of glioblasto ma: Father(V16.8, Z80.8) Status:Active Family history of myocardial infarction: Maternal Grandmother(V17.3, Z82.49) Status:Active Family history of neoplasm o f brain: Paternal Grandmother(V19.8, Z84.89) Status:Active Family history of alopecia: Mother(V19.4, Z84.0) Status:Active Unknown Family Member Name Dates Details Family history of hypertensi on: Father, Paternal Grandmother(V17.49, Z82.49) Status:Active Family history of glioblasto ma: Father(V16.8, Z80.8) Status:Active Family history of myocardial infarction: Maternal Grandmother(V17.3, Z82.49) Status:Active Family history of neoplasm o f brain: Paternal Grandmother(V19.8, Z84.89) Status:Active Family history of alopecia: Mother(V19.4, Z84.0) Status:Active Unknown Family Member Name Dates Details Family history of hypertensi on: Father, Paternal Grandmother(V17.49, Z82.49) Status:Active Family history of glioblasto ma: Father(V16.8, Z80.8) Status:Active Family history of myocardial infarction: Maternal Grandmother(V17.3, Z82.49) Status:Active Family history of neoplasm o f brain: Paternal Grandmother(V19.8, Z84.89) Status:Active Family history of alopecia: Mother(V19.4, Z84.0) Status:Active Unknown Family Member Name Dates Details Family history of hypertensi on: Father, Paternal Grandmother(V17.49, Z82.49) Status:Active Family history of glioblasto ma: Father(V16.8, Z80.8) Status:Active Family history of myocardial infarction: Maternal Grandmother(V17.3, Z82.49) Status:Active Family history of neoplasm o f brain: Paternal Grandmother(V19.8, Z84.89) Status:Active Family history of alopecia: Mother(V19.4, Z84.0) Status:Active Unknown Family Member Name Dates Details Family history of hypertensi on: Father, Paternal Grandmother(V17.49, Z82.49) Status:Active Family history of glioblasto ma: Father(V16.8, Z80.8) Status:Active Family history of myocardial infarction: Maternal Grandmother(V17.3, Z82.49) Status:Active Family history of neoplasm o f brain: Paternal Grandmother(V19.8, Z84.89) Status:Active Family history of alopecia: Mother(V19.4, Z84.0) Status:Active Unknown Family Member Name Dates Details Family history of hypertensi on: Father, Paternal Grandmother(V17.49, Z82.49) Status:Active Family history of glioblasto ma: Father(V16.8, Z80.8) Status:Active Family history of myocardial infarction: Maternal Grandmother(V17.3, Z82.49) Status:Active Family history of neoplasm o f brain: Paternal Grandmother(V19.8, Z84.89) Status:Active Family history of alopecia: Mother(V19.4, Z84.0) Status:Active Unknown Family Member Name Dates Details Family history of hypertensi on: Father, Paternal Grandmother(V17.49, Z82.49) Status:Active Family history of glioblasto ma: Father(V16.8, Z80.8) Status:Active Family history of myocardial infarction: Maternal Grandmother(V17.3, Z82.49) Status:Active Family history of neoplasm o f brain: Paternal Grandmother(V19.8, Z84.89) Status:Active Family history of alopecia: Mother(V19.4, Z84.0) Status:Active Unknown Family Member Name Dates Details Family history of hypertensi on: Father, Paternal Grandmother(V17.49, Z82.49) Status:Active Family history of glioblasto ma: Father(V16.8, Z80.8) Status:Active Family history of myocardial infarction: Maternal Grandmother(V17.3, Z82.49) Status:Active Family history of neoplasm o f brain: Paternal Grandmother(V19.8, Z84.89) Status:Active Family history of alopecia: Mother(V19.4, Z84.0) Status:Active Unknown Family Member Name Dates Details Family history of hypertensi on: Father, Paternal Grandmother(V17.49, Z82.49) Status:Active Family history of glioblasto ma: Father(V16.8, Z80.8) Status:Active Family history of myocardial infarction: Maternal Grandmother(V17.3, Z82.49) Status:Active Family history of neoplasm o f brain: Paternal Grandmother(V19.8, Z84.89) Status:Active Family history of alopecia: Mother(V19.4, Z84.0) Status:Active Unknown Family Member Name Dates Details Family history of hypertensi on: Father, Paternal Grandmother(V17.49, Z82.49) Status:Active Family history of glioblasto ma: Father(V16.8, Z80.8) Status:Active Family history of myocardial infarction: Maternal Grandmother(V17.3, Z82.49) Status:Active Family history of alopecia: Mother(V19.4, Z84.0) Status:Active Family history of neoplasm o f brain: Paternal Grandmother(V19.8, Z84.89) Status:Active Relationship Condition Age at Onset Recorded Date/T chrissy father Glioblastoma multiforme Unknown Hypertension Unknown mother Hypertension Unknown Alopecia Unknown grandmother Cardiac disease Unknown grandfather Cardiac disease Unknown Macular degeneration Unknown brother Leukemia Unknown grandmother Macular degeneration Unknown Aneurysm Unknown Chief Complaint pt here today as a new ob. pt states she is having some nausea, deep cramping, and no breast tenderness anymore. LMP- 05/29/2021.PT HERE FOR RIGHT WRIST PAIN. LAST INJECTION 11/19. STATES RIGHT IS WORSE THAT LEFT. OT IS HELPING. WOULD LIKE TO TALK ABOUT INJECTION IN THE RIGHT WRIST. HAS CLEARANCE FROM OB.Patient here today for 6 weeks post . She had a vaginal delivery on 02/28/22 baby boy. She states she is breast feeding, would like to discuss control, has not been sexually active since and has not had a period. She does complain of vaginal itching, hemorrhoids and bruising easily.Patient here today with concerns of nipple pain in both breasts for about 4 days. She is 11 months post .Patient here today for follow up nipple pain. She has 1 antibiotic left, she is still having the nipple pain but she has been using nipple butter that has been helping with the cracking. She has beenpumping and noticed blood in her milk. Since she has been on antibiotic she thinks she has a yeast infection, notes itching externally only.Patient here today for annual exam with no concerns. last pap 08/18/2020 Reflex negative. 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 Advance Directives and Living Will Summary Purpose Reason for Referral * strep dehydrationstrep dehydration Chief Complaint and Reason for Visit Chief Complaint Admit Date CONFIRMATION TEST(SHELF FILLER) 3RD PREG FRED February 05, 2025 9:10am New OB, LMP 3/4, TAQUERIA 10/07February 27, 2025 12:58pm 12WK OB March 27, 2025 8:48a m Reason for Visit Admit Date Supervision of high risk in rst trimester February 05, 2025 9:10am ADHD February 27, 2025 12:58p m Occupational risk complicating February 27, 2025 12:58pm February 27, 2025 12:58p m Supervision of high risk in rst trimester February 27, 2025 12:58pm Family history of identical twins February 12:58pm Normal Pap smear February 27, 2025 12:58p m Normal vaginal delivery February 27, 2025 12 :58pm ADHD March 27, 2025 8:48a m Occupational risk complicating March 27, 2025 8:48am March 27, 2025 8:48a m Supervision of high risk in rst trimester March 27, 2025 8:48am Chief Complaint Admit Date CONFIRMATION TEST(SHELF FILLER) 3RD PREG FRED February 05, 2025 9:10am New OB, LMP 3/4, TAQUERIA 10/07February 27, 2025 12:58pm 12WK OB March 27, 2025 8:48a m 16wk ob April 24, 2025 2:08 pm Reason for Visit Admit Date Supervision of high risk in rst trimester February 05, 2025 9:10am ADHD February 27, 2025 12:58p m Occupational risk complicating February 27, 2025 12:58pm February 27, 2025 12:58p m Supervision of high risk in fi rst trimester February 27, 2025 12:58pm Family history of identical twins February t2024 12:58pm Normal Pap smear February 27, 2025 12:58p m Normal vaginal delivery February 27, 2025 12 :58pm ADHD March 27, 2025 8:48a m Occupational risk complicating March 27, 2025 8:48am March 27, 2025 8:48a m Supervision of high risk in fi rst trimester March 27, 2025 8:48am ADHD April 24, 2025 2:08 pm Occupational risk complicating April 24, 2025 2:08pm April 24, 2025 2:08 pm Supervision of high risk in fi rst trimester April 24, 2025 2:08pm Chief Complaint Admit Date CONFIRMATION TEST(SHELF FILLER) 3RD PREG FRED February 05, 2025 9:10am New OB, LMP 3/4, TAQUERIA 10/07February 27, 2025 12:58pm 12WK OB March 27, 2025 8:48a m 16wk ob April 24, 2025 2:08 pm fu contractions per JV May 09, 2025 2 :01pm Reason for Visit Admit Date Supervision of high risk in fi rst trimester February 05, 2025 9:10am ADHD February 27, 2025 12:58p m Occupational risk complicating February 27, 2025 12:58pm February 27, 2025 12:58p m Supervision of high risk in fi rst trimester February 27, 2025 12:58pm Family history of identical twins February t2024 12:58pm Normal Pap smear February 27, 2025 12:58p m Normal vaginal delivery February 27, 2025 12 :58pm ADHD March 27, 2025 8:48a m Occupational risk complicating March 27, 2025 8:48am March 27, 2025 8:48a m Supervision of high risk in fi rst trimester March 27, 2025 8:48am ADHD April 24, 2025 2:08 pm Occupational risk complicating April 24, 2025 2:08pm April 24, 2025 2:08 pm Supervision of high risk in fi rst trimester April 24, 2025 2:08pm ADHD May 09, 2025 2:01 pm Occupational risk complicating May 09, 2025 2:01pm May 09, 2025 2:01 pm Supervision of high risk in fi rst trimester May 09, 2025 2:01pm Chief Complaint Admit Date CONFIRMATION TEST(SHELF FILLER) 3RD PREG FRED February 05, 2025 9:10am New OB, LMP 3/4, TAQUERIA 10/07February 27, 2025 12:58pm 12WK OB March 27, 2025 8:48a m 16wk ob April 24, 2025 2:08 pm fu contractions per JV May 09, 2025 2 :01pm 20wk ob May 22, 2025 10:5 7am Reason for Visit Admit Date Supervision of high risk in fi rst trimester February 05, 2025 9:10am ADHD February 27, 2025 12:58p m Occupational risk complicating February 27, 2025 12:58pm February 27, 2025 12:58p m Supervision of high risk in fi rst trimester February 27, 2025 12:58pm Family history of identical twins February 12:58pm Normal Pap smear February 27, 2025 12:58p m Normal vaginal delivery February 27, 2025 12 :58pm ADHD March 27, 2025 8:48a m Occupational risk complicating March 27, 2025 8:48am March 27, 2025 8:48a m Supervision of high risk in fi rst trimester March 27, 2025 8:48am ADHD April 24, 2025 2:08 pm Occupational risk complicating April 24, 2025 2:08pm April 24, 2025 2:08 pm Supervision of high risk in fi rst trimester April 24, 2025 2:08pm ADHD May 09, 2025 2:01 pm Occupational risk complicating May 09, 2025 2:01pm May 09, 2025 2:01 pm Supervision of high risk in fi rst trimester May 09, 2025 2:01pm ADHD May 22, 2025 10:5 7am Occupational risk complicating May 22, 2025 10:57am May 22, 2025 10:5 7am Supervision of high risk in fi rst trimester May 22, 2025 10:57am Chief Complaint Admit Date CONFIRMATION TEST(SHELF FILLER) 3RD PREG FRED February 05, 2025 9:10am New OB, LMP 3/4, TAQUERIA 10/07February 27, 2025 12:58pm 12WK OB March 27, 2025 8:48a m 16wk ob April 24, 2025 2:08 pm fu contractions per JV May 09, 2025 2 :01pm 20wk ob May 22, 2025 10:5 7am OB yeast infection June 03, 2025 9:3 6am Reason for Visit Admit Date Supervision of high risk in fi rst trimester February 05, 2025 9:10am ADHD February 27, 2025 12:58p m Occupational risk complicating February 27, 2025 12:58pm February 27, 2025 12:58p m Supervision of high risk in fi rst trimester February 27, 2025 12:58pm Family history of identical twins February 12:58pm Normal Pap smear February 27, 2025 12:58p m Normal vaginal delivery February 27, 2025 12 :58pm ADHD March 27, 2025 8:48a m Occupational risk complicating March 27, 2025 8:48am March 27, 2025 8:48a m Supervision of high risk in fi rst trimester March 27, 2025 8:48am ADHD April 24, 2025 2:08 pm Occupational risk complicating April 24, 2025 2:08pm April 24, 2025 2:08 pm Supervision of high risk in fi rst trimester April 24, 2025 2:08pm ADHD May 09, 2025 2:01 pm Occupational risk complicating May 09, 2025 2:01pm May 09, 2025 2:01 pm Supervision of high risk in fi rst trimester May 09, 2025 2:01pm ADHD May 22, 2025 10:5 7am Occupational risk complicating May 22, 2025 10:57am May 22, 2025 10:5 7am Supervision of high risk in fi rst trimester May 22, 2025 10:57am ADHD June 03, 2025 9:3 6am Occupational risk complicating June 03, 2025 9:36am June 03, 2025 9:3 6am Supervision of high risk in fi rst trimester June 03, 2025 9:36am Additional Source Comments <item><item><item> Privacy Markings (unrecogniz ed section and content) Section Author: Allie Cabrera PROHIBITION ON REDISCLOSURE OF CONFIDENTIAL INFORMATION This notice accompanies a disclosure of information concerning a client made to you with the consent of such client. Section Author: Allie Cabrera PROHIBITION ON REDISCLOSURE OF CONFIDENTIAL INFORMATION This notice accompanies a disclosure of information concerning a client made to you with the consent of such client. Section Author: Allie Cabrera PROHIBITION ON REDISCLOSURE OF CONFIDENTIAL INFORMATION This notice accompanies a disclosure of information concerning a client made to you with the consent of such client. Reason for Visit (unrecogniz ed section and content) Reason Comments Ingrown Toenail Patient states she h as had chronic toenails since she was 12. L>R. States she tries to dig them out when she can. Reason Comments Procedure PO left great to avu lsion Reason Comments Follow-up Med check, stopped z oloft after 5 days due to side effects Reason Comments Gynecologic Exam Patient is here for yearly exam and pap test. Patient does not do regular self breast exams and has no concerns at this time. LMP: 04/01/24. Reason Comments Skin Irritation Bilateral axillary s kin irritation , weeping Care Teams (unrecognized sec tion and content) Traffic Assistant Relationship Specialty Start Date End Date Jeanine Vu CNP [address] [place] [address] PCP - General Nurse Practitioner 12/24/21 Traffic Assistant Relationship Specialty Start Date End Date Jeanine Vu CNP [address] [place] [address] PCP - General Nurse Practitioner 12/24/21 Traffic Assistant Relationship Specialty Start Date End Date Jeanine Vu APRN-KIRBY [address] [place] [address] PCP - General 11/22/21 Traffic Assistant Relationship Specialty Start Date End Date Jeanine Vu APRN-CNP [address] [place] [address] PCP - General 11/22/21 Traffic Assistant Relationship Specialty Start Date End Date Jeanine Vu APRN-KIRBY [address] [place] [id number] PCP - General 11/22/21 Team Status: Active Member Role Status Dates JEANINE VU NP-Ryan Primary Care Provider Active Team Status: Inactive Member Role Status Dates JUVENAL BOYER Primary Care Provider Active Start: February 05, 2025 End: February 05, 2025 JEANINE VU SHELF FILLER-C Referring Provider Active S tart: February 05, 2025 End: February 05, 2025 Vernell Brown NP, SHELF FILLER-C Attending Provider Active Start: February 05, 2025 End: February 05, 2025 Team Status: Inactive Member Role Status Dates JEANINE VU , SHELF FILLER-C Primary Care Provider Active Start: February 27, 2025 End: February 27, 2025 JEANINE VU SHELF FILLER-C Referring Provider Active S tart: February 27, 2025 End: February 27, 2025 Ramone Bauer CNM Attending Provider Active S tart: February 27, 2025 End: February 27, 2025 Team Status: Inactive Member Role Status Darlene VU SHELF FILLER-C Primary Care Provider Active Start: February 27, 2025 End: February 27, 2025 Ramone Bauer CNM Attending Provider Active S tart: February 27, 2025 End: February 27, 2025 Ramone Bauer CNM Referring Provider Active S tart: February 27, 2025 End: February 27, 2025 Team Status: Inactive Member Role Status Darlene VU SHELF FILLER-C Primary Care Provider Active Start: March 27, 2025 End: March 27, 2025 JEANINE VU SHELF FILLER-C Referring Provider Active S tart: March 27, 2025 End: March 27, 2025 Ramone Bauer CNM Attending Provider Active S tart: March 27, 2025 End: March 27, 2025 Team Status: Active Member Role Status Darlene VU , SHELF FILLER-C Primary Care Provider Active Start: March 27, 2025 Ramone aBuer CNM Attending Provider Active S tart: March 27, 2025 Ramone Bauer CNM Referring Provider Active S tart: March 27, 2025 Team Status: Inactive Member Role Status Dates JEANINE VU , SHELF FILLER-C Primary Care Provider Active Start: March 27, 2025 End: March 27, 2025 Ramone Bauer CNM Attending Provider Active S tart: March 27, 2025 End: March 27, 2025 Ramone Bauer CNM Referring Provider Active S tart: March 27, 2025 End: March 27, 2025 Team Status: Inactive Member Role Status Dates JEANINE VU , SHELF FILLER-C Primary Care Provider Active Start: April 24, 2025 End: April 24, 2025 JEANINE VU [employer]ER-C Referring Provider Active S tart: April 24, 2025 End: April 24, 2025 Dr. Miya Garza MD Attending Provider Active Start: April 24, 2025 End: April 24, 2025 Team Status: Active Member Role/Relationship Status Dates JEANINE VU , SHE[employer]ER-C Primary Care Provider Active Team Status: Inactive Member Role/Relationship Status Dates JEANINE VU , SHE[employer]ER-C Primary Care Provider Active Start: February 05, 2025 End: February 05, 2025 JEANINE VU , [employer]ER-C Referring Provider Active S tart: February 05, 2025 End: February 05, 2025 Vernell Brown NP, [employer]C Attending Provider Active Start: February 05, 2025 End: February 05, 2025 Team Status: Inactive Member Role/Relationship Status Dates JEANINE VU , SHE[employer]ER-C Primary Care Provider Active Start: February 27, 2025 End: February 27, 2025 JEANINE VU , [employer]ER-C Referring Provider Active S tart: February 27, 2025 End: February 27, 2025 Ramone Bauer CNM Attending Provider Active S tart: February 27, 2025 End: February 27, 2025 Team Status: Inactive Member Role/Relationship Status Dates JEANINE VU , [employer]ER-C Primary Care Provider Active Start: February 27, 2025 End: February 27, 2025 Ramone Bauer CNM Attending Provider Active S tart: February 27, 2025 End: February 27, 2025 Ramone Bauer CNM Referring Provider Active S tart: February 27, 2025 End: February 27, 2025 Team Status: Inactive Member Role/Relationship Status Dates JEANINE VU , SHE[employer]ER-C Primary Care Provider Active Start: March 27, 2025 End: March 27, 2025 JEANINE VU [employer]ER-C Referring Provider Active S tart: March 27, 2025 End: March 27, 2025 Ramone Bauer CNM Attending Provider Active S tart: March 27, 2025 End: March 27, 2025 Team Status: Inactive Member Role/Relationship Status Dates JEANINE VU , SHE[employer]ER-C Primary Care Provider Active Start: March 27, 2025 End: March 27, 2025 Ramone Bauer CNM Attending Provider Active S tart: March 27, 2025 End: March 27, 2025 Ramone Bauer CNM Referring Provider Active S tart: March 27, 2025 End: March 27, 2025 Team Status: Inactive Member Role/Relationship Status Dates JEANINE VU , SHE[employer]ER-C Primary Care Provider Active Start: April 24, 2025 End: April 24, 2025 JEANINE VU , SHE[employer]ER-C Referring Provider Active S tart: April 24, 2025 End: April 24, 2025 Dr. Miya Garza MD Attending Provider Active Start: April 24, 2025 End: April 24, 2025 Team Status: Inactive Member Role/Relationship Status Dates JEANINE VU , SHE[employer]ER-C Primary Care Provider Active Start: May 09, 2025 End: May 09, 2025 JEANINE VU , SHE[employer]ER-C Referring Provider Active S tart: May 09, 2025 End: May 09, 2025 Dr. Miya Garza MD Attending Provider Active Start: May 09, 2025 End: May 09, 2025 Team Status: Inactive Member Role/Relationship Status Dates JEANINE VU , [employer]ER-C Primary Care Provider Active Start: May 22, 2025 End: May 22, 2025 JEANINE VU , SHE[employer]ER-C Referring Provider Active S tart: May 22, 2025 End: May 22, 2025 Ramone Bauer CNM Attending Provider Active S tart: May 22, 2025 End: May 22, 2025 Team Status: Inactive Member Role/Relationship Status Dates JEANINE VU , SHE[employer]ER-C Primary Care Provider Active Start: June 03, 2025 End: June 03, 2025 JEANINE VU , SHE[employer]ER-C Referring Provider Active S tart: June 03, 2025 End: June 03, 2025 Vernell Brown NP, SHE[employer]ER-C Attending Provider Active Start: June 03, 2025 End: June 03, 2025 INFORMATION SOURCE (unrecogn ized section and content) DATE CREATED AUTHOR 01/06/2022 [facility] DATE CREATED AUTHOR AUTHOR'S ORGANIZ ATION 03/18/2022 [facility] DATE CREATED AUTHOR AUTHOR'S ORGANIZ ATION 04/08/2023 [facility] DATE CREATED AUTHOR AUTHOR'S ORGANIZ ATION 04/08/2023 [employer] DATE CREATED AUTHOR AUTHOR'S ORGANIZ ATION 01/10/2025 [facility] DATE CREATED AUTHOR AUTHOR'S ORGANIZ ATION 05/17/2025 [facility] DATE CREATED AUTHOR AUTHOR'S ORGANIZ ATION 05/23/2025 [facility] Goals (unrecognized section and content) Goals may be documented in a n alternate sectionGoals may be documented in an alternate sectionGoals may be documented in an alternate sectionGoals may be documented in an alternate sectionGoals may be documented in an alternate sectionGoals may be documented in an alternate section FOR RECORDS PERTAINING TO PATIENTS WHO ARE OR HAVE BEEN ENROLLED IN A CHEMICAL DEPENDENCY/SUBSTANCEABUSE PROGRAM, SOME INFORMATION MAY BE OMITTED. This clinical summary was aggregated from multiple sources. Caution should be exercised in using it in the provision of clinical care. This summary normalizes information from multiple sources, and as a consequence, information in this document may materially change the coding, format and clinical context of patient data. In addition, data may be omitted in some cases. CLINICAL DECISIONS SHOULD BE BASED ON THE PRIMARY CLINICAL RECORDS. [employer] [facility]. provides no warranty or guarantee of the accuracy or completeness of information in this document.
== END | disposition home or self-care (01) ==
LOC: LABSPEC 10:50
PROVIDERS: PCP Nurse Practitioner Family; Visit Provider Nurse Practitioner Women's Health
DX: N89.8 Other specified noninflammatory disorders of vagina (principal)
CPT/HCPCS: 87070; 87205

== ENCOUNTER → 2025-07-14 | Outpatient (CLI) | payer OTHER, SELFPAY ==
[2025-07-14 16:55] LABS: Hematocrit 34.5 % (37-47); Hemoglobin 11.5 g/dL (12.0-15.0); Immature Granulocytes Count 0.060 X10^3/uL (0.0-0.0); Mean Corp Hgb Conc 33.3 g/dL (32-36); Mean Corpuscular Volume 95.8 fL (81-99); Mean Platelet Vol. 11.3 fl (6.2-12.0); NRBC Flagged by Analyzer 0 % (0-5); Platelet Count 321 K/mm3 (150-450); RBC Distribution Width CV 13.0 % (11.6-14.6); RBC Distribution Width SD 45.7 fl (35.1-43.9); Red Blood Count 3.60 M/mm3 (4.2-5.4); White Blood Count 11.1 K/mm3 (4.4-11.0)
[2025-07-14 17:57] LABS: Glucose Challenge Gest 1H 50g 88 mg/dL (70-140); HIV Nonreactive (Nonreactive); Syphilis Antibodies Nonreactive (Nonreactive)
[2025-07-14 20:34] LABS: AST(SGOT) 33 U/L (<=31); Alanine Aminotransfer ALT/SGPT 12 U/L (<=34); Albumin, Serum 3.7 g/dL (3.5-5.0); Alkaline Phosphatase 56 U/L (35-104); Anion Gap 14 (5-15); BUN 8 mg/dL (4-19); BUN/Creat Ratio 15.4 RATIO (10-20); Calcium,Total 8.7 mg/dL (7.6-11.0); Carbon Dioxide 18.7 mmol/L (21.0-32.0); Chloride 104 mmol/L (98-108); Globulin 2.9 g/dL (2.2-4.2); Glucose 86 mg/dL (70-99); Potassium 3.2 mmol/L (3.3-5.1)
== END | disposition home or self-care (01) ==
LOC: BWCLAB 13:32
PROVIDERS: Nurse Practitioner Women's Health; PCP Nurse Practitioner Family; Referring Provider Obstetrics & Gynecology; Visit Provider Obstetrics & Gynecology
DX: O09.91 Supervision of high risk pregnancy, unspecified, first trimester (principal); R10.11 Right upper quadrant pain; Z13.1 Encounter for screening for diabetes mellitus; Z3A.00 Weeks of gestation of pregnancy not specified
CPT/HCPCS: 36415; 80053; 82950; 85025; 86703; 86780

== ENCOUNTER → 2025-07-21 | Outpatient (CLI) | payer OTHER, SELFPAY ==
--- NOTE | 2025-07-21 10:28 | US_ITS ---
PROCEDURE: ABDOMEN LIMITED 07/21/2025 REASON FOR EXAM: RUQ PAIN TECHNIQUE: Procedure Code: USABDL Modality: US Procedure: ABDOMEN LIMITED COMPARISON: None FINDINGS: Liver: Grossly normal size and echotexture. Gallbladder: No stones, sludge, wall thickening or tenderness. Common bile duct: Normal measuring 2.3 mm . Pancreas: Normal Other: Visualized portions of the right kidney are unremarkable. No right upper quadrant ascites. US/Abdomen Limited IMPRESSION: NORMAL RIGHT UPPER QUADRANT ULTRASOUND. Reading Location: [place] [id number]
[2025-07-21 11:54] LABS: AST(SGOT) 21 U/L (<=31); Alanine Aminotransfer ALT/SGPT < 5 U/L (<=34); Albumin, Serum 3.5 g/dL (3.5-5.0); Alkaline Phosphatase 58 U/L (35-104); Anion Gap 13 (5-15); BUN 9 mg/dL (4-19); BUN/Creat Ratio 16.6 RATIO (10-20); Calcium,Total 8.5 mg/dL (7.6-11.0); Carbon Dioxide 16.0 mmol/L (21.0-32.0); Chloride 104 mmol/L (98-108); Globulin 2.9 g/dL (2.2-4.2); Glucose 72 mg/dL (70-99); Potassium 4.2 mmol/L (3.3-5.1)
== END | disposition home or self-care (01) ==
LOC: US 10:24
PROVIDERS: PCP Nurse Practitioner Family; Referring Provider Nurse Practitioner Women's Health; Visit Provider Nurse Practitioner Women's Health
DX: R10.11 Right upper quadrant pain (principal); R74.8 Abnormal levels of other serum enzymes
CPT/HCPCS: 36415; 76705; 80053

== ENCOUNTER → 2025-09-11 | Outpatient (CLI) | payer OTHER, SELFPAY ==
--- OUTSIDE RECORDS SUMMARY | 2025-09-11 17:18 | XMS RPT_ITS | CCD ---
Author Organization [facility] CliniSyid Care Team Providers Care Ion Exchange Operator Name Role Phone Unavailable Unavailable Unavailable Benny Cooper Unavailable Unavailable Unavailable Unavailable Unavailable Angel Acevedo Unavailable Unavailable Vinay Ramos Unavailable Unavailable Unavailable Unavailable Unavailable Unavailable Unavailable Khang Herbert Unavailable Unavailable Marsh, Zayda Unavailable Unavailable Wood, Jeanine L Unavailable Mirella [facility] Provide r JF WASHINGTON JR. Attending Unavailable [facility] Care Unavaila JF Vaca JR. Attending Unavailable WOOD, [facility] Primary Care Unavaila ble Wood Jeanine L Unavailable Kenneth Benny R Unavailable Mirella, . [facility] Care Unav ailable MARSH M.D., ZAYDA Attending Unavailable MARSH M.D., ZAYDA Referring Unavailable Wood, Ms. Jeanine Dariana Primary Care Unav ailable MARSH M.D., ZAYDA Attending Unavailable Wood, Ms. [facility] Primary Care Unav ailable MARSH M.D., ZAYDA Attending Unavailable MARSH M.D., ZAYDA Referring Unavailable MARSH M.D., ZAYDA Attending Unavailable Wood, Ms. [facility] Primary Care Unav ailable MARSH M.D., ZAYDA Referring Unavailable MARSH M.D., ZAYDA Attending Unavailable Wood, . Jeanine Dariana Primary Care Unav ailable MARSH M.D., ZAYDA Referring Unavailable Wood, . Jeanine Dariana Primary Care Unav ailable MARSH M.D., ZAYDA Referring Unavailable MARSH M.D., ZAYDA Attending Unavailable Sarbjit Villarreal Unavailable Unavailable Wood MANGA ARTIST-MACHINE SETTER AUTOMATIC, Jeanine L Primary Care Provider Wood MANGA ARTIST-MACHINE SETTER AUTOMATIC, Jeanine L Primary Care Provider BENNY COOPER Attending Unavailable WOOD, JEANINE L Primary Care Unavailable WOOD, JEANINE L Attending Unavailable WOOD, JEANINE L Primary Care Unavailable WOOD AQUARIUM TANK ATTENDANT-C, JEANINE Primary Care Provider WOOD AQUARIUM TANK ATTENDANT-C, JEANINE Referring Provider Stephanie AQUARIUM TANK ATTENDANT-C, Vernell Attending Provider Ramone Bauer CNM Attending Provider [phone] Ramone Bauer CNM Referring Provider [phone] Miya Garza MD Attending Provider JEANINE VU Primary Care Unavailable RAMONE BAUER Referring Unavailable ARAM COTO Attending Unavailable WOOD AQUARIUM TANK ATTENDANT-C, JEANINE Primary Care Provider WOOD AQUARIUM TANK ATTENDANT-C, JEANINE Referring Provider Stephanie AQUARIUM TANK ATTENDANT-C, Vernell Attending Provider WOOD AQUARIUM TANK ATTENDANT-C, JEANINE Primary Care Provider WOOD AQUARIUM TANK ATTENDANT-C, JEANINE Referring Provider Ramone Bauer CNM Attending Provider [phone] Ramone Bauer CNM Referring Provider [phone] Dr. Miya Garza MD Referring Provider [phone] MIRELLA AQUARIUM TANK ATTENDANT-C, JEANINE Primary Care Physician MIRELLA AQUARIUM TANK ATTENDANT-C, JEANINE Referring Provider Dr. Miya Garza MD Attending Physician Ramone Bauer CNM Attending Physician Stephanie AQUARIUM TANK ATTENDANT-C, Vernell Attending Physician Stephanie AQUARIUM TANK ATTENDANT-C, Vernell Referring Provider Dr. Nadia Callejas DO Attending Physician WOOD AQUARIUM TANK ATTENDANT-C, JEANINE Primary Care Physician MIRELLA AQUARIUM TANK ATTENDANT-C, JEANINE Referring Provider Dr. Miya Garza MD Attending Physician Nadia Callejas Attending Unavailabl e WOOD, LA [place] Primary Care Unavailable WOOD, LA F[place] Referring Unavailable WOOD, LA FAY[place]TE Primary Care Unavailable Stephanie AQUARIUM TANK ATTENDANT, Vernell Attending Unavailable WOOD, LA FAYETTE Primary Care Unavailable Ramone Bauer Attending Unavailable WOOD, LA FAYETTE Referring Unavailable WOOD, LA FAY[place]TE Primary Care Unavailable WOOD, LA F[place] Referring Unavailable Stephanie AQUARIUM TANK ATTENDANT, Vernell Attending Unavailable WOOD, LA FAYETTE Primary Care Unavailable WOOD, LA FAY[place]TE Referring Unavailable Marcanthony, Miya Attending Unavailable WOOD, [place] Primary Care Unavailable WOOD, [place] Referring Unavailable [place] AQUARIUM TANK ATTENDANT, Vernell Attending Unavailable Nadia Callejas Attending Unavailabl e WOOD, LA F[place] Primary Care Unavailable WOOD, LA F[place]TE Referring Unavailable WOOD, LA F[place] Referring Unavailable WOOD, LA F[place] Primary Care Unavailable Ramone Bauer Attending Unavailable WOOD, LA F[place] Primary Care Unavailable Stephanie AQUARIUM TANK ATTENDANT, Vernell Attending Unavailable WOOD, LA FAYETTE Referring Unavailable WOOD, LA FAYETTE Primary Care Unavailable WOOD, LA FAY[place]TE Referring Unavailable MarcanthonyMiya Attending Unavailable WOOD, LA F[place] Referring Unavailable WOOD, LA FAY[place]TE Primary Care Unavailable MarcanthonyMiya Attending Unavailable WOOD, LA F[place]TE Referring Unavailable WOOD, LA FAY[place]TE Primary Care Unavailable Ramone Bauer Attending Unavailable WOOD, LA F[place] Referring Unavailable WOOD, LA FAY[place]TE Primary Care Unavailable MarcanthonyMiya Attending Unavailable WOOD, LA FAYETTE Primary Care Unavailable Ramone Bauer Attending Unavailable WOOD, LA FAYETTE Referring Unavailable WOOD, LA FAYETTE Primary Care Unavailable Marcanthony, Miya Referring Unavailable Marcanthony, Miya Attending Unavailable Stephanie AQUARIUM TANK ATTENDANT, Vernell Attending Unavailable WOOD, LA FAY[place]TE Primary Care Unavailable Stephanie AQUARIUM TANK ATTENDANTVernell Referring Unavailable WOOD, LA FAYETTE Primary Care Unavailable Ramone Bauer Attending Unavailable Ramone Bauer Referring Unavailable WOOD, LA FAYETTE Primary Care Unavailable Ramone Bauer Referring Unavailable Ramone Bauer Attending Unavailable Allergies Allergy Classification Reported Allergen(s) Allergy Type Date of Onset Reaction(s) Facility Penicillins (antibiotic) (1 source) Penicillins; Translations: [Penicillins] Drug Allergy [facility] [address] Work Phone: Sulfonamides (antibiotic) (1 source) Sulfonamides (Antibiotic) Drug Allergy [facility] [address] Work Phone: (20 sources) Penicillins; Translations: [Penicillins] drug allergy 2 [facility] [address] Work Phone: (20 sources) Sulfonamides (Antibiotic); Translations: [Sulfa Drugs] drug allergy [facility] [address] Work Phone: (6 sources) sulfADIAZINE; Translations: [SULFADIAZINE] Drug Allergy 2 [facility] Comment on above: ALL SULFA DRUGS (2 sources) Penicillins Propensity to adverse reactions to drug 2 [facility] (4 sources) Penicillin; Translations: [PENICILLIN] Drug Allergy 3 [facility] (2 sources) Penicillins Drug Allergy 2 [facility] Work Phone: (4 sources) Sulfonamides (Antibiotic); Translations: [SULFA (SULFONAMIDE ANTIBIOTICS)] Drug Allergy 2 Unknown, [facility] Work Phone: (13 sources) Penicillins Allergy to substance 5 [facility] Comment on above: vomiting (13 sources) Sulfonamides (Antibiotic) Allergy to substance 5 [facility] (1 source) Penicillins Drug allergy (disorder) 5 [facility] (1 source) Sulfonamides (Antibiotic) Drug allergy (disorder) 5 [facility] Medications Current Medications Medication Drug [...] 1 tablet by mouth once daily 19 ([place]) oral tablet ; 1 tab(s) orally once a day Quantity: 0 Refills: 0 Ordered: 28-May-2020 Edenilson Moran Generic Substitution Allowed ascorbic acid 100 mg oral tablet (7 sources) Vitamin C ascorbic acid (Vitamin C) 100 mg tablet Take 1 tablet (100 mg) by mouth. Active azithromycin 500 mg oral tablet (1 source) Macrolide Antimicrobial Start: 023 End: 023 take 1 tablet by mouth once daily azithromycin 500 mg oral tablet ; 1 tab(s) orally once a day Quantity: 4 Refills: 0 Ordered: 30-Jun-2023 Sarbjit Villarreal Start: 30-Jun-2023 End: 03-Jul-2023 Generic Substitution Allowed [...] prescriber. Benzocaine / Dextromethorphan (1 source) Uncompetitive B-nrkpuq-J-aspartate Receptor Antagonist, Sigma-1 Agonist, Standardized Chemical Allergen [...] 0 Active cholecalciferol 0.05 mg oral capsule (15 sources) Vitamin D Start: 025 take 1 capsule by mouth once daily Cholecalciferol (Vitamin D3) 50 mcg (2,000 unit) capsule Active 50 ug PO daily February 05, 2025 12:00am Complies with drug therapy Vitamin D3 Quant ity: 0 Refills: 0 Ordered: 12-Jul-2021 Ish Harvey Status: Other Generic Substitution Allowed Vitamin D3 Quant ity: 0 Refills: 0 Ordered: 12-Jul-2021 Marlene Harveyyuan Generic Substitution Allowed docosahexaenoic acid 200 mg oral capsule (15 sources) Start: 02-05-2025 Docosahexaenoi c Acid ( Dha) 200 mg capsule Active mg PO February 05, 2025 12:00am Complies with drug therapy docosahexaenoic acid (DHA ORAL) Take by mouth [...] Start: 03-30-2023 take 1 tablet by hunter every other day Fluconazole 100 MG Oral Tablet TAKE 1 TABLET Other every 2 days x 3 doses Quantity: 3 Refills: 2 Ordered: 30-Mar-2023 Zayda Marsh MD Start : 30-Mar-2023 Active take 1 tablet by hunter four times weekly fluconazole 150 mg oral [...] 7 days. 22 g 01/08/2025 01/15/2025 Active Wellington-3 Fatty Acids (2 sources) Wellington-3 Fatty Acid take 3 capsules by mouth once daily Wellington-3 oral capsule ; 3 cap(s) orally once a day Quantity: 0 Refills: 0 Ordered: 30-Jun-2023 Rani Mclaughlin Generic Substitution Allowed Wellington-3 oral cap franco Quantity: 0 Refills: 0 Ordered: 27-Feb-2022 Kellee Perez Generic Substitution Allowed Wellington-3 Fatty Acids 1,000 mg capsule (13 sources) Start: 02-05-2025 take 1 capsule by mouth once daily Wellington-3 Fatty Acids 1,000 mg capsule Active 1000 mg PO daily February 05, 2025 12:00am Complies with drug therapy Start: 02-05-2025 take 1 capsule by mouth once d aily Start: 02-05-2025 take 1 capsule by mouth once d aily Wellington-3 Fatty Acids 1,000 mg capsule Active 1000 mg PO daily February 05, 2025 12:00am omega-3 fatty acids-fish oil 300-1,000 mg capsule (3 sources) omega-3 fatty ac ids-fish oil 300-1,000 mg [...] Serotonin Reuptake Inhibitor Start: 06-22-20 End: 08-07-20 23 take 0.5 tablet by mouth once daily sertraline (Zoloft) 50 mg tablet Indications: Anxiety with depression Take 0.5 tablets (25 mg) by mouth once daily. 15 tablet 0 06/22/2023 08/07/2023 Discontinued (Side effects) triamcinolone acetonide 1 mg/ml topical cream (1 source) Corticosteroid Start: 01-09-20 25 End: 01-19-20 25 triamcinolone (Kenalog) 0.1 % cream Indications: Irritant [...] Active Start: 02-01-2023 take 1 capsule by [facility] once daily Clindamycin HCl - 300 MG [...] Ordered: 01-Mar-2022 Desire Aldrich Generic Substitution Allowed Lidocaine (2 sources) Antiarrhythmic, Amide Local Anesthetic Start: 12-24-2021 End: 12-24-2021 lidocaine 20 mg/mL (2 %) injection 3 mL nystatin 966143 unt/ml / triamcinolone acetonide 1 mg/ml topical cream (9 sources) Polyene Antifungal, Corticosteroid Start: 04-11-2022 Nystatin-Triamcin olone 602931-7.1 UNIT/GM-% External Cream APPLY SPARINGLY TO AFFECTED [...] female genital organs] Onset: 06-22-2023 06-22-2023 Episodic Comment on above: Labs, US Normal bile acids, U S Allergic reactions (4 sources) Irritant contact dermatitis [...] Translations: [Attention-deficit hyperactivity disorder, unspecified type] Onset: 08-28-2025 Chronic Diseases of white blood cells (2 [...] Patient encounter status; Translations: [Other specified vaccination] Onset: 08-28-2025 04-09-2024 Episodic Comment on above: 08/19/20 WNL 9 NIL per records; Inflammatory diseases of female pelvic organs (20 sources) Vaginitis; Translations: [Acute vaginitis] Onset: 06-19-2025 06-03-2025 Episodic Menstrual disorders (2 sources) Secondary amenorrhea; Translations: [Secondary amenorrhea] Chronic OB-related trauma to perineum and vulva (2 sources) First degree perineal laceration; Translations: [First-degree perineal laceration, unspecified as to episode of care or not applicable] 02-28-2022 Episodic Other circulatory disease (2 sources) Syncope due to orthostatic hypotension; Translations: [Orthostatic hypotension] 06-30-2023 Episodic Other complications of (20 sources) High risk ; Translations: [Supervision of high risk , unspecified, first trimester] 02-20-2025 Episodic Comment on above: Demond Mortensen, TAQUERIA 10/07/25 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, PC Miguel Ángel Guerra, TAQUERIA 10/07/25 Magdy PRR, surprise P Miguel Ángel Lozano, TAQUERIA 10/07/25 Magdy Other complications of (1 source) Supervision of high risk , unspecified, first trimester; Translations: [Supervision of high risk , unspecified, first trimester] Onset: 08-28-2025 Episodic Other complications of (1 source) Supervision of other high risk pregnancies, third trimester; Translations: [Supervision of other high risk pregnancies, third trimester] Onset: 08-28-2025 Episodic Other complications of (1 source) Supervision of other high risk pregnancies, unspecified trimester; Translations: [Supervision of other high risk pregnancies, unspecified trimester] Onset: 06-19-2025 Episodic Other connective tissue disease (20 sources) H/O: musculoskeletal disease; Translations: [Personal history of other musculoskeletal disorders] Episodic Other connective tissue disease (18 sources) Pain in lower limb; Translations: [Pain in limb] Episodic Other endocrine disorders (3 sources) Menarche; Translations: [History of Menarche] Chronic Other female genital disorders (1 source) Other specified noninflammatory disorders of vagina; Translations: [Other specified noninflammatory disorders of vagina] Onset: 06-08-2025 Episodic Other liver diseases (7 sources) Elevated liver enzymes level; Translations: [Abnormal levels of other serum enzymes] 07-21-2025 Episodic Comment on above: Minimal inc AST:CMP next visit: normal. Other liver diseases (1 source) Abnormal levels of other serum enzymes; Translations: [Abnormal levels of other serum enzymes] Onset: 07-30-2025 Episodic Other non-traumatic joint disorders (20 sources) Pain in wrist; Translations: [Pain in joint, forearm] Episodic Other skin disorders (1 source) Ingrowing great [...] incidental] Episodic Residual codes; unclassified (20 sources) FH: Twin ; Translations: [Family history of other specified conditions] 02-27-2025 Episodic Comment on above: Grandmother is a twi n who also had twins Residual codes; unclassified (14 sources) H/O: ; Translations: [Personal history of other complications of , childbirth and the puerperium] 07-14-2025 Episodic Comment on above: last baby went 2-10c m and delivered Residual codes; unclassified (7 sources) History of past delivery; Translations: [Personal history of other complications of , childbirth and the puerperium] 07-30-2025 Episodic Comment on above: has h/o fast 2nd sta ge of labor, normal first stage. watch on L&D if comes in for at least 2 hour before dc to homeplan 39 IOL. (september 30) Residual codes; unclassified (1 source) Personal history of other complications of , childbirth and the puerperium; Translations: [Personal history of other complications of , childbirth and the puerperium] Onset: 08-28-2025 Episodic Residual codes; unclassified (1 source) 34 weeks gestation of ; Translations: [34 weeks gestation of ] Onset: 08-28-2025 Episodic Residual codes; unclassified (1 source) 31 weeks gestation of ; Translations: [31 weeks gestation of ] Onset: 08-11-2025 Episodic Residual codes; unclassified (1 source) 30 weeks gestation of ; Translations: [30 weeks gestation of ] Onset: 07-30-2025 Episodic Residual codes; unclassified (1 source) 24 weeks gestation of ; Translations: [24 weeks gestation of ] Onset: 07-14-2025 Episodic Skin and subcutaneous tissue infections (2 [...] Problem Classification Problem Date Documented Date Episodic/Chronic Mycoses (3 sources) Candidiasis of vagina; Translations: [...] right wrist] Onset: 06-22-2023 06-22-2023 Episodic Other and delivery including normal (20 [...] NML Dr Benny Cooper Other skin disorders (20 sources) Bilateral ingrowing nail of toe of feet; Translations: [Ingrowing nail] Onset: 06-22-2023 Resolved: 06-22-2023 06-22-2023 Episodic Other skin disorders (20 sources) Disorder of pigmentation; Translations: [Dyschromia, unspecified] Onset: 06-22-2023 06-22-2023 Episodic Other skin disorders (1 source) Skin hypopigmented; Translations: [Other disorders of diminished melanin formation] Onset: 06-22-2023 06-22-2023 Episodic Residual codes; unclassified (1 source) 20 weeks [...] weeks gestation of ] Onset: 02-27-2025 Episodic Spondylosis; intervertebral disc disorders; other back problems (20 sources) Sciatica; Translations: [Sciatica] Onset: 06-22-2023 06-22-2023 Episodic Unclassified (3 sources) Patient encounter status; Translations: [History of Vaginal Pap smear] Unclassified (3 sources) Onset: 08-07-2023 Resolved: 01-08-2025 08-07-2023 NEGATED: Highlighted row has not occurred!Residual codes; unclassified (20 sources) Disease Episodic Results Test Name Value Interpretation Reference Range Facility Facility Attendant Office Visit Reporton 08-28-2025 Facility Attendant Office Visit Report [facility] [address], [address] [place] [address] OFFICE VISIT Date of Service: 08/28/25 MR#: [id number] Acct: [id number] Name: LINETTE HUI Rep #: [id number] : 1990 Provider: Dr. 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 Is patient in pain?: No Allergies Penicillins Allergy (Mild, Verified 08/28/25 15:55) Hives Sulfa (Sulfonamide Antibiotics) Allergy (Mild, Verified 08/28/25 15:55) Hives Medications ???Medication ???Instructions ???Recorded ???Confirmed ???Type cholecalciferol (vitamin D3) 50 50 mcg PO QDAY 02/05/25 08/28/25 H istory mcg (2,000 unit) capsule docosahexaenoic acid 200 mg mg PO 02/05/25 08/28/25 History capsule ( DHA) omega-3 fatty acids 1,000 mg 1,000 mg PO QDAY 02/05/25 08/28/25 History capsule Last Menstrual Period: 12/31/24 Zika: [...] 2 current occupational status: employed current occupation: [employer] current occupational exposures/hazards: Yes (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 in [...] and bicycling frequency: 5-6 times per week deon/mormonism: Zoroastrianism seatbelt use: always do you feel safe at home: Yes additional social history: - [facility] History 3 Elective abortions Hx Para 2 Spontaneous abortions Hx # Term Pregnancies Ectopic pregnancies Hx # Pregnancies Multiple births # of living children 2 Past Pregnancies Del. Date Name GA/Weeks Outcome Route Bth Weight Infant Gen Labor Lgth Anesthesia Del Locatn Provider FOB 06/02/20 Mari 39 live - full term 7.8 Female 7 hours none Magdy 02/28/22 Miguel Ángel 39 live - full term Male 6 none HPI 34wk ob Details: LINETTE HUI is a 35 year old who presents for routine OB visit. OB Visit TAQUERIA Calculator Estimated Delivery Date Method Current WG Current Estimate 10/07/25 LMP (Certain) 34w 2d Other Estimates 10/05/25 Ultrasound #1 34w 4d Expected Delivery Route/Plan Labor Preferences- CB/BF classes: no labor support person: Magdy labor intervention preferences: [] pain management options preferred:limited cut cord/dad catch: cord : yes PP control planned: discussed discussed possible routes of delivery and associated risks: [] special requests: [] Specific Issue/Plans Covid status: [] Flu vaccine: [] Tdap vaccine: [] Rhogam: NA LARC form signed: yes Problem list reviewed and updated with the [...] Negative -???-???-???-???-???-??? -???-???-???-???-???-??? - Negative 160 -???-???-???-???-???-??? -???-???-???-???-? (more content not included)... Normal [facility] - Chemistry and C hemistry - challengeOrdered By: Ramone Bauer on 08-11-2025 Glucose Ql (U) Negative [facility] - UrinalysisOrder ed By: Ramone Bauer on 08-11-2025 Protein Ql (U) Negative [facility] Facility Attendant Office Visit Reporton 08-11-2025 Facility Attendant Office Visit Report [facility] [address], [address] [place] [address] OFFICE VISIT Date of Service: 08/11/25 MR#: [id number] Acct: [id number] Name: LINETTE HUI Rep #: [id number] : 1990 Provider: DMITRIY Lew ams Age/Sex: 35/F Location: [facility] Status: Signed Intake Vital Signs 06/19/25 09:01 07/30/25 08:47 08/11/25 08:59 Height 5 ft 7.5 in 5 ft 7.5 in 5 ft 7.5 in Weight: 212 lb 2 oz BMI 32.7 BP 120/73 Intake Visit Reasons: 32wk ob Chief Complaint: 32wk ob 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 Is patient in pain?: No Allergies Penicillins Allergy (Mild, Verified 08/11/25 09:00) Hives Sulfa (Sulfonamide Antibiotics) Allergy (Mild, Verified 08/11/25 09:00) Hives Medications ???Medication ???Instructions ???Recorded ???Confirmed ???Type cholecalciferol (vitamin D3) 50 50 mcg PO QDAY 02/05/25 08/11/25 H istory mcg (2,000 unit) capsule docosahexaenoic acid 200 mg mg PO 02/05/25 08/11/25 History capsule ( DHA) omega-3 fatty acids 1,000 mg 1,000 mg PO QDAY 02/05/25 08/11/25 History capsule Last Menstrual Period: 12/31/24 : No Have you fallen in the past year?: No PFSH PFSH Medical History ADHD Family History Father GBM (glioblastoma multiforme) Hypertension Mother Hypertension Alopecia Grandmother Heart disease Hypertension Grandfather Heart disease Hypertension Macular degeneration Brother Leukemia as a child Grandmother Macular degeneration Hypertension Aneurysm Social History adopted: No household members: spouse and children number of children: 2 current occupational status: employed current occupation: [employer] current occupational exposures/hazards: Yes (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 in [...] and bicycling frequency: 5-6 times per week deon/mormonism: Zoroastrianism seatbelt use: always do you feel safe at home: Yes additional social history: - [facility] History 3 Elective abortions Hx Para 2 Spontaneous abortions Hx # Term Pregnancies Ectopic pregnancies Hx # Pregnancies Multiple births # of living children 2 Past Pregnancies Del. Date Name GA/Weeks Outcome Route Bth Weight Gen Labor Lgth Anesthesia Del Locatn Provider FOB 06/02/20 Mari 39 live - full term 7.8 Female 7 hours none Magdy 02/28/22 Miguel Ángel 39 live - full term Male 6 none HPI 32wk ob Details: LINETTE HUI is a 35 year old who presents for routine OB visit. OB Visit TAQUERIA Calculator Estimated Delivery Date Method Current WG Current Estimate 10/07/25 LMP (Certain) 31w 6d Other Estimates 10/05/25 Ultrasound #1 32w 1d Expected Delivery Route/Plan Labor Preferences- CB/BF classes: no labor support person: Magdy labor intervention preferences: [] pain management options preferred:limited cut cord/dad catch: cord : yes PP control planned: discussed discussed possible routes of delivery and associated risks: [] special requests: [] Specific Issue/Plans Covid status: [] Flu vaccine: [] Tdap vaccine: [] Rhogam: NA LARC form signed: yes Problem list reviewed and updated with the [...] no vb/cr (more content not included)... Normal [facility] - Chemistry and C hemistry - challengeOrdered By: Nadia Triplett on 07-30-2025 Glucose Ql (U) Negative [facility] - UrinalysisOrder ed By: Nadia Triplett on 07-30-2025 Protein Ql (U) Negative [facility] Facility Attendant Office Visit Reporton 07-30-2025 Facility Attendant Office Visit Report [facility], [address] [place] [address] OFFICE VISIT Date of Service: 07/30/25 MR#: [id number] Acct: [id number] Name: LINETTE HUI Rep #: [id number] : 1990 Provider: Dr. 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 Is patient in pain?: No Allergies Penicillins Allergy (Mild, Verified 07/30/25 08:53) Hives Sulfa (Sulfonamide Antibiotics) Allergy (Mild, Verified 07/30/25 08:53) Hives Medications ???Medication ???Instructions ???Recorded ???Confirmed ???Type cholecalciferol (vitamin D3) 50 50 mcg PO QDAY 02/05/25 07/30/25 H istory mcg (2,000 unit) capsule docosahexaenoic acid 200 mg mg PO 02/05/25 07/30/25 History capsule ( DHA) omega-3 fatty acids 1,000 mg 1,000 mg PO QDAY 02/05/25 07/30/25 History capsule Last Menstrual Period: 12/31/24 Zika: Zika virus screening: Negative : No Have you fallen in the past year?: No PFSH PFSH Medical History ADHD Family History Father GBM (glioblastoma multiforme) Hypertension Mother Hypertension Alopecia Grandmother Heart disease Hypertension Grandfather Heart disease Hypertension Macular degeneration Brother Leukemia as a child Grandmother Macular degeneration Hypertension Aneurysm Social History adopted: No household members: spouse and children number of children: 2 current occupational status: employed current occupation: [employer] current occupational exposures/hazards: Yes (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 in [...] and bicycling frequency: 5-6 times per week deon/mormonism: Zoroastrianism seatbelt use: always do you feel safe at home: Yes additional social history: - [facility] History 3 Elective abortions Hx Para 2 Spontaneous abortions Hx # Term Pregnancies Ectopic pregnancies Hx # Pregnancies Multiple births # of living children 2 Past Pregnancies Del. Date Name GA/Weeks Outcome Route Bth Weight Gen Labor Lgth Anesthesia Del Locatn Provider FOB 06/02/20 Mari 39 live - full term 7.8 Female 7 hours none Magdy 02/28/22 Miguel Ángel 39 live - full term Male 6 none HPI 30wk ob Details: LINETTE HUI is a 35 year old who presents for routine OB visit. OB Visit TAQUERIA Calculator Estimated Delivery Date Method Current WG Current Estimate 10/07/25 LMP (Certain) 30w 1d Other Estimates 10/05/25 Ultrasound #1 30w 3d Expected Delivery Route/Plan Labor Preferences- CB/BF classes: no labor support person: Magdy labor intervention preferences: [] pain management options preferred:limited cut cord/dad catch: cord : yes PP control planned: discussed discussed possible routes of delivery and associated risks: [] special requests: [] Specific Issue/Plans Covid status: [] Flu vaccine: [] Tdap vaccine: [] Rhogam: NA LARC form signed: yes Problem list reviewed and updated with the [...] Negative -???-???-???-???-???-??? -???-???-???-???-???-??? - Negative 160 -???-???-???-???-???-??? -???-???-???-???- (more content not included)... 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 Gallbladder: No stones, sludge, wall thickening or tenderness. Common bile duct: Normal measuring 2.3 mm . Pancreas: Normal Other: Visualized portions of the right kidney are unremarkable. No right upper quadrant ascites. US/Abdomen Limited IMPRESSION: NORMAL RIGHT UPPER QUADRANT ULTRASOUND. Reading Location: [place] [address] CC: JUVENAL Brown; JUVENAL VU Consultant Dietitian: Signed Normal [facility] Anion gap in Serum or Plasma Ordered By: Vernell Brown on 07-21-2025 Anion gap [Moles/Vol] 13 mmol/L 5-15 [facility] BUN/creatinine ratioOrdered By: Vernell Brown on 07-21-2025 Urea nitrogen/Creatinine [Mass ratio] 16.6 mg/mg 10-20 [facility] Bilirubin, totalOrdered By: Vernell Brown on 07-21-2025 Bilirubin [Mass/Vol] 0.24 mg/dL 0.00-1.30 [facility] Carbon dioxide, total [Moles /volume] in Central venous bloodOrdered By: Vernell Brown on 07-21-2025 CO2 [Moles/Vol] 16.0 mmol/L Low 21.0-32.0 [facility] Chloride assayOrdered By: Tay Brown on 07-21-2025 Chloride [Moles/Vol] 104 mmol/L 98-108 [facility] Comprehensive Metabolic Prof ilon 07-21-2025 Albumin [Mass/Vol] 3.5 g/dL Normal 3.5-5.0 [facility] Comment on above: Performed By: #### L 500.4050 ####[facility] [address] [place], [place], [id number] Albumin/Globulin [Mass ratio] 1.2 {ratio} Normal 0.9-2.4 [facility] Comment on above: Performed By: #### L 500.4050 ####[facility] [address] [place], [address] ALK PHOS 58 U/L Normal 35-104 [facility] Comment on above: Performed By: #### L 500.4050 ####[facility] [address] [place], [address] ALT [Catalytic activity/Vol] U/L Normal <=34 [facility] Comment on above: Performed By: #### L 500.4050 ####[facility] [address] [place], [address] AST [Catalytic activity/Vol] 21 U/L Normal <=31 [facility] Comment on above: Result Comment: Hemo lysis present, Results??could be affected. ?? Performed By: #### L 500.4050 ####[facility] [address] [place], [address] Bilirubin [Mass/Vol] 0.24 mg/dL Normal 0.00-1.30 [facility] Comment on above: Performed By: #### L 500.4050 ####[facility] [address] [place], [address] BUN/CRE 16.6 RATIO Normal 10-20 [facility] Comment on above: Performed By: #### L 500.4050 ####[facility] [address] [place], [address] Calcium [Mass/Vol] 8.5 mg/dL Normal 7.6-11.0 [facility] Comment on above: Performed By: #### L 500.4050 ####[facility] [address] [place], [address] Chloride [Moles/Vol] 104 mmol/L Normal 98-108 [facility] Comment on above: Performed By: #### L 500.4050 ####[facility] [address] [place], [address] CO2 [Moles/Vol] 16.0 mmol/L Low 21.0-32.0 [facility] Comment on above: Performed By: #### L 500.4050 ####[facility] [address] [place], [address] Creatinine [Mass/Vol] 0.52 mg/dL Low 0.70-1.20 [facility] Comment on above: Performed By: #### L 500.4050 ####[facility] [address] [place], [address] GAP 13 Normal 5-15 [facility] Comment on above: Performed By: #### L 500.4050 ####[facility] [address] [place], [address] GFR/1.73 sq M.predicted among non-blacks MDRD (S/P/Bld) [Vol rate/Area] 126 mL/min/{1.73_m2} Normal >60 [facility] Comment on above: Result Comment: mL/m in/1.73m2 CKD-EPI Creatinine Equation (2020) Performed By: #### L 500.4050 ####[facility] [address] [place], [address] Globulin (S) [Mass/Vol] 2.9 g/dL Normal 2.2-4.2 [facility] Comment on above: Performed By: #### L 500.4050 ####[facility] [address], [address] Glucose [Mass/Vol] 72 mg/dL Normal 70-99 [facility] Comment on above: Performed By: #### L 500.4050 ####[facility] [address] [place], [address] Potassium [Moles/Vol] 4.2 mmol/L Normal 3.3-5.1 [facility] Comment on above: Result Comment: Hemo lysis present, Results??could be affected. ?? Performed By: #### L 500.4050 ####[facility] [address] [place], [address] Sodium [Moles/Vol] 133 mmol/L Normal 133-145 [facility] Comment on above: Performed By: #### L 500.4050 ####[facility] [address] [place], [place], [address] T PROT 6.3 g/dL Normal 5.9-8.4 [facility] Comment on above: Performed By: #### L 500.4050 ####[facility] [address] [place], [place], [address] Urea nitrogen [Mass/Vol] 9 mg/dL Normal 4-19 [facility] Comment on above: Performed By: #### L 500.4050 ####[facility] [address] [place], [place], [address] Glomerular filtration rate ( GFR) estimation/1.73 sq m using serum, plasma, or whole bOrdered By: Vernell Brown on 07-21-2025 GFR/1.73 sq M.predicted among non-blacks MDRD (S/P/Bld) [Vol rate/Area] 126 mL/min/{1.73_m2} >60 [facility] Comment on above: mL/min/1.73m2 CKD-EP I Creatinine Equation (2020) Laboratory - Chemistry and C hemistry - challengeOrdered By: Vernell Brown on 07-21-2025 AST [Catalytic activity/Vol] 21 U/L <32 [facility] Comment on above: Hemolysis present, R esults could be affected. Potassium measurement (mass/ volume)Ordered By: Vernell Brown on 07-21-2025 Potassium (Unsp spec) [Mass/Vol] 4.2 mmol/L 3.3-5.1 [facility] Comment on above: Hemolysis present, R esults could be affected. Serum creatinine measurement (mass/volume)Ordered By: Vernell Brown on 07-21-2025 Creatinine [Mass/Vol] 0.52 mg/dL Low 0.70-1.20 [facility] Serum globulin measurementOr dered By: Vernell Brown on 07-21-2025 Globulin (S) [Mass/Vol] 2.9 g/dL 2.2-4.2 [facility] Serum glucose measurement (m ass/volume)Ordered By: Vernell Brown on 07-21-2025 Glucose [Mass/Vol] 72 mg/dL 70-99 [facility] Serum or plasma alanine hernandez otransferase (ALT) measurementOrdered By: Vernell Brown on 07-21-2025 ALT [Catalytic activity/Vol] U/L <35 [facility] Serum or plasma albumin arie urement (mass/volume)Ordered By: Vernell Brown on 07-21-2025 Albumin [Mass/Vol] 3.5 g/dL 3.5-5.0 [facility] Serum or plasma albumin/glob ulin mass ratioOrdered By: Vernell Brown on 07-21-2025 Albumin/Globulin [Mass ratio] 1.2 {ratio} 0.9-2.4 [facility] Serum or plasma alkaline amelia sphatase measurementOrdered By: Vernell Brown on 07-21-2025 ALP [Catalytic activity/Vol] 58 U/L 35-104 [facility] Serum or plasma calcium arie urement (mass/volume)Ordered By: Vernell Brown on 07-21-2025 Calcium [Mass/Vol] 8.5 mg/dL 7.6-11.0 [facility] Serum or plasma urea nitroge n measurement (mass/volume)Ordered By: Vernell Brown on 07-21-2025 Urea nitrogen [Mass/Vol] 9 mg/dL 4-19 [facility] Sodium levelOrdered By: Lexi Brown on 07-21-2025 Sodium [Moles/Vol] 133 mmol/L 133-145 [facility] Total proteinOrdered By: Loraine padilla Stephanie on 07-21-2025 Protein [Mass/Vol] 6.3 g/dL 5.9-8.4 [facility] L3410.9992on 07-19-2025 [facility] Misc. COMMENT Normal . [facility] Comment on above: Order Comment: [id number] 0Bile acids, Serum FZ, [id number] Result Comment: Test Ordered: [id number] Bile Acids, Fractionated LCMS Ursodeoxycholic Acids <0.10 umol/L ES Reference Range: . Reference Range: All Ages: <1.9 Cholic Acids 0.60 umol/L ES Reference Range: . Reference Range: All Ages: <2.2 Chenodeoxycholic Acids 0.90 umol/L ES Reference Range: . Reference Range: All Ages: <5.8 Deoxycholic Acids 1.7 umol/L ES Reference Range: . Reference Range: All Ages: <3.3 Total Bile Acids 3.2 umol/L ES Reference Range: . This test was developed and its performance characteristics determined by [employer]. It has not been cleared or approved by the Food and Drug Administration. Reference Range: All Ages: <9.2 Performed at: [employer] [address] [place] [id number] Fondant Cooker: Amos Youssef MD, Phone: [phone] Performed at: [facility] [employer] [id number] Fondant Cooker: Magdy Collins PhD, Phone: [phone] Performed By: #### L 3410.9992, L500.4050 ####[facility] [address], [place], [address] Absolute lymphocyte countOrd ered By: Miya Garza on 07-14-2025 Lymphocytes Auto (Unsp spec) [#/Vol] 1.94 10*3/uL 0.83-4.51 [facility] Absolute neutrophil countOrd ered By: Miya Garza on 07-14-2025 Neutrophils (Bld) [#/Vol] 8.1 10*3/uL High 2.0-7.7 [facility] Anion gap in Serum or Plasma Ordered By: Vernell Brown on 07-14-2025 Anion gap [Moles/Vol] 14 mmol/L 5-15 [facility] Automated lymphocyte count a s percentage of total leukocytesOrdered By: Miya Garza on 07-14-2025 Lymphocytes/100 WBC Auto (Unsp spec) 17.5 % Low 19-41 [facility] BUN/creatinine ratioOrdered By: Vernell Brown on 07-14-2025 Urea nitrogen/Creatinine [Mass ratio] 15.4 mg/mg 10- [facility] Basophil percentageOrdered B y: Miya Garza on 07-14-2025 Basophils/100 WBC (Bld) 0.3 % 0-1 [facility] Bilirubin, totalOrdered By: Vernell Brown on 07-14-2025 Bilirubin [Mass/Vol] mg/dL 0.00-1.30 [facility] CBC W/Diff, Automatedon 06-30 Absolute Lymph 1.94 X10 3/uL Normal 0.83-4.51 [facility] Comment on above: Performed By: #### L 509.8002, L3890.6006, L100.0100, L501.0250 ####[facility] [address] [place], [address] Absolute Neut 8.1 X10 3/uL High 2.0-7.7 [facility] Comment on above: Performed By: #### L 509.8002, L3890.6006, L100.0100, L501.0250 ####[facility] [address] [place], [address] Basophils/100 WBC (Bld) 0.3 % Normal 0-1 [facility] Comment on above: Performed By: #### L 509.8002, L3890.6006, L100.0100, L501.0250 ####[facility] [address] [place], [address] Eosinophils/100 WBC (Bld) 1.3 % Normal 0-5 [facility] Comment on above: Performed By: #### L 509.8002, L3890.6006, L100.0100, L501.0250 ####[facility] [address] [place], [address] Erythrocyte distribution width (RBC) [Ratio] 13.0 % Normal 11.6-14.6 [facility] Comment on above: Performed By: #### L 509.8002, L3890.6006, L100.0100, L501.0250 ####[facility] [address] [place], [address] Hematocrit (Bld) [Volume fraction] 34.5 % Low 37-47 [facility] Comment on above: Performed By: #### L 509.8002, L3890.6006, L100.0100, L501.0250 ####[facility] [address] [place], [address] Hemoglobin (Bld) [Mass/Vol] 11.5 g/dL Low 12.0-15.0 [facility] Comment on above: Performed By: #### L 509.8002, L3890.6006, L100.0100, L501.0250 ####[facility] [address] [place], [address] IG% 0.500 Normal 0.0-0.9 [facility] Comment on above: Result Comment: IG% - Immature Granulocytes (promyelocytes, myelocytes and metamyelocytes) > 1% indicates that a LEFT SHIFT is Present. Performed By: #### L 509.8002, L3890.6006, L100.0100, L501.0250 ####[facility] [address] [place], [address] Lymphocytes/100 WBC (Bld) 17.5 % Low 19-41 [facility] Comment on above: Performed By: #### L 509.8002, L3890.6006, L100.0100, L501.0250 ####[facility] [address] [place], [address] MCH (RBC) [Entitic mass] 31.9 pg Normal 27.0-32.0 [facility] Comment on above: Performed By: #### L 509.8002, L3890.6006, L100.0100, L501.0250 ####[facility] [address] [place], [address] MCHC (RBC) [Mass/Vol] 33.3 g/dL Normal 32-36 [facility] Comment on above: Performed By: #### L 509.8002, L3890.6006, L100.0100, L501.0250 ####[facility] [address] [place], [address] MCV (RBC) [Entitic vol] 95.8 fL Normal 81-99 [facility] Comment on above: Performed By: #### L 509.8002, L3890.6006, L100.0100, L501.0250 ####[facility] [address] [place], [address] Monocytes/100 WBC (Bld) 7.7 % Normal 0-10 [facility] Comment on above: Performed By: #### L 509.8002, L3890.6006, L100.0100, L501.0250 ####[facility] [address] [place], [address] Neutrophils/100 WBC (Bld) 72.7 % High 47-70 [facility] Comment on above: Performed By: #### L 509.8002, L3890.6006, L100.0100, L501.0250 ####[facility] [address] [place], [address] Nucleated RBC (Bld) [#/Vol] 0 10*3/uL Normal 0-5 [facility] Comment on above: Performed By: #### L 509.8002, L3890.6006, L100.0100, L501.0250 ####[facility] [address] [place], [address] Platelet mean volume (Bld) [Entitic vol] 11.3 fL Normal 6.2-12.0 [facility] Comment on above: Performed By: #### L 509.8002, L3890.6006, L100.0100, L501.0250 ####[facility] [address] [place], [address] Platelets (Bld) [#/Vol] 321 10*3/uL Normal 150-450 [facility] Comment on above: Performed By: #### L 509.8002, L3890.6006, L100.0100, L501.0250 ####[facility] [address] [place], [address] RBC (Bld) [#/Vol] 3.60 10*6/uL Low 4.2-5.4 [facility] Comment on above: Performed By: #### L 509.8002, L3890.6006, L100.0100, L501.0250 ####[facility] [address] [place], [address] RDW SD 45.7 fl High 35.1-43.9 [facility] Comment on above: Performed By: #### L 509.8002, L3890.6006, L100.0100, L501.0250 ####[facility] [address] [place], [address] WBC (Bld) [#/Vol] 11.1 10*3/uL High 4.4-11.0 [facility] Comment on above: Performed By: #### L 509.8002, L3890.6006, L100.0100, L501.0250 ####[facility] [address] [place], [address] Carbon dioxide, total [Moles /volume] in Central venous bloodOrdered By: Vernell Brown on 07-14-2025 CO2 [Moles/Vol] 18.7 mmol/L Low 21.0-32.0 [facility] Chloride assayOrdered By: Tay Brown on 07-14-2025 Chloride [Moles/Vol] 104 mmol/L 98-108 [facility] Comprehensive Metabolic Prof ilon 07-14-2025 Albumin [Mass/Vol] 3.7 g/dL Normal 3.5-5.0 [facility] Comment on above: Performed By: #### L 3410.9992, L500.4050 ####[facility] [address] [place], [address] Albumin/Globulin [Mass ratio] 1.3 {ratio} Normal 0.9-2.4 [facility] Comment on above: Performed By: #### L 3410.9992, L500.4050 ####[facility] [address] [place], [address] ALK PHOS 56 U/L Normal 35-104 [facility] Comment on above: Performed By: #### L 3410.9992, L500.4050 ####[facility] [address] [place], [address] ALT [Catalytic activity/Vol] 12 U/L Normal <=34 [facility] Comment on above: Performed By: #### L 3410.9992, L500.4050 ####[facility] [address] [place], [address] AST [Catalytic activity/Vol] 33 U/L High <=31 [facility] Comment on above: Performed By: #### L 3410.9992, L500.4050 ####[facility] [address] [place], [address] BUN/CRE 15.4 RATIO Normal 10-20 [facility] Comment on above: Performed By: #### L 3410.9992, L500.4050 ####[facility] [address] [place], [address] Calcium [Mass/Vol] 8.7 mg/dL Normal 7.6-11.0 [facility] Comment on above: Performed By: #### L 3410.9992, L500.4050 ####[facility] [address] [place], [address] Chloride [Moles/Vol] 104 mmol/L Normal 98-108 [facility] Comment on above: Performed By: #### L 3410.9992, L500.4050 ####[facility] [address] [place], [address] CO2 [Moles/Vol] 18.7 mmol/L Low 21.0-32.0 [facility] Comment on above: Performed By: #### L 3410.9992, L500.4050 ####[facility] [address] [place], [address] Creatinine [Mass/Vol] 0.51 mg/dL Low 0.70-1.20 [facility] Comment on above: Performed By: #### L 3410.9992, L500.4050 ####[facility] [address] [place], [address] GAP 14 Normal 5-15 [facility] Comment on above: Performed By: #### L 3410.9992, L500.4050 ####[facility] [address] [place], [address] GFR/1.73 sq M.predicted among non-blacks MDRD (S/P/Bld) [Vol rate/Area] 126 mL/min/{1.73_m2} Normal >60 [facility] Comment on above: Result Comment: mL/m in/1.73m2 CKD-EPI Creatinine Equation (2020) Performed By: #### L 3410.9992, L500.4050 ####[facility] [address] [place], [address] Globulin (S) [Mass/Vol] 2.9 g/dL Normal 2.2-4.2 [facility] Comment on above: Performed By: #### L 3410.9992, L500.4050 ####[facility] [address] [place], [address] Glucose [Mass/Vol] 86 mg/dL Normal 70-99 [facility] Comment on above: Performed By: #### L 3410.9992, L500.4050 ####[facility] [address] [place], [address] Potassium [Moles/Vol] 3.2 mmol/L Low 3.3-5.1 [facility] Comment on above: Performed By: #### L 3410.9992, L500.4050 ####[facility] [address] [place], [address] Sodium [Moles/Vol] 137 mmol/L Normal 133-145 [facility] Comment on above: Performed By: #### L 3410.9992, L500.4050 ####[facility] [address] [place], [address] T BILI < 0.15 Normal 0.00-1.30 [facility] Comment on above: Performed By: #### L 3410.9992, L500.4050 ####[facility] [address] [place], [address] T PROT 6.6 g/dL Normal 5.9-8.4 [facility] Comment on above: Performed By: #### L 3410.9992, L500.4050 ####[facility] [address] [place], [address] Urea nitrogen [Mass/Vol] 8 mg/dL Normal 4-19 [facility] Comment on above: Performed By: #### L 3410.9992, L500.4050 ####[facility] [address] [place], [address] Eosinophil percentageOrdered By: Miya Garza on 07-14-2025 Eosinophils/100 WBC (Bld) 1.3 % 0-5 [facility] Erythrocyte distribution wid th ratioOrdered By: Miya Garza on 07-14-2025 Erythrocyte distribution width (RBC) [Ratio] 13.0 % 11.6-14.6 [facility] Erythrocyte distribution wid th standard deviationOrdered By: Miya Garza on 07-14-2025 Erythrocyte distribution width (RBC) [Ratio] 45.7 fl High 35.1-43.9 [facility] Glomerular filtration rate ( GFR) estimation/1.73 sq m using serum, plasma, or whole bOrdered By: Vernell Brown on 07-14-2025 GFR/1.73 sq M.predicted among non-blacks MDRD (S/P/Bld) [Vol rate/Area] 126 mL/min/{1.73_m2} >60 [facility] Comment on above: mL/min/1.73m2 CKD-EP I Creatinine Equation (2020) Glucose Challenge Gest 1H 50 mike 07-14-2025 GLU GEST 50g 1H 88 mg/dL Normal 70-140 [facility] Comment on above: Performed By: #### L 509.8002, L3890.6006, L100.0100, L501.0250 ####[facility] [address] [place], [place], [id number] Glucose measurement at 2 kaden rs post-dose gestational glucose tolerance testOrdered By: Miya Garza on 07-14-2025 Glucose [Mass/Vol] 88 mg/dL 70-140 [facility] HIVon 07-14-2025 HIV Non-Reactive Normal Nonreactive [facility] Comment on above: Result Comment: Non- Reactive Reactive Repeatedly reactive samples must be confirmed according to CDC recommended confirmatory algorithms. The subresults for either HIVAG or AHIV can be used as an aid in the selection of the confirmation algorithm for reactive samples. Send out specimens with Reactive results to [facility] for confirmation. Order the HIV antibody detection and differentiation: lc#[id number] Performed By: #### L 509.8002, L3890.6006, L100.0100, L501.0250 ####[facility] [address] [place], [address] Hematocrit Auto (Bld) [Volum e fraction]Ordered By: Miya Garza on 07-14-2025 Hematocrit (Bld) [Volume fraction] 34.5 % Low 37-47 [facility] Hemoglobin measurementOrdere d By: Miya Garza on 07-14-2025 Hemoglobin (Bld) [Mass/Vol] 11.5 g/dL Low 12.0-15.0 [facility] Immature granulocytes/100 WB C Auto (Bld)Ordered By: Miya Garza on 07-14-2025 Immature granulocytes/100 WBC (Bld) 0.500 % 0.0-0.9 [facility] Comment on above: IG% - Immature Granu locytes (promyelocytes, myelocytes and metamyelocytes) > 1% indicates that a LEFT SHIFT is Present. Laboratory - Chemistry and C hemistry - challengeOrdered By: Vernell Brown on 07-14-2025 AST [Catalytic activity/Vol] 33 U/L High <32 [facility] Glucose Ql (U) Negative [facility] Laboratory - UrinalysisOrder ed By: Vernell Brown on 07-14-2025 Protein Ql (U) Negative [facility] MCV (mean corpuscular volume ) determinationOrdered By: Miya Garza on 07-14-2025 MCV (RBC) [Entitic vol] 95.8 fL 81-99 [facility] Mean corpuscular hemoglobin (MCH) determinationOrdered By: Miya Garza on 07-14-2025 MCH (RBC) [Entitic mass] 31.9 pg 27.0-32.0 [facility] Mean corpuscular hemoglobin concentration (MCHC) determinationOrdered By: Miya Garza on 07-14-2025 MCHC (RBC) [Mass/Vol] 33.3 g/dL 32-36 [facility] Mean platelet volume determi nationOrdered By: Miya Garza on 07-14-2025 Platelet mean volume (Bld) [Entitic vol] 11.3 fL 6.2-12.0 [facility] Monocyte percentageOrdered B y: Miya Garza on 07-14-2025 Monocytes/100 WBC (Bld) 7.7 % 0-10 [facility] Neutrophil percentageOrdered By: Miya Garza on 07-14-2025 Neutrophils/100 WBC (Bld) 72.7 % High 47-70 [facility] No Panel InformationOrdered By: Miya Garza on 07-14-2025 HIV (1&2) Antibody Non-Reactive Nonreactive [facility] Comment on above: Non-ReactiveReactive Repeatedly reactive samples must be confirmed according to CDC recommended confirmatory algorithms. The subresults for either HIVAG or AHIV can be used as an aid in the selection of the confirmation algorithm for reactive samples.Send out specimens with Reactive results to [facility] for confirmation.Order the HIV antibody detection and differentiation: #[id number] Nucleated red blood cell per centageOrdered By: Miya Garza on 07-14-2025 Nucleated RBC/100 WBC (Bld) [Ratio] 0 % 0-5 [facility] Facility Attendant Office Visit Reporton 07-14-2025 Facility Attendant Office Visit Report [facility] [address], [address] [place] [address] OFFICE VISIT Date of Service: 07/14/25 MR#: [id number] Acct: [id number] Name: LINETTE HUI Rep #: [id number] : 1990 Provider: JUVENAL irizarry Age/Sex: 35/F [place] [facility] [place] Status: Signed Intake Vital Signs 05/22/25 11:00 06/19/25 09:01 07/14/25 13:27 07/14/25 13:48 Height 5 ft 7.5 in 5 ft 7.5 in 5 ft 7.5 in Weight: 206 lb BP 113/72 Intake Visit Reasons: 28wk ob/glucose Chief Complaint: 28 Week 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 Is patient in pain?: No Allergies Penicillins Allergy (Mild, Verified 07/14/25 13:25) Hives Sulfa (Sulfonamide Antibiotics) Allergy (Mild, Verified 07/14/25 13:25) Hives Medications ???Medication ???Instructions ???Recorded ???Confirmed ???Type cholecalciferol (vitamin D3) 50 50 mcg PO QDAY 02/05/25 07/14/25 H istory mcg (2,000 unit) capsule docosahexaenoic acid 200 mg mg PO 02/05/25 07/14/25 History capsule ( DHA) omega-3 fatty acids 1,000 mg 1,000 mg PO QDAY 02/05/25 07/14/25 History capsule Last Menstrual Period: 12/31/24 Zika: Zika virus screening: Negative : Yes PFSH PFSH Medical History ADHD Family History Father GBM (glioblastoma multiforme) Hypertension Mother Hypertension Alopecia Grandmother Heart disease Hypertension Grandfather Heart disease Hypertension Macular degeneration Brother Leukemia as a child Grandmother Macular degeneration Hypertension Aneurysm Social History adopted: No household members: spouse and children number of children: 2 current occupational status: employed current occupation: [employer] current occupational exposures/hazards: Yes (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 in [...] and bicycling frequency: 5-6 times per week deon/mormonism: Zoroastrianism seatbelt use: always do you feel safe at home: Yes additional social history: - [facility] History 3 Elective abortions Hx Para 2 Spontaneous abortions Hx # Term Pregnancies Ectopic pregnancies Hx # Pregnancies Multiple births # of living children 2 Past Pregnancies Del. Date Name GA/Weeks Outcome Route Bth Weight Gen Labor Lgth Anesthesia Del Locatn Provider FOB 06/02/20 Mari 39 live - full term 7.8 Female 7 hours none Magdy 02/28/22 Miguel Ángel 39 live - full term Male 6 none HPI 28wk ob/glucose Details: LINETTE HUI is a 35 year old who presents for routine OB visit. OB Visit TAQUERIA Calculator Estimated Delivery Date Method Current WG Current Estimate 10/07/25 LMP (Certain) 27w 6d Other Estimates 10/05/25 Ultrasound #1 28w 1d Expected Delivery Route/Plan Labor Preferences- CB/BF classes: no labor support person: Magdy labor intervention preferences: [] pain management options preferred:limited cut cord/dad catch: cord : yes PP control planned: discussed discussed possible routes of delivery and associated risks: [] special requests: [] Specific Issue/Plans Covid status: [] Flu vaccine: [] Tdap vaccine: [] Rhogam: NA LARC form signed: yes Problem list reviewed and updated with the [...] KW- CRL cons with dates. accepts NIPT. 05/29/25 -???-???-???-???-???-??? -???-???-???-???-???-??? - 12w 2d 181 lb 2 oz (+3 lb 2 oz) 122/77 Negative -???-???-???-???-???-??? -???-???-???-???-???-??? - Negative 160 -???-???-???-???-???- (more content not included)... Normal [facility] Platelet countOrdered By: Geovanni Garza on 07-14-2025 Platelets (Bld) [#/Vol] 321 10*3/uL 150-450 [facility] Potassium measurement (mass/ volume)Ordered By: Vernell Brown on 07-14-2025 Potassium (Unsp spec) [Mass/Vol] 3.2 mmol/L Low 3.3-5.1 [facility] RBC Auto (Bld) [#/Vol]Ordere d By: Miya Garza on 07-14-2025 RBC (Bld) [#/Vol] 3.60 10*6/uL Low 4.2-5.4 [facility] Serum creatinine measurement (mass/volume)Ordered By: Vernell Brown on 07-14-2025 Creatinine [Mass/Vol] 0.51 mg/dL Low 0.70-1.20 [facility] Serum globulin measurementOr dered By: Vernell Brown on 07-14-2025 Globulin (S) [Mass/Vol] 2.9 g/dL 2.2-4.2 [facility] Serum glucose measurement (m ass/volume)Ordered By: Vernell Brown on 07-14-2025 Glucose [Mass/Vol] 86 mg/dL 70-99 [facility] Serum or plasma alanine hernandez otransferase (ALT) measurementOrdered By: Vernell Brown on 07-14-2025 ALT [Catalytic activity/Vol] 12 U/L <35 [facility] Serum or plasma albumin arie urement (mass/volume)Ordered By: Vernell Brown on 07-14-2025 Albumin [Mass/Vol] 3.7 g/dL 3.5-5.0 [facility] Serum or plasma albumin/glob ulin mass ratioOrdered By: Vernell Brown on 07-14-2025 Albumin/Globulin [Mass ratio] 1.3 {ratio} 0.9-2.4 [facility] Serum or plasma alkaline amelia sphatase measurementOrdered By: Vernell Brown on 07-14-2025 ALP [Catalytic activity/Vol] 56 U/L 35-104 [facility] Serum or plasma calcium arie urement (mass/volume)Ordered By: Vernellrajwinder Brown on 07-14-2025 Calcium [Mass/Vol] 8.7 mg/dL 7.6-11.0 [facility] Serum or plasma urea nitroge n measurement (mass/volume)Ordered By: Vernell Brown on 07-14-2025 Urea nitrogen [Mass/Vol] 8 mg/dL 4-19 [facility] Sodium levelOrdered By: Lexi Brown on 07-14-2025 Sodium [Moles/Vol] 137 mmol/L 133-145 [facility] Syphilis Antibodieson 2024 Syphilis Abs Non-Reactive Normal Nonreactive [facility] Comment on above: Performed By: #### L 509.8002, L3890.6006, L100.0100, L501.0250 ####[facility] [address] [place], [address] Total proteinOrdered By: Loraine padilla Stephanie on 07-14-2025 Protein [Mass/Vol] 6.6 g/dL 5.9-8.4 [facility] White blood cell (WBC) count Ordered By: Miya Garza on 07-14-2025 WBC (Bld) [#/Vol] 11.1 10*3/uL High 4.4-11.0 [facility] Facility Attendant Office Visit Reporton 06-19-2025 Facility Attendant Office Visit Report [address], [address] [place] [address] OFFICE VISIT Date of Service: 06/19/25 MR#: [id number] Acct: [id number] Name: LINETTE HUI Rep #: [id number] : 1990 Provider: Dr. 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 Is patient in pain?: No Feel stressed/tense/nervous/a nxious/difficulty sleeping: not at all Allergies Penicillins Allergy (Mild, Verified 06/19/25 09:04) Hives Sulfa (Sulfonamide Antibiotics) Allergy (Mild, Verified 06/19/25 09:04) Hives Medications ???Medication ???Instructions ???Recorded ???Confirmed ???Type cholecalciferol (vitamin D3) 50 50 mcg PO QDAY 02/05/25 06/19/25 H istory mcg (2,000 unit) capsule docosahexaenoic acid 200 mg mg PO 02/05/25 06/19/25 History capsule ( DHA) omega-3 fatty acids 1,000 mg 1,000 mg PO QDAY 02/05/25 06/19/25 History capsule Last Menstrual Period: 12/31/24 Zika: [...] 2 current occupational status: employed current occupation: [employer] current occupational exposures/hazards: Yes (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 in [...] and bicycling frequency: 5-6 times per week deon/mormonism: Zoroastrianism seatbelt use: always do you feel safe at home: Yes additional social history: - [facility] PT History 3 Elective abortions Hx Para 2 Spontaneous abortions Hx # Term Pregnancies Ectopic pregnancies Hx # Pregnancies Multiple births # of living children 2 Past Pregnancies Del. Date Name GA/Weeks Outcome Route Bth Weight Infant Gen Labor Lgth Anesthesia Del Locatn Provider FOB 06/02/20 Mari 39 live - full term 7.8 Female 7 hours none Magdy 02/28/22 Miguel Ángel 39 live - full term Male 6 none HPI 24wk ob Details: LINETTE HUI is a 35 year old who presents for routine OB visit. OB Visit TAQUERIA Calculator Estimated Delivery Date Method Current WG Current Estimate 10/07/25 LMP (Certain) 24w 2d Other Estimates 10/05/25 Ultrasound #1 24w 4d Expected Delivery Route/Plan Labor Preferences- CB/BF [...] Negative -???-???-???-???-???-??? -???-???-???-???-???-??? - Negative 160 -???-???-???-???-???-??? -?? (more content not included)... Normal [facility] Genital Culture Comprehensiv jojo 06-06-2025 VAC Reason for Exam: vag inal discharge No Gardnerella, Neisseria or beta-hemolytic Streptococcus isolated. Presumptive C albicans Amount Growth 3+ Normal [facility] Comment on above: Performed By: #### M 100.2000, M100.3200 #### [facility] [address] [place], [place], [address] Gram Stainon 06-03-2025 GS Reason for Exam: vag inal discharge Gram Stain 4+ Gram positive rods No Gram negative diplococci 1+ Epithelial cells Score = 0 Interpretation: 0-3 Normal, 4-6 Intermediate, 7-10 Positive BV Normal [facility] Comment on above: Performed By: #### M 100.2000, M100.3200 #### [facility] [address] [place], [address] Gram stainOrdered By: Vernell Brown on 06-03-2025 Microscopic observation Gram stain Nom (Unsp spec) [facility] Laboratory - Chemistry and C hemistry - challengeOrdered By: Vernell Brown on 06-03-2025 Glucose Ql (U) Negative [facility] - UrinalysisOrder ed By: Vernell Brown on 06-03-2025 Protein Ql (U) Negative [facility] No Panel InformationOrdered By: Vernell Brown on 06-03-2025 POC Bacterial Vaginitis (Rapid) Negative [facility] Facility Attendant Office Visit Reporton 06-03-2025 Facility Attendant Office Visit Report [facility]'[address], [address] [place] [address] OFFICE VISIT Date of Service: 06/03/25 MR#: [id number] Acct: [id number] Name: LINETTE HUI Rep #: [id number] : 1990 Provider: JUVENAL irizarry Age/Sex: 35/F Location: [facility] [place] Status: Signed Intake Vital Signs 05/22/25 11:00 06/03/25 09:45 06/03/25 09:50 Height 5 ft 7.5 in 5 ft 7.5 in 5 ft 7.5 in Weight: 195 lb 3 oz BMI 30.1 BP 119/68 Intake Visit Reasons: OB yeast infection Chief Complaint: OB 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 Is patient in pain?: No Allergies Penicillins Allergy (Mild, Verified 06/03/25 09:44) Hives Sulfa (Sulfonamide Antibiotics) Allergy (Mild, Verified 06/03/25 09:44) Hives Medications ???Medication ???Instructions ???Recorded ???Confirmed ???Type cholecalciferol (vitamin D3) 50 50 mcg PO QDAY 02/05/25 06/03/25 H istory mcg (2,000 unit) capsule docosahexaenoic acid 200 mg mg PO 02/05/25 06/03/25 History capsule ( DHA) omega-3 fatty acids 1,000 mg 1,000 mg PO QDAY 02/05/25 06/03/25 History capsule Last Menstrual Period: 12/31/24 Zika: [...] 2 current occupational status: employed current occupation: [employer] current occupational exposures/hazards: Yes (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 in [...] and bicycling frequency: 5-6 times per week deon/mormonism: Zoroastrianism seatbelt use: always do you feel safe [...] - full term Male 6 none HPI OB yeast infection Details: LINETTE HUI is a 35 year old who presents for routine OB visit. OB Visit TAQUERIA Calculator Estimated Delivery Date Method Current WG Current Estimate 10/07/25 LMP (Certain) 22w 0d Other Estimates 10/05/25 Ultrasound #1 22w 2d Expected Delivery Route/Plan Labor Preferences- CB/BF classes: [...] Negative -???-???-???-???-???-??? -???-???-???-???-???-??? - Negative 160 -???-???-???-???-???-??? -???-???-?? (more content not included)... Normal [facility] Laboratory - Chemistry and C hemistry - challengeOrdered By: Ramone Bauer on 05-22-2025 Glucose Ql (U) Negative [facility] Laboratory - UrinalysisOrder ed By: Ramone Bauer on 05-22-2025 Protein Ql (U) Negative [facility] Facility Attendant Office Visit Reporton 05-22-2025 Facility Attendant Office Visit Report [facility]'s [address], [address] [place] [address] OFFICE VISIT Date of Service: 05/22/25 MR#: [id number] Acct: [id number] Name: LINETTE HUI Rep #: [id number] : 1990 Provider: DMITRIY Lew ams Age/Sex: 35/F Location: [facility] Status: Signed Intake Vital Signs 03/27/25 08:56 05/09/25 14:07 05/22/25 11:00 Height 5 ft 7.5 in 5 ft 7.5 in 5 ft 7.5 in Weight: 191 lb 4 oz BMI 29.5 BP 121/69 H Intake Visit Reasons: 20wk ob Chief Complaint: 20wk OB 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 Normal [facility] Laboratory - Chemistry and C hemistry - challengeOrdered By: Miya Garza on 05-09-2025 Glucose Ql (U) Negative [facility] Laboratory - UrinalysisOrder ed By: Miya Garza on 05-09-2025 Protein Ql (U) Negative [facility] Facility Attendant Office Visit Reporton 05-09-2025 Facility Attendant Office Visit Report [facility] [place] [address], [address] [place] [address] OFFICE VISIT Date of Service: 05/09/25 MR#: [id number] Acct: [id number] Name: LINETTE HUI Rep #: [id number] : 1990 Provider: Dr. 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 Date Name GA/Weeks Outcome Route Bth Weight Infant Gen Labor Lgth Anesthesia Del Kyleratruben Provider FOB 06/02/20 Prasanna 39 live - [...] no vb/cr (more content not included)... Normal [facility] Facility Attendant Office Visit Reporton 04-24-2025 Facility Attendant Office Visit Report [facility] [address], [address] [place] [address] OFFICE VISIT Date of Service: 04/24/25 MR#: [id number] Acct: [id number] Name: LINETTE HUI Rep #: [id number] : 1990 Provider: Dr. 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 Date Name GA/Weeks Outcome Route Bth Weight Infant Gen Labor Lgth Anesthesia Del Kyleratn Provider FOThalia 06/02/20 Prsaanna 39 live - full term 7.8 Female [...] vb/cr amping. (more content not included)... Normal [facility] HIVon 03-28-2025 HIV Non-Reactive Normal Nonreactive [facility] Comment on above: Result Comment: Non- Reactive Reactive Repeatedly reactive samples must be confirmed according to CDC recommended confirmatory algorithms. The subresults for either HIVAG or AHIV can be used as an aid in the selection of the confirmation algorithm for reactive samples. Send out specimens with Reactive results to [facility] for confirmation. Order the HIV antibody detection and differentiation: lc#[id number] Performed By: #### L 3890.6102, BTS, L3890.0636, L3890.6401, L509.8002, L100.0100, L900.0098, L509.4006 ####[facility] [address] [place], [address] Absolute lymphocyte countOrd ered By: Ramone Bauer on 03-27-2025 Lymphocytes Auto (Unsp spec) [#/Vol] 1.56 10*3/uL 0.83-4.51 [facility] Absolute neutrophil countOrd ered By: Ramone Bauer on 03-27-2025 Neutrophils (Bld) [#/Vol] 7.1 10*3/uL 2.0-7.7 [facility] Automated lymphocyte count a s percentage of total leukocytesOrdered By: Ramone Chris on 03-27-2025 Lymphocytes/100 WBC Auto (Unsp spec) 16.8 % Low 19-41 [facility] Basophil percentageOrdered B y: Ramone Bauer on 03-27-2025 Basophils/100 WBC (Bld) 0.4 % 0-1 [facility] CBC W/Diff, Automatedon 02-28 Absolute Lymph 1.56 X10 3/uL Normal 0.83-4.51 [facility] Comment on above: Performed By: #### L 3890.6102, BTS, L3890.6006, L3890.6301, L509.8002, L100.0100, L900.0098, L509.4006 #### [facility] [address] [place], [address] Absolute Neut 7.1 X10 3/uL Normal 2.0-7.7 [facility] Comment on above: Performed By: #### L 3890.6102, BTS, L3890.6006, L3890.6301, L509.8002, L100.0100, L900.0098, L509.4006 #### [facility] [address] [place], [address] Basophils/100 WBC (Bld) 0.4 % Normal 0-1 [facility] Comment on above: Performed By: #### L 3890.6102, BTS, L3890.6006, L3890.6301, L509.8002, L100.0100, L900.0098, L509.4006 #### [facility] [address] [place], [address] Eosinophils/100 WBC (Bld) 0.9 % Normal 0-5 [facility] Comment on above: Performed By: #### L 3890.6102, BTS, L3890.6006, L3890.6301, L509.8002, L100.0100, L900.0098, L509.4006 #### [facility] [address] [place], [address] Erythrocyte distribution width (RBC) [Ratio] 13.9 % Normal 11.6-14.6 [facility] Comment on above: Performed By: #### L 3890.6102, BTS, L3890.6006, L3890.6301, L509.8002, L100.0100, L900.0098, L509.4006 #### [facility] [address] [place], [address] Hematocrit (Bld) [Volume fraction] 36.3 % Low 37-47 [facility] Comment on above: Performed By: #### L 3890.6102, BTS, L3890.6006, L3890.6301, L509.8002, L100.0100, L900.0098, L509.4006 #### [facility] [address] [place], [address] Hemoglobin (Bld) [Mass/Vol] 12.4 g/dL Normal 12.0-15.0 [facility] Comment on above: Performed By: #### L 3890.6102, BTS, L3890.6006, L3890.6301, L509.8002, L100.0100, L900.0098, L509.4006 #### [facility] [address] [place], [address] IG% 0.500 Normal 0.0-0.9 [facility] Comment on above: Result Comment: IG% - Immature Granulocytes (promyelocytes, myelocytes and metamyelocytes) > 1% indicates that a LEFT SHIFT is Present. Performed By: #### L 3890.6102, BTS, L3890.6006, L3890.6301, L509.8002, L100.0100, L900.0098, L509.4006 #### [facility] [address] [place], [address] Lymphocytes/100 WBC (Bld) 16.8 % Low 19-41 [facility] Comment on above: Performed By: #### L 3890.6102, BTS, L3890.6006, L3890.6301, L509.8002, L100.0100, L900.0098, L509.4006 #### [facility] [address] [place], [address] MCH (RBC) [Entitic mass] 32.4 pg High 27.0-32.0 [facility] Comment on above: Performed By: #### L 3890.6102, BTS, L3890.6006, L3890.6301, L509.8002, L100.0100, L900.0098, L509.4006 #### [facility] [address] [place], [address] MCHC (RBC) [Mass/Vol] 34.2 g/dL Normal 32-36 [facility] Comment on above: Performed By: #### L 3890.6102, BTS, L3890.6006, L3890.6301, L509.8002, L100.0100, L900.0098, L509.4006 #### [facility] [address] [place], [address] MCV (RBC) [Entitic vol] 94.8 fL Normal 81-99 [facility] Comment on above: Performed By: #### L 3890.6102, BTS, L3890.6006, L3890.6301, L509.8002, L100.0100, L900.0098, L509.4006 #### [facility] [address] [place], [address] Monocytes/100 WBC (Bld) 5.3 % Normal 0-10 [facility] Comment on above: Performed By: #### L 3890.6102, BTS, L3890.6006, L3890.6301, L509.8002, L100.0100, L900.0098, L509.4006 #### [facility] [address] [place], [address] Neutrophils/100 WBC (Bld) 76.1 % High 47-70 [facility] Comment on above: Performed By: #### L 3890.6102, BTS, L3890.6006, L3890.6301, L509.8002, L100.0100, L900.0098, L509.4006 #### [facility] [address] [place], [address] Nucleated RBC (Bld) [#/Vol] 0 10*3/uL Normal 0-5 [facility] Comment on above: Performed By: #### L 3890.6102, BTS, L3890.6006, L3890.6301, L509.8002, L100.0100, L900.0098, L509.4006 #### [facility] [address] [place], [address] Platelet mean volume (Bld) [Entitic vol] 11.5 fL Normal 6.2-12.0 [facility] Comment on above: Performed By: #### L 3890.6102, BTS, L3890.6006, L3890.6301, L509.8002, L100.0100, L900.0098, L509.4006 #### [facility] [address] [place], [address] Platelets (Bld) [#/Vol] 288 10*3/uL Normal 150-450 [facility] Comment on above: Performed By: #### L 3890.6102, BTS, L3890.6006, L3890.6301, L509.8002, L100.0100, L900.0098, L509.4006 #### [facility] [address] [place], [address] RBC (Bld) [#/Vol] 3.83 10*6/uL Low 4.2-5.4 [facility] Comment on above: Performed By: #### L 3890.6102, BTS, L3890.6006, L3890.6301, L509.8002, L100.0100, L900.0098, L509.4006 #### [facility] [address] [place], [address] RDW SD 47.7 fl High 35.1-43.9 [facility] Comment on above: Performed By: #### L 3890.6102, BTS, L3890.6006, L3890.6301, L509.8002, L100.0100, L900.0098, L509.4006 #### [facility] [address] [place], [address] WBC (Bld) [#/Vol] 9.3 10*3/uL Normal 4.4-11.0 [facility] Comment on above: Performed By: #### L 3890.6102, BTS, L3890.6006, L3890.6301, L509.8002, L100.0100, L900.0098, L509.4006 #### [facility] [address] [place], [address] Eosinophil percentageOrdered By: Ramone Bauer on 03-27-2025 Eosinophils/100 WBC (Bld) 0.9 % 0-5 [facility] Erythrocyte distribution wid th ratioOrdered By: Ramone Bauer on 03-27-2025 Erythrocyte distribution width (RBC) [Ratio] 13.9 % 11.6-14.6 [facility] Erythrocyte distribution wid th standard deviationOrdered By: Ramone Bauer on 03-27-2025 Erythrocyte distribution width (RBC) [Ratio] 47.7 fl High 35.1-43.9 [facility] Hematocrit Auto (Bld) [Volum e fraction]Ordered By: Ramone Bauer on 03-27-2025 Hematocrit (Bld) [Volume fraction] 36.3 % Low 37-47 [facility] Hemoglobin measurementOrdere d By: Ramone Bauer on 03-27-2025 Hemoglobin (Bld) [Mass/Vol] 12.4 g/dL 12.0-15.0 [facility] Hepatitis C Antibodyon 03-27 Hepatitis C Ab Non-Reactive Normal Nonreactive [facility] Comment on above: Result Comment: Reac tive: Presumptive evidence of antibodies to HCV. Follow CDC recommendations for supplemental testing. Non-Reactive: Antibodies to HCV were not detected; does not exclude the possibility of exposure to HCV Reactive Results are presumptive evidence of antibodies to HCV. Follow CDC recommendations for supplemental testing. Order confirmation testing: HCV Quant by PCR testing - HCVPCR #[id number] Non Reactive: < 0.8 Equivocal: >/= 0.8 to < 1.0 Reactive: >/= 1.0 The CDC requires that a reactive/equivocal HCV antibody result be sent out for confirmation. HCV Quant by PCR testing. Performed By: #### L 3890.6102, BTS, L3890.6006, L3890.6301, L509.8002, L100.0100, L900.0098, L509.4006 ####[facility] [address] [place], [address] Immature granulocytes/100 WB C Auto (Bld)Ordered By: Ramone Bauer on 03-27-2025 Immature granulocytes/100 WBC (Bld) 0.500 % 0.0-0.9 [facility] Comment on above: IG% - Immature Granu locytes (promyelocytes, myelocytes and metamyelocytes) > 1% indicates that a LEFT SHIFT is Present. L3890.6102on 03-27-2025 HEP B Surf Ag Non-Reactive Normal Nonreactive [facility] Comment on above: Result Comment: Reac tive: Presumptive evidence of HBV. Repeatedly reactive samples must be confirmed using a neutralization test (Ele[employer]ys HBsAg Confirmatory Test) Non-Reactive: HBsAg not detected; does not exclude the possibility of exposure to HBV Performed By: #### L 3890.6102, BTS, L3890.6006, L3890.6301, L509.8002, L100.0100, L900.0098, L509.4006 ####[facility] [address] [place], [place], [address] L509.4006on 03-27-2025 Rubella IgG REAC Normal Nonreactive [facility] Comment on above: Result Comment: Anti body Result: Interpretation Non-Reactive: Non-Immune Reactive: Immune The following results were obtained with the Elecsys Rubella IgG assay. Results from assays of other manufacturers cannot be used interchangeably. Performed By: #### L 3890.6102, BTS, L3890.6006, L3890.6301, L509.8002, L100.0100, L900.0098, L509.4006 ####[facility] [address] [place], [place], [address] Laboratory - Chemistry and C hemistry - challengeOrdered By: Ramone Bauer on 03-27-2025 Glucose Ql (U) Negative [facility] - Microbiology an d Antimicrobial susceptibilityOrdered By: Ramone Bauer on 03-27-2025 HBV surface Ag Ql (S) Non-Reactive Nonreactive [facility] Comment on above: Reactive: Presumptiv e evidence of HBV. Repeatedly reactive samples must be confirmed using a neutralization test (Elecsys HBsAg Confirmatory Test)Non-Reactive: HBsAg not detected; does not exclude the possibility of exposure to HBV Laboratory - UrinalysisOrder ed By: Ramone Bauer on 03-27-2025 Protein Ql (U) Negative [facility] MCV (mean corpuscular volume ) determinationOrdered By: Ramone Bauer on 03-27-2025 MCV (RBC) [Entitic vol] 94.8 fL 81-99 [facility] Mean corpuscular hemoglobin (MCH) determinationOrdered By: Ramone Bauer on 03-27-2025 MCH (RBC) [Entitic mass] 32.4 pg High 27.0-32.0 [facility] Mean corpuscular hemoglobin concentration (MCHC) determinationOrdered By: Ramone Bauer on 03-27-2025 MCHC (RBC) [Mass/Vol] 34.2 g/dL 32-36 [facility] Mean platelet volume determi nationOrdered By: Ramone Bauer on 03-27-2025 Platelet mean volume (Bld) [Entitic vol] 11.5 fL 6.2-12.0 [facility] Monocyte percentageOrdered B y: Ramone Bauer on 03-27-2025 Monocytes/100 WBC (Bld) 5.3 % 0-10 [facility] NATERAon 03-27-2025 NATURA SEE SCANNED REPORT Normal [facility] Comment on above: Performed By: #### L 3890.6102, BTS, L3890.6006, L3890.6301, L509.8002, L100.0100, L900.0098, L509.4006 #### [facility] [address] [place], [address] Neutrophil percentageOrdered By: Ramone Bauer on 03-27-2025 Neutrophils/100 WBC (Bld) 76.1 % High 47-70 [facility] No Panel InformationOrdered By: Ramone Bauer on 03-27-2025 HIV (1&2) Antibody Non-Reactive Nonreactive [facility] Comment on above: Non-ReactiveReactive Repeatedly reactive samples must be confirmed according to CDC recommended confirmatory algorithms. The subresults for either HIVAG or AHIV can be used as an aid in the selection of the confirmation algorithm for reactive samples.Send out specimens with Reactive results to [facility] for confirmation.Order the HIV antibody detection and differentiation: #[id number] Nucleated red blood cell per centageOrdered By: Ramone Bauer on 03-27-2025 Nucleated RBC/100 WBC (Bld) [Ratio] 0 % 0-5 [facility] Facility Attendant Office Visit Reporton 03-27-2025 Facility Attendant Office Visit Report [facility]'[address], [address] [place] [address] OFFICE VISIT Date of Service: 03/27/25 MR#: [id number] Acct: [id number] Name: LINETTE HUI Rep #: [id number] : 1990 Provider: DMITRIY Lew ams Age/Sex: 34/F Location: [facility] Status: Signed Intake Vital Signs 02/05/25 10:26 02/27/25 13:02 03/27/25 08:56 Height 5 ft 7.5 in 5 ft 7.5 in 5 ft 7.5 in Weight: 181 lb 2 oz BMI 27.9 BP 122/77 H Intake Visit Reasons: 12WK OB 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 Date Name GA/Weeks Outcome Route Bth Weight Infant Gen Labor Lgth Anesthesia Del Locatn Provider FOThalia 06/02/20 Prasanna 39 live - [...] Bartholin cys (more content not included)... Normal [facility] Platelet countOrdered By: Ha Bauer on 03-27-2025 Platelets (Bld) [#/Vol] 288 10*3/uL 150-450 [facility] RBC Auto (Bld) [#/Vol]Ordere d By: Ramone Bauer on 03-27-2025 RBC (Bld) [#/Vol] 3.83 10*6/uL Low 4.2-5.4 [facility] Syphilis Antibodieson 2024 Syphilis Abs Non-Reactive Normal Nonreactive [facility] Comment on above: Performed By: #### L 3890.6102, BTS, L3890.6006, L3890.6301, L509.8002, L100.0100, L900.0098, L509.4006 ####[facility] [address] [place], [address] Type AND Screenon 03-27-2025 ABO and Rh group Nom (Bld) Blood group O Rh(D) positive Normal [facility] Comment on above: Order Comment: PN Performed By: #### L 3890.6102, BTS, L3890.6006, L3890.6301, L509.8002, L100.0100, L900.0098, L509.4006 ####[facility] [address] [place], [address] White blood cell (WBC) count Ordered By: Ramone Bauer on 03-27-2025 WBC (Bld) [#/Vol] 9.3 10*3/uL 4.4-11.0 [facility] Chlamydia/GC RADHA aptimaon CHLAMY,NUC ACID Negative Normal Negative [facility] Comment on above: Performed By: #### L 7000.1800, M100.2200 ####[facility] [address] [place], [address] GC BY NUC ACID Negative Normal Negative [facility] Comment on above: Result Comment: Perf ormed at: =G - [facility] [address] [id number] Fondant Cooker: Lara Huston MD, Phone: [phone] Performed By: #### L 7000.1800, M100.2200 ####[facility] [address] [place], [place], [address] Urine Cultureon 03-02-2025 [facility] Mixed Gram Positive Organisms Laquey Count 25,000-50,000 MIXC Mixed contaminants. Submit a new specimen if indicated. Normal [facility] Comment on above: Performed By: #### L 7000.1800, M100.2200 ####[facility] [address] [place], [place], [address] Chlamydia trachomatis rRNA d etection by probe and target amplification methodOrdered By: Ramone Bauer on 02-27-2025 C. trachomatis rRNA RADHA+probe Ql (Unsp spec) Negative Negative [facility] Neisseria gonorrhoeae nuclei c acid detection by amplified probe techniqueOrdered By: Ramone Bauer on 02-27-2025 N. gonorrhoeae DNA RADHA+probe Ql (Unsp spec) Negative Negative [facility] Comment on above: Performed at: =G - [address] [id number] Director: Lara Huston MD, Phone: [phone] Facility Attendant Office Visit Reporton 02-27-2025 Facility Attendant Office Visit Report [facility]'s [address], [address] [place] [address] OFFICE VISIT Date of Service: 02/27/25 MR#: [id number] Acct: [id number] Name: LINETTE HUI Rep #: [id number] : 1990 Provider: DMITRIY Lew ams Age/Sex: 34/F Location: [facility] Status: Signed Intake Vital Signs 02/05/25 10:26 02/27/25 13:02 Height 5 ft 7.5 in 5 ft 7.5 in Weight: 178 lb 2 oz BMI 27.4 BP 125/75 H Intake Visit Reasons: New OB, LMP 3/4, TAQUERIA 10/07 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 Normal [facility] Urine cultureOrdered By: Norris Bauer on 02-27-2025 Bacteria identified Cx Nom (U) Positive Abnormal [facility] - Chemistry and C hemistry - challengeOrdered By: Vernell Brown on 02-05-2025 HCG ( test) Ql (U) Positive [facility] Office Visit Reporton 2024 Office Visit Report [facility] [address] [place] [address] OFFICE VISIT Date of Service: 02/05/25 MR#: [id number] Acct: [id number] Patient: LINETTE HUI Rep #: [id number] : 1990 Provider: JUVENAL irizarry Age/Sex: 34/F Location: [facility] Status: Signed Intake Vital Signs 02/05/25 10:26 Height 5 ft 7.5 in Weight: 173 lb 4 oz BMI 26.7 Intake Visit 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 Results POC Urine Office , Urine Positive Last Edit by Maya Kelley on 02/05/25 10:34 Assessment and Plan Assessment and Plan (1) Supervision of high risk in first trimester: Status: Acute Comment: Mag[facility] Orders: Orders POC Urine Today N91.2 - Amenorrhea, unspecified Plan confirmed RTO NOB Clinical Quality Measures Falls Risk Screening/Assistive Devices Have you fallen in the past year?: No 02/05/25 1038 Date Vernell Brown AQUARIUM TANK ATTENDANT AQUARIUM TANK ATTENDANT-C Cosigner Signature: Date (if applicable) CC: Normal [facility] Cervical AND or Vaginal cyto logy studyon 04-09-2024 Cytology Cervical or vaginal smear or scraping study Pathology report.total SEE COMMENT Gynecologic Cytology Case: [id number] Authorizing Provider: Benny Cooper MD Collected: 04/09/2024905 Ordering Location: [facility] Received: 04/09/2024905 Office Building First Screen: CHASTITY [...] initially screened by CHASTITY Castro at [facility] [address] [facility] [phone] QC review performed by CHASTITY Nicole at [facility] [address] [facility] [phone] By the signature on this report, the individual or group listed as making the Final Interpretation/Diagnosis certifies that they have reviewed this case. This specimen has been analyzed by the ThinPrep Imaging System ([employer] an automated imaging and review system, which assists the laboratory in evaluating cells on ThinPrep Pap tests. Following automated imaging, selected pablo from every slide were reviewed by a flight test engineer and/or pathologist. Cervical cytology is a screening [...] 04/01/2024 LAB AP CONTRACEPTIVE HISTORY Condom Normal [facility] Ambulatory Cult, Genitalon 03-29-2023 Bacteria identified Aer cx Nom (Genital specimen) Abnormal [facility] [address] Work Phone: GENITAL CULTURE, BACT.on GENITAL CULTURE, BACT. PATIENT: Samantha HUI LOCATION: [id number] BILL#: [id number] : [birth year] AGE: SEX: F ORDERED BY: ZAYDA MARSH SOURCE: GENITAL COLLECTED: 03/29/23 09:26 ANTIBIOTICS AT SUSANNAH.: RECEIVED : 03/29/23 18:44 SITE: Vaginal R E S U L T S GENITAL CULTURE, BACT. FINAL 04/02/23 07:41 Culture examined for Group A Streptococcus, Group B Streptococcus, Neisseria gonorrhoeae and Yeast ONLY. NO Neisseria gonorrhoeae ISOLATED. ISOLATE1 : Deisi albicans 1+ Normal [facility] Comment on above: Performed By: #### G ENLO #### [facility] [address] [place] [address] LMPon 03-29-2023 Last menstrual period start date 13Mar2023 [facility] [address] Work Phone: MARINE FIRER - Office Visiton 03-01 MARINE FIRER - Office Visit Diagnoses/Problems Assessed Screening for cervical cancer (V76.2) (Z12.4) Vaginal itching (698.1) (N89.8) Orders PAP [facility], Cytology; Status:Hold For - Specimen/Data Collection,Retrospective Authorization; Requested for:29Mar2023; Last Menstrual Period (LMP): : 03/13/2023 PAP - Site : CERVICAL Cytology Order : ThinPrep PAP, Screening, HPV All Interp - Include Genotyping Cult, Genital; Status:In Progress - Specimen/Data Collected,Retrospective Authorization; Done: 29Mar2023 Site : Vaginal Provider Impressions Linette is a 32-year-old here for routine [facility] exam. Exam was benign. Pap smear was done cultures were taken follow-up in 1 year Chief Complaint Patient here today for annual exam with no concerns. last pap 08/18/2020 Reflex negative. LMP: 03/13/2023 History of Present IllnessLinette is a 32-year-old who comes in for routine [facility] exam. Patient currently is still breast-feeding. Her [...] Medication NameInstruction TABS Vitals Vital Signs Recorded: [id number] 09:09AM Wjjcbcts976 Hibdfsamy88 Height5 ft 7 in Ucvocb913 lb BMI Pozkxdvgxv92.98 kg/m2 BSA Calculated1.96 [id number] Physical Exam Constitutional: Healthy appearing. Head and [...] March 29 (more content not included)... Normal [facility] MARINE FIRER - Office Visiton 050 MARINE FIRER - Office Visit Provider Tim guillory Linette is here for follow-up on her nipple infection and bleeding. Breasts are much improved. Patient advised that if the problem recurs to reach out to the data analytics specialist. Patient due for an annual follow-up [...] externally which has now resolved with some mqto-sfw-zwlckpg treatment Active Problems Problems 17 weeks gestation [...] TABS Vitals Vital Signs Recorded: 28Feb2023 09:06AM Ksylwpdm367 Ebenmhgrb59 Height5 ft 7 in Yaitzf340 lb 2 oz BMI Xikauuvkty14.84 kg/m2 BSA Calculated1.95 Physical Exam Constitutional: Healthy [...] Cx Nom (Unsp spec) [facility] [address] Work Phone: MISCELLANEOUS CULT./SM.BACT. on 02-14-2023 MISCELLANEOUS CULT./SM.BACT. BREAST INFECTION PATIENT: LINETTE HUI LOCATION: [facility] BILL#: [id number] : [birth year] AGE: SEX: F ORDERED BY: ZAYDA MARSH SOURCE: WOUND/ABSCESS COLLECTED: 02/14/23 15:04 ANTIBIOTICS AT SUSANNAH.: RECEIVED : 02/15/23 00:44 SITE: Wound/Abscess R E S U L T S GRAM STAIN FINAL 02/15/23 11:46 NO GRANULOCYTES OR ORGANISMS SEEN. MISCELLANEOUS CULT./SM.BACT. FINAL 02/17/23 13:51 2+MIXED SKIN GALLO Normal [facility] Comment on above: Performed By: #### C #### [facility] [address] [facility] [address] [facility] FIRER - Office Visiton 01-28 MARINE FIRER - Office Visit Diagnoses/Problems Assessed Breast infection, [...] PRN Take as needed for pain Nystatin-Triamcinolone 044028-2.1 UNIT/GM-% External CreamAPPLY SPARINGLY TO AFFECTED AREA(S) TWICE DAILY Pantoprazole Sodium 40 MG Oral Tablet Delayed ReleaseTAKE 1 TABLET DAILY. TABS Vitals Vital Signs Recorded: 14Feb2023 02:27PM Jhlvayhv415 Mbftzetvl18 Height5 ft 7 in Imyhup619 lb 6 oz BMI Svnwbjfqwi78.88 kg/m2 BSA Calculated1.95 Physical Exam Constitutional: Healthy [...] Nom (Unsp spec) Abnormal [facility] [address] Work Phone: MISCELLANEOUS CULT./SM.BACT. on 01-31-2023 MISCELLANEOUS CULT./SM.BACT. GROUP A STREPTOCOCCUS Called- RB to AWA WOODY, 02/01/2023 11:22 GROUP A STREPTOCOCCUS Called- RB to AWA WOODY, 02/01/2023 11:22 PATIENT: LINETTE HUI LOCATION: [facility] BILL#: [id number] : [birth year] AGE: SEX: F ORDERED BY: ZAYDA MARSH SOURCE: MISC COLLECTED: 01/31/23 09:51 ANTIBIOTICS AT [facility]US[facility]NA[facility].: RECEIVED : 01/31/23 16:10 SITE: Miscellaneous NIPPLE R E S U L T S GRAM STAIN FINAL 01/31/23 19:58 NO GRANULOCYTES SEEN. 1+ GRAM (+) COCCI MISCELLANEOUS CULT./SM.BACT. FINAL 02/02/23 09:36 1+ MIXED SKIN GALLO ISOLATE1 : Group A streptococcus 1+ Normal [facility] Comment on above: Performed By: #### [facility] #### [facility] [address] [place] [address] MARINE FIRER - Office Visiton MARINE FIRER - Office Visit Diagnoses/Problems Assessed Breast pain [...] 3:08:28 PM Current Meds Medication NameInstruction Nystatin-Triamcinolone 182656-5.1 UNIT/GM-% External CreamAPPLY SPARINGLY TO AFFECTED AREA(S) TWICE DAILY Pantoprazole Sodium 40 MG Oral Tablet Delayed ReleaseTAKE 1 TABLET DAILY. TABS Vitals Vital Signs Recorded: 31Jan2023 09:12AM Jjonakwn410 Jvmaqcfvu04 Height5 ft 7 in Huqnky646 lb 8 oz BMI Wwnhfqeoyd15.74 kg/m2 BSA Calculated1.95 Physical Exam Constitutional: Healthy-appearing in no distress. Head and Face: No obvious lesions. Chest: No erythema no discharge no discoloration. Musculoskeletal: Good mobility. Psychiatric: Appropriately oriented with normal mood and affect. Signatures Electronically signed by : Zayda Marsh MD; Jan 31 2023 9:21AM EST (Author) Normal [facility] BASIC METABOLIC PANELon 06- Anion gap [Moles/Vol] 12 mmol/L Normal 10 - 20 [facility] Comment on above: Performed By: #### B MP #### [address] [address] Calcium [Mass/Vol] 9.3 mg/dL Normal 8.6 - 10.3 [facility] Comment on above: Performed By: #### B MP #### [address] [address] Chloride [Moles/Vol] 107 mmol/L Normal 98 - 107 [facility] Comment on above: Performed By: #### B MP #### [address] [address] Creatinine [Mass/Vol] 0.74 mg/dL Normal 0.50 - 1.05 [facility] Comment on above: Performed By: #### B MP #### [address] [address] eGFR FEMALE >90 Normal >90 [facility] Comment on above: Result Comment: CALC ULATIONS OF ESTIMATED GFR ARE PERFORMED USING THE 2020 CKD-EPI STUDY REFIT EQUATION WITHOUT THE RACE VARIABLE FOR THE IDMS-TRACEABLE CREATININE METHODS. https://jasn.asnjournals.org/content/early//ASN.62961 [address] Performed By: #### B MP #### [address] [address] Glucose [Mass/Vol] 88 mg/dL Normal 74 - 99 [facility] Comment on above: Performed By: #### B MP #### [address] [address] HCO3 (Bld) [Moles/Vol] 24 mmol/L Normal 21 - 32 [facility] Comment on above: Performed By: #### B MP #### [address] [address] Potassium [Moles/Vol] 4.3 mmol/L Normal 3.5 - 5.3 [facility] Comment on above: Performed By: #### B MP #### [address] [address] Sodium [Moles/Vol] 139 mmol/L Normal 136 - 145 [facility] Comment on above: Performed By: #### B MP #### [address] [address] Urea nitrogen [Mass/Vol] 14 mg/dL Normal 6 - 23 [facility] Comment on above: Performed By: #### B MP #### [address] [address] CALCIUM, IONIZEDon 2 CALCIUM, IONIZED 1.17 mmol/L Normal 1.10 - 1.33 [facility] Comment on above: Performed By: #### I ONC1 #### [address] [address] CBCon 04-11-2022 Erythrocyte distribution width (RBC) [Ratio] 14.0 % Normal 11.5 - 14.5 [facility] Comment on above: Performed By: #### C BC #### [address] [address] Hematocrit (Bld) [Volume fraction] 38.5 % Normal 36.0 - 46.0 [facility] Comment on above: Performed By: #### C BC #### [address] [address] Hemoglobin (Bld) [Mass/Vol] 13.3 g/dL Normal 12.0 - 16.0 [facility] Comment on above: Performed By: #### C BC #### [address] [address] MCHC (RBC) [Mass/Vol] 34.6 g/dL Normal 32.0 - 36.0 [facility] Comment on above: Performed By: #### C BC #### [address] [address] MCV (RBC) [Entitic vol] 91 fL Normal 80 - 100 [facility] Comment on above: Performed By: #### C BC #### [address] [address] Platelets (Bld) [#/Vol] 291 10*3/uL Normal 150 - 450 [facility] Comment on above: Performed By: #### C BC #### [address] [address] RBC 4.22 x10E12/L Normal 4.00 - 5.20 [facility] Comment on above: Performed By: #### C BC #### [address] [address] WBC (Bld) [#/Vol] 7.2 10*3/uL Normal 4.4 - 11.3 [facility] Comment on above: Performed By: #### C BC #### [address] [address] Calcium, Ionized Levelon Calcium, Ionized Level 1.17 mmol/L See Below [facility] [address] Work Phone: [phone] Comment on above: Reference Range: 1.1 0 - 1.33 Cult, Genitalon 04-11-2022 Bacteria identified Aer cx Nom (Genital specimen) [facility] [address] Work Phone: [phone] FERRITINon 04-11-2022 FERRITIN 76 ug/L Normal 8 - 150 [facility] Comment on above: Performed By: #### F ERRI #### [facility] [address] [place] [address] Ferritin, Serumon 04-11-2022 Ferritin [Mass/Vol] 76 ug/L 8 - 150 [facility] [address] Work Phone: [phone] GENITAL CULTURE, BACT.on GENITAL CULTURE, BACT. PATIENT: Samantha HUI LOCATION: [address]#: [id number] : 89 AGE: SEX: F ORDERED BY: ZAYDA MARSH SOURCE: GENITAL COLLECTED: 04/11/22 15:00 ANTIBIOTICS AT [facility]ANNAH.: RECEIVED : 04/11/22 23:56 SITE: Vaginal R E S U L T S GENITAL CULTURE, BACT. FINAL 04/15/22 09:19 NO PATHOGENS Culture examined for Group A Streptococcus, Group B Streptococcus, Neisseria gonorrhoeae and Yeast ONLY. NO Neisseria gonorrhoeae ISOLATED. Normal [facility] Comment on above: Performed By: #### G ENLO #### [facility] [address] [place] [address] Laboratory - Chemistry and C hemistry - challengeon 04-11-2022 Anion gap [Moles/Vol] 12 mmol/L 10 - 20 [facility] [address] Work Phone: [phone] Calcium [Mass/Vol] 9.3 mg/dL 8.6 - 10.3 [facility] [address] Work Phone: [phone] Chloride [Moles/Vol] 107 mmol/L 98 - 107 [facility] [address] Work Phone: [phone] CO2 [Moles/Vol] 24 mmol/L 21 - 32 [facility] [address] Work Phone: [phone] Creatinine [Mass/Vol] 0.74 mg/dL See Below [facility] [address] Work Phone: [phone] Comment on above: Reference Range: 0.5 0 - 1.05 Glucose [Mass/Vol] 88 mg/dL 74 - 99 [facility] [address] Work Phone: [phone] Potassium [Moles/Vol] 4.3 mmol/L 3.5 - 5.3 [facility] [address] Work Phone: [phone] Sodium [Moles/Vol] 139 mmol/L 136 - 145 [facility] [address] Work Phone: [phone] Urea nitrogen [Mass/Vol] 14 mg/dL 6 - 23 [facility] [address] Work Phone: [phone] Laboratory - Hematology and Cell countson 04-11-2022 Erythrocyte distribution width (RBC) [Ratio] 14.0 % See Below [facility] [address] Work Phone: [phone] Comment on above: Reference Range: 11. 5 - 14.5 Hematocrit (Bld) [Volume fraction] 38.5 % See Below [facility] [address] Work Phone: [phone] Comment on above: Reference Range: 36. 0 - 46.0 Hemoglobin (Bld) [Mass/Vol] 13.3 g/dL See Below [facility] [address] Work Phone: [phone] Comment on above: Reference Range: 12. 0 - 16.0 MCHC (RBC) [Mass/Vol] 34.6 g/dL See Below [facility] [address] Work Phone: [phone] Comment on above: Reference Range: 32. 0 - 36.0 MCV (RBC) [Entitic vol] 91 fL 80 - 100 [facility] [address] Work Phone: [phone] Platelets (Bld) [#/Vol] 291 10*3/uL 150 - 450 [facility] [address] Work Phone: [phone] RBC (Bld) [#/Vol] 4.22 {x10E12/L} See Below [facility] [address] Work Phone: [phone] Comment on above: Reference Range: 4.0 0 - 5.20 WBC (Bld) [#/Vol] 7.2 10*3/uL 4.4 - 11.3 [facility] [address] Work Phone: [phone] MAGNESIUMon 04-11-2022 Magnesium [Mass/Vol] 1.96 mg/dL Normal 1.60 - 2.40 [facility] Comment on above: Performed By: #### M G #### [address] [address] Magnesium, Serumon Magnesium [Mass/Vol] 1.96 mg/dL See Below [facility] [address] Work Phone: [phone] Comment on above: Reference Range: 1.6 0 - 2.40 No Panel Informationon 04-11 >90 >90 [facility] [address] Work Phone: [phone] Comment on above: CALCULATIONS OF HIRAM MATED GFR ARE PERFORMED USING THE 2020 CKD-EPI STUDY REFIT EQUATION WITHOUT THE RACE VARIABLE FOR THE IDMS-TRACEABLE CREATININE METHODS.https://jasn.asnjournals.org/content/early/A SN.3341183961 MARINE FIRER - Visiton 04-11-2022 MARINE FIRER - Visit Chief Complaint Patient here today [...] Delayed Release; TAKE 1 TABLET DAILY; Therapy: 35Vpf9830 to (Evaluate:66Ths7912) Requested for: 32Weu3834; Last Rx:[id number] Ordered Rx By: Zayda Marsh; Dispense: 30 Days ; #:30 Tablet; Refill: 5;For: Chronic GERD; CHANELL = N; Verified Transmission to [place] [address]; Last Updated By: [facility]; 10/18/2021 7:48:29 PM Ondansetron HCl - 4 MG Oral Tablet; TAKE 1 TABLET Every 6 hours PRN nausea; Therapy: 14Gmp9617 to (Evaluate:41Abi3110) Requested for: 55Rgq9360; Last Rx:[id number] Ordered Rx By: Angel Acevedo; Dispense: 8 Days ; #:30 Tablet; Refill: 3;For: Nausea and vomiting in ; CHANELL = N; Verified Transmission to [facility]; Last Updated By: [facility]; 02/10/2022 9:14:55 PM TABS; Therapy: (Recorded:25Qfe5695) to Recorded Dispense: 0 Days ; #: Sufficient; Refill: 0;For: SocHx: Non-smoker, PMH: Vaginal Pap smear; CHANELL = N; Record; Last Updated By: Monalisa Conway; 11/04/2019 3:08:28 PM Vitals Vital Signs Recorded: 11Apr2022 01:30PM Sxgfxcny389 Kkvrrtkny43 Height5 ft 7 in Uqvmye900 lb 6 oz BMI Lqztfctldd99.95 kg/m2 BSA Calculated2.07 Physical Exam Constitutional: Healthy-appearing [...] [Mass/Vol] 835 pg/mL Normal 211 - 911 [facility] Comment on above: Performed By: #### V TB12 #### [place] [address] [place] [address] Vitamin B12, Serumon 022 Cobalamin (Vitamin B12) [Mass/Vol] 835 pg/mL 211 - 911 [facility] [address] Work Phone: CBCon 05-03-2022 Erythrocyte distribution width (RBC) [Ratio] 14.3 % Normal 11.5 - 14.5 [facility] Comment on above: Performed By: #### C BC #### [address] [address] Hematocrit (Bld) [Volume fraction] 33.8 % Low 36.0 - 46.0 [facility] Comment on above: Performed By: #### C BC #### [address] [address] Hemoglobin (Bld) [Mass/Vol] 11.1 g/dL Low 12.0 - 16.0 [facility] Comment on above: Performed By: #### C BC #### [address] [address] MCHC (RBC) [Mass/Vol] 32.8 g/dL Normal 32.0 - 36.0 [facility] Comment on above: Performed By: #### C BC #### [address] [address] MCV (RBC) [Entitic vol] 95 fL Normal 80 - 100 [facility] Comment on above: Performed By: #### C BC #### [address] [address] Platelets (Bld) [#/Vol] 233 10*3/uL Normal 150 - 450 [facility] Comment on above: Performed By: #### C BC #### [address] [address] RBC 3.57 x10E12/L Low 4.00 - 5.20 [facility] Comment on above: Performed By: #### C BC #### [address] [address] WBC (Bld) [#/Vol] 13.2 10*3/uL High 4.4 - 11.3 [facility] Comment on above: Performed By: #### C BC #### [address] [address] Daily Progress Note - OB-Pos t-partumon 03-01-2022 Daily Progress Note - EB-Sbzj-cbjcah Current Stage: Stage: Post- Subjective Data: Post : Ambulate: Yes Flatus: Yes Tolerate Diet: Yes : PPD #1 Resting well. Breast feeding. Objective Information: Objective Information: T PRBPMAPSpO2 Value36.214945415/963669 % Date/Time03/01 5: 5: 5: 5: 5: 0:00 Range(36.5C - 36.8C ) (69 - [...] Recent Lab Results: Results: CBC: 03/01/2022 05:37 \\ Hgb / \\ 11.1 L / WBC Plt 13.2 H 233 / Hct \\ / 33.8 L \\ RBC: 3.57 L MCV: 95 Assessment and [...] Last Updated: 01-Mar-2022 07:40 by Benny Cooper) [facility] Discharge Ctocquu4aq 022 Discharge Profile2 Discharge Orders: Anticipated Discharge Date: Anticipated Discharge Vmrp26-Jmr-2314 Problem List: Additional Dx: First degree perineal laceration: Catalog Name: First degree perineal laceration during delivery Single live : Catalog Name: Single live Normal spontaneous vaginal delivery: Catalog Name: Encounter for full-term uncomplicated delivery 39 weeks gestation of : Catalog Name: 39 weeks gestation of Hospital Providers: Provider RoleProvider Name Benny Vee DNAR: Code Status at Discharge: Full Code : Activity: Return to normal activity as tolerated. Patient Instructions: Pelvic Rest: DO NOT place anything in vagina until cleared by OB Provider. Diet: Regular. Follow-Up - OB Provider: Physician/Dept/Mario Centeno MD Call to Schedule in6 weeks / [facility] 4 / NICU: Patient / Family Instructions [...] the baby should be seen by the review scheduling coordinator right away. Discharge & Follow Up: - DISCHARGE & FOLLOW UP. - It is VERY IMPORTANT to keep your babys appointment with the review scheduling coordinator within 48 hours. Safety: - SAFETY. - Do not use hot or cold water. Test water temperature before bathing baby. Never leave a baby in or near water. Supervise other children when around baby. - NEVER SHAKE A BABY. - To reduce the risk of Sudden Syndrome: 1) Breastfeed. [...] babys health. You can also call a [facility] nurse at [phone]) any time of day or night. In case of medical emergency, you should take your child to the emergency room right away. Resources: - [employer]: [phone] ([facility]). - [employer]: [phone] ([place]). - [employer]: [phone] ([facility]). - [employer]: [phone] ([place]). - [employer]: [phone] ([place]). - [employer] services [phone] ([facility]). - [employer]: [phone] ([place]). - [address]: 211. - Help Me Grow (if eligible): [phone]. Hospital Course (Home Care/Gold Form): Hospital Course: Hospital Course: include significant abnormal lab values Patient progressed through labor well and had a spontaneous vaginal delivery for a viable male on February 28, 2022. Patient discharged on post day 1. Provider FINAL REVIEW of Orders: Final Review: Final Review of Medication Reconciliation and Orders Completedby Physician Reviewing Joce Cooper MD at 01-Mar-2022 07:42:48 Other Clinician [...] INCISION (episiotom (more content not included)... Normal [facility] Order Reconciliationon 03-01 Order Reconciliation Page 1 Admission Reconciliation Document Reconciliation Type: Admission requested on behalf of Benny Cooper (Physician) done by Benny Cooper) Admission - Reconciliation: 01-Mar-2022 07:43 by: Benny Cooper) Home MedicationsEnteredLast Dose TakenReconciled with current Order Reconciliation Comment/ Additional Information lansoprazole 30 mg oral delayed release capsule 1 cap(s) orally once a day 01-Mar-2022 Reviewed and Held [place]-3 oral capsule 01-Mar-2022 Reviewed and Held 19 ([place]) oral tablet 1 tab(s) orally once a ibp83-Jhs-9745 Reviewed and Held Additional Current Orders Acetaminophen Tablet (TYLENOL)DOSE = 975 mg Oral Every 6 HoursClinician Notes: Give with Ibuprofen. Benzocaine 20% - Menthol 0.5% Topical [place] (DERMOPLAST)DOSE = 1 application(s) Topical 4 Times [...] Sodium Chl (more content not included)... Normal [facility] Order Reconciliation Page 1 Discharge Reconciliation Document [...] lansoprazole 30 mg oral delayed release capsule [place]-3 oral capsule 27-Feb-2022 19:19 [place]-3 oral capsule 27-Feb-2022 19:19 [place]-3 oral capsule is continued as [place]-3 oral capsule 19 ([place]) oral tablet 1 tab(s) orally once a day 28-May-2020 17:21 19 ([place]) oral tablet 1 tab(s) orally once a day 28-May-2020 17:21 19 ([place]) oral tablet is continued as 19 ([place]) oral tablet Current OrdersDateHOME MEDICATIONS AT DISCHARGE DateReconciliation Comment/ Additional Information Acetaminophen Tablet (TYLENOL)DOSE = 975 mg Oral Every 6 HoursClinician Notes: Give with Ibuprofen. 28-Feb-2022 00:43 Acetaminophen is not required Benzocaine 20% - Menthol 0.5% Topical [place] (DERMOPLAST)DOSE = 1 application(s) Topical 4 Times [...] is not required (more content not included)... Normal [facility] Admission Risk Screen - OBon 02-28-2022 Admission [...] instruction; skill demonstration Cultural Considerationsnone Developmental Considerationsnone Yarsanism Considerationsnone Learning Assessment (Other Learner): Other learner [...] Spiritual Screen: Are there any cultural, spiritual, anabaptism practices/values/needs that are important for us to knowno Do you want a visit/item from Pastoral [facility]o Would you like your Retail Greeting Card Merchandiser/Social Media Content Specialist notifiedno Depression Screen: During the past month, have you often been bothered by feeling down, depressed or hopelessno During the past month, have you often had little interest or pleasure in doing thingsno Have you had any thoughts of harming anyone elseno [place] Suicide: Risk Screen Not Applicable/Able to Answerable to be screened In the Past Month: Have you wished you were or could go to sleep and not wake upno In the Past Month: Have you had any actual thoughts of killing yourselfno Lifetime: Have you ever done, started to do, or prepared to do anything to end your lifeno [place] Suicide Risknegative Family Violence Screen: Are you [...] with underlying chronic conditions or reside in terminal superintendent care facilitiesnone of these conditions Persons with Functional or Anatomic Asplenianone of these conditions Immunocompromised Personsnone of these conditions Pneumonia vaccine NOT indicated due to:patient DOES NOT have a condition that indicates vaccination No contraindications to vaccine Pneumonia vaccin (more content not included)... Normal [facility] CBCon 02-28-2022 Erythrocyte distribution width (RBC) [Ratio] 13.7 % Normal 11.5 - 14.5 [facility] Comment on above: Performed By: #### C BC #### [place] [id number] Hematocrit (Bld) [Volume fraction] 38.2 % Normal 36.0 - 46.0 [facility] Comment on above: Performed By: #### C BC #### [place] [id number] Hemoglobin (Bld) [Mass/Vol] 12.7 g/dL Normal 12.0 - 16.0 [facility] Comment on above: Performed By: #### C BC #### [place] [id number] MCHC (RBC) [Mass/Vol] 33.2 g/dL Normal 32.0 - 36.0 [facility] Comment on above: Performed By: #### C BC #### [address] [address] MCV (RBC) [Entitic vol] 93 fL Normal 80 - 100 [facility] Comment on above: Performed By: #### C BC #### [address] [address] Platelets (Bld) [#/Vol] 264 10*3/uL Normal 150 - 450 [facility] Comment on above: Performed By: #### C BC #### [address] [address] RBC 4.11 x10E12/L Normal 4.00 - 5.20 [facility] Comment on above: Performed By: #### C BC #### [address] [address] WBC (Bld) [#/Vol] 21.1 10*3/uL High 4.4 - 11.3 [facility] Comment on above: Performed By: #### C BC #### [place] [address] CORONAVIRUS 2019, SCREEN ASY MPTOMATICon 02-28-2022 Lab Specimen Source Nasal, Nasopharyngeal Normal [facility] Comment on above: Performed By: #### C OVSC ####[place] [address] SARS-CoV-2 (COVID-19) RNA RADHA+probe Ql (Unsp spec) Not detected Normal Not Detected [facility] Comment on above: Result Comment: . This test has received FDA Emergency Use Authorization (EUA) and has been verified by [facility]. This test is only authorized for the duration of time that circumstances exist to justify the authorization of the emergency use of in vitro diagnostic tests for the detection of SARS-CoV-2 virus and/or diagnosis of COVID-19 infection under section 564(b)(1) of the Act, 21 U.S.C. 360bbb-3(b)(1), unless the authorization is terminated or revoked sooner. [facility] is certified under CLIA-88 as qualified to perform high complexity testing. Testing is performed in the [facility] laboratory located at [address] [place] [address]. SARS-CoV-2/Flu/RSV Multiplex Test: Fact sheet for providers: https://www.fda.gov/media/664534/download Fact sheet for patients: https://www.fda.gov/media/062837/download Performed By: #### C OVSC ####[place] [address] Covid 19 Resultson SARS-CoV-2 (COVID-19) RNA RADHA+probe Ql (Unsp spec) [...] You may also be contacted by the [facility] to see if any of your close [...] or Naproxen (Aleve) can also be used. Mppn-mjm-anzqlhc cough and cold medicines can be used according to the instructions on the package. Some wrsj-bac-qrhyipv medicines also contain acetaminophen. Make sure you [...] water are not available, use alcohol-based hand sheet metal supervisor. Avoid touching your eyes, nose, and mouth [...] 24 kaden (more content not included)... Normal [facility] Daily Progress Note - OB-Pos t-partumon 02-28-2022 Daily Progress Note - OE-Puqc-tlvyeq Current Stage: Stage: Post- Subjective Data: Post : Ambulate: Yes Flatus: Yes Tolerate Diet: Yes : PPD #1/2 Resting well. Breast feeding Objective Information: Objective Information: T PRBPMAPSpO2 Value36.33342338/612635% Date/Time02/28 8: 8: 8: 8: 8: 8:24 [...] Recent Lab Results: Results: CBC: 02/28/2022 01:14 \\ Hgb / \\ 12.7 / WBC Plt 21.1 H 264 / Hct \\ / 38.2 \\ RBC: 4.11 MCV: 93 Assessment and Plan: [...] Last Updated: 28-Feb-2022 12:27 by Benny Cooper) [facility] Delivery Recordon 02-28-2022 Delivery Record Lab [...] (mmm-dd-yyyy): 17-Aug-2021 Syphilis Results: negative Delivery Information: A Delivery Information: Baby A Delivery: Rupture of Membranes date/umds19-Qyt-4273 00:08 Amniotic Fluid Colormeconium staining Delivery Typevaginal delivery Delivery Locationlabor and delivery Delivery Date/Yfcn20-Foj-8775 00:12 Length of Time of ROM (rounded down to nearest hour)0 Sexmale Identification Band [id number] Electronic Transponder [id number] ID Bands Verified byVernell Cha RN 4th [...] NurseC. ZITA Perez Electronic Signatures: Deb Cha (ZITA) (Signed 28-Feb-2022 03:22) Authored: Lab Tests/Results, Delivery Information Last Updated: 28-Feb-2022 03:22 by Deb Cha (ZITA) [facility] Discharge Planning Tbwm8hu 0 5 Discharge Planning Note2 Discharge Planning: Anticipated Discharge Famc43-Zcs-0009 Discharge Planning Date and Time: 02/28/2022 @ [...] discharge. Signature: #### Assessment: Discharge Planning Assessment Sfeb53-Wmy-4226 Lives Withspouse(1) [place]) Resource/Environmental Concernsnone(1) Anticipated Transition [place](1) Services Anticipated at Transitionnon(1) Nursing Checklist: Lines/Cathetersremoved/a ppropriate for next level of care Discharge Med Rec Reconciled with Sanjeev Patient has Prescriptionsno prescriptions needed Transportation for Discharge Confirmedyes Follow up Reviewedyes DME equipment orderedno, need prescription Discharge Instructions Reviewed WithFamily Discharge Instructions Outcomeverbalize recall/understanding Discharge Instructions Review Completed with Patient/Family (diet, activity, pt instructions)yes Discharge Documentation: Discharge/Transfer Date/Txts98-Wkw-7056 11:30 Discharged Accompanied Byspouse Discharge Modeambulatory Transportation Methodprivate car Code StatusCode Status order at time of discharge: Full Code [place] DNR Form Sent with Patient and/or Familyn/a Final DispositionHome Electronic Signatures: Desire Aldrich) (Signed 01-Mar-2022 12:05) Authored: Discharge Planning, Nursing Checklist, Discharge Documentation Deb Cha) (Signed 28-Feb-2022 01:53) Authored: Discharge Planning, Assessment Last Updated: 01-Mar-2022 12:05 by Desire Aldrich) References: 1. Data Referenced From Patient Profile - OB v3" 28-Feb-2022 01:49 Normal [facility] Patient Profile - OB v3on Patient Profile - OB v3 Profile: Initial Info: How to be AddressedVeronica(1) Spoken Language PreferredEnglish (2) Source of Informationpatient Reason for admission this visitexpected delivery Wants Family/Rep Notified of Admissionn/a; family present Notify PCPdeferred, unable to answer Informed of Patient Visiting [facility]yes [facility] Patient Belongingsnone Home Meds have been Reviewed and Verified with Patient/Familyyes Medications Brought to Hospitalno Info: Gravida2 (2) Term Deliveries1 (2) Deliveries0 (2) Abortions0 (2) Living Children1 (2) Patient stated HTP00-Rrz-7482 Calculation of EGA based on patient stated EDD39.2 Records availableyes Trimester Care Initiatedfirst Care ProviderDr Marsh Current Risksnone Testsnonstress test; ultrasound Previous live (any gestational age)yes Most Recent Live Eyarw41-Ipl-4351 All Previous Delivery Type(s)vaginal delivery All Previous /Delivery Complicationsnone Planno Baby's Post Discharge Care Provider (Provider Name, Address and Phone Number) Dr Turcios Feedingbreastmilk Benefits of Breast Milk DiscussionThe benefits of exclusive breast milk feeding and the risk of adding formula have been discussed with patient / mother. Discussion Date / Mgbt75-Hfd-2297 00:40 Previous Experienceyes General Health: Current Weight in kg100 kilogram(s) Current Weight in bny472.4 pound(s) Weight Methodactual (measured) Scale Typestanding Pre [...] Support/Comfortspouse Lives Withspouse Resource/Environmental Concernsnone [facility] Anticipated at Transitionnone Additional Information: Information Review: Allergies and Significant Events have been Reviewed and Verified with Patient/Familyyes Allergy, Intolerance, Adverse Event: Allergies: penicillin: Drug, Hives/Urticaria, Active sulfADIAZINE: Drug, Hives/Urticaria, Active Electronic Signatures: eDb Cha (RN) (Signed 28-Feb-2022 03:25) Authored: Initial Info, Info, General Health, Rsp Based Care, Substance, Health Mgmt, Relationship/Environ, Additional Information Last Updated: 28-Feb-2022 03:25 by Deb Cha (RN) References: 1. Data Referenced From Patient Profile - OB v2" 02-Jun-2020 07:17 2. Data Referenced From Triage Note - OB v4 27-Feb-2022 19:12 3. Data Referenced From History and Physical - OB" 28-Feb-2022 00:43 [facility] SYPHILIS SCREENING WITH REFL EXon 02-28-2022 SYPHILIS TOTAL AB Non-Reactive Normal NONREACTIVE [facility] Comment on above: Result Comment: No s ignificant level of Treponema pallidum antibody detected. Repeat testing in 2 to 4 weeks may be considered if early infection or incubating syphilis infection is suspected. Performed By: #### S YPHR #### [facility] [address] [place], [place] [id number] Lab Specimen Source [facility] Comment on above: Performed By: #### S YPHR #### [facility] [address] [place], [place] [id number] TYPE + SCREENon 02-28-2022 ABO TYPE O [facility] Comment on above: Performed By: #### T +S ####[place] [id number] [place] [address] RH TYPE Positive [facility] Comment on above: Performed By: #### T +S ####[address] [place] [address] Risk Screen - OB Triageon Risk Screen [...] instruction; skill demonstration Cultural Considerationsnone Developmental Considerationsnone Yarsanism Considerationsnone Learning Assessment (Other Learner): Other learner availableno Depression/Suicide: Depression Screen: During the past month, have you often been bothered by feeling down, depressed or hopelessno During the past month, have you often had little interest or pleasure in doing thingsno Have you had any thoughts of harming anyone elseno [place] Suicide: Risk Screen Not Applicable/Able to Answerable to be screened In the Past Month: Have you wished you were or could go to sleep and not wake upno In the Past Month: Have you had any actual thoughts of killing yourselfno Lifetime: Have you ever done, started to do, or prepared to do anything to end your lifeno [place] Suicide Risknegative Family Violence: Abuse Screen: Are you or have you been threatened or abused physically, emotionally, or sexually by anyoneno Do you feel UNSAFE going back to the place where you are livingno Clinical assessment: Are there any apparent signs of injuries/behaviors that could be related to abuse/neglectno Electronic Signatures: Kellee Perez (RN) (Signed 27-Feb-2022 19:29) Authored: Allergies, Patient Verification, Travel History, Advance Directives, Crowell Fall Screen, Learning Assessment (Patient), Learning Assessment (Other Learner), Depression/Suicide, Family Violence Last Updated: 27-Feb-2022 19:29 by Kellee Perez (RN) [facility] Discharge [id number] 022 Discharge Profile2 Discharge Orders: DNAR: Code [...] Orders, Other Clinician Instructions, Gold Form - Grades 9 12 Tutor Summary Coty Persaud) (Signed 17-Feb-2022 16:42) Authored: Discharge Orders, Other Clinician Instructions, Gold Form - Grades 9 12 Tutor Summary Last Updated: 17-Feb-2022 18:24 by Zayda Marsh) [facility] Risk Screen - OB Triageon Risk [...] Learning Preferencesverbal instruction Cultural Considerationsnone Developmental Considerationsnone Yarsanism Considerationsnone Learning Assessment (Other Learner): Other learner availableno Depression/Suicide: Depression Screen: During the past month, have you often been bothered by feeling down, depressed or hopelessno During the past month, have you often had little interest or pleasure in doing thingsno Have you had any thoughts of harming anyone elseno [place] Suicide: Risk Screen Not Applicable/Able to Answerable to be screened In the Past Month: Have you wished you were or could go to sleep and not wake upno In the Past Month: Have you had any actual thoughts of killing yourselfno Lifetime: Have you ever done, started to do, or prepared to do anything to end your lifeno [place] Suicide Risknegative Family Violence: Abuse Screen: Are [...] related to abuse/neglectno Electronic Signatures: Coty Persaud (RN) (Signed 17-Feb-2022 15:39) Authored: Allergies, Patient Verification, Travel History, Advance Directives, Crowell Fall Screen, Learning Assessment (Patient), Learning Assessment (Other Learner), Depression/Suicide, Family Violence Last Updated: 17-Feb-2022 15:39 by Coty Persaud (RN) [facility] Triage Note - OB v4on 2021 Triage Note - OB v4 Triage: General Info: Time of Arrival on Safw27-Msu-0355 15:18 Acuity Level4 Chief Complaintcontractions Spoken Language PreferredEnglish (1) Source of Informationpatient Weight in kg100.3 kilogram(s) Weight in gso979.1 pound(s) Weight Methodactual (measured) Scale Typestanding Height in feet5 feet Height in inches7.4 inch(es) Height in cm171.1 centimeter(s) Height Methodstated BMI (kg/m2)34.261 square meter Blood Avoidance/Restrictionsno ne(1) Previous Transfusion Reactionno(1) Patient Belongingsremains with patient Patient Belongings Remaining with Patientcash/credit card; purse/wallet; cell phone/electronics Home Meds have been Reviewed and Verified with Patient/Familyyes Info: Gravida2 Term Deliveries1 Deliveries0 Abortions0 Living Children1 Patient stated [id number] Calculation of EGA based on patient stated EDD37.5 Records availableyes Trimester Care Initiatedfirst Current Risksnone Testsnonstress test; ultrasound Previous live (any gestational age)yes All Previous /Delivery Complicationsnone Substance: Smoking Statusnever smoker Alcohol Usedenies Drug Usedenies Drug 2 Usedenies Disposition/Disch: Dispositiondischarged from facility, home with own care Patient Meets Criteria for Home Blood Pressure Monitorno Admission/Observation/Di scharge/Transfer Date/Cxtc26-Lot-0925 16:50 Discharged Accompanied Byspouse Discharge Modeambulatory Transportation Methodprivate car Travel History: Travel or ExposureNO travel to International locations in the past 30 days Additional Information: Information Review: Allergies have been Reviewed and Verified with Patient/Familyyes Allergy, Intolerance, Adverse Event: Allergies: penicillin: Drug, Hives/Urticaria, Active sulfADIAZINE: Drug, Hives/Urticaria, Active Electronic Signatures: Coty Persaud (RN) (Signed 17-Feb-2022 16:57) Authored: General Info, Info, Substance, Disposition/Disch, Travel History, Additional Information Last Updated: 17-Feb-2022 16:57 by Coty Persaud (RN) References: 1. Data Referenced From Triage Note - OB v4 10-Feb-2022 16:11 Normal [facility] Risk Screen - OB Triageon Risk Screen [...] instruction; skill demonstration Cultural Considerationsnone Developmental Considerationsnone Yarsanism Considerationsnone Learning Assessment (Other Learner): Other learner availableno Depression/Suicide: Depression Screen: During the past month, have you often been bothered by feeling down, depressed or hopelessno During the past month, have you often had little interest or pleasure in doing thingsno Have you had any thoughts of harming anyone elseno [place] Suicide: Risk Screen Not Applicable/Able to Answerable to be screened In the Past Month: Have you wished you were or could go to sleep and not wake upno In the Past Month: Have you had any actual thoughts of killing yourselfno Lifetime: Have you ever done, started to do, or prepared to do anything to end your lifeno [place] Suicide Risknegative Family Violence: Abuse Screen: Are you or have you been threatened or abused physically, emotionally, or sexually by anyoneno Do you feel UNSAFE going back to the place where you are livingno Clinical assessment: Are there any apparent signs of injuries/behaviors that could be related to abuse/neglectno Electronic Signatures: Bianka Najera (ZITA) (Signed 10-Feb-2022 17:21) Authored: Allergies, Patient Verification, Travel History Kellee Perez (ZITA) (Signed 10-Feb-2022 21:15) Authored: Advance Directives, Crowell Fall Screen, Learning Assessment (Patient), Learning Assessment (Other Learner), Depression/Suicide, Family Violence Last Updated: 10-Feb-2022 21:15 by Kellee Perez (ZITA) [facility] Triage Note - OB v4on 2021 Triage Note - OB v4 Triage: General Info: Time of Arrival on Fwac14-Irr-3479 16:00 Patient arrived viaambulatory Arrived Fromspruce head Acuity Level3 Time Acuity Level Jpfokszd77-Cjw-9819 16:05 Modified Acuity Level4 Time Modified Acuity Level Iqiwsxfn09-Znw-4792 17:30 Chief ComplaintNausea and diarrhea since last night around 9pm. Spoken Language PreferredEnglish Source of Informationpatient Weight in kg101.4 kilogram(s) Weight in hvs624.5 pound(s) Weight Methodactual (measured) Scale Typestanding Height [...] for Home Blood Pressure Monitorno Admission/Observation/Di scharge/Transfer Date/Gxht50-Wne-2568 18:25 Discharge Modeambulatory Transportation Methodprivate car Travel History: Travel or ExposureNO travel to International locations in the past 30 days Additional Information: Information Review: Allergies have been Reviewed and Verified with Patient/Familyyes Allergy, Intolerance, Adverse Event: Allergies: penicillin: Drug, Hives/Urticaria, Active sulfADIAZINE: Drug, Hives/Urticaria, Active Electronic Signatures: Kellee Perez (ZITA) (Signed 10-Feb-2022 21:40) Authored: General Info, Info, Substance, Disposition/Disch, Travel History, Additional Information Last Updated: 10-Feb-2022 21:40 by Kellee Perez (ZITA) References: 1. Data Referenced From Triage Note - OB v4 02-Feb-2022 09:52 Normal [facility] No Panel Informationon 02-08 Please click on the link to view the study images Normal [facility] [address] Work Phone: Normal [facility] [address] Work Phone: Laboratory - Microbiology an d Antimicrobial susceptibilityon 02-02-2022 Bacteria identified Aer cx Nom (Genital specimen) [facility] [address] Work Phone: Risk Screen - OB Triageon [...] demonstration; verbal instruction Cultural Considerationsnone Developmental Considerationsnone Yarsanism Considerationsnone Learning Assessment (Other Learner): Other learner availableno Depression/Suicide: Depression Screen: During the past month, have you often been bothered by feeling down, depressed or hopelessno During the past month, have you often had little interest or pleasure in doing thingsno Have you had any thoughts of harming anyone elseno [place] Suicide: Risk Screen Not Applicable/Able to Answerable to be screened In the Past Month: Have you wished you were or could go to sleep and not wake upno In the Past Month: Have you had any actual thoughts of killing yourselfno Lifetime: Have you ever done, started to do, or prepared to do anything to end your lifeno [place] Suicide Risknegative Family Violence: Abuse Screen: Are you or have you been threatened or abused physically, emotionally, or sexually by anyoneno Do you feel UNSAFE going back to the place where you are livingno Clinical assessment: Are there any apparent signs of injuries/behaviors that could be related to abuse/neglectno Electronic Signatures: Ryan Jaramillo (RN) (Signed 02-Feb-2022 09:52) Authored: Allergies, Patient Verification, Travel History, Advance Directives, Crowell Fall Screen, Learning Assessment (Patient), Learning Assessment (Other Learner), Depression/Suicide, Family Violence Last Updated: 02-Feb-2022 09:52 by Ryan Jaramillo (ZITA) [facility] Triage Note - OB v4on 2021 Triage Note - OB v4 Triage: General Info: Time of Arrival on Hyyl38-Gmx-2548 09:53 Patient arrived viaambulatory Arrived Fromphysician office Acuity Level4 Time Acuity Level Tvztkyii15-Tgm-7358 09:53 Chief ComplaintNST for high FHR Source of Informationpatient Weight in kg91 kilogram(s) Weight in amh177.6 pound(s) Weight Methodactual (measured) Scale Typestanding Previous Transfusion Reactionno Patient Belongingsnone Home Meds have been Reviewed and Verified with Patient/Familyno Info: Gravida2 Term Deliveries1 Deliveries0 Abortions0 Living Children1 Patient stated [id number]-Fkv-9333 Calculation of EGA based on patient stated [...] sulfADIAZINE: Drug, Hives/Urticaria, Active Electronic Signatures: Ryan Jaramillo) (Signed 02-Feb-2022 09:55) Authored: General Info, Info, Substance, Disposition/Disch, Travel History, Additional Information Last Updated: 02-Feb-2022 09:55 by Ryan Jaramillo (ZITA) [facility] Clinical Event Note-tdapon 0 12-28-2021 Clinical [...] Note Last Updated: 28-Dec-2021 10:42 by Bianka Najera) [facility] No Panel Informationon 12-28 Normal [facility] [address] Work Phone: US AGE FOL-UP PER FETU Son 12-28-2021 US AGE FOL-UP PER FETUS Patient Name: LINETTE HUI STUDY: US AGE FOL-UP PER FETUS 12/28/2021 10:00 am INDICATION: Abnormal quad screen. COMPARISON: Ultrasound dated 11/22/2021 ACCESSION NUMBER(S): [id number] ORDERING CLINICIAN: ZAYDA MARSH TECHNIQUE: Routine ultrasound [...] evaluation. Electronically signed by: OFELIA OLVERA MD [facility] Skin prepon 12-24-2021 Prepped for left gre at phenol matrixectomy. [facility] Tobacco Screening.on 022 Fall risk assessment a) No falls within the last year [facility] [address] Work Phone: [phone] Tobacco use status [facility] b) No [facility] [address] Work Phone: [phone] Complete Blood Count + Diffe rentialon 12-01-2021 Basophils/100 WBC (Bld) 0.2 % 0.0 - 2.0 [facility] [address] Work Phone: [phone] Erythrocyte distribution width (RBC) [Ratio] 13.4 % See Below [facility] [address] Work Phone: [phone] Comment on above: Reference Range: 11. 5 - 14.5 Hematocrit (Bld) [Volume fraction] 35.5 % below low threshold See Below [facility] [address] Work Phone: [phone] Comment on above: Reference Range: 36. 0 - 46.0 Hemoglobin (Bld) [Mass/Vol] 12.0 g/dL See Below [facility] [address] Work Phone: [phone] Comment on above: Reference Range: 12. 0 - 16.0 Lymphocytes/100 WBC (Bld) 15.2 % See Below [facility] [address] [place] Work Phone: [phone] Comment on above: Reference Range: 13. 0 - 44.0 MCHC (RBC) [Mass/Vol] 33.8 g/dL See Below [facility] [address] Work Phone: [phone] Comment on above: Reference Range: 32. 0 - 36.0 MCV (RBC) [Entitic vol] 94 fL 80 - 100 [facility] [address] Work Phone: [phone] Monocytes/100 WBC (Bld) 5.2 % 2.0 - 10.0 [facility] [address] Work Phone: [phone] Neutrophils/100 WBC (Bld) 77.9 % See Below [facility] [address] Work Phone: [phone] Comment on above: Reference Range: 40. 0 - 80.0 Platelets (Bld) [#/Vol] 272 10*3/uL 150 - 450 [facility] [address] Work Phone: [phone] RBC (Bld) [#/Vol] 3.79 {x10E12/L} below low threshold See Below [facility] [place] Work Phone: [phone] Comment on above: Reference Range: 4.0 0 - 5.20 WBC (Bld) [#/Vol] 11.3 10*3/uL 4.4 - 11.3 [facility] [address] [place] Work Phone: [phone] Complete Blood Count + Differential 0.00 {x10E9/L} See Below [facility] [place] Work Phone: [phone] Comment on above: Reference Range: 0.0 0 - 0.10 Complete Blood Count + Differential 0.20 {x10E9/L} See Below [facility] [address] Work Phone: [phone] Comment on above: Reference Range: 0.0 0 - 0.70 Complete Blood Count + Differential 0.60 {x10E9/L} See Below [facility] [address] Work Phone: [phone] Comment on above: Reference Range: 0.1 0 - 1.00 Complete Blood Count + Differential 1.70 {x10E9/L} See Below [facility] [address] Work Phone: [phone] Comment on above: Reference Range: 1.2 0 - 4.80 Complete Blood Count + Differential 8.80 {x10E9/L} above high threshold See Below [facility] [address] Work Phone: [phone] Comment on above: Reference Range: 1.2 0 - 7.70 Percent differential counts (%) should be interpreted in the context of the absolute cell counts (cells/L). Complete Blood Count + Differential 1.5 % 0.0 - 6.0 [facility] [address] Work Phone: Glucose, 1 Hour Screen, Preg nancyon 12-01-2021 Glucose 1 Hr post 50 g glucose PO [Mass/Vol] 97 mg/dL <135 [facility] [address] Work Phone: Comment on above: Diagnostic value wit h glucose loading dose of 50 g. Reference values from [place] [employer]. Diabetes Care 2015;38(Suppl.1):S8-S16 No Panel Informationon 11-22 Normal [facility] [address] Work Phone: US AGE FOL-UP PER FETU Son 11-22-2021 US AGE FOL-UP PER FETUS Patient Name: LINETTE HUI STUDY: US AGE FOL-UP PER FETUS 11/22/2021 2:27 pm INDICATION: anatomy scan Z3A.17: 17 weeks gestation of . COMPARISON: Ultrasound dated 10/13/2021 ACCESSION NUMBER(S): [id number] ORDERING CLINICIAN: ZAYDA MARSH TECHNIQUE: Routine ultrasound [...] evaluation. Electronically signed by: OFELIA OLVERA MD [facility] INFLUENZA A/B, COVID 2019 PC R,SYMPTOMATICon 10-15-2021 Date and time of symptom onset [id number] 1 [facility] [address] Work Phone: INFLUENZA A/B, COVID 2018 PCR,SYMPTOMATIC Not detected See Below [facility] [address] [place] Work Phone: Comment on above: Reference Range: [...] make patient management decisions.Fact sheet for providers: https://www.fda.gov/media/170029/downloadFact sheet for patients: https://www.fda.gov/media/673118/downloadThis test has received FDA Emergency Use Authorization (EUA) and has been verified by [facility] ([facility]). This test is only authorized for the duration of time that circumstances exist to justify the authorization of the emergency use of in vitro diagnostic tests for the detection of SARS-CoV-2 virus and/or diagnosis of COVID-19 infection under section 564(b)(1) of the Act, 21 U.S.C. 360bbb-3(b)(1), unless the authorization is terminated or revoked sooner. [facility] is certified under CLIA-88 as qualified to perform high complexity testing. Testing is performed in the [facility] laboratories located at [address] [place] [address]. Reference Range: Not Detected Respiratory virus testing is performed routinely by PCR for Influenza A/B and RSV. If Influenza and RSV PCR are negative, testing for parainfluenza 1,2,3 viruses and adenovirus is routinely performed for oncology inpatients and intensive care unit patients at [facility] and is available on request on other patients by calling Laboratory Client Services at [phone] Not Detected results do not preclude Influenza [...] by the Microbiology Laboratory, Department of Pathology, [facility], [place], [place]. It has not been cleared or [...] inpatients and intensive care unit patients at [facility] and is available on request on other patients by calling Laboratory Client Services at [phone]. Not Detected results do not preclude Influenza A/B or RSV infections since the adequacy of sample collection or low viral burden may impact the clinical sensitivity of this test method. Provider Note - ED v3on 12- Provider Note - ED v3 Provider Note: [...] Patient Currently Takes Medications Drug Name: 19 ([place]) oral tablet Instructions: 1 tab(s) orally once a day Drug Name: Vitamin C 100 mg oral tablet Instructions: 100 milligram(s) orally once a day Drug Name: Vitamin D3 Instructions: null SIGNIFICANT EVENTS: No documented data. 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 Is : no REVIEW [...] ill patient: no Electronic Signatures: Khang Herbert (MANGA ARTIST-MACHINE SETTER AUTOMATIC) (Signed 19-Oct-2021 21:06) Authored: ED Notes, HPI, PMH, ROS, PE, Results/Vital Signs, MDM/ED Course, Clinical Impression, Attestation, Chart Review, Scores Last Updated: 19-Oct-2021 21:06 by Khang Herbert (MANGA ARTIST-MACHINE SETTER AUTOMATIC) Normal [facility] Falls Risk Screeningon 10-13 Fall risk assessment a) No falls within the last year [facility] Work Phone: Tobacco use status [facility] b) No [facility] Work Phone: No Panel Informationon 10-13 Normal [facility] Work Phone: Laboratory - Chemistry and C hemistry - challengeon 09-22-2021 Second trimester quad maternal screen panel SEE BELOW [facility] [address] Work Phone: Comment on above: Genetics test res ults are available electronically in the [facility] under Diagnostic Testing-> Genetics.Results will be sent on a separate report. Complete Blood Count + Michaela rizo 08-17-2021 Basophils/100 WBC (Bld) 0.7 % 0.0 - 2.0 [facility] [address] Work Phone: [phone] Erythrocyte distribution width (RBC) [Ratio] 13.8 % See Below [facility] [address] Work Phone: [phone] Comment on above: Reference Range: 11. 5 - 14.5 Hematocrit (Bld) [Volume fraction] 38.9 % See Below [facility] [address] Work Phone: [phone] Comment on above: Reference Range: 36. 0 - 46.0 Hemoglobin (Bld) [Mass/Vol] 12.8 g/dL See Below [facility] [address] Work Phone: [phone] Comment on above: Reference Range: 12. 0 - 16.0 Lymphocytes/100 WBC (Bld) 20.9 % See Below [facility] [address] Work Phone: [phone] Comment on above: Reference Range: 13. 0 - 44.0 MCHC (RBC) [Mass/Vol] 32.9 g/dL See Below [facility] [address] Work Phone: [phone] Comment on above: Reference Range: 32. 0 - 36.0 MCV (RBC) [Entitic vol] 97 fL 80 - 100 [facility] [address] Work Phone: [phone] Monocytes/100 WBC (Bld) 6.0 % 2.0 - 10.0 [facility] [address] Work Phone: [phone] Neutrophils/100 WBC (Bld) 71.2 % See Below [facility] [address] Work Phone: [phone] Comment on above: Reference Range: 40. 0 - 80.0 Platelets (Bld) [#/Vol] 313 10*3/uL 150 - 450 [facility] [address] Work Phone: [phone] RBC (Bld) [#/Vol] 4.00 {x10E12/L} See Below [facility] [address] Work Phone: [phone] Comment on above: Reference Range: 4.0 0 - 5.20 WBC (Bld) [#/Vol] 8.1 10*3/uL 4.4 - 11.3 [facility] Work Phone: [phone] Complete Blood Count + Differential 0.10 {x10E9/L} See Below [facility] Work Phone: [phone] Comment on above: Reference Range: 0.0 0 - 0.10 Reference Range: 0.0 0 - 0.70 Complete Blood Count + Differential 0.50 {x10E9/L} See Below [facility] [place] Work Phone: [phone] Comment on above: Reference Range: 0.1 0 - 1.00 Complete Blood Count + Differential 1.70 {x10E9/L} See Below [facility] [place] Work Phone: [phone] Comment on above: Reference Range: 1.2 0 - 4.80 Complete Blood Count + Differential 5.70 {x10E9/L} See Below [facility] Work Phone: [phone] Comment on above: Reference Range: 1.2 0 - 7.70 Percent differential counts (%) should be interpreted in the context of the absolute cell counts (cells/L). Complete Blood Count + Differential 1.2 % 0.0 - 6.0 [facility] Work Phone: [phone] Complete Blood Count + Differential 0.1 {/100_WBC} [facility] [address] Work Phone: [phone] Cult, Urineon 08-17-2021 Bacteria identified Cx Nom (U) [facility] [address] Work Phone: [phone] GC + Chlamydia By Amplified Detectionon 08-17-2021 C. trachomatis rRNA RADHA+probe Ql (Unsp spec) Negative Negative [facility] Work Phone: Comment on above: The APTIMA Combo 2 a ssay is FDA-approved for Chlamydia trachomatis and Neisseria gonorrhoeae testing on female endocervical and vaginal swabs, ThinPrep liquid pap samples, male urine samples and urethral swabs. Performance characteristics for Chlamydia trachomatis and Neisseria gonorrhoeae testing on specific mxw-FEF-zbamzbft sample types (female urine samples) have been validated by [facility]. This laboratory is certified by CLIA to perform high complexity testing. Samples from all other sites are not validated for this method. N. gonorrhoeae rRNA RADHA+probe Ql (Unsp spec) Negative Negative [facility] [address] Work Phone: Comment on above: SOURCE: Urine The AP PERICO Combo 2 assay is FDA-approved for Chlamydia trachomatis and Neisseria gonorrhoeae testing on female endocervical and vaginal swabs, ThinPrep liquid pap samples, male urine samples and urethral swabs. Performance characteristics for Chlamydia trachomatis and Neisseria gonorrhoeae testing on specific yjc-JVX-spzxzgux sample types (female urine samples) have been validated by [facility]. This laboratory is certified by CLIA to perform high complexity testing. Samples from all other sites are not validated for this method. HIV 1/2 ANTIGEN/ANTIBODY SCR EEN WITH REFLEX TO CONFIRMATIONon 08-17-2021 HIV 1+2 Ab Qn (S) Non-Reactive See Below [facility] [address] Work Phone: Comment on above: SOURCE: Reference Ra nge: NONREACTIVE HIV Ag/Ab screen is performed using the [employer] HIV Ag/Ab Combo assay which detects the presence of HIV p24 antigen as well as antibodies to HIV-1 (Group M and O) and HIV-2..No laboratory evidence of HIV infection. If acute HIV infection is suspected, consider testing for HIV RNA by PCR (viral load). Hepatitis B Surface Antigeno n 08-17-2021 Hepatitis B Surface Antigen Non-Reactive See Below [facility] [address] Work Phone: Comment on above: SOURCE: Reference Ra nge: NONREACTIVE Biotin interference may cause falsely decreased results. Patients taking a Biotin dose of up to 5 mg/day should refrain from taking Biotin for 24 hours before sample collection. Providers may contact their local laboratory for further information. Laboratory - Blood bankon ABO group Nom (Bld) O [facility] [address] Work Phone: [phone] Blood group antibody screen Ql Negative [facility] [address] Work Phone: [phone] Rh immune globulin screen (Bld) [Interp] Positive [facility] [address] Work Phone: [phone] ABO group Nom (Bld) Canceled [facility] [address] Work Phone: [phone] Blood group antibody screen Ql Canceled [facility] [address] Work Phone: [phone] Rh immune globulin screen (Bld) [Interp] Canceled [facility] [address] Work Phone: Rubella IgG Antibodyon 08-17 Rubella virus IgG IA Ql Positive [facility] [address] Work Phone: [phone] Comment on above: SOURCE: INTERPRETATI VE COMMENT [...] IgG+IgM IA Ql (S) Non-Reactive See Below [facility] [address] Work Phone: Comment on above: SOURCE: Reference Ra nge: NONREACTIVENo significant level of Treponema pallidum antibody detected. Repeat testing in 2 to 4 weeks may be considered if early infection or incubating syphilis infection is suspected. TYPE + SCREENon 08-17-2021 ABO TYPE O [facility] Comment on above: Performed By: #### T +S #### [place] [address] RH TYPE Positive [facility] Comment on above: Performed By: #### T +S #### [place] [address] ABO TYPE Canceled [facility] Comment on above: Order Comment: TEST TYPE + SCREEN WAS CANCELLED, 08/17/2021 11:29 ERROR. Performed By: #### T +S #### [facility] [address] [place] [address] RH TYPE Canceled [facility] Comment on above: Order Comment: TEST TYPE + SCREEN WAS CANCELLED, 08/17/2021 11:29 ERROR. Performed By: #### T +S #### [facility] [address] [place] [id number] Cult, Genitalon 07-23-2021 Bacteria identified Aer cx Nom (Genital specimen) [facility] [address] Work Phone: GENITAL CULTURE, BACT.on GENITAL CULTURE, BACT. PATIENT: Samantha HUI LOCATION: [facility]#: [id number] : 89 AGE: SEX: F ORDERED BY: ZAYDA MARSH SOURCE: GENITAL COLLECTED: 07/23/21 16:09 ANTIBIOTICS AT [facility].: RECEIVED : 07/23/21 23:29 SITE: VAGINAL R E S U L T S GENITAL CULTURE, BACT. FINAL 07/27/21 12:05 Culture examined for Group A Streptococcus, Group B Streptococcus, Neisseria gonorrhoeae and Yeast ONLY. NO Neisseria gonorrhoeae ISOLATED. [facility] Comment on above: Performed By: #### G ENLO #### [facility] [address] [place] [id number] IO HCG, Urine Test on 07-23-2021 HCG ( test) Ql (U) Positive [facility] [address] Work Phone: LMPon 07-23-2021 Last menstrual period start date 29May2021 [facility] [address] Work Phone: CORONAVIRUS 2019 BY PCRon SARS-CoV-2 (COVID-19) RNA RADHA+probe Ql (Unsp spec) Not detected Normal Not Detected [facility] Comment on above: Result Comment: . This [...] patient management decisions. Fact sheet for providers: https://www.fda.gov/media/263551/download Fact sheet for patients: https://www.fda.gov/media/821199/download This test has received FDA Emergency Use Authorization (EUA) and has been verified by [facility] ([facility]). This test is only authorized for the duration of time that circumstances exist to justify the authorization of the emergency use of in vitro diagnostic tests for the detection of SARS-CoV-2 virus and/or diagnosis of COVID-19 infection under section 564(b)(1) of the Act, 21 U.S.C. 360bbb-3(b)(1), unless the authorization is terminated or revoked sooner. [facility] is certified under CLIA-88 as qualified to perform high complexity testing. Testing is performed in the [facility] laboratories located at [address] [place] [address]. Performed By: #### C OV19 #### [address] [place] [address] Covid 19 Resultson SARS-CoV-2 (COVID-19) RNA RADHA+probe Ql (Unsp spec) [...] You may also be contacted by the [facility] to see if any of your close [...] or Naproxen (Aleve) can also be used. Wnnm-vha-ukxcwtn cough and cold medicines can be used according to the instructions on the package. Some hxby-qup-qgtcmmz medicines also contain acetaminophen. Make sure you [...] water are not available, use alcohol-based hand sheet metal supervisor. Avoid touching your eyes, nose, and mouth [...] for 24 kaden (more content not included)... [facility] CORONAVIRUS 2019 BY PCRon DATE OF SYMPTOM ONSET [YYYYMMDD]? [id number] [facility] Comment on above: Performed By: #### C OV19 #### [facility] [address] [place] [address] Lab Specimen Source Nasal, Nasopharyngeal [facility] Comment on above: Performed By: #### C OV19 #### [facility] [address] [place] [address] Coronavirus 2019 RNA by PCR, Symptomaticon 07-12-2021 Date and time of symptom onset [id number] [address] [facility] Work Phone: Coronavirus 2019 RNA by PCR, Symptomatic Not detected Normal See Below [address] Work Phone: Comment on above: SOURCE: [...] make patient management decisions.Fact sheet for providers: https://www.fda.gov/media/492341/downloadFact sheet for patients: https://www.fda.gov/media/048256/downloadThis test has received FDA Emergency Use Authorization (EUA) and has been verified by [facility] ([facility]). This test is only authorized for the duration of time that circumstances exist to justify the authorization of the emergency use of in vitro diagnostic tests for the detection of SARS-CoV-2 virus and/or diagnosis of COVID-19 infection under section 564(b)(1) of the Act, 21 U.S.C. 360bbb-3(b)(1), unless the authorization is terminated or revoked sooner. [facility] is certified under CLIA-88 as qualified to perform high complexity testing. Testing is performed in the [facility] laboratories located at [address] [place] [address]. Provider Note - ED v3on 06-30 Provider [...] Status: Incomplete Medication History Drug Name: 19 ([place]) oral tablet Instructions: 1 tab(s) orally once a day Drug Name: Vitamin C 100 mg oral tablet Instructions: 100 milligram(s) orally once a day Drug Name: Vitamin D3 Instructions: null SIGNIFICANT EVENTS: No documented data. 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 Is : yes REVIEW [...] SIGNS: T PRBP SpO2O2(LPM) %FiO2 Method 12-Jul-2021 13:53:[id number] 97 MDM MDM/ED COURSE: Discussed supportive measures, [...] Signatures for Addendum Section: Ish Harvey (NATALEE CHRIS) (Signed Addendum 13-Jul-2021 09:22) PATIENT NOTIFIED OF NEGATIVE COVID RESULTS Electronic Signatures: Khang Herbert (MANGA ARTIST-MACHINE SETTER AUTOMATIC) (Signed 12-Jul-2021 14:23) Authored: ED Notes, HPI, PMH, ROS, PE, Results/Vital Signs, MDM/ED Course, Clinical Impression, Attestation, Chart Review, Scores Ish Harvey (NATALEE CHRIS) (Signature Pending) Authored: PE Last Updated: 13-Jul-2021 09:22 by Ish Harvey (NATALEE CHRIS) Normal [facility] Glucose, 1 Hour Screen, Preg nancyon 03-16-2020 Glucose 1 Hr post 50 g glucose PO [Mass/Vol] 78 mg/dL <135 [facility] [address] Work Phone: Comment on above: Diagnostic value wit h glucose loading dose of 50 g. Reference values from [place]. Diabetes Care 2015;38(Suppl.1):S8-S16 Hematologyon 03-16-2020 Hematocrit (Bld) [Volume fraction] 35.9 % below low threshold See Below [facility] [address] Work Phone: [phone] Comment on above: Reference Range: 36. 0 - 46.0 Hemoglobin (Bld) [Mass/Vol] 12.1 g/dL See Below [facility] [address] Work Phone: [phone] Comment on above: Reference Range: 12. 0 - 16.0 MCV (RBC) [Entitic vol] 98 fL 80 - 100 [facility] [address] Work Phone: [phone] Platelets (Bld) [#/Vol] 271 {x10E9/L} 150 - 450 [facility] [address] Work Phone: [phone] RBC (Bld) [#/Vol] 3.66 {x10E12/L} below low threshold See Below [facility] [address] Work Phone: [phone] Comment on above: Reference Range: 4.0 0 - 5.20 WBC (Bld) [#/Vol] 12.3 {x10E9/L} above high threshold 4.4 - 11.3 [facility] [address] Work Phone: [phone] Metabolic Panelon 03-16-2020 Glucose [Mass/Vol] 72 mg/dL below low threshold 74 - 99 [facility] [address] Work Phone: [phone] Otheron 03-16-2020 Erythrocyte distribution width (RBC) [Ratio] 13.5 % See Below [facility] [address] Work Phone: [phone] Comment on above: Reference Range: 11. 5 - 14.5 MCHC (RBC) [Mass/Vol] 33.8 g/dL See Below [facility] [address] Work Phone: [phone] Comment on above: Reference Range: 32. 0 - 36.0 NONE [facility] [address] Work Phone: [phone] HCG, Urine Test on 11-04-2019 HCG ( test) Ql (U) Positive [facility] [address] Work Phone: [phone] Comment on above: FELICIA [id number] P: 02/26/2021 Vital Signs Date Time Vital Sign Value Performing Clinician Facility 08-11-2025 08:59-0400 Body height 171.45 cm JEANINE WOOD [employer] ATTENDANT[employer]C Work Phone: [facility] 08-11-2025 08:59-0400 Body mass index (BMI) [Ratio] 32.7 kg/m2 JEANINE WOOD [employer] ATTENDANT-C Work Phone: [facility] 08-11-2025 08:59-0400 Body weight 96.21 kg JEANINE WOOD A[employer]AR[employer] T[employer] ATTENDANT-C Work Phone: [facility] 08-11-2025 08:59-0400 Diastolic blood pressure 73 mm[Hg] JEANINE WOOD A[employer] T[employer] ATTENDANT-C Work Phone: [facility] 08-11-2025 08:59-0400 Systolic blood pressure 120 mm[Hg] JEANINE WOOD A[employer]AR[employer] T[employer] ATTENDANT-C Work Phone: [facility] 07-30-2025 08:47-0400 Body height 171.45 cm JEANINE WOOD A[employer]ARI[employer] TANK ATTENDANT-C Work Phone: [facility] 07-30-2025 08:47-0400 Body mass index (BMI) [Ratio] 16.7 kg/m2 JEANINE WOOD [employer] ATTENDANT-C Work Phone: [facility] 07-30-2025 08:47-0400 Body weight 49.07 kg JEANINE WOOD A[employer] T[employer] ATTENDANT-C Work Phone: [facility] 07-30-2025 08:47-0400 Diastolic blood pressure 74 mm[Hg] JEANINE WOOD A[employer] T[employer] ATTENDANT-C Work Phone: [facility] 07-30-2025 08:47-0400 Systolic blood pressure 116 mm[Hg] JEANINE WOOD A[employer] T[employer] ATTENDANT-C Work Phone: [facility] 07-14-2025 13:48-0400 Body weight 93.44 kg JEANINE WOOD A[employer]ARI[employer] T[employer] ATTENDANT-C Work Phone: [facility] 07-14-2025 13:27-0400 Body height 171.45 cm JEANINE WOOD A[employer] T[employer] ATTENDANT-C Work Phone: [facility] 07-14-2025 13:27-0400 Diastolic blood pressure 72 mm[Hg] JEANINE WOOD A[employer] ATTENDANT-C Work Phone: [facility] 07-14-2025 13:27-0400 Systolic blood pressure 113 mm[Hg] JEANINE WOOD A[employer]AR[employer] T[employer] ATTENDANT-C Work Phone: [facility] 06-19-2025 09:01-0400 Body height 171.45 cm JEANINE WOOD A[employer] ATTENDANT-C Work Phone: [phone] [place] [address] 06-19-2025 09:01-0400 Body mass index (BMI) [Ratio] 30.2 kg/m2 JEANINE WOOD [employer] ATTEND[employer]-C Work Phone: [phone] [place] [address] 06-19-2025 09:01-0400 Body weight 88.93 kg JEANINE WOOD [employer] ATTENDANT-C Work Phone: [phone] [place] [address] 06-19-2025 09:01-0400 Diastolic blood pressure 72 mm[Hg] JEANINE WOOD A[employer] ATTENDANT-C Work Phone: [facility] 06-19-2025 09:01-0400 Systolic blood pressure 112 mm[Hg] JEANINE WOOD A[employer]AR[employer] T[employer] ATTENDANT-C Work Phone: [facility] 06-03-2025 09:50-0400 Body height 171.45 cm JEANINE WOOD A[employer]AR[employer] T[employer] ATTENDANT-C Work Phone: [facility] 06-03-2025 09:45-0400 Body mass index (BMI) [Ratio] 30.1 kg/m2 JEANINE WOOD [employer] ATTENDANT-C Work Phone: [facility] 06-03-2025 09:45-0400 Body weight 88.53 kg JEANINE WOOD A[employer]ARI[employer] T[employer] ATTENDANT-C Work Phone: [facility] 06-03-2025 09:45-0400 Diastolic blood pressure 68 mm[Hg] JEANINE WOOD A[employer]ARI[employer] T[employer] ATTENDANT-C Work Phone: [facility] 06-03-2025 09:45-0400 Systolic blood pressure 119 mm[Hg] JEANINE WOOD A[employer]AR[employer] T[employer] ATTENDANT-C Work Phone: [facility] 05-22-2025 11:00-0400 Body height 171.45 cm JEANINE WOOD AQUARIUM TANK ATTENDANT-C Work Phone: [facility] 05-22-2025 11:00-0400 Body mass index (BMI) [Ratio] 29.5 kg/m2 JEANINE WOOD A[employer] T[employer] ATTENDANT-C Work Phone: [facility] 05-22-2025 11:00-0400 Body weight 86.74 kg JEANINE WOOD A[employer]ARI[employer] T[employer] ATTENDANT-C Work Phone: [facility] 05-22-2025 11:00-0400 Diastolic blood pressure 69 mm[Hg] JEANINE WOOD A[employer]AR[employer] T[employer] ATTENDANT-C Work Phone: [facility] 05-22-2025 11:00-0400 Systolic blood pressure 121 mm[Hg] JEANINE WOOD A[employer] T[employer] ATTENDANT-C Work Phone: [facility] 05-09-2025 14:07-0400 Body height 171.45 cm JEANINE WOOD A[employer]ARI[employer] TANK ATTENDANT-C Work Phone: [facility] 05-09-2025 14:07-0400 Body mass index (BMI) [Ratio] 29.5 kg/m2 JEANINE WOOD A[employer] ATTENDANT-C Work Phone: [facility] 05-09-2025 14:07-0400 Body weight 86.74 kg JEANINE WOOD A[employer]AR[employer] T[employer] ATTENDANT-C Work Phone: [facility] 05-09-2025 14:07-0400 Diastolic blood pressure 73 mm[Hg] JEANINE WOOD A[employer]AR[employer] T[employer] ATTENDANT-C Work Phone: [facility] 05-09-2025 14:07-0400 Systolic blood pressure 125 mm[Hg] JEANINE WOOD A[employer]ARI[employer] T[employer] ATTENDANT-C Work Phone: [facility] 04-24-2025 14:10-0400 Body height 171.45 cm JEANINE WOOD AQUARI[employer] T[employer] ATTENDANT-C Work Phone: [facility] 04-24-2025 14:10-0400 Body mass index (BMI) [Ratio] 29 kg/m2 JEANINE WOOD A[employer]ARI[employer] TANK ATTENDANT-C Work Phone: [facility] 04-24-2025 14:10-0400 Body weight 85.38 kg JEANINE WOOD AQUARI[employer] T[employer] ATTENDANT-C Work Phone: [facility] 04-24-2025 14:10-0400 Diastolic blood pressure 77 mm[Hg] JEANINE WOOD AQUARI[employer] T[employer] ATTENDANT-C Work Phone: [facility] 04-24-2025 14:10-0400 Systolic blood pressure 127 mm[Hg] JEANINE WOOD AQUARIUM TANK ATTENDANT-C Work Phone: [facility] 03-27-2025 08:56-0400 Body height 171.45 cm JEANINE WOOD A[employer]AR[employer] T[employer] ATTENDANT-C Work Phone: [facility] 03-27-2025 08:56-0400 Body mass index (BMI) [Ratio] 27.9 kg/m2 JEANINE WOOD A[employer] T[employer] ATTENDANT-C Work Phone: [facility] 03-27-2025 08:56-0400 Body weight 82.15 kg JEANINE WOOD A[employer]AR[employer] T[employer] ATTENDANT-C Work Phone: [facility] 03-27-2025 08:56-0400 Diastolic blood pressure 77 mm[Hg] JEANINE WOOD AQUARI[employer] T[employer] ATTENDANT-C Work Phone: [facility] 03-27-2025 08:56-0400 Systolic blood pressure 122 mm[Hg] JEANINE WOOD A[employer]ARI[employer] TANK ATTENDANT-C Work Phone: [facility] 02-27-2025 13:02-0400 Body mass index (BMI) [Ratio] 27.4 kg/m2 JEANINE WOOD A[employer] T[employer] ATTENDANT-C Work Phone: [facility] 02-27-2025 13:02-0400 Body weight 80.79 kg JEANINE WOOD A[employer]AR[employer] T[employer] ATTENDANT-C Work Phone: [facility] 02-27-2025 13:02-0400 Diastolic blood pressure 75 mm[Hg] JEANINE WOOD AQUARIUM TANK ATTENDANT-C Work Phone: [facility] 02-27-2025 13:02-0400 Systolic blood pressure 125 mm[Hg] JEANINE VU AQUARIUM TANK ATTENDANT-C Work Phone: [facility] 02-05-2025 10:26-0400 Body mass index (BMI) [Ratio] 26.7 kg/m2 JEANINE VU A[employer]ARI[employer] T[employer] ATTENDANT-C Work Phone: [facility] 02-05-2025 10:26-0400 Body weight 78.58 kg JEANINE VU AQUARIUM TANK ATTENDANT-C Work Phone: [facility] 01-08-2025 07:54-0400 Body height 170.2 cm Jeanine Vu MANGA ARTIST-MACHINE SETTER [employer]ATIC Work Phone: [facility] 01-08-2025 07:54-0400 Body mass index (BMI) [Ratio] 26.63 kg/m2 Jeanine Wood MANGA ARTIST-MACHINE SETTER AUTOMATIC Work Phone: [facility] 01-08-2025 07:54-0400 Body weight 77.11 kg Jeanine Wood MANGA ARTIST-MACHINE SETTER AUTOMATIC Work Phone: [facility] 01-08-2025 07:54-0400 Diastolic blood pressure 60 mm[Hg] Jeanine Wood MANGA ARTIST-MACHINE SETTER AUTOMATIC Work Phone: [facility] 01-08-2025 07:54-0400 Heart rate 70 /min Jeanine Wood MANGA ARTIST-MACHINE SETTER AUTOMATIC Work Phone: [facility] 01-08-2025 07:54-0400 SaO2% (BldA) [Mass fraction] 99 % Jeanine Wood MANGA ARTIST-MACHINE SETTER AUTOMATIC Work Phone: [facility] 01-08-2025 07:54-0400 Systolic blood pressure 98 mm[Hg] Jeanine Wood MANGA ARTIST-MACHINE SETTER AUTOMATIC Work Phone: [facility] 04-09-2024 09:04-0400 Body height 170.2 cm Benny Cooper MD Work Phone: [facility] 04-09-2024 09:04-0400 Body mass index (BMI) [Ratio] 25.81 kg/m2 Benny Cooper MD Work Phone: [facility] 04-09-2024 09:04-0400 Body weight 74.75 kg Benny Cooper MD Work Phone: [facility] 04-09-2024 09:04-0400 Diastolic blood pressure 68 mm[Hg] Benny Cooper MD Work Phone: [facility] 04-09-2024 09:04-0400 Systolic blood pressure 112 mm[Hg] Benny Cooper MD Work Phone: [facility] 08-07-2023 08:54-0400 Body height 170.2 cm Jeanine Wood MANGA ARTIST-MACHINE SETTER AUTOMATIC Work Phone: [facility] 08-07-2023 08:54-0400 Body mass index (BMI) [Ratio] 29.49 kg/m2 Jeanine Wood MANGA ARTIST-MACHINE SETTER AUTOMATIC Work Phone: [facility] 08-07-2023 08:54-0400 Body weight 85.41 kg Jeanine Wood MANGA ARTIST-MACHINE SETTER AUTOMATIC Work Phone: [facility] 08-07-2023 08:54-0400 Diastolic blood pressure 70 mm[Hg] Jeanine Wood MANGA ARTIST-MACHINE SETTER AUTOMATIC Work Phone: [facility] 08-07-2023 08:54-0400 Heart rate 77 /min Jeanine Wood MANGA ARTIST-MACHINE SETTER AUTOMATIC Work Phone: [facility] 08-07-2023 08:54-0400 SaO2% (BldA) [Mass fraction] 96 % Jeanine Wood MANGA ARTIST-MACHINE SETTER AUTOMATIC Work Phone: [facility] 08-07-2023 08:54-0400 Systolic blood pressure 118 mm[Hg] Jeanine Wood MANGA ARTIST-MACHINE SETTER AUTOMATIC Work Phone: [facility] 06-30-2023 15:00-0400 Diastolic blood pressure 60 mm[Hg] Jeanine Wood Other Phone: [facility] 06-30-2023 15:00-0400 Heart rate 96 /min Jeanine Vu Other Phone: [facility] 06-30-2023 15:00-0400 Respiratory rate 17 /min Jeanine Vu Other Phone: [facility] 06-30-2023 15:00-0400 SaO2% (BldA) [Mass fraction] 96 % Jeanine Vu Other Phone: [facility] 06-30-2023 15:00-0400 Systolic blood pressure 107 mm[Hg] Jeanine Wood Other Phone: [facility] 06-30-2023 12:12-0400 Body height 172.7 cm Jeanine [employer] Other Phone: [facility] 06-30-2023 12:12-0400 Body temperature 98.24 [degF] Jeanine Vu Other Phone: [facility] 06-30-2023 12:12-0400 Body weight 81.8 kg Jeanine [employer] Other Phone: [facility] 03-29-2023 09:09-0400 Body height 170.18 cm Jeanine Cuellar [employer] Work Phone: [facility] Work Phone: 03-29-2023 09:09-0400 Body mass index (BMI) [Ratio] 28.98 kg/m2 Jeanine Cuellar [employer] Work Phone: [facility] Work Phone: 03-29-2023 09:09-0400 Body surface area Derived from formula 1.96 m2 Jeanine [employer] Work Phone: [facility] Work Phone: 03-29-2023 09:09-0400 Body weight 83.92 kg Jeanine [employer] Work Phone: [facility] Work Phone: 03-29-2023 09:09-0400 Diastolic blood pressure 72 mm[Hg] Jeanine Cuellar [employer] Work Phone: [facility] Work Phone: 03-29-2023 09:09-0400 Systolic blood pressure 118 mm[Hg] Jeanine Cuellar Wood Work Phone: [facility] [address] Work Phone: 02-28-2023 09:06-0400 Body height 170.18 cm Jeanine Cuellar Wood Work Phone: [facility] [address] [address] Work Phone: 02-28-2023 09:06-0400 Body mass index (BMI) [Ratio] 28.84 kg/m2 Jeanine L Wood Work Phone: [facility] [address] [address] Work Phone: 02-28-2023 09:06-0400 Body surface area Derived from formula 1.95 m2 Jeanine Cuellar [employer] Work Phone: [facility] [address] [address] Work Phone: 02-28-2023 09:06-0400 Body weight 83.52 kg Jeanine Cuellar Wood Work Phone: [facility] [address] [address] Work Phone: 02-28-2023 09:06-0400 Diastolic blood pressure 78 mm[Hg] Jeanine Cuellar Wood Work Phone: [facility] [place] [address] [address] Work Phone: 02-28-2023 09:06-0400 Systolic blood pressure 118 mm[Hg] Jeanine Cuellar Wood Work Phone: [facility] [address] [address] Work Phone: 02-14-2023 14:27-0400 Body height 170.18 cm Jeanine Cuellar Wood Work Phone: [facility] [address] [address] Work Phone: 02-14-2023 14:27-0400 Body mass index (BMI) [Ratio] 28.88 kg/m2 Jeanine L Wood Work Phone: [facility] [address] [address] Work Phone: 02-14-2023 14:27-0400 Body surface area Derived from formula 1.95 m2 Jeanine L Wood Work Phone: [place] [address] [address] Work Phone: 02-14-2023 14:27-0400 Body weight 83.63 kg Jeanine L Wood Work Phone: [place] [address] [address] Work Phone: 02-14-2023 14:27-0400 Diastolic blood pressure 72 mm[Hg] Jeanine L Wood Work Phone: [facility] [address] [address] Work Phone: 02-14-2023 14:27-0400 Systolic blood pressure 118 mm[Hg] Jeanine L Wood Work Phone: [place] [address] [address] Work Phone: 01-31-2023 09:12-0400 Body height 170.18 cm Jeanine L Wood Work Phone: [place] [address] [address] Work Phone: 01-31-2023 09:12-0400 Body mass index (BMI) [Ratio] 28.74 kg/m2 Jeanine L Wood Work Phone: [place] [address] [address] Work Phone: 01-31-2023 09:12-0400 Body surface area Derived from formula 1.95 m2 Jeanine L Wood Work Phone: [place] [address] [address] Work Phone: 01-31-2023 09:12-0400 Body weight 83.24 kg Jeanine L Wood Work Phone: [place] [address] [address] Work Phone: 01-31-2023 09:12-0400 Diastolic blood pressure 78 mm[Hg] Jeanine L Wood Work Phone: [place] [address] [address] Work Phone: 01-31-2023 09:12-0400 Systolic blood pressure 118 mm[Hg] Jeanine L Wood Work Phone: [facility] [address] [address] Work Phone: 04-11-2022 13:30-0400 Body height 170.18 cm Jeanine Cuellar Wood Work Phone: [facility] [place] [address] [address] Work Phone: 04-11-2022 13:30-0400 Body mass index (BMI) [Ratio] 32.95 kg/m2 Jeanine Cuellar Wood Work Phone: [place] [address] [address] Work Phone: 04-11-2022 13:30-0400 Body surface area Derived from formula 2.07 m2 Jeanine Cuellar Wood Work Phone: [facility] [address] [address] Work Phone: 04-11-2022 13:30-0400 Body weight 95.43 kg Jeanine Cuellar Wood Work Phone: [place] [address] [address] Work Phone: 04-11-2022 13:30-0400 Diastolic blood pressure 82 mm[Hg] Jeanine Cuellar Wood Work Phone: [place] [address] [address] Work Phone: 04-11-2022 13:30-0400 Systolic blood pressure 118 mm[Hg] Jeanine Cuellar Wood Work Phone: [place] [address] [address] Work Phone: 03-01-2022 13:16-0400 Body temperature 98.24 [degF] Jeanine Wood Other Phone: [facility] 03-01-2022 13:16-0400 Diastolic blood pressure 76 mm[Hg] Jeanine Wood Other Phone: [facility] [facility]22 13:16-0400 Heart rate 90 /min Jeanine Wood Other Phone: [facility] 03-01-2022 13:16-0400 Respiratory rate 16 /min Jeanine Wood Other Phone: [facility] 03-01-2022 13:16-0400 SaO2% (BldA) [Mass fraction] 100 % Jeanine Vu Other Phone: [facility] 03-01-2022 13:16-0400 Systolic blood pressure 130 mm[Hg] Jeanine Vu Other Phone: [facility] 02-23-2022 09:33-0400 Body height 170.18 cm Jeanine Cuellar [employer] Work Phone: [employer] Work Phone: 02-23-2022 09:33-0400 Body mass index (BMI) [Ratio] 35.42 kg/m2 Jeanine Cuellar [employer] Work Phone: [employer] Work Phone: 02-23-2022 09:33-0400 Body surface area Derived from formula 2.13 m2 Jeanine [employer] Work Phone: [employer] Work Phone: 02-23-2022 09:33-0400 Body weight 102.57 kg Jeanine Cuellar [employer] Work Phone: [employer] Work Phone: 02-23-2022 09:33-0400 Diastolic blood pressure 82 mm[Hg] Jeanine Cuellar [employer] Work Phone: [employer] Work Phone: 02-23-2022 09:33-0400 Systolic blood pressure 126 mm[Hg] Jeanine Cuellar [employer] Work Phone: [employer] [place] Work Phone: 02-16-2022 09:17-0400 Body height 170.18 cm Jeanine Cuellar [employer] Work Phone: [employer] [place] Work Phone: 02-16-2022 09:17-0400 Body mass index (BMI) [Ratio] 35.71 kg/m2 Jeanine Cuellar Wood Work Phone: [facility] [place] [address] [place] Work Phone: 02-16-2022 09:17-0400 Body surface area Derived from formula 2.14 m2 Jeanine Polo Wood Work Phone: [facility] [address] [place] Work Phone: 02-16-2022 09:17-0400 Body weight 103.42 kg Jeanine Cuellar Wood Work Phone: [place] [address] [place] Work Phone: 02-16-2022 09:17-0400 Diastolic blood pressure 82 mm[Hg] Jeanine Cuellar Wood Work Phone: [facility] [address] [place] Work Phone: 02-16-2022 09:17-0400 Systolic blood pressure 126 mm[Hg] Jeanine Cuellar Wood Work Phone: [place] [address] [place] Work Phone: 02-08-2022 14:41-0400 Body height 170.18 cm Jeanine Cuellar Wood Work Phone: [place] [address] [place] Work Phone: 02-08-2022 14:41-0400 Body mass index (BMI) [Ratio] 35.1 kg/m2 Jeanine Cuellar Wood Work Phone: [place] [address] [place] Work Phone: 02-08-2022 14:41-0400 Body surface area Derived from formula 2.12 m2 Jeanine Savision Wood Work Phone: [facility] [address] [place] Work Phone: 02-08-2022 14:41-0400 Body weight 101.67 kg Jeanine Polo Wood Work Phone: [facility] [address] [place] Work Phone: 02-08-2022 14:41-0400 Diastolic blood pressure 82 mm[Hg] Jeanine L Wood Work Phone: [place] [address] [place] Work Phone: 02-08-2022 14:41-0400 Systolic blood pressure 120 mm[Hg] Jeanine L Wood Work Phone: [place] [address] [place] Work Phone: 02-02-2022 09:08-0400 Body height 170.18 cm Jeanine Cuellar Wood Work Phone: [place] [address] [place] Work Phone: 02-02-2022 09:08-0400 Body mass index (BMI) [Ratio] 34.67 kg/m2 Jeanine Cuellar Wood Work Phone: [place] [address] [place] Work Phone: 02-02-2022 09:08-0400 Body surface area Derived from formula 2.11 m2 Jeanine Cuellar Wood Work Phone: [place] [address] [place] Work Phone: 02-02-2022 09:08-0400 Body weight 100.4 kg Jeanine Cuellar Wood Work Phone: [place] [address] [place] Work Phone: 02-02-2022 09:08-0400 Diastolic blood pressure 78 mm[Hg] Jeanine Cuellar Wood Work Phone: [place] [address] [place] Work Phone: 02-02-2022 09:08-0400 Systolic blood pressure 114 mm[Hg] Jeanine Cuellar Wood Work Phone: [place] [address] [place] Work Phone: 01-18-2022 08:55-0400 Body height 170.18 cm Jeanine Cuellar Wood Work Phone: [place] [address] [place] Work Phone: 01-18-2022 08:55-0400 Body mass index (BMI) [Ratio] 34.15 kg/m2 Jeanine L Wood Work Phone: [place] [address] [place] Work Phone: 01-18-2022 08:55-0400 Body surface area Derived from formula 2.1 m2 Jeanine Vu Work Phone: [place] [address] [place] Work Phone: 01-18-2022 08:55-0400 Body weight 98.9 kg Jeanine Vu Work Phone: [place] [address] [place] Work Phone: 01-18-2022 08:55-0400 Diastolic blood pressure 68 mm[Hg] Jeanine Vu Work Phone: [place] [address] [place] Work Phone: 01-18-2022 08:55-0400 Systolic blood pressure 108 mm[Hg] Jeanine Vu Work Phone: [place] [address] [place] Work Phone: 01-05-2022 08:34-0500 Body temperature 98.1 [degF] Jf Washington Jr. DPM Work Phone: [facility] 01-05-2022 08:34-0500 Diastolic blood pressure 71 mm[Hg] Jf Washington Jr., DPM Work Phone: [facility] 01-05-2022 08:34-0500 Heart rate 78 /min Jf Washnigton Jr., DPM Work Phone: [facility] 01-05-2022 08:34-0500 Systolic blood pressure 106 mm[Hg] Jf Washington Jr., DPM Work Phone: [facility] 01-04-2022 08:55-0500 Body height 170.18 cm Jeanine Vu Work Phone: [place] [address] [place] Work Phone: 01-04-2022 08:55-0500 Body mass index (BMI) [Ratio] 33.87 kg/m2 Jeanine Cuellar [employer] Work Phone: [place] [address] [place] Work Phone: 01-04-2022 08:55-0500 Body surface area Derived from formula 2.09 m2 Jeanine Vu Work Phone: [place] [address] [place] Work Phone: 01-04-2022 08:55-0500 Body weight 98.09 kg Jeanine Cuellar [employer] Work Phone: [place] [address] [place] Work Phone: 01-04-2022 08:55-0500 Diastolic blood pressure 78 mm[Hg] Jeanine Cuellar [employer] Work Phone: [place] [address] [employer] Work Phone: 01-04-2022 08:55-0500 Systolic blood pressure 118 mm[Hg] Jeanine Cuellar [employer] Work Phone: [place] [address] [employer] Work Phone: 12-24-2021 16:13-0500 Body temperature 98.1 [degF] Jf Washington Jr. DPM Work Phone: [facility] 12-24-2021 16:13-0500 Diastolic blood pressure 74 mm[Hg] Jf Washington Jr. DPM Work Phone: [facility] 12-24-2021 16:13-0500 Heart rate 73 /min Jf Washington Jr. DPM Work Phone: [facility] 12-24-2021 16:13-0500 Systolic blood pressure 129 mm[Hg] Jf Washington Jr. DPM Work Phone: [facility] 12-21-2021 08:43-0500 Body height 170.18 cm Jeanine Vu Work Phone: [place] [address] [place] Work Phone: 12-21-2021 08:43-0500 Body mass index (BMI) [Ratio] 33.54 kg/m2 Jeanine Cuellar [employer] Work Phone: [place] [address] [place] Work Phone: 12-21-2021 08:43-0500 Body surface area Derived from formula 2.08 m2 Jeanine Vu Work Phone: [address] Work Phone: 12-21-2021 08:43-0500 Body weight 97.13 kg Jeanine Vu Work Phone: [address] Work Phone: 12-21-2021 08:43-0500 Diastolic blood pressure 72 mm[Hg] Jeanine Cuellar [employer] Work Phone: [address] Work Phone: 12-21-2021 08:43-0500 Systolic blood pressure 118 mm[Hg] Jeanine Cuellar [employer] Work Phone: [address] Work Phone: 12-09-2021 09:42-0500 Body height 170.18 cm Jeanine Cuellar [employer] Work Phone: [facility] [address] Work Phone: 12-09-2021 09:42-0500 Body mass index (BMI) [Ratio] 33.09 kg/m2 Jeanine Cuellar [employer] Work Phone: [facility] [address] Work Phone: 12-09-2021 09:42-0500 Body surface area Derived from formula 2.07 m2 Jeanine Cuellar [employer] Work Phone: [facility] [address] Work Phone: 12-09-2021 09:42-0500 Body temperature 97.2 [degF] Jeanine Cuellar [employer] Work Phone: [facility] [address] Work Phone: 12-09-2021 09:42-0500 Body weight 95.82 kg Jeanine Vu Work Phone: [facility] [address] Work Phone: 12-06-2021 10:47-0500 Body height 171.45 cm Jeanine Vu Work Phone: [facility] [address] [place] Work Phone: 12-06-2021 10:47-0500 Body mass index (BMI) [Ratio] 32.58 kg/m2 Jeanine Cuellar [employer] Work Phone: [employer] [place] Work Phone: 12-06-2021 10:47-0500 Body surface area Derived from formula 2.08 m2 Jeanine Vu Work Phone: [employer] [facility] [place] Work Phone: 12-06-2021 10:47-0500 Body temperature 97.5 [degF] Jeanine Vu Work Phone: [employer] [facility] [place] Work Phone: 12-06-2021 10:47-0500 Body weight 95.77 kg Jeanine Vu Work Phone: [employer] [address] [place] Work Phone: 12-06-2021 10:47-0500 Diastolic blood pressure 82 mm[Hg] Jeanine Vu Work Phone: [employer] [facility] [place] Work Phone: 12-06-2021 10:47-0500 Systolic blood pressure 114 mm[Hg] Jeanine Vu Work Phone: [facility] [facility] [place] Work Phone: 10-18-2021 10:36-0500 Body height 171.45 cm Zayda Vossmona DO Work Phone: [facility] [place] [address] [place] Work Phone: 10-18-2021 10:36-0500 Body mass index (BMI) [Ratio] 30.15 kg/m2 Zayda Marsh DO Work Phone: [facility] [place] [address] [place] Work Phone: 10-18-2021 10:36-0500 Body surface area Derived from formula 2.01 m2 Zayda Marsh DO Work Phone: [facility] [place] [address] [place] Work Phone: 10-18-2021 10:36-0500 Body temperature 97.3 [degF] Zayda Marsh DO [facility] Phone: [facility] Work Phone: 10-18-2021 10:36-0500 Body weight 88.62 kg Zayda Marsh DO Work Phone: [address] [employer] Work Phone: 10-18-2021 10:36-0500 Diastolic blood pressure 78 mm[Hg] Zayda Marsh DO Work Phone: [facility] Work Phone: 10-18-2021 10:36-0500 Systolic blood pressure 112 mm[Hg] Zayda Marsh DO Work Phone: [place] [address] [place] Work Phone: 10-15-2021 19:11-0500 Body height 171 cm [facility] 10-15-2021 19:11-0500 Body temperature 97.7 [degF] Khang [facility] 10-15-2021 19:11-0500 Diastolic blood pressure 86 mm[Hg] [facility] 10-15-2021 19:11-0500 Heart rate 79 /min K[facility] 10-15-2021 19:11-0500 SaO2% (BldA) [Mass fraction] 98 % Khang [facility] 10-15-2021 19:11-0500 Systolic blood pressure 127 mm[Hg] Khang Herbert [facility] 10-13-2021 10:51-0500 Body height 171.45 cm Mary Alice Urrutia [facility] Work Phone: ZK-Vpvzhckz-Bqvjvk [address] Work Phone: 10-13-2021 10:51-0500 Body mass index (BMI) [Ratio] 30.55 kg/m2 Mary Alice Urrutia [facility] Work Phone: AN-Rrtsvfhw-Lif[facility]y [address] Work Phone: 10-13-2021 10:51-0500 Body surface area Derived from formula 2.02 m2 Mary Alice Urrutia [facility] Work Phone: AF-Edhudrzu-Tjgvmo [address] Work Phone: 10-13-2021 10:51-0500 Body weight 89.81 kg Mary Alice Urrutia [facility] Work Phone: BR-Mmfeoknd-Cyaqma [address] Work Phone: 10-13-2021 10:51-0500 Diastolic blood pressure 81 mm[Hg] Mary Alice Urrutia [facility] Work Phone: BN-Spaseqpd-Uljksy [address] Work Phone: 10-13-2021 10:51-0500 Systolic blood pressure 131 mm[Hg] Mary Alice Urrutia [facility] Work Phone: PZ-Kpsferxh-Dykdcc [address] Work Phone: 10-13-2021 10:51-0500 0 1 Mary Alice Urrutia [facility] Work Phone: BV-Fsccduuk-Zrqntq [address] Work Phone: Comment on above: [employer] 09-14-2021 09:34-0500 Body height 171.45 cm Zayda Marsh DO Work Phone: [address] Work Phone: 09-14-2021 09:34-0500 Body mass index (BMI) [Ratio] 28.7 kg/m2 Zayda Marsh DO Work Phone: [place] [address] [place] Work Phone: 09-14-2021 09:34-0500 Body surface area Derived from formula 1.97 m2 Zayda Marsh DO Work Phone: [place] [address] [place] Work Phone: 09-14-2021 09:34-0500 Body temperature 97.5 [degF] Zayda Marsh DO Work Phone: [place] [address] [place] Work Phone: 09-14-2021 09:34-0500 Body weight 84.37 kg Zayda Marsh DO Work Phone: [place] [address] [place] Work Phone: 09-14-2021 09:34-0500 Diastolic blood pressure 64 mm[Hg] Zayda Marsh DO Work Phone: [place] [address] [place] Work Phone: 09-14-2021 09:34-0500 Systolic blood pressure 102 mm[Hg] Zayda Marsh DO Work Phone: [place] [address] [place] Work Phone: 08-17-2021 10:04-0400 Body height 171.45 cm Zayda Marsh DO Work Phone: [place] [address] [place] Work Phone: 08-17-2021 10:04-0400 Body mass index (BMI) [Ratio] 27.62 kg/m2 Zayda Marsh DO Work Phone: [place] [address] [place] Work Phone: 08-17-2021 10:04-0400 Body surface area Derived from formula 1.94 m2 Zayda Marsh DO Work Phone: [place] [address] [place] Work Phone: 08-17-2021 10:04-0400 Body temperature 98 [degF] Zayda Marroquina DO Work Phone: [place] [address] [place] Work Phone: 08-17-2021 10:04-0400 Body weight 81.19 kg Zayda Marroquina DO Work Phone: [address] Work Phone: 08-17-2021 10:04-0400 Diastolic blood pressure 80 mm[Hg] Zayda Marroquina DO Work Phone: [address] Work Phone: 08-17-2021 10:04-0400 Systolic blood pressure 110 mm[Hg] Zayda Marroquina DO Work Phone: [address] Work Phone: 07-23-2021 15:42-0400 Body height 171.45 cm Zayda Marroquina DO Work Phone: UL-Jldyfrdlcc-[address] Work Phone: 07-23-2021 15:42-0400 Body mass index (BMI) [Ratio] 26.94 kg/m2 Zayda Marroquina DO Work Phone: HD-Jzmxdrshml-Mrqpk nd [address] Work Phone: 07-23-2021 15:42-0400 Body surface area Derived from formula 1.92 m2 Zayda Marroquina DO Work Phone: IX-Loladqtobn-Rfnji nd [address] Work Phone: 07-23-2021 15:42-0400 Body temperature 98.5 [degF] Zayda Vossmona DO Work Phone: BE-Bunoivhfly-Smsqy nd [address] Work Phone: 07-23-2021 15:42-0400 Body weight 79.2 kg Zayda Marroquina DO Work Phone: DE-Ukwtenwmom-X[address] Work Phone: 07-23-2021 15:42-0400 Diastolic blood pressure 68 mm[Hg] Zayda Marroquina DO Work Phone: AZ-Vwpoqvcfaw-Qultt nd [address] Work Phone: 07-23-2021 15:42-0400 Systolic blood pressure 122 mm[Hg] Zayda Marroquina DO Work Phone: CV-Ikjtsppqgn-Gfrdd vt [address] Work Phone: 03-16-2020 17:03-0400 BMI (Body Mass Index) 30.17 kg/m2 Benny [address] [place] Work Phone: 03-16-2020 17:03-0400 Body Temperature 97.9 [degF] Benny Wen [address] [place] Work Phone: Comment on above: Method: Oral 03-16-2020 17:03-0400 Body weight 90 kg Benny rubio [address] [place] Work Phone: 03-16-2020 17:03-0400 BP Diastolic 70 mm[Hg] Benny rubio [address] [place] Work Phone: Comment on above: Location: LUE; Position: Sitting 03-16-2020 17:03-0400 BP Systolic 116 mm[Hg] Benny rubio [address] [place] Work Phone: Comment on above: Location: LUE; Position: Sitting 03-16-2020 17:03-0400 BSA (Body Surface Area) 2.04 m2 Benny Leija-ySl [address] [place] Work Phone: 03-16-2020 17:03-0400 Height 172.72 cm Benny Dias d [address] [place] Work Phone: 11-04-2019 17:18-0500 BMI (Body Mass Index) 25.61 kg/m2 Angel Acevedo [facility] [address] [place] Work Phone: 11-04-2019 17:18-0500 Body weight 76.4 kg Angel [facility] [address] [place] Work Phone: 11-04-2019 17:18-0500 BP Diastolic 76 mm[Hg] Angel Aceved[facility] [address] [place] Work Phone: 11-04-2019 17:18-0500 BP Systolic 118 mm[Hg] Angel Acevedo [facility] [address] [place] Work Phone: 11-04-2019 17:18-0500 BSA (Body Surface Area) 1.9 m2 Angel [facility] [address] [place] Work Phone: 11-04-2019 17:18-0500 Height 172.72 cm Angel Acevedo [facility] [address] [place] Work Phone: Encounters Encounter Date Encounter Type Care Provider Facility Start: 09-11-2025 ambulatory Nadia J[facility] Start: 08-28-2025 End: 08-28-2025 ambulatory [facility] Facility:[facility] Start: 08-11-2025 End: 08-11-2025 ambulatory [facility] AQUARIUM TANK ATTENDANT-C Work Phone: -[facility] Start: 08-11-2025 End: 08-11-2025 Patient encounter procedure Ramone HERRING -[facility] Work Phone: Start: 07-30-2025 End: 07-30-[address] Nadia Callejas DO -[facility] Work Phone: Start: 07-30-2025 End: 07-30-2025 ambulatory [facility] AQUARIUM TANK ATTENDANT-C Work Phone: -[facility] Start: 07-21-2025 End: 07-21-2025 ambulatory [facility] AQUARIUM TANK ATTENDANT-C Work Phone: -[facility] Start: 07-21-2025 End: 07-21-2025 Patient encounter procedure Vernell Brown AQUARIUM TANK ATTENDANT-C -[facility] Work Phone: Start: 07-21-2025 End: 07-21-2025 ambulatory Vernellrajwinder Brown AQUARIUM TANK ATTENDANT Facility:[facility] Start: 07-14-2025 End: 07-14-2025 Patient encounter procedure Vernell Brown AQUARIUM TANK ATTENDANT-C -[facility] Work Phone: Start: 07-14-2025 End: 07-14-2025 ambulatory JEANINE VU A[employer]AR[employer] T[employer] ATTENDANT-C Work Phone: -[facility] Start: 07-14-2025 End: 07-14-2025 ambulatory [facility] Facility:[facility] Start: 06-19-2025 End: 06-19-[address] Miya Garza MD -[facility] Work Phone: Start: 06-19-2025 End: 06-19-2025 ambulatory JEANINE VU A[employer]AR[employer] T[employer] ATTENDANT-C Work Phone: -[facility] Start: 06-03-2025 End: 06-03-2025 ambulatory JEANINE VU [employer] ATTENDANT-C Work Phone: -[facility] Start: 06-03-2025 End: 06-03-2025 Patient encounter procedure Vernell Brown AQUARIUM TANK ATTENDANT-C -[facility] Work Phone: Start: 06-03-2025 End: 06-03-2025 Patient encounter procedure Vernell Brown AQUARIUM TANK ATTENDANT-C -[facility] Work Phone: Start: 06-03-2025 End: 06-03-2025 ambulatory JEANINE VU AQUARIUM TANK ATTENDANT-C Work Phone: -[facility] Start: 06-03-2025 End: 06-03-2025 ambulatory JEANINE FLEMING Facility:[facility] Start: 05-22-2025 End: 05-22-2025 Patient encounter procedure [facility] Work Phone: Start: 05-22-2025 End: 05-22-2025 ambulatory JEANINE WOOD A[employer]ARIUM TANK ATTENDANT-C Work Phone: -[facility] Start: 05-13-2025 End: 05-13-2025 ambulatory [facility] Start: 05-09-2025 End: 05-09-2025 ambulatory JEANINE WOOD AQUARIUM TANK ATTENDANT-C Work Phone: -[facility] Start: 05-09-2025 End: 05-09-[address] Miya Garza MD -[facility] Work Phone: Start: 04-24-2025 End: 04-24-[address] Miya Garza MD -[facility] Work Phone: Start: 04-24-2025 End: 04-24-2025 ambulatory JEANINE FLEMING AQUARIUM TANK ATTENDANT-C Work Phone: [facility] Work Phone: Start: 03-27-2025 End: 03-27-2025 Patient encounter procedure Ramone Bauer CNM -[facility] Work Phone: Start: 03-27-2025 End: 03-27-2025 ambulatory JEANINE VU A[employer]ARIUM TANK ATTENDANT-C Work Phone: [facility] Work Phone: Start: 03-27-2025 End: 03-27-2025 ambulatory [facility] Start: 02-27-2025 End: 02-27-2025 Patient encounter procedure Ramone Bauer CNM -[facility] Work Phone: Start: 02-27-2025 End: 02-27-2025 Patient encounter procedure Ramone Bauer CNM -[facility] Work Phone: Start: 02-27-2025 End: 02-27-2025 ambulatory [facility] Facility:[facility] Start: 02-27-2025 End: 02-27-2025 ambulatory [facility] Start: 02-05-2025 End: 02-05-2025 Patient encounter procedure Vernell Brown AQUARIUM TANK ATTENDANT-C -[facility] Work Phone: Start: 02-05-2025 End: 02-05-2025 ambulatory [facility] Start: 01-08-2025 End: 01-08-2025 Office outpatient visit 15 minutes Jeanine Cuellar 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[employer] Work Phone: [facility] Comment on above: Irritant contact donald matitis due to other chemical products (Primary Dx) Start: 01-08-2025 End: 01-08-2025 ambulatory [facility] Ambulatory Start: 04-09-2024 End: 04-09-2024 Patient encounter status Benny Cooper MD Work Phone: [facility] Start: 04-09-2024 End: 04-09-2024 Periodic preventive med est patient 18-39 yrs Benny Cooper MD Work Phone: [facility] Comment on above: Encounter for gyneco logical examination without abnormal finding; Encounter for screening for cervical cancer Start: 04-09-2024 End: 04-09-2024 ambulatory [facility] Ambulatory Start: 04-09-2024 End: 04-09-2024 Encounter for gynecological examination (general) (routine) without abnormal findings [facility] Ambulatory Start: 08-07-2023 End: 08-07-2023 Office outpatient visit 15 minutes 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 [employer] Work Phone: [facility] Comment on above: Anxiety with depress ion (Primary Dx) Start: 06-30-2023 End: 06-30-2023 Emergency department patient visit Sarbjit Villarreal [facility] Emergency 10 Start: 04-03-2023 Chart Update Jeanine rubio Work Phone: [facility] [employer] [place] Work Phone: Start: 03-31-2023 Chart Update Jeanine Pat d Work Phone: [facility] [employer] Work Phone: Start: 03-30-2023 AUDIT Jeanine rubio Work Phone: [facility] [employer] Work Phone: Start: 03-30-2023 Chart Update Jeanine Cuellar Pat d Work Phone: [facility] [address] [place] Work Phone: Start: 03-29-2023 Periodic preventive med est patient 18-39 yrs Jeanine Vu Work Phone: [facility] [address] [place] Work Phone: Start: 03-29-2023 ambulatory Ms. Jeanine Vu Facility:[facility] Start: 02-28-2023 Office outpatient vi sit 15 minutes Jeanine Vu Work Phone: [facility] [address] [place] Work Phone: Start: 02-28-2023 ambulatory ZAYDA MARSH M.D. Faci lity:[id number] Start: 02-17-2023 Chart Update Jeanine Cuellar Pat d Work Phone: [facility] [address] [place] Work Phone: Start: 02-16-2023 Chart Update Jeanine Cuellar Pat d Work Phone: [facility] [address] [place] Work Phone: Start: 02-15-2023 Chart Update Jeanine Polo Pat d Work Phone: [facility] [address] [place] Work Phone: Start: 02-14-2023 ambulatory ZAYDA MARSH M.D. Faci lity:[id number] Start: 02-02-2023 Chart Update Jeanine Cuellar Pat d Work Phone: [facility] [address] [place] Work Phone: Start: 02-01-2023 Chart Update Jeanine Polo Pat d Work Phone: [facility] [address] [place] Work Phone: Start: 01-31-2023 Office outpatient vi sit 15 minutes Jeanine Vu Work Phone: [facility] [address] [place] Work Phone: Start: 01-31-2023 ambulatory Ms. Jeanine Vu Facility:[id number] Start: 08-30-2022 AUDIT Jeanine Rojaso d Work Phone: [facility] [address] [place] Work Phone: Start: 04-15-2022 Chart Update Jeanine Cuellar Pat d Work Phone: [facility] [address] [place] Work Phone: Start: 04-13-2022 Chart Update Jeanine Cuellar Pat d Work Phone: [facility] [address] [place] Work Phone: Start: 04-12-2022 Chart Update Jeanine Rojaso d Work Phone: [facility] [address] [place] Work Phone: Start: 04-11-2022 Patient encounter procedure Jeanine Vu Work Phone: [facility] [address] [place] Work Phone: Start: 04-11-2022 ambulatory Ms. Jeanine Vu Facility:[id number] Start: 02-28-2022 End: 03-01-2022 Evaluation and management of inpatient Benny Cooper [facility] L&D 402 Start: 02-23-2022 Office outpatient vi sit 15 minutes Jeanine Vu Work Phone: [place] [address] [place] Work Phone: Start: 02-16-2022 Office outpatient vi sit 10 minutes Jeanine Vu Work Phone: [facility] [address] [place] Work Phone: Start: 02-10-2022 AUDIT Jeanine Rojaso d Work Phone: [facility] [address] [place] Work Phone: Start: 02-09-2022 Chart Update Jeanine Cuellar Pat d Work Phone: [facility] [address] [place] Work Phone: Start: 02-08-2022 Office outpatient vi sit 15 minutes Jeanine Cuellar [employer] Work Phone: [employer] Work Phone: Start: 02-04-2022 Chart Update Jeanine L Pat d Work Phone: [employer] Work Phone: Start: 02-02-2022 Office outpatient vi sit 15 minutes Jeanine L Wood Work Phone: [employer] Work Phone: Start: 01-18-2022 Office outpatient vi sit 15 minutes Jeanine L Wood Work Phone: [employer] Work Phone: Start: 01-05-2022 End: 01-05-2022 ambulatory JF WASHINGTON JR. [facility] Ambulatory Start: 01-05-2022 End: 01-05-2022 Postop follow up visit related to original px Jf Washington DPM Work Phone: [facility] Pod[facility]ry Comment on above: Cellulitis and absce ss of foot (Primary Dx) Start: 01-04-2022 Office outpatient vi sit 10 minutes Jeanine L Wood Work Phone: [employer] Work Phone: Start: 12-28-2021 Chart Update Jeanine L Pat d Work Phone: [employer] Work Phone: Start: 12-24-2021 End: 12-24-2021 ambulatory JF WASHINGTON JR. [facility] Amb[facility] Start: 12-24-2021 End: 12-24-2021 Office outpatient new 30 minutes Jf Washington DPM Work Phone: [facility] Comment on above: Cellulitis and absce ss of foot (Primary Dx); Ingrown nail of great toe of left foot Start: 12-21-2021 Office outpatient ne w 20 minutes Jeanine L Wood Work Phone: [employer] Work Phone: Start: 12-09-2021 Office outpatient vi sit 15 minutes Jeanine Vu Work Phone: [facility] 300 Work Phone: Start: 12-06-2021 Office outpatient vi sit 10 minutes Jeanine Vu Work Phone: [facility] [address] Work Phone: Start: 12-03-2021 Chart Update Jeanine Rojaso d Work Phone: [facility] [address] Work Phone: Start: 11-15-2021 Phys/qhp telephone evaluation 11-20 min Zayda Marsh DO Work Phone: [facility] [address] Work Phone: Start: 10-19-2021 Telephone encounter Mary Alice dawsonniltono LGC Work Phone: [facility] [address] Work Phone: Start: 10-18-2021 Office outpatient vi sit 10 minutes Zayda Marsh DO Work Phone: [facility] [address] Work Phone: Start: 10-15-2021 End: 10-15-2021 Emergency department patient visit [facility] Start: 09-28-2021 AUDIT Angel Acevedo DO Work Phone: [facility] [address] Work Phone: Start: 09-15-2021 Patient encounter procedure Coty Goodwin OTR/L Work Phone: [facility] Work Phone: Start: 09-15-2021 PTEVSHERICE, Provider : Brian Wyatt, Status: Pen, Time: 4:00 PM Zayda Marsh DO Work Phone: [facility] [address] Work Phone: Start: 09-14-2021 Office outpatient vi sit 10 minutes Zayda Marsh DO Work Phone: [facility] [address] Work Phone: Start: 08-31-2021 Other Zayda Marsh DO Work Phone: [facility] [address] Work Phone: Start: 08-20-2021 Chart Update Zayda Marsh DO Work Phone: [facility] [address] Work Phone: Start: 08-18-2021 Chart Update Zayda Marsh DO Work Phone: [facility] [address] Work Phone: Start: 08-17-2021 Chart Update Zayda Marsh DO Work Phone: [facility] [address] Work Phone: Start: 08-17-2021 Office outpatient ne w 20 minutes Zayda Marsh DO Work Phone: [facility] [address] Work Phone: Start: 07-23-2021 Office outpatient vi sit 10 minutes Zayda Marsh DO Work Phone: [address] Work Phone: Start: 01-11-2021 Patient encounter procedure Vinay Ramos [facility] 300 Work Phone: Start: 11-10-2020 Patient encounter procedure Vinay Ramos [facility] 300 Work Phone: Start: 10-12-2020 Patient encounter procedure Vinay Ramos [facility] 300 Work Phone: Start: 09-17-2020 Patient encounter procedure Vinay Ramos [facility] 300 Work Phone: Start: 08-18-2020 Patient encounter procedure Vinay Ramos [facility] 300 Work Phone: Start: 06-30-2020 Patient encounter procedure Vinay Ramos [facility] 300 Work Phone: Start: 06-01-2020 [facility] Work Phone: Start: 05-25-2020 [facility] Work Phone: Start: 05-18-2020 Patient encounter procedure Vinay Ramos [facility] 300 Work Phone: Start: 05-11-2020 Patient encounter procedure [facility] Ramos [facility] 300 Work Phone: Start: 04-28-2020 Patient encounter procedure [facility] 300 Work Phone: Start: 04-13-2020 Patient encounter procedure Vinay Ramos [facility] 300 Work Phone: Start: 03-31-2020 Patient encounter procedure Benny Leija[facility] [address] Work Phone: Start: 03-16-2020 Patient encounter procedure Benny [facility] [address] Work Phone: Start: 02-19-2020 Patient encounter procedure Benny [facility] [address] Work Phone: Start: 01-24-2020 Patient encounter procedure Benny [facility] [address] Work Phone: Start: 12-24-2019 Patient encounter procedure Benny [facility] [address] Work Phone: Start: 11-26-2019 Patient encounter procedure Benny [facility] [address] Work Phone: Start: 11-04-2019 Patient encounter procedure [facility] [address] Work Phone: Menarche Vinay Ramos [facility] 300 Work Phone: Comment on above: AGE 15; Procedures Date Procedure Procedure Detail Performing Clinician Start: 07-21-2025 Ultrasonography of abdomen JEANINE VU [employer] Work Phone: Start: 07-14-2025 Procedure JEANINE VU [employer] Work Phone: Comment on above: Test Ordered: [id number] Bile Acids, Fractio nated LCMSUrsodeoxycholic Acids <0.10 umol/L ES Reference Range: .Reference Range:All Ages: <1.9Cholic Acids 0.60 umol/L ES Reference Range: .Reference Range:All Ages: <2.2Chenodeoxycholic Acids 0.90 umol/L ES Reference Range: .Reference Range:All Ages: <5.8Deoxycholic Acids 1.7 umol/L ES Reference Range: .Reference Range:All Ages: <3.3Total Bile Acids 3.2 umol/L ES Reference Range: .This test was developed and its performance characteristicsdetermined by [employer]. It has not been cleared or approvedby the Food and Drug Administration.Reference Range:All Ages: <9.2Performed at: ES - [facility] [address] [id number] Director: Amos Youssef MD, Phone: [phone] at: [facility] [employer] [id number] Director: Magdy Collins PhD, Phone: [phone] Start: 07-14-2025 Serologic test for syphilis JEANINE Rubio [employer] ATT[employer]C Work Phone: Start: 06-03-2025 Gram stain microscopy JEANINE VU [employer]C Work Phone: Start: 06-03-2025 End: 06-03-2025 Source specific culture JEANINE VU [employer] -C Work Phone: Start: 03-27-2025 Hepatitis C antibody measurement CIARA VU [employer] ATT[employer]-C Work Phone: Comment on above: Reactive: Presumptive evidence of antibo dies to HCV. Follow CDC recommendations for supplemental testing.Non-Reactive: Antibodies to HCV were not detected; does not exclude the possibility of exposure to HCVReactive Results are presumptive evidence of antibodies to HCV. Follow CDC recommendations for supplemental testing.Order confirmation testing: HCV Quant by PCR testing - HCVPCR #[id number] Non Reactive: < 0.8 Equivocal: >/= 0.8 to < 1.0 Reactive: >/= 1.0The CDC requires that a reactive/equivocal HCV antibody result be sent out for confirmation. HCV Quant by PCR testing. Start: 03-27-2025 Procedure [facility] Work Phone: Start: 03-27-2025 Rubella IgG measurement [facility] Work Phone: Comment on above: Antibody Result: InterpretationNon-React robin: Non-ImmuneReactive: ImmuneThe following results were obtained with the [employer] Rubella IgG assay. Results from assays of other manufacturers cannot be used interchangeably. Start: 03-27-2025 Serologic test for syphilis JEANINE Rubio [facility] Work Phone: Start: 02-27-2025 Urine culture [facility] Work Phone: Start: 04-09-2024 Microscopic observation [Identifier] in Cervix by Cyto stain [facility] [employer] Work Phone: Start: 06-30-2023 End: 06-30-2023 EKG impression Sarbjit Villarreal Start: 03-29-2023 Microscopic observation [Identifier] in Cervix by Cyto stain [facility] [employer] Work Phone: Start: 02-28-2022 Antibody screen Comment on above: Performed By: #### T+S ####[address] [address] Start: 12-24-2021 SKIN PREP Jf Washington DPM Work Phone: Start: 10-13-2021 Medical genetics counseling each 30 minutes Mary Alice Urrutia [facility] Work Phone: Start: 08-17-2021 End: 08-17-2021 Antibody screen Comment on above: Performed By: #### T+S #### [address] [address] Order Comment: TEST TYPE + SCREEN WAS CANCELLED, 08/17/2021 11:29 ERROR. Performed By: #### T +S #### [facility] [address] [place] [address] Start: 02-19-2020 Complete Blood Count Anemia Panel with reflex Benny Cooper Start: 02-19-2020 Glucose post glucose dose Benny Cooper History of No history of surgery Angel Curtis No history of surgery Zayda Marsh DO Work Phone: Plan of Treatment Date Care Activity Detail Author Start: 2042 Zoster Vaccines (1 of 2) Zoste r Vaccines (1 of 2) [facility] Start: 12-29-2031 DTaP/Tdap/Td Vaccine s (2 - Td or Tdap) DTaP/Tdap/Td Vaccines (2 - Td or Tdap) [facility] Start: 12-29-2031 Tetanus vaccination Tetanus: E very 10yrs [facility] Start: 04-09-2027 Screening for malign ant neoplasm of cervix [facility] Start: 03-29-2026 Screening for malign ant neoplasm of cervix [facility] Start: 07-30-2025 End: 07-30-2025 Patient encounter procedure [facility] Work Phone: Start: 07-14-2025 Comprehensive metabo lic 2000 panel - Serum or Plasma [facility] Start: 07-14-2025 Procedure [facility] Start: 07-14-2025 CBC W Auto Different ial panel - Blood [facility] Start: 07-14-2025 Measurement of gluco se 2 hours after glucose challenge for glucose tolerance test [facility] Start: 07-14-2025 Serologic test for syphilis [facility] Start: 07-14-2025 [facility] Start: 06-19-2025 [facility] Start: 04-24-2025 [facility] Start: 04-15-2025 End: 04-15-2025 Patient encounter procedure 04/15/2025 8:45 AM EDT Office Visit [address] [id number] Benny Cooper MD [address] [facility] Medical Office, [address] [place] [address] [facility] OBGYN Start: 04-10-2025 Yearly Adult Physical Yearly A dult Physical [facility] Start: 03-27-2025 CBC W Auto Different ial panel - Blood [facility] Start: 03-27-2025 Hepatitis C antibody measurement [facility] Start: 03-27-2025 Procedure [facility] Start: 03-27-2025 Rubella IgG measurement [facility] Start: 03-27-2025 Serologic test for syphilis [facility] Start: 03-27-2025 [facility] Start: 06-30-2024 COVID-19 Vaccine ( season) COVID-19 Vaccine () [facility] Start: 06-30-2024 Influenza vaccination Influenz a Vaccine (#1) [facility] Start: 04-09-2024 End: 04-09-2025 Cytology Cervical or vaginal smear or scraping study [facility] Work Phone: Comment on above: Expected: 04/09/2024 (Approximate), Expires: 04/09/2025 Start: 04-02-2024 Patient encounter procedure [facility] Start: 04-02-2024 End: 04-02-2024 Patient encounter procedure 04/02/2024 8:30 AM EDT Office Visit [facility] Building [facility] [address] [place] [address] Zayda Marsh MD [address] [facility] Medical Office, [address] [place] [id number] [facility] Start: 06-30-2023 COVID-19 Vaccine ( season) COVID-19 Vaccine () [facility] Start: 06-30-2023 Influenza vaccination Influenz a Vaccine (#1) [facility] Start: 03-29-2023 Patient encounter procedure ANNUAL, Provider: Zayda Marsh, Status: Pen, Time: 9:00 AM [employer] Work Phone: Start: 02-28-2023 FUV, Provider: Zayda Marsh, Status: Sebastián, Time: 9:00 AM FUV, Provider: Zayda Marsh, Status: Pen, Time: 9:00 AM [employer] Work Phone: Start: 10-14-2022 Patient encounter procedure ANNUAL, Provider: Zayda Marsh, Status: Pen, Time: 11:15 AM [employer] Work Phone: Start: 02-28-2022 EPVOB, Provider: Zayda Marsh, Status: Sebastián, Time: 9:45 AM EPVOB, Provider: Zayda Marsh, Status: Sebastián, Time: 9:45 AM [employer] Work Phone: Start: 02-28-2022 End: 03-01-2023 [facility] Comment on above: Consult provider rebeka or [...] Start: 02-23-2022 EPVOB, Provider: Zayda Marsh, Status: Pen, Time: 9:15 AM EPVOB, Provider: Zayda Marsh, Status: Pen, Time: 9:15 AM 1-4 [employer] Work Phone: Start: 02-16-2022 EPVOB, Provider: Zayda Marsh, Status: Pen, Time: 9:00 AM EPVOB, Provider: Zayda Marsh, Status: Pen, Time: 9:00 AM 1-4 [employer] Work Phone: Start: 02-08-2022 EPVOB, Provider: Zayda Marsh, Status: Pen, Time: 2:45 PM EPVOB, Provider: Zayda Marsh, Status: Pen, Time: 2:45 PM 1-4 [employer] Work Phone: Start: 02-02-2022 EPVOB, Provider: Zayda Marsh, Status: Pen, Time: 8:45 AM EPVOB, Provider: Zayda Marsh, Status: Pen, Time: 8:45 AM 1-4 [employer] Work Phone: Start: 01-18-2022 EPVOB, Provider: Zayda Marsh, Status: Pen, Time: 8:45 AM EPVOB, Provider: Zayda Marsh, Status: Pen, Time: 8:45 AM 1-4 [employer] Work Phone: Start: 01-05-2022 End: 01-05-2022 Patient encounter procedure 01/05/2022 Office Visit Podiatry Jf Washington Jr., DPM [address] [place] [address] [facility] Start: 01-04-2022 EPVOB, Provider: Zayda Marsh, Status: Pen, Time: 8:45 AM EPVOB, Provider: Zayda Marsh, Status: Pen, Time: 8:45 AM [facility] Work Phone: Start: 12-21-2021 EPVOB, Provider: Zayda Marsh, Status: Pen, Time: 8:30 AM EPVOB, Provider: Zayda Marsh, Status: Pen, Time: 8:30 AM [facility] [address] Work Phone: Start: 12-09-2021 FUV, Provider: Vinay Ramos, Status: Pen, Time: 9:30 AM FUV, Provider: Vinay Ramos, Status: Pen, Time: 9:30 AM [facility] Work Phone: Start: 12-06-2021 EPVOB, Provider: Zayda Marsh, Status: Pen, Time: 10:30 AM EPVOB, Provider: Zayda Marsh, Status: Pen, Time: 10:[address] Work Phone: Start: 11-15-2021 EPVOB, Provider: Zadya Marsh, Status: Pen, Time: 10:00 AM EPVOB, Provider: Zayda Marsh, Status: Pen, Time: 10:[address] Work Phone: Start: 10-18-2021 EPVOB, Provider: Zayda Marsh, Status: Pen, Time: 9:00 AM EPVOB, Provider: Zayda Marsh, Status: Pen, Time: 9:00 AM [facility] Work Phone: Start: 10-18-2021 Patient encounter procedure [facility] Start: 10-12-2021 EPVOB, Provider: Zayda Marsh, Status: Pen, Time: 11:30 AM EPVOB, Provider: Zayda Marsh, Status: Pen, Time: 11:30 AM [facility] [address] Work Phone: Start: 09-20-2021 EPV, Provider: Jeanine Vu, Status: Pen, Time: 8:00 AM EPV, Provider: Jeanine Vu, Status: Pen, Time: 8:00 AM [facility] [address] Work Phone: Start: 09-15-2021 PTEVALADUL, Provider : Brian Wyatt, Status: Pen, Time: 4:00 PM PTEVALADUL, Provider: Brian Wyatt, Status: Pen, Time: 4:00 PM [place] [address] [address] Work Phone: Start: 09-14-2021 EPVOB, Provider: Zayda Marsh, Status: Pen, Time: 9:30 AM EPVOB, Provider: Zayda Marsh, Status: Pen, Time: 9:30 AM [facility] [place] [address] [address] Work Phone: Start: 08-17-2021 EPVOB, Provider: Zayda Marsh, Status: Pen, Time: 9:30 AM EPVOB, Provider: Zayda Marsh, Status: Pen, Time: 9:30 AM [facility] [address] Work Phone: Start: 07-28-2021 COVID-19 Vaccine (3 - Booster for Moderna series) COVID-19 Vaccine (3 - Booster for Moderna series) [facility] Start: 06-30-2021 Influenza vaccination Sequenti al Influenza Vaccine (#1) [facility] Start: 04-22-2021 COVID-19 Vaccine (3 - Moderna series) COVID-19 Vaccine (3 - Moderna series) [facility] Start: 2013 Screening for malign ant neoplasm of cervix HPV/Cotest [facility] Start: 2011 Hepatitis B Vaccines (1 of 3 - 19+ 3-dose series) Hepatitis B Vaccines (1 of 3 - 19+ 3-dose series) [facility] Start: 2010 Hepatitis C screening Hepatiti s C Screening [facility] Start: 2007 HIV screening HIV Screening [facility] Start: 2005 Varicella vaccination Varicell a Vaccines (1 of 2 - 13+ 2-dose series) [facility] Start: 2004 Depression screening using PHQ-9 (Patient Health Questionnaire 9) score Depression Screening (PHQ-2/9) [facility] Start: 1995 History and physical examination, annual for health maintenance Wellness Visit [facility] Start: 1993 MMR Vaccines (1 of 1 - Standard series) MMR Vaccines (1 of 1 - Standard series) [facility] Start: 1993 Varicella vaccination Varicell a Vaccines (1 of 2 - 2-dose childhood series) [facility] Start: 1992 Hepatitis B Vaccines (1 of 3 - 3-dose series) Hepatitis B Vaccines (1 of 3 - 3-dose series) [facility] Start: 1992 Lipid panel Lipid Panel [facility] Start: 1992 Screening for malign ant neoplasm of cervix Pap Smear [facility] Start: 1992 Tetanus vaccination Tetanus: E very 12yrs [facility] Start: 1992 Yearly Adult Physical Yearly A dult Physical [facility] Alanine aminotransfe rase [Enzymatic activity/volume] in Serum or Plasma [facility] Albumin [Mass/volume ] in Serum or Plasma [facility] Alkaline phosphatase [Enzymatic activity/volume] in Serum or Plasma [facility] Anion gap in Serum o r Plasma [facility] Bilirubin, total measurement [facility] BUN/Creatinine ratio [facility] Calcium [Mass/volume ] in Serum or Plasma [facility] Carbon dioxide, tota l [Moles/volume] in Central venous blood [facility] CBC W Auto Different ial panel - Blood [facility] Creatinine [Mass/vol ume] in Serum or Plasma [facility] Erythrocyte mean corpuscular volume determination [facility] Erythrocyte mean corpuscular volume determination [facility] Glucose [Mass/volume ] in Serum or Plasma [facility] Hematocrit [Volume Fraction] of Blood [facility] Hematocrit [Volume Fraction] of Blood [facility] Hemoglobin [Mass/vol ume] in Blood [facility] Hemoglobin [Mass/vol ume] in Blood [facility] Hepatitis B virus parr rface Ag [Presence] in Serum [facility] Leukocytes [#/volume ] in Blood [facility] Leukocytes [#/volume ] in Blood [facility] Mean corpuscular hemoglobin concentration determination [facility] Mean corpuscular hemoglobin concentration determination [facility] Mean corpuscular hemoglobin determination [facility] Mean corpuscular hemoglobin determination [facility] Measurement of gluco se 2 hours after glucose challenge for glucose tolerance test [facility] Measurement of renal function [facility] Neutrophil count [facility] Neutrophil count [facility] Neutrophil percent differential count [facility] Neutrophil percent differential count [facility] Platelets [#/volume] in Blood [facility] Platelets [#/volume] in Blood [facility] Potassium measurement [facility] Red blood cell count [facility] Red blood cell count [facility] Red cell distributio n width determination [facility] Red cell distributio n width determination [facility] Serologic test for syphilis [facility] Serum chloride measurement [facility] Sodium measurement [facility] Source specific culture [facility] Total protein measurement [facility] Urea nitrogen [Mass/volume] in Serum or Plasma [facility] US Gallbladder [facility] 300 Work Phone: [facility] NEGATED: Highlighted row has been ruled out! Planned Goals not documented [facility] 300 Work Phone: Immunizations Immunization Date Immunization Notes Care Provider Casandra agustin 12-28-2021 tetanus toxoid, redu venkata diphtheria toxoid, and acellular pertussis vaccine, adsorbed Jeanine L Wood Work Phone: [address] Work Phone: 02-25-2021 Moderna COVID-19 Vaccine 100 MCG/0.5ML Intramuscular Suspension Angel Curtis DO Work Phone: [address] Work Phone: 01-27-2021 Moderna COVID-19 Vaccine 100 MCG/0.5ML Intramuscular Suspension Angel [place] DO Work Phone: [address] Work Phone: 08-30-2020 influenza, seasonal, injectable Vinay Ramos [facility] 300 Work Phone: Comment on above: Series: 08-30-2020 influenza, seasonal, injectable Vinay Ramos [facility] 300 Work Phone: Payers Date Payer Category Payer Private Health Insurance [id number] 2025 Self-pay 2020 Managed Care (Private) [facility] [id number] 2020 Private Health Insurance [id number] 2020 Unknown 2020 Private Health Insurance [id number] 1992 Unknown [id number] 2.840.1.899572.3.579. 2.903 1992 Unknown [id number] 2.840.1.865638.3.579. 2.903 1992 Unknown [id number] 2.16840.1.844471.3.579. 2.356 1992 Unknown [id number] 2.16840.1.985915.3.579. 2.356 1992 Unknown [id number] 2.16840.1.415942.3.579. 2.356 1992 Unknown [id number] 2.16840.1.824976.3.579. 2.356 1992 Unknown [id number] 2.16840.1.877703.3.579. 2.356 1992 Unknown [id number] 2.16.840.1.070773.3.579. 2.356 1992 Unknown [id number] 2.16.840.1.427611.3.579. 2.1244 1992 Unknown [id number] 2.840.1.294335.3.579. 2.1244 1992 Unknown [id number] 2.16840.1.574961.3.579. 2.479 Unknown [id number] 2.840.1.831001.3.579. 2.462 Unknown [id number] 2.840.1.234585.3.579. 2.462 Unknown [id number] 2.840.1.975957.3.579. 2.462 Unknown [id number] 2.840.1.706122.3.579. 2.462 Unknown [id number] 2.840.1.941216.3.579. 2.462 Unknown [id number] 2.840.1.766647.3.579. 2.462 Unknown [id number] 2.840.1.789201.3.579. 2.462 Unknown [id number] 2.840.1.806781.3.579. 2.462 Unknown [id number] 2.840.1.163601.3.579. 2.462 Unknown [id number] 2.840.1.965299.3.579. 2.462 Unknown [id number] 2.840.1.926314.3.579. 2.462 Unknown [id number] 2.840.1.726737.3.579. 2.462 Unknown [id number] 2.840.1.309121.3.579. 2.462 Unknown [id number] 2.16.840.1.985219.3.579. 2.462 Unknown [id number] 2.16.840.1.955996.3.579. 2.462 Unknown [id number] 2.16.840.1.593288.3.579. 2.462 Unknown [id number] 2.16.840.1.797547.3.579. 2.462 Unknown [id number] 2.16.840.1.446238.3.579. 2.462 Social History Date Type Detail Facility Assertion Unknown if ever smoked Women [address] Work Phone: Start: 06-22-2023 End: 04-09-2024 Sexually active Sexually active [facility] [address] [place] [address] Work Phone: Tobacco smoking consumption unknown [facility] Start: 12-24-2021 End: 05-08-2025 Tobacco smoking status NHIS Never smoked tobacco [facility] Start: 12-24-2021 End: 06-22-2023 Tobacco use and exposure Smokeless tobacco non-user [facility] Start: 12-24-2021 End: 01-05-2022 Alcohol intake Ex-drinker (finding) [facility] Start: 1990 Sex Assigned At Not on file [facility] Start: 12-14-2021 End: 04-09-2024 Exposure to SARS-CoV-2 (event) Not sure [facility] Start: 08-07-2023 End: 01-08-2025 Alcohol intake Lifetime non-drinker (finding) [facility] Work Phone: Start: 06-22-2023 End: 04-09-2024 Tobacco use panel [facility] Work Phone: Within the last year , have you been afraid of your partner or ex-partner? No [facility] Work Phone: How often to you hav e a drink containing alcohol? Never [facility] Work Phone: How many standard drinks containing alcohol do you have on a typical day? Patient does not drink [facility] Work Phone: Do you feel stress - tense, restless, nervous, or anxious, or unable to sleep at night because your mind is troubled all the time - these days [OSQ] Not at all [facility] Work Phone: (I/We) worried wheth er (my/our) food would run out before (I/we) got money to buy more. Never true [facility] Work Phone: Start: 1990 Sex assigned at Female [facility] Start: 01-07-2025 Gender identity Identifies as female gender (finding) [facility] Work Phone: Start: 01-07-2025 Sexual orientation Heterosexual (finding) [facility] Work Phone: Functional Status Date Assessment Result Facility Functional observable [facility] NEGATED: Highlighted row Functional performance Functional status health issues are not documented Disease [facility] Alma Kleo Work Phone: Mental Status Date Assessment Result Facility 03-01-2022 Cognitive functi ons 27:40 [facility] NEGATED: Highlighted row Cognitive function [Interpretation] Cognitive status health issues are not documented Disease [place] [address] [employer] Work Phone: Clinical Notes 11-10-2020 to 08-11-2025 Note Date & Type Note Facility 08-11-2025 Progress note [facility] 07-30-2025 Progress note [facility] 07-21-2025 Radiology Diagnostic study note [facility] Imaging Services [address], [place] [address] Abdomen Limited MR#: [id number] Acct: [id number] Name: LINETTE HUI Rep #: [id number] : 1990 F 35 From: Reji Ferro MD PCP: JEANINE VU AQUARIUM TANK ATTENDANT-C Status: REG CL I Study:Abdomen Limited Date of Exam: 07/01 12/24 Exam# [id number] Ordering Dr: Vernell Brown NP PROCEDURE: ABDOMEN LIMITED 07/21/2025 REASON FOR EXAM: RUQ PAIN TECHNIQUE: Procedure Code: USABDL Modality: US Procedure: ABDOMEN LIMITED COMPARISON: None FINDINGS: Liver: Grossly normal size and echotexture. Gallbladder: No stones, sludge, wall thickening or tenderness. Common bile duct: Normal measuring 2.3 mm . Pancreas: Normal Other: Visualized portions of the right kidney are unremarkable. No right upperquadrant ascites. US/Abdomen Limited IMPRESSION: NORMAL RIGHT UPPER QUADRANT ULTRASOUND. Reading Location: [place] [address] CC: JUVENAL Brown; JUVENAL Prieto Consultant Dietitian: Signed [facility] 07-14-2025 Progress note [facility] 07-14-2025 Progress note Note Date/Time July 14, 2025 2:15pm [facility] [address], [address] [place] [address] OFFICE VISIT Date of Service: 07/14/25 MR#: [id number] Acct: [id number] Name: LINETTE HUI Rep #: [id number] : 1990 Provider: JUVENAL Brown Age/Sex: 35/F Location: [facility] Status: Signed Intake Vital Signs 05/22/25 11:00 06/19/25 09:01 07/14/25 13:27 07/14/25 13:48 Height 5 ft 7.5 in 5 ft 7.5 in 5 ft 7.5 in Weight: 206 lb BP 113/72 Intake Visit Reasons: 28wk ob/glucose Chief Complaint: 28 Week 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 Is patient in pain?: No Allergies Penicillins Allergy (Mild, Verified 07/14/25 13:25) Hives Sulfa (Sulfonamide Antibiotics) Allergy (Mild, Verified 07/14/25 13:25) Hives Medications ?Medication ?Instructions ?Recorded ?Confirmed ?Type cholecalciferol (vitamin D3) 50 50 mcg PO QDAY 5 07/14/25 History mcg (2,000 unit) capsule docosahexaenoic acid 200 mg mg PO 02/05/25 07/14/25 Hi story capsule ( DHA) omega-3 fatty acids 1,000 mg 1,000 mg PO QDAY 02/05/25 07/14/25 History capsule Last Menstrual Period: 12/31/24 Zika: Zika virus screening: Negative : Yes PFSH PFSH Medical History ADHD Family History Father GBM (glioblastoma multiforme) Hypertension Mother Hypertension Alopecia Grandmother Heart disease Hypertension Grandfather Heart disease Hypertension Macular degeneration Brother Leukemia as a child Grandmother Macular degeneration Hypertension Aneurysm Social History adopted: No household members: spouse and children number of children: 2 current occupational status: employed current occupation: [employer] current occupational exposures/hazards: Yes (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 in [...] and bicycling frequency: 5-6 times per week deon/mormonism: Zoroastrianism seatbelt use: always do you feel safe at home: Yes additional social history: - [facility] History 3 Elective abortions Hx Para 2 Spontaneous abortions Hx # Term Pregnancies Ectopic pregnancies Hx # Pregnancies Multiple births # of living children 2 Past Pregnancies Del. Date Name GA/Weeks Outcome Route Bth Weight Infant Gen Labor Lgth Anesthesia Del Locatn Provider FOB 06/02/20 Mari 39 live - full term 7.8 Female 7 hours n one Magdy 02/28/22 Miguel Ángel 39 live - full term Male 6 none HPI 28wk ob/glucose Details: LINETTE HUI is a 35 year old who presents for routine OB visit. OB Visit TAQUERIA Calculator Estimated Delivery Date Method Current WG Current Estimate 10/07/25 LMP (Certain) 27w 6d Other Estimates 10/05/25 Ultrasound #1 28w 1d Expected Delivery Route/Plan Labor Preferences- CB/BF classes: no labor support person: Magdy labor intervention preferences: [] pain management options preferred:limited cut cord/dad catch: cord : yes PP control planned: discussed discussed possible routes of delivery and associated risks: [] special requests: [] Specific Issue/Plans Covid status: [] Flu vaccine: [] Tdap vaccine: [] Rhogam: NA LARC form signed: yes Problem list reviewed and updated with the [...] oz (+3 lb 2 oz) 122/77 Negative -?-?-?-?-?-?-?-?-?-?-?--?- Negative 160 -?-?-?-?-?-?-?-?-?-?-?-?- kw- no vb/crampi ng. [...] 4 oz) 121/69 Negative -?-?-?-?-?-?-?-?-?-?-?-?- Negative 145 -?-?-?-?-?-?-?-?-?-?-?-?- KW- no vb/crampi ng. +FM. anatomy reviewed. 06/03/25 -?-?-?-?-?-?-?-?-?-?-?-?- 22w 0d 195 lb 3 oz (+17 lb 3 oz) 119/68 Negative -?-?-?-?-?-?-?-?-?-?-?-?- Negative 146 -?-?-?-?-?-?-?-?-?-?-?-?- -work in for i tching/discharge. No VB. Good FM. 06/19/25 -?-?-?-?-?-?-?-?-?-?-?-?- 24w 2d 196 lb 1 oz (+18 lb 1 oz) 112/72 -?-?-?-?-?-?-?-?-?-?-?-?- 140 24 -?-?-?-?-?-?-?-?-?-?-?-?- Sm- no bv lof go od fm n oreuglar ctx 07/14/25 -?-?-?-?-?-?-?-?-?-?-?-?- 27w 6d 206 lb (+28 lb) 113/72 Negative -?-?-?-?-?-?-?-?-?-?-?-?- Negative 138 27 -?-?-?-?-?-?-?-?-?-?-?-?- MH-No VB, LOF. G ood FM. RUQ abd pain, worse end of day. GB US and labs ordered. Larc, 28 wk labs. ACOG First Trimester First Trimester: Desire for , Alcohol, Tobacco Cessation, Illicit/Recreational Drug/Substance Use, Intimate Partner Violence, Barriers to care, Anticipated Course of Care, Use of Any medications, Sexual activity, Exercise, Dental Care, Sauna/Hot tub use, Seat Belt use, Childbirth classes/Hospital facilities, , Travel, Indications for Ultrasound and Screening for Aneuploidy; Discussed Unstable Housing, Discussed Communication Barriers, Discussed Environmental/Work Hazards and Discussed Toxoplasmosis Precations Second Trimester Second Trimester: Signs and Symptoms of Labor, Selecting a care provider, Reproductive Life Planning & Contreception, Care Planning, Depression/Anxiety and Intimate Partner Violence; Discussed Tobacco Cessation Third Trimester Third Trimester: Pain Management Plans, Labor support person(s), Immediate Larc, Circumcision preference Yes Yes, Signs and Symptoms of Preeclampsia, Feeding Yes , [place] Education and Family Medical Leave or Disability Forms ROS Const Reports system reviewed and no additional complaints, except as documented GI Denies abdominal pain, Denies nausea and Denies vomiting Exam Const General: cooperative Nutritional Appearance: well nourished GI Palpation: soft, nontender and other (gravid) Results POC Urinalysis 2 Dip (Clinic) Office Urine Glucose Negative Last Edit by Bessy Marshall on 07/14/25 13 :27 Office Urine Protein Negative Last Edit by Bessy Marshall on 07/14/25 13 :27 POC Urinalysis 2 Dip (Clinic) Office Urine Glucose Negative Last Edit by Bessy Marshall on 07/14/25 13 :41 Office Urine Protein Negative Last Edit by Bessy Marshall on 07/14/25 13 :41 Coding Level of Care Code OB Routine Diagnoses Supervision of high risk in first trimester O09.91 H/O rapid labor Z87.59 RUQ abdominal pain R10.11 24 weeks gestation of Z3A.24 Weeks of gestation: 24 weeks Attention deficit hyperactivity disorder (ADHD), unspecified ADHD type F90.9 Attention deficit-hyperactivity disorder type: unspecified Occupational risk affecting in third trimester O09.893 Trimester: third trimester Assessment and Plan Assessment and Plan (1) Supervision of high risk in first trimester: Status: Acute Comment: PRR, surprise PC Miguel Ángel Guerra, TAQUERIA 10/07/25 Magdy (2) H/O rapid labor: Status: Acute Comment: last baby went 2-10cm and delivered (3) RUQ abdominal pain: Status: Acute Comment: Labs, US (4) : Status: Acute Qualifiers: Weeks of gestation: 24 weeks Qualified Code(s): Z3A.24 - 24 weeks gestation of Comment: NIPT low risk, declines gender & carrier, nl anatomy (5) ADHD: Status: Acute Qualifiers: Attention deficit-hyperactivity disorder type: unspecified Qualified Code(s): F90.9 - Attention-deficit hyperactivity disorder, unspecified type Comment: Zaybecky-stopped taking medication once she found out she was (6) Occupational risk complicating : Status: Acute Qualifiers: Trimester: third trimester Qualified Code(s): O09.893 - Supervision of other high risk pregnancies, third trimester 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 Today R10.11 - Right upper quadrant pain Plan problem list reviewed and updated for most current plan of care and appropriate orders placed. Relevant counseling for the gestational age appropriate provided and ACOG education checklist updated. Continue routine care and follow up. 07/14/25 1415 <Electronically signed by Vernell bolden AQUARIUM TANK ATTENDANT AQUARIUM TANK ATTENDANT-C> Date _ Verenll Brown AQUARIUM TANK ATTENDANT AQUARIUM TANK ATTENDANT-C Cosigner Signature: Date (if applicable) CC: ~ [facility] Work Phone: 1(511) 430-329908-21-2025 Progress [facility] [address] [place] [address], [address] [place] [address] OFFICE VISIT Date of Service: 06/19/25 MR#: [id number] Acct: [id number] Name: LINETTE HUI Rep #: [id number] : 1990 Provider: Dr. 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 Is patient in pain?: No Feel stressed/tense/nervous/anxious/difficulty sleeping: not at all Allergies Penicillins Allergy (Mild, Verified 06/19/25 09:04) Hives Sulfa (Sulfonamide Antibiotics) Allergy (Mild, Verified 06/19/25 09:04) Hives Medications ?Medication ?Instructions ?Recorded ?Confirmed ?Type cholecalciferol (vitamin D3) 50 50 mcg PO QDAY 5 06/19/25 History mcg (2,000 unit) capsule docosahexaenoic acid 200 mg mg PO 02/05/25 06/19/25 Hi story capsule ( DHA) omega-3 fatty acids 1,000 mg 1,000 mg PO QDAY 02/05/25 06/19/25 History capsule Last Menstrual Period: 12/31/24 Zika: [...] 2 current occupational status: employed current occupation: [employer] current occupational exposures/hazards: Yes (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 in [...] and bicycling frequency: 5-6 times per week deon/mormonism: Zoroastrianism seatbelt use: always do you feel safe at home: Yes additional social history: - [facility] History 3 Elective abortions Hx Para 2 Spontaneous abortions Hx # Term Pregnancies Ectopic pregnancies Hx # Pregnancies Multiple births # of living children 2 Past Pregnancies Del. Date Name GA/Weeks Outcome Route Bth Weight Gen Labor Lgth Anesthesia Del [facility] Provider FOB 06/02/20 Mari 39 live - full term 7.8 Female 7 hours n one Magdy 02/28/22 Miguel Ángel 39 live - full term Male 6 none HPI 24wk ob Details: LINETTE HUI is a 35 year old who presents for routine OB visit. OB Visit TAQUERIA Calculator Estimated Delivery Date Method Current WG Current Estimate 10/07/25 LMP (Certain) 24w 2d Other Estimates 10/05/25 Ultrasound #1 24w 4d Expected Delivery Route/Plan Labor Preferences- CB/BF [...] oz (+3 lb 2 oz) 122/77 Negative -?-?-?-?-?-?-?--?-?-?-?-?- Negative 160 -?-?-?-?-?-?-?-?-?-?-?-?- kw- no vb/crampi ng. [...] 4 oz) 121/69 Negative -?-?-?-?-?-?-?-?-?-?-?-?- Negative 145 -?-?-?-?-?-?-?-?-?-?-?-?- KW- no vb/crampi ng. +FM. anatomy reviewed. 06/03/25 -?-?-?-?-?-?-?-?-?-?-?-?- 22w 0d 195 lb 3 oz (+17 lb 3 oz) 119/68 Negative -?-?-?-?-?-?-?-?-?-?-?-?- Negative 146 -?-?-?-?-?-?-?-?-?-?-?-?- -work in for i tching/discharge. No VB. Good FM. 06/19/25 -?-?-?-?-?-?-?-?-?-?-?-?- 24w 2d 196 lb 1 oz (+18 lb 1 oz) 112/72 -?-?-?-?-?-?-?-?-?-?-?-?- 140 24 -?-?-?-?-?-?-?-?-?-?-?-?- Sm- no bv lof go od fm n oreuglar ctx ACOG First Trimester First Trimester: Desire for [...] Symptoms of Preeclampsia, Infant Feeding No , [place] Education and Family Medical Leave or Disability Forms Coding Level of Care Code OB Routine Diagnoses Acute vaginitis N76.0 Chronicity: acute Occupational risk complicating O09.899 ADHD F90.9 24 weeks gestation of Z3A.24 Weeks of gestation: 24 weeks Supervision of high risk in first trimester O09.91 Assessment and Plan Assessment and Plan (1) Vaginitis: Status: Acute Qualifiers: Chronicity: acute Qualified Code(s): N76.0 - Acute vaginitis (2) Occupational risk complicating : 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[place], 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 (3) ADHD: Status: Acute Comment: Linda-stopped taking medication once she found out she was (4) : Status: Acute Qualifiers: Weeks of gestation: 24 weeks Qualified Code(s): Z3A.24 - 24 weeks gestation of Comment: NIPT low risk, declines gender & carrier, nl anatomy (5) Supervision of high risk in first trimester: Status: Acute Comment: PRR, PC Miguel Ángel Guerra, TAQUERIA 10/07/25 Magdy Orders: Orders POC Urinalysis 2 Dip (Clinic) Today O09.91 - Supervision of high risk , unspecified, firsttrimester CBC W/Diff, Automated Today - Supervision of high risk , unspecified, first trimester Glucose Challenge Gest 1H 50g Today - Supervision of high risk , unspecified, firsttrimester, Z13.1 - Encounter for screening for diabetes mellitus HIV Today - Supervision of high risk , unspecified, first trimester Syphilis Antibodies Today O - Supervision of high risk , unspecified, first trimester 06/19/25 0931 dasha TIPTON> Date _ Miya Garza MD [facility] Signature: Date (if applicable) CC: ~ [facility]07-24-2025 [facility] [address] [place] [address], [address] [place] [address] OFFICE VISIT Date of Service: 05/22/25 MR#: [id number] Acct: [id number] Name: LINETTE HUI Rep #: [id number] : 1990 Provider: DMITRIY Bauer Age/Sex: 35/F Location: [facility] Status: Signed Intake Vital Signs 03/27/25 08:56 05/09/25 14:07 05/22/25 11:00 Height 5 ft 7.5 in 5 ft 7.5 in 5 ft 7.5 in Weight: 191 lb 4 oz BMI 29.5 BP 121/69 H Intake Visit Reasons: 20wk ob Chief Complaint: 20wk OB 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 GA appropriate handout given. 05/22/25 1125 s DMITRIY> Date _ Ramone Bauer CNM Cosigner Signature: Date (if applicable) CC: ~ [facility]07-11-2025 Evaluation note* Diagnosis Onset Date Resolution Status Admit Date ADHD acute May 09 2:01pm Occupational risk complicating acute April 2:01pm acute May 09 2:01pm Supervision of high risk in first trimester acute Apr 2:01pm ADHD acute May 22 10:57am Occupational risk complicating acute April 10:57am acute May 22 10:57am Supervision of high risk in first trimester acute Apr 10:57am acute June 03 9:36am Supervision of high risk in first trimester acute May 9:36am Vaginitis resolved June 03 9:36am ADHD acute June 19, 025 8:53am Occupational risk complicating acute June 192024 8:53am acute June 19 8:53am Supervision of high risk in first trimester acute May us2024 8:53am Vaginitis resolved June 19 8:53am ADHD acute June 1:22pm H/O rapid labor acute July 14, 2025 1:22pm Occupational risk complicating acute July 14, 2025 1:22pm acute June 1:22pm RUQ abdominal pain acute Sept2024 1:22pm Supervision of high risk in first trimester acute Sep tem2024 1:22pm ADHD acute July 30 8:44am H/O rapid labor acute July 302024 8:44am History of precipitous delivery acute July 30 8:44am Occupational risk complicating acute July 302024 8:44am acute July 30 8:44am RUQ abdominal pain acute 2024 8:44am Supervision of high risk in first trimester acute Jul jagruti2024 8:44am Elevated liver enzymes resolved Oc 2024 8:44am ADHD acute August 11, 2025 8:57am H/O rapid labor acute July 302024 8:57am History of precipitous delivery acute August 11 8:57am Occupational risk complicating acute July 302024 8:57am acute August 11, 2025 8:57am RUQ abdominal pain acute Octobe r 2024 8:57am Supervision of high risk in first trimester acute Jul jagruti 2024 8:57am [facility] Work Phone: 1(102) 490-119107-11-2025 [facility] [address] [place] [address], [address] [place] [address] OFFICE VISIT Date of Service: 05/09/25 MR#: [id number] Acct: [id number] Name: LINETTE HUI Rep #: [id number] : 1990 Provider: Dr. 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 Is patient in pain?: No [...] 2 current occupational status: employed current occupation: [employer] current occupational exposures/hazards: Yes (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 in [...] and bicycling frequency: 5-6 times per week deon/mormonism: Zoroastrianism seatbelt use: always do you feel safe at home: Yes additional social history: - [facility] History 3 Elective abortions Hx [...] risk complicating : 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 Is patient in pain?: No [...] 2 current occupational status: employed current occupation: [employer] current occupational exposures/hazards: Yes (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 in [...] and bicycling frequency: 5-6 times per week deon/mormonism: Zoroastrianism seatbelt use: always do you feel safe [...] risk complicating : 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[place], 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 (2) ADHD: Status: Acute [...] POC Urinalysis 2 Dip (Clinic) Today 05/09/25 6296 <Electronically signed by Miya lou MD> Date _ Miya Garza MD [facility] Signature: Date (if applicable) CC: ~ [facility] Work Phone: 1(127) 644-727206-26-2025 Evaluation note* Diagnosis Onset Date Resolution Status Admit Date ADHD acute April 24 2:08pm Occupational risk complicating acute March 2:08pm acute April 24 2:08pm Supervision of high risk in first trimester acute Mar 2:08pm ADHD acute May 09 2:01pm Occupational risk complicating acute April 2:01pm acute May 09 2:01pm Supervision of high risk in first trimester acute Apr 2:01pm ADHD acute May 22 10:57am Occupational risk complicating acute April 10:57am acute May 22 10:57am Supervision of high risk in first trimester acute Apr 10:57am acute June 03 9:36am Supervision of high risk in first trimester acute May 9:36am Vaginitis resolved June 03 9:36am ADHD acute June 19, 2 025 8:53am Occupational risk complicating acute June 192024 8:53am acute June 19, 2 025 8:53am Supervision of high risk in first trimester acute May 8:53am Vaginitis resolved June 19, 2 025 8:53am ADHD acute June 1:22pm H/O rapid labor acute July 14, 2025 1:22pm Occupational risk complicating acute July 14, 2025 1:22pm acute June 1:22pm RUQ abdominal pain acute 2024 1:22pm Supervision of high risk in first trimester acute Jun 1:22pm [facility] Work Phone: 1(446) 733-867306-26-2025 Evaluation note* Diagnosis Onset Date Resolution Status Admit Date ADHD acute April 24 2:08pm Occupational risk complicating acute March 2:08pm acute April 24 2:08pm Supervision of high risk in first trimester acute Mar 2:08pm ADHD acute May 09 2:01pm Occupational risk complicating acute April 2:01pm acute May 09 2:01pm Supervision of high risk in first trimester acute Apr 2:01pm ADHD acute May 22 10:57am Occupational risk complicating acute April 10:57am acute May 22 10:57am Supervision of high risk in first trimester acute Apr 10:57am acute June 03 9:36am Supervision of high risk in first trimester acute May 9:36am Vaginitis resolved June 03 9:36am ADHD acute June 19, 2 025 8:53am Occupational risk complicating acute June 192024 8:53am acute June 19, 2 025 8:53am Supervision of high risk in first trimester acute May 8:53am Vaginitis resolved June 19, 2 025 8:53am ADHD acute June 1:22pm H/O rapid labor acute July 14, 2025 1:22pm Occupational risk complicating acute July 14, 2025 1:22pm acute June 1:22pm RUQ abdominal pain acute 2024 1:22pm Supervision of high risk in first trimester acute Jun 1:22pm ADHD acute July 30, 2 025 8:44am H/O rapid labor acute July 302024 8:44am History of precipitous delivery acute July 30 8:44am Occupational risk complicating acute July 302024 8:44am acute July 30 8:44am RUQ abdominal pain acute Octobe r 2024 8:44am Supervision of high risk in first trimester acute Oct jagruti 2024 8:44am Elevated liver enzymes resolved Oc tober 2024 8:44am [facility] Work Phone: 1(705) 301-862806-26-2025 Progress [facility] [address], [address] [place] [address] OFFICE VISIT Date of Service: 04/24/25 MR#: [id number] Acct: [id number] Name: LINETTE HUI Rep #: [id number] : 1990 Provider: Dr. 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 Is patient in pain?: No [...] 2 current occupational status: employed current occupation: [employer] current occupational exposures/hazards: Yes (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 in [...] and bicycling frequency: 5-6 times per week deon/mormonism: Zoroastrianism seatbelt use: always do you feel safe [...] risk complicating : 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[place], 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 (2) ADHD: Status: Acute Comment: Samanthanicolastyrell-stopped taking medication once she found out she was (3) : Status: Acute Qualifiers: Weeks of gestation: 16 weeks Qualified Code(s): Z3A.16 - 16 weeks gestation of Comment: NIPT low risk, declines gender & carrier (4) Supervision of high risk in first trimester: Status: Acute Comment: PRR, PC Miguel Ángel Guerra, TAQUERIA 10/07/25 Magdy Orders: Orders POC Urinalysis 2 Dip (Clinic) Today 04/24/25 2872 dasha TIPTON> Date _ Miya Garza MD Cosigner Signature: Date (if applicable) CC: ~ [facility]06-26-2025 Progress note Author Miya Garza [facility] Note Date/Time April 24, 2025 2:42 pm [facility] [address], [address] [place] [address] OFFICE VISIT Date of Service: 04/24/25 MR#: [id number] Acct: [id number] Name: LINETTE HUI Rep #: [id number] : 1990 Provider: Dr. 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 Is patient in pain?: No [...] 2 current occupational status: employed current occupation: [employer] current occupational exposures/hazards: Yes (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 in [...] and bicycling frequency: 5-6 times per week deon/mormonism: Zoroastrianism seatbelt use: always do you feel safe [...] risk complicating : 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[place], 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 (2) ADHD: Status: Acute Comment: Linda-stopped taking medication once she found out she was (3) : Status: Acute Qualifiers: Weeks of gestation: 16 weeks Qualified Code(s): Z3A.16 - 16 weeks gestation of Comment: NIPT low risk, declines gender & carrier (4) Supervision of high risk in first trimester: Status: Acute Comment: PRR, PC Miguel Ángel Guerra [place] 10/07/25 Magdy Orders: Orders POC Urinalysis 2 Dip (Clinic) Today 04/24/25 4712 <Electronically signed by Miya lou MD> Date _ Miya Garza MD Cosigner Signature: Date (if applicable) CC: ~ [facility] Work Phone: 1(964) 429-629805-29-2025 Evaluation note* Diagnosis Onset Date Resolution Status Admit Date ADHD acute March 27, 2025 8:48am Occupational risk complicating acute March 27, 2025 8:48am acute March 27, 2025 8:48am Supervision of high risk in first trimester acute March 27, 2025 8:48am ADHD acute April 24 2:08pm Occupational risk complicating acute March 2:08pm acute April 24 2:08pm Supervision of high risk in first trimester acute Mar 2:08pm ADHD acute May 09 2:01pm Occupational risk complicating acute April 2:01pm acute May 09 2:01pm Supervision of high risk in first trimester acute Apr 2:01pm ADHD acute May 22 10:57am Occupational risk complicating acute April 10:57am acute May 22 10:57am Supervision of high risk in first trimester acute Apr 10:57am acute June 03 9:36am Supervision of high risk in first trimester acute May 9:36am Vaginitis resolved June 03 9:36am ADHD acute June 19, 2 025 8:53am Occupational risk complicating acute June 192024 8:53am acute June 19, 2 025 8:53am Supervision of high risk in first trimester acute May 8:53am Vaginitis resolved June 19, 2 025 8:53am ADHD acute June 1:22pm H/O rapid labor acute July 14, 2025 1:22pm Occupational risk complicating acute July 14, 2025 1:22pm acute June 1:22pm RUQ abdominal pain acute 2024 1:22pm Supervision of high risk in first trimester acute Sep 2024 1:22pm [facility] Work Phone: 1(675) 623-600405-29-2025 [facility] [address] [place] [address], [address] [place] [address] OFFICE VISIT Date of Service: 03/27/25 MR#: [id number] Acct: [id number] Name: LINETTE HUI Rep #: [id number] : 1990 Provider: DMITRIY Bauer Age/Sex: 34/F Location: [facility] Status: Signed Intake Vital Signs 02/05/25 10:26 02/27/25 13:02 03/27/25 08:56 Height 5 ft 7.5 in 5 ft 7.5 in 5 ft 7.5 in Weight: 181 lb 2 oz BMI 27.9 BP 122/77 H Intake Visit Reasons: 12WK OB 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 Is patient in pain?: No [...] 2 current occupational status: employed current occupation: [employer] current occupational exposures/hazards: Yes (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 in [...] and bicycling frequency: 5-6 times per week deon/mormonism: Zoroastrianism seatbelt use: always do you feel safe [...] Immediate Larc, Signs and Symptoms of Preeclampsia, Feeding, [place] Education and Family Medical Leave or Disability [...] risk complicating : 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[place], 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 (2) ADHD: Status: Acute Comment: Vyvanse-stopped taking medication once she found out she [...] the past year?: No 03/27/25 0920 s CNM> Date _ Ramone Bauer CNM Cosigner Signature: Date (if applicable) CC: ~ [facility]05-01-2025 Evaluation note* Diagnosis Onset Date Resolution Status Admit Date ADHD acute February 27, 2025 12:58pm Occupational [...] risk in first trimester acute Apr 10:57am acute June 03 9:36am Supervision of high risk in first trimester acute May 9:36am Vaginitis acute June 03 9:36am [facility] Work Phone: 1(870) 259-451405-01-2025 Evaluation note* Diagnosis Onset Date Resolution Status Admit Date ADHD acute February 27, 2025 12:58pm Occupational [...] risk in first trimester acute Apr 10:57am acute June 03 9:36am Supervision of high risk in first trimester acute May 9:36am Vaginitis resolved June 03 9:36am ADHD acute June 19, 025 8:53am Occupational risk complicati ng acute June 19 8:53am acute June 19, 025 8:53am Supervision of high risk in first trimester acute May 8:53am Vaginitis resolved June 19, 025 8:53am [facility] Work Phone: 1([phone]) 257-661604-09-2025 Evaluation note* Diagnosis Onset Date Resolution Status [...] first trimester acute March 27, 2025 8:48am [facility] Work Phone: [phone] Evaluation note* Diagnosis Onset Date Resolution Status [...] risk in first trimester acute Mar 2:08pm [facility] Work Phone: 1([phone]) 416-476604-09-2025 Evaluation note* Diagnosis Onset Date Resolution Status [...] risk in first trimester acute Apr 2:01pm [facility] Work Phone: 1([phone]) 728-766704-09-2025 Evaluation note* Diagnosis Onset Date Resolution Status [...] risk in first trimester acute Apr 10:57am [facility] Work Phone: 1([phone]) 371-202304-09-2025 Evaluation note* Diagnosis Onset Date Resolution Status [...] risk in first trimester acute May 9:36am [facility] Work Phone: 1([phone]) 217-743403-12-2025 History of Present illness Narrative* Jeanine Vu, TOMAS-MACHINE SETTER AUTOMATIC - 01/08/2025 8:00 AM EDT Subjective Patient ID: Linette uHi is a 34 y.o. female who presents [...] 98/60 Pulse 70 Ht 1.702 m (5' 7") Wt 77.1 kg (170 lb) SpO2 99% [...] (Bactroban) 2 % ointment documented in this [facility] Work Phone: 1(767) 293-409903-12-2025 Instructions* Patient Instructions* ELIZABETH Harvey - 01/08/2025 [...] sent through Care Everywhere. * Contact dermatitis (Indonesian) documented in this [facility] Work Phone: 1(326) 492-188110-09-2023 History of Present illness Narrative* ELIZABETH Harvey [...] anxiety & panic. Medication made her feel "trapped" on the inside. Feels she has issues [...] 118/70 Pulse 77 Ht 1.702 m (5' 7") Wt 85.4 kg (188 lb 4.8 oz) [...] depression referral to psychiatry [facility] Work Phone: 1(197) 150-558205-31-2023 NoteAccession #: [id number] Date of Procedure: 03/29/2023 Pathologist: [facility], Cytology Date Reported: 04/07/2023 Date Received: [...] Range: Negative Slide(s) initially screened by a Public Works Supervisor at [facility], [address] [place] [address] QC review performed at [facility], [address] [place] [id number] Testing for high-risk (HR) type of human [...] verified by the Molecular Diagnostic Laboratory at [facility]. The lab is certified under the Clinical Laboratory Amendments of 1988 (CLIA 88) as qualified to perform high complexity clinical laboratory testing. This specimen has been analyzed by the JukelyPrep Imaging System ([employer], [employer] an automated imaging and review system, which assists the laboratory in evaluating cells on ThinPrep Pap tests. Following automated imaging, selected pablo from every slide were reviewed by a flight test engineer and/or pathologist. Electronically Signed Out By [facility], Cytology//JMJoanne/LSM By the signature on this report, the individual or group listed as making the Final Interpretation/Diagnosis certifies that they have reviewed this case. Diagnostic interpretation performed at [facility] [address] [place] [address] Educational Note: Cervical cytology is a screening [...] Source of Specimen A: THINPREP PAP CERVICAL [facility] Department of Pathology [address] [place], [place] [address]Comment on above:Performed By: #### C #### [facility] Cytology [address] [place] [address] [id number] History of Present illness NarrativeVeronica comes in [...] Patient is concerned that she may have [place] [address] [employer] Work Phone: [phone] NoteSend Summary: Discharge Summary Providers: Provider RoleProvider Name AttendingBenny Cooper Note Recipients: none Discharge: Summary: Admission Date: .27-Feb-2022 23:46:00 Discharge Date: 01-Mar-2022 Attending Physician at Discharge: Benny Cooper Admission Reason: term Final Discharge Diagnoses: Single live Procedures: Normal spontaneous vaginal delivery Condition at Discharge: Satisfactory Disposition at Discharge: .Home Vital Signs: T PRBPMAPSpO2 Value36.667375756/323678% Date/Time03/01 5:/3 5:/3 5:/3 5:/3 5:435/3 0:00 Range(36.5C - 36.8C ) (69 - 132 ) (14 - 20 ) (118 - 144 )/ (56 - 81 ) (76 - 98 ) (92% - 100% ) Date: Weight/Scale Type:Height: 28-Feb-2022 01:34794 kg / yhbgehqm709.9 cm Physical Exam: Lungs: clear bilaterally Hear: [...] Pending: None Radiology Results - Pending: None [place] Suicide Risk: negative Discharge Instructions: Activity: Return to normal activity as tolerated Nutrition/Diet: Regular Follow Up Appointments: Follow-Up - OB Provider: Physician/Dept/Service: Zayda Centeno MD Call to Schedule in: 6 weeks Discharge Medications: Home Medication 19 ([place]) oral tablet - 1 tab(s) orally once a day lansoprazole 30 mg oral delayed release capsule - 1 cap(s) orally once a day [place]-3 oral capsule - null PRN Medication DNR Status: Code StatusCode Status order at time of discharge: Full Code Electronic Signatures: Benny Cooper) (Signed 01-Mar-2022 07:45) Authored: Send Summary, Summary Content, Immunizations, Ongoing Care, DNR Status, Note Completion Last Updated: 01-Mar-2022 07:45 by Benny Cooper)[facility] 02-28-2022 NoteProvider Information: Maternal Delivery Information: Delivery [...] Benny Cooper) References: 1. Data Referenced From "History and Physical - OB" 28-Feb-2022 00:43[facility]05-02-2022 NoteHPI/OB History: Care Provider: Zayda Marsh MD HPI Descriptive Info: HPI Patient is a 31-year-old [...] POSITIVE Syphilis (mmm-dd-yyyy): 17-Aug-2021 Syphilis Results: negative Antepartum/: Antepartum/PP: Final [id number] Current EGA:39.2 Patient is > or = 35.0 wks EGAyes Determined byDiana EFW (kg)3.289 kilogram(s) EFW (lb)7 pound(s) EFW [...] this patient. Objective: Objective Information: T PRBPMAPSpO2 Value36.99438456/6745676% Date/Time02/28 0: 0: 0: 0: 0: 0:42 Range(36.6C - 36.6C ) (86 - 132 ) (20 - 20 ) (134 - 134 )/ (61 - 61 ) (88 - 88 ) (92% - 100% ) Pain reported at 02/28 0:23: 5 = Moderate Recent Lab Results: Results: CBC: 12/01/2021 16:36 \\ Hgb / \\ 12.0 / WBC Plt 11.3 272 / Hct \\ / 35.5 L \\ RBC: 3.79 L MCV: 94 Neutrophil %: [...] Benny Cooper) References: 1. Data Referenced From "Triage Note - OB v4" 27-Feb-2022 19:12[facility]03-09-2022 History of Present illness Narrative* Jf [place] [...] and follow-up as needed. documented in this [id number] History of Present illness Narrative* Jf [place] [...] at the end of the procedure. -A Cochran was used to lift the lateral nail fold. This was split with an Indonesian anvil distally to proximally. This was then [...] in 1-2weeks to reevaluate. documented in this [id number] Instructions* Patient Instructions* Marianna Diaz TECHNOLOGIST - 12/24/2021 4:35 PM EST Nail Surgery [...] may also take aspirin, Tylenol or other vegl-etv-lrwdgmi pain relievers as directed on the package. [...] appointment with the doctor. documented in this [id number] History of Present illness NarrativeJeovanny is a 31-year-old who comes in for [...] tenderness and has no other concerns today. [address] Work Phone: [phone] 176-980801-12-2021 History of Present illness NarrativeJeovanny is a pleasant 31-year-old female presenting today [...] and has clearance from her OB for injections.[facility] Work Phone: chief complaint Narrative - Reportedpatient referred by Lv Acevedo for the purpose of genetics consultation. [facility] Work Phone: Evaluation note* Diagnosis Cellulitis and abscess of foot- Primary Cellulitis and abscess of foot, except toes Ingrown nail of great toe of left foot [facility]* Diagnosis Cellulitis and abscess of foot- Primary Cellulitis and abscess of foot, except toes [facility]* Extremities: no calf tenderness, reflexes 2+Respiratory/Thorax: normal respiratory effort, lungs clear, no wheezes or rhonchiCardiovascular: S1 S2 RRR, no murmurs [facility]* Diagnosis Anxiety with depression- Primary documented in this encounter [facility] Work Phone: Evaluation note* Diagnosis Encounter for gynecological examination without abnormal finding Encounter for screening for cervical cancer documented in this encounter [facility] Work Phone: Evaluation note* Diagnosis Irritant contact dermatitis due to other chemical products- Primary documented in this encounter [facility] Work Phone: History of Present illness [...] decreased knowledge of HEP and pain. [facility] [place] Work Phone: History of Present illness NarrativePatient is 6 weeks . Patient comes in and reports that she has not had bleeding in several weeks. She reports that approximately for about a week and a half she has had some external itching and discomfort. Patient is breast-feeding successfully. Patient is undecided about contraceptionWPodo Labs Work Phone: History of Present illness NarrativeVerneymar is a 32-year-old who comes in for follow-up of nipple pain and bleeding. She reports she has been using some breast butter which has improved the dryness and bleeding. 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 Patient currently is still breast-feeding. Her baby is now just over a-year-old. She declines any form of contraception. Patient reports she has been having some vague itching after her menstrual cycle externally. She reports the last time she had intercourse she had some strange burning sensation internally. Does not have any abnormality in her discharge or odorWPodo Labs Work Phone: History of Present illness Narrative* [...] Past Medical History: Diagnosis Date Breast infection, ([facility]) 06/22/2023 Encounter for screening for malignant neoplasm of vagina Vaginal Pap smear Encounter for supervision of normal first , first trimester ([facility]) 11/26/2019 Normal first in first trimester Ingrown [...] Objective BP 112/68 Ht 1.702 m (5' 7") Wt 74.8 kg (164 lb 12.8 oz) [...] visit in 1 year. [facility] Work Phone: Hospital Discharge instructions* Activity:Return [...] s health. You can also call a [facility] nurse at [phone] ([phone]) any time of day or night. In [...] symptoms worsen, call 911 or go to nearestemergency room. *Information obtained from [facility] s: Save Your Life: Get Care for [...] pad in <1hr, egg sized blood clots) Pinson-sized blood clots are normal Bright red for [...] laxative without results, contact your doctor or aerobics instructor Activity No pushing, pulling, or lifting anything [...] have questions about Any difficulty please call [phone] to speak with a clinical sales consultant.Please join our mom'ssupport group, which is the second Monday of every month from [phone] in the Birthing & Women's Unit, 4th floor [facility]. No registration required.Thank you for choosing [facility]. * Patient / Family Instructions - Care:- [...] the baby should be seen by the review scheduling coordinator right away. * Discharge & Follow Up:- DISCHARGE & FOLLOW UP. - It is VERY IMPORTANT to keep your baby s appointment with the review scheduling coordinator within 48 hours. * Safety:- SAFETY. - [...] in same bed/couch with baby. * Resources:- [employer] Sales Associate Services: [phone] ([facility]). - [employer] Sales Associate Services: [phone] ([place]). - [employer] Sales Associate Services: [phone] ([facility]). - [employer] Sales Associate Services: [phone] ([place]). - [employer] Sales Associate Services: [phone] ([facility]). - La [employer] Administrator Supervisor services [phone] ([facility]). - [employer] Sales Associate Services: [phone] ([place]). - United Way: 211. - Help Me Grow (if eligible): [phone]. [facility] Center[facility]ructions* Name Dates Details Instructions not documented [facility] Work Phone: progress note Author Ramone Bauer [facility] Note Date/Time March 27, 2025 9:20a m [facility] [address] [place] [address], [address] [place] [address] OFFICE VISIT Date of Service: 03/27/25 MR#: [id number] Acct: [id number] Name: LINETTE HUI Rep #: [id number] : 1990 Provider: DMITRIY Bauer Age/Sex: 34/F [facility] [facility] Status: Signed Intake Vital Signs 02/05/25 10:26 02/27/25 13:02 03/27/25 08:56 Height 5 ft 7.5 in 5 ft 7.5 in 5 ft 7.5 in Weight: 181 lb 2 oz BMI 27.9 BP 122/77 H Intake Visit Reasons: 12WK OB 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 Is patient in pain?: No [...] 2 current occupational status: employed current occupation: [employer] current occupational exposures/hazards: Yes (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 in [...] and bicycling frequency: 5-6 times per week deon/mormonism: Zoroastrianism seatbelt use: always do you feel safe [...] Signs and Symptoms of Preeclampsia, Infant Feeding, [place] Education and Family Medical Leave or Disability [...] risk complicating : 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[place], 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 (2) ADHD: Status: Acute [...] by Ramone bolden CNM> Date _ Ramone Chris DMITRIY Cosigner Signature: Date (if applicable) CC: ~ [facility] Work Phone: Progress note Author Ramone Bauer [facility] Note Date/Time May 22, 2025 11:2 [facility] [address] [place] [address], [address] [place] [address] OFFICE VISIT Date of Service: 05/22/25 MR#: [id number] Acct: [id number] Name: LINETTE HUI Rep #: [id number] : 1990 Provider: DMITRIY Bauer Age/Sex: 35/F [facility] [facility] Status: Signed Intake Vital Signs 03/27/25 08:56 05/09/25 14:07 05/22/25 11:00 Height 5 ft 7.5 in 5 ft 7.5 in 5 ft 7.5 in Weight: 191 lb 4 oz BMI 29.5 BP 121/69 H Intake Visit Reasons: 20wk ob Chief Complaint: 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 [place] appropriate handout given. 05/22/25 1125 <Electronically signed by Ramone bolden CNM> Date _ Ramone Bauer CNM Cosigner Signature: Date (if applicable) CC: ~ [facility] Work Phone: Progress note Author Miya Garza [facility] Note Date/Time June 19, 2025 9: 31am [facility] [address], [address] [place] [address] OFFICE VISIT Date of Service: 06/19/25 MR#: [id number] Acct: [id number] Name: LINETTE HUI Rep #: [id number] : 1990 Provider: Dr. 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 Is patient in pain?: No Feel stressed/tense/nervous/anxious/difficulty sleeping: not at all Allergies Penicillins Allergy (Mild, Verified 06/19/25 09:04) Hives Sulfa (Sulfonamide Antibiotics) Allergy (Mild, Verified 06/19/25 09:04) Hives Medications ?Medication ?Instructions ?Recorded ?Confirmed ?Type cholecalciferol (vitamin D3) 50 50 mcg PO QDAY 5 06/19/25 History mcg (2,000 unit) capsule docosahexaenoic acid 200 mg mg PO 02/05/25 06/19/25 Hi story capsule ( DHA) omega-3 fatty acids 1,000 mg 1,000 mg PO QDAY 02/05/25 06/19/25 History capsule Last Menstrual Period: 12/31/24 Zika: [...] 2 current occupational status: employed current occupation: [employer] current occupational exposures/hazards: Yes (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 in [...] and bicycling frequency: 5-6 times per week deon/mormonism: Zoroastrianism seatbelt use: always do you feel safe at home: Yes additional social history: - [facility] History 3 Elective abortions Hx Para 2 Spontaneous abortions Hx # Term Pregnancies Ectopic pregnancies Hx # Pregnancies Multiple births # of living children 2 Past Pregnancies Del. Date Name GA/Weeks Outcome Route Bth Weight Infant Gen Labor Lgth Anesthesia Del Locatn Provider FOB 06/02/20 Mari 39 live - full term 7.8 Female 7 hours n one Magdy 02/28/22 Miguel Ángel 39 live - full term Male 6 none HPI 24wk ob Details: LINETTE HUI is a 35 year old who presents for routine OB visit. OB Visit TA[facility]IA Calculator Estimated Delivery Date Method Current WG Current Estimate 10/07/25 LMP (Certain) 24w 2d Other Estimates 10/05/25 Ultrasound #1 24w 4d Expected Delivery Route/Plan Labor Preferences- CB/BF [...] oz (+3 lb 2 oz) 122/77 Negative -?-?-?-?-?-?-?--?-?-?-?-?- Negative 160 -?-?-?-?-?-?-?-?-?-?-?-?- kw- no vb/crampi ng. US with M ordered. Bartholin cyst-to try loose clothing and [...] 4 oz) 121/69 Negative -?-?-?-?-?-?-?-?-?-?-?-?- Negative 145 -?-?-?-?-?-?-?-?-?-?-?-?- KW- no vb/crampi ng. +FM. anatomy reviewed. 06/03/25 -?-?-?-?-?-?-?-?-?-?-?-?- 22w 0d 195 lb 3 oz (+17 lb 3 oz) 119/68 Negative -?-?-?-?-?-?-?-?-?-?-?-?- Negative 146 -?-?-?-?-?-?-?-?-?-?-?-?- -work in for i tching/discharge. No VB. Good FM. 06/19/25 -?-?-?-?-?-?-?-?-?-?-?-?- 24w 2d 196 lb 1 oz (+18 lb 1 oz) 112/72 -?-?-?-?-?-?-?-?-?-?-?-?- 140 24 -?-?-?-?-?-?-?-?-?-?-?-?- Sm- no bv lof go od fm n oreuglar ctx ACOG First Trimester First Trimester: Desire for [...] Level of Care Code OB Routine Diagnoses Acute vaginitis N76.0 Chronicity: acute Occupational risk complicating O09.899 ADHD F90.9 24 weeks gestation of Z3A.24 Weeks of gestation: 24 weeks Supervision of high risk in first trimester O09.91 Assessment and Plan Assessment and Plan (1) Vaginitis: Status: Acute Qualifiers: Chronicity: acute Qualified Code(s): N76.0 - Acute vaginitis (2) Occupational 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 complicating : 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[place], 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 (3) ADHD: Status: Acute Comment: Linda-stopped taking medication once she found out she was (4) : Status: Acute Qualifiers: Weeks of gestation: 24 weeks Qualified Code(s): Z3A.24 - 24 weeks gestation of Comment: NIPT low risk, declines gender & carrier, nl anatomy (5) Supervision of high risk in first trimester: Status: Acute Comment: PRR, PC Miguel Ángel Guerra, TAQUERIA 10/07/25 Magdy Orders: Orders POC Urinalysis 2 Dip (Clinic) Today - Supervision of high risk , unspecified, first trimester CBC W/Diff, Automated Today - Supervision of high risk , unspecified, first trimester Glucose Challenge Gest 1H 50g Today O - Supervision of high risk , unspecified, first trimester, Z13.1 - Encounter for screening for diabetes mellitus HIV Today - Supervision of high risk , unspecified, first trimester Syphilis Antibodies Today O - Supervision of high risk , unspecified, first trimester 06/19/25 0931 <Electronically signed by Miya lou MD> Date _ [facility] Signature: Date (if applicable) CC: ~ [facility] Work Phone: Progress note Author Nadia Triplett [facility] Note Date/Time July 30, 2025 9: 27am [facility] [address], [address] [place] [address] OFFICE VISIT Date of Service: 07/30/25 MR#: [id number] Acct: [id number] Name: LINETTE HUI Rep #: [id number] : 1990 Provider: Dr. 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 Is patient in pain?: No Allergies Penicillins Allergy (Mild, Verified 07/30/25 08:53) Hives Sulfa (Sulfonamide Antibiotics) Allergy (Mild, Verified 07/30/25 08:53) Hives Medications ?Medication ?Instructions ?Recorded ?Confirmed ?Type cholecalciferol (vitamin D3) 50 50 mcg PO QDAY 5 07/30/25 History mcg (2,000 unit) capsule docosahexaenoic acid 200 mg mg PO 02/05/25 07/30/25 Hi story capsule ( DHA) omega-3 fatty acids 1,000 mg 1,000 mg PO QDAY 02/05/25 07/30/25 History capsule Last Menstrual Period: 12/31/24 Zika: Zika virus screening: Negative : No Have you fallen in the past year?: No PFSH PFSH Medical History ADHD Family History Father GBM (glioblastoma multiforme) Hypertension Mother Hypertension Alopecia Grandmother Heart disease Hypertension Grandfather Heart disease Hypertension Macular degeneration Brother Leukemia as a child Grandmother Macular degeneration Hypertension Aneurysm Social History adopted: No household members: spouse and children number of children: 2 current occupational status: employed current occupation: [employer] current occupational exposures/hazards: Yes (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 in [...] and bicycling frequency: 5-6 times per week deon/mormonism: Zoroastrianism seatbelt use: always do you feel safe at home: Yes additional social history: - [facility] History 3 Elective abortions Hx Para 2 Spontaneous abortions Hx # Term Pregnancies Ectopic pregnancies Hx # Pregnancies Multiple births # of living children 2 Past Pregnancies Del. Date Name GA/Weeks Outcome Route Bth Weight Infant Gen Labor Lgth Anesthesia Del Locatn Provider FOB 06/02/20 Mari 39 live - full term 7.8 Female 7 hours n one Magdy 02/28/22 Miguel Ángel 39 live - full term Male 6 none HPI 30wk ob Details: LINETTE HUI is a 35 year old who presents for routine OB visit. OB Visit TAQUERIA Calculator Estimated Delivery Date Method Current WG Current Estimate 10/07/25 LMP (Certain) 30w 1d Other Estimates 10/05/25 Ultrasound #1 30w 3d Expected Delivery Route/Plan Labor Preferences- CB/BF classes: no labor support person: Magdy labor intervention preferences: [] pain management options preferred:limited cut cord/dad catch: cord : yes PP control planned: discussed discussed possible routes of delivery and associated risks: [] special requests: [] Specific Issue/Plans Covid status: [] Flu vaccine: [] Tdap vaccine: [] Rhogam: NA LARC form signed: yes Problem list reviewed and updated with the most current plan of care details and appropriate orders placed. Relevant counseling for the gestational age provided. Continue routine care and follow up unless otherwise noted in visit notes/problem list details Initial Weight: 178 lb Date -?-?-?-?-?-?-?-?-?-?-?-?- EGA Weight BP Urine Prot -?-?-?-?-?-?-?-?-?-?-?-?- Glucose FHR FuHt Pres Dilation -?-?-?-?-?-?-?-?-?-?-?-?- Effaced St Visit Note 02/27/25 -?-?-?-?-?-?-?--?-?-?-?-?- 8w 2d 178 lb 2 oz (+2 [...] 4 oz) 121/69 Negative -?-?-?-?-?-?-?-?-?-?-?-?- Negative 145 -?-?-?-?-?-?-?-?-?-?-?-?- KW- no vb/crampi ng. +FM. anatomy reviewed. 06/03/25 -?-?-?-?-?-?-?-?-?-?-?-?- 22w 0d 195 lb 3 oz (+17 lb 3 oz) 119/68 Negative -?-?-?-?-?-?-?-?-?-?-?-?- Negative 146 -?-?-?-?-?-?-?-?-?--?-?-?- -work in for i tching/discharge. No VB. Good FM. 06/19/25 -?-?-?-?-?-?-?-?-?-?-?-?- 24w 2d 196 lb 1 oz (+18 lb 1 oz) 112/72 -?-?-?-?-?-?-?-?-?-?-?-?- 140 24 -?-?-?-?-?-?-?-?-?-?-?-?- Sm- no bv lof go od fm n oreuglar ctx 07/14/25 -?-?-?-?-?-?-?-?-?-?-?-?- 27w 6d 206 lb (+28 lb) 113/72 Negative -?-?-?-?-?-?-?-?-?-?-?-?- Negative 138 27 -?-?-?-?-?-?-?-?-?-?-?-?- -No VB, LOF. G ood FM. RUQ abd pain, worse end of day. GB US and labs ordered. Larc, 28 wk labs. 07/30/25 -?-?-?-?-?-?-?-?-?-?-?-?- 30w 1d 108 lb 3 oz (-69 lb 13 oz) 116/74 Negative -?-?-?-?-?-?-?-?-?-?-?-?- Negative 136 31 Cephalic -?-?-?-?-?-?-?-?-?-?-?-?- JV- long discuss ion about 39 week IOL see problem list. normal lfts, no other complaints. ACOG First Trimester First Trimester: Desire for [...] Management Plans, Labor support person(s), Immediate Larc, Circumcision preference, Signs and Symptoms of Preeclampsia, Feeding No , [place] Education and Family Medical Leave or Disability Forms Results POC Urinalysis 2 Dip (Clinic) Office Urine Glucose Negative Last Edit by Kalyn Zapata on 07/30/25 08:56 Office Urine Protein Negative Last Edit by Kalyn Zapata on 07/30/25 08:56 Coding Level of Care Code OB Routine Diagnoses Elevated liver enzymes R74.8 RUQ abdominal pain R10.11 H/O rapid labor Z87.59 Occupational risk affecting in third trimester O09.893 Trimester: third trimester Attention deficit hyperactivity disorder (ADHD), unspecified ADHD type F90.9 Attention deficit-hyperactivity disorder type: unspecified 30 weeks gestation of Z3A.30 Weeks of gestation: 30 weeks Supervision of high risk in first trimester O09.91 History of precipitous delivery Z87.59 Assessment and Plan Assessment and Plan (1) Elevated liver enzymes: Status: Resolved Comment: Minimal inc AST:CMP next visit: normal. 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 (5) ADHD: Status: Acute Qualifiers: Attention deficit-hyperactivity disorder type: unspecified Qualified Code(s): F90.9 - Attention-deficit hyperactivity disorder, unspecified type Comment: Linda-stopped taking medication once she found out she was (6) : Status: Acute Qualifiers: Weeks of gestation: 30 weeks Qualified Code(s): Z3A.30 - 30 weeks gestation of Comment: NIPT low risk, declines gender & carrier, nl anatomy (7) Supervision of high risk in first trimester: Status: Acute Comment: PRR, surprise PC Miguel Ángel Guerra, TAQUERIA 10/07/25 Magdy (8) History of precipitous delivery: Status: Acute Comment: has h/o fast 2nd stage of labor, normal first stage. watch on L&D if comes in for at least 2 hour before dc to home plan 39 IOL. (september 30) Orders: Orders POC Urinalysis 2 Dip (Clinic) Today Clinical Quality Measures Falls Risk Screening/Assistive Devices Have you fallen in the past year?: No 07/30/25 0927 <Electronically signed by Nadia Zaragoza DO> Date _ Nadia Callejas DO Cosigner Signature: Date (if applicable) CC: ~ [facility] Work Phone: Progress note Author Ramone Bauer [facility] Note Date/Time August 11, 2025 9 :16am [facility] [address], [address] [place] [address] OFFICE VISIT Date of Service: 08/11/25 MR#: [id number] Acct: [id number] Name: LINETTE HUI Rep #: [id number] : 1990 Provider: DMITRIY Bauer Age/Sex: 35/F Location: [facility] Status: Signed Intake Vital Signs 06/19/25 09:01 07/30/25 08:47 08/11/25 08:59 Height 5 ft 7.5 in 5 ft 7.5 in 5 ft 7.5 in Weight: 212 lb 2 oz BMI 32.7 BP 120/73 Intake Visit Reasons: 32wk ob Chief Complaint: 32wk ob 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 Is patient in pain?: No Allergies Penicillins Allergy (Mild, Verified 08/11/25 09:00) Hives Sulfa (Sulfonamide Antibiotics) Allergy (Mild, Verified 08/11/25 09:00) Hives Medications ?Medication ?Instructions ?Recorded ?Confirmed ?Type cholecalciferol (vitamin D3) 50 50 mcg PO QDAY 5 08/11/25 History mcg (2,000 unit) capsule docosahexaenoic acid 200 mg mg PO 02/05/25 08/11/25 Hi story capsule ( DHA) omega-3 fatty acids 1,000 mg 1,000 mg PO QDAY 02/05/25 08/11/25 History capsule Last Menstrual Period: 12/31/24 : No Have you fallen in the past year?: No PFSH PFSH Medical History ADHD Family History Father GBM (glioblastoma multiforme) Hypertension Mother Hypertension Alopecia Grandmother Heart disease Hypertension Grandfather Heart disease Hypertension Macular degeneration Brother Leukemia as a child Grandmother Macular degeneration Hypertension Aneurysm Social History adopted: No household members: spouse and children number of children: 2 current occupational status: employed current occupation: [employer] current occupational exposures/hazards: Yes (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 in [...] and bicycling frequency: 5-6 times per week deon/mormonism: Zoroastrianism seatbelt use: always do you feel safe at home: Yes additional social history: - [facility] History 3 Elective abortions Hx Para 2 Spontaneous abortions Hx # Term Pregnancies Ectopic pregnancies Hx # Pregnancies Multiple births # of living children 2 Past Pregnancies Del. Date Name GA/Weeks Outcome Route Bth Weight Gen Labor Lgth An esthesia Del Locatn Provider FOB 06/02/20 Mari 39 live - full term 7.8 Female 7 hours n one Magdy 02/28/22 Miguel Ángel 39 live - full term Male 6 none HPI 32wk ob Details: LINETTE HUI is a 35 year old who presents for routine OB visit. OB Visit TAQUERIA Calculator Estimated Delivery Date Method Current WG Current Estimate 10/07/25 LMP (Certain) 31w 6d Other Estimates 10/05/25 Ultrasound #1 32w 1d Expected Delivery Route/Plan Labor Preferences- CB/BF classes: no labor support person: Magdy labor intervention preferences: [] pain management options preferred:limited cut cord/dad catch: cord : yes PP control planned: discussed discussed possible routes of delivery and associated risks: [] special requests: [] Specific Issue/Plans Covid status: [] Flu vaccine: [] Tdap vaccine: [] Rhogam: NA LARC form signed: yes Problem list reviewed and updated with the [...] 4 oz) 121/69 Negative -?-?-?-?-?-?-?-?-?-?-?-?- Negative 145 -?-?-?-?-?-?-?-?-?-?-?-?- KW- no vb/crampi ng. +FM. anatomy reviewed. 06/03/25 -?-?-?-?-?-?-?-?-?-?-?-?- 22w 0d 195 lb 3 oz (+17 lb 3 oz) 119/68 Negative -?-?-?-?-?-?-?-?-?-?-?-?- Negative 146 -?-?-?-?-?-?-?-?-?-?-?-?- -work in for i tching/discharge. No VB. Good FM. 06/19/25 -?-?-?-?-?-?-?-?-?-?-?-?- 24w 2d 196 lb 1 oz (+18 lb 1 oz) 112/72 -?-?-?-?-?-?-?-?--?-?-?-?- 140 24 -?-?-?-?-?-?-?-?-?-?-?-?- Sm- no bv lof go od fm n oreuglar ctx 07/14/25 -?-?-?-?-?-?-?-?-?-?-?-?- 27w 6d 206 lb (+28 lb) 113/72 Negative -?-?-?-?-?-?-?-?-?-?-?-?- Negative 138 27 -?-?-?-?-?-?-?-?-?-?-?-?- -No VB, LOF. G ood FM. RUQ abd pain, worse end of day. GB US and labs ordered. Larc, 28 wk labs. 07/30/25 -?-?-?-?-?-?-?-?-?-?-?-?- 30w 1d 108 lb 3 oz (-69 lb 13 oz) 116/74 Negative -?-?-?-?-?-?-?-?-?-?-?-?- Negative 136 31 Cephalic -?-?-?-?-?-?-?-?-?-?-?-?- JV- long discuss ion about 39 week IOL see problem list. normal lfts, no other complaints. 08/11/25 -?-?-?-?-?-?-?-?-?-?-?-?- 31w 6d 212 lb 2 oz (+34 lb 2 oz) 120/73 Negative -?-?-?-?-?-?-?-?-?-?-?-?- Negative 145 32 Cephalic -?-?-?-?-?-?-?-?-?-?-?-?- KW- no vb/lof/ct x. good fm. more discussion on 39 week IOL ACOG First Trimester First Trimester: Desire for [...] Management Plans, Labor support person(s), Immediate Larc, Circumcision preference, Signs and Symptoms of Preeclampsia, Infant Feeding No , [place] Education and Family Medical Leave or Disability [...] Negative Last Edit by Shweta Olivia on 08/11/25 09:05 Office Urine Protein Negative Last Edit by Shweta Olivia on 08/11/25 09:05 Coding Level of Care Code OB Routine Diagnoses History of precipitous delivery Z87.59 RUQ abdominal pain R10.11 H/O rapid labor Z87.59 Occupational risk affecting in third trimester O09.893 Trimester: third trimester Attention deficit hyperactivity disorder (ADHD), unspecified ADHD type F90.9 Attention deficit-hyperactivity disorder type: unspecified 31 weeks gestation of Z3A.31 Weeks of gestation: 31 weeks Supervision of high risk in first trimester O09.91 Assessment and Plan Assessment and Plan (1) History of precipitous delivery: Status: Acute Comment: has h/o fast 2nd stage of labor, normal first stage. watch on L&D if comes in for at least 2 hour before dc to home plan 39 IOL. 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 (5) ADHD: Status: Acute Qualifiers: Attention deficit-hyperactivity disorder type: unspecified Qualified Code(s): F90.9 - Attention-deficit hyperactivity disorder, unspecified type Comment: Linda-stopped taking medication once she found out she was (6) : Status: Acute Qualifiers: Weeks of gestation: 31 weeks Qualified Code(s): Z3A.31 - 31 weeks gestation of Comment: NIPT low risk, declines gender & carrier, nl anatomy (7) Supervision of high risk in first trimester: Status: Acute Comment: PRR, surprise PC Miguel Ángel Guerra, TAQUERIA 10/07/25 Magdy Orders: Orders POC Urinalysis 2 Dip (Clinic) Today Plan Details Additional Comments: ACOG trimester education reviewed and updated. see problem list details for updated plan management information and see below for orders placed at this visit. GA appropriate handout given. Clinical Quality Measures Falls Risk Screening/Assistive Devices Have you fallen in the past year?: No 08/11/25 0916 <Electronically signed by Ramone bolden CNM> Date _ Ramone Bauer CNM Cosigner Signature: Date (if applicable) CC: ~ [facility] Work Phone: Reason for referral (narrative)No reason for referral information available[facility] Work Phone: Family History No Family History Records Found Grandmother Name Dates Details Family history of [...] 08/18/2020 Reflex negative. 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 FRED February 05, 2025 9:10am [...] 2025 2:08pm Chief Complaint Admit Date 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 FRED February 05, 2025 9:10am [...] 2025 2:01pm Chief Complaint Admit Date 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 FRED February 05, 2025 9:10am [...] 2025 10:57am Chief Complaint Admit Date 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 FRED February 05, 2025 9:10am New OB, LMP 3/4, TAQUERIA /February 27, 2025 12:58pm 12WK OB March 27, [...] fi rst trimester June 03, 2025 9:36am Chief Complaint Admit Date New OB, LMP 3/4, TAQUERIA 10/07February 27, 2025 12:58pm 12WK OB March 27, 2025 8:48a m 16wk ob April 24, 2025 2:08 pm fu contractions per JV May 09, 2025 2 :01pm 20wk ob May 22, 2025 10:5 7am OB yeast infection June 03, 2025 9:3 6am Reason for Visit Admit Date ADHD February 27, 2025 12:58p m Occupational [...] fi rst trimester May 22, 2025 10:57am June 03, 2025 9:3 6am Supervision of high risk in fi rst trimester June 03, 2025 9:36am Vaginitis June 03, 2025 9:3 6am Chief Complaint Admit Date New OB, LMP 3/4, TAQUERIA 10/07February 27, 2025 12:58pm 12WK OB March 27, 2025 8:48a m 16wk ob April 24, 2025 2:08 pm fu contractions per JV May 09, 2025 2 :01pm 20wk ob May 22, 2025 10:5 7am OB yeast infection June 03, 2025 9:3 6am 24wk ob June 19, 2025 8: 53am Reason for Visit Admit Date ADHD February 27, 2025 12:58p m Occupational [...] fi rst trimester May 22, 2025 10:57am June 03, 2025 9:3 6am Supervision of high risk in fi rst trimester June 03, 2025 9:36am Vaginitis June 03, 2025 9:3 6am ADHD June 19, 2025 8: 53am Occupational risk complicating June 19, 2025 8:53am June 19, 2025 8: 53am Supervision of high risk in fi rst trimester June 19, 2025 8:53am Vaginitis June 19, 2025 8: 53am Chief Complaint Admit Date 12WK OB March 27, 2025 8:48a m 16wk ob April 24, 2025 2:08 pm fu contractions per JV May 09, 2025 2 :01pm 20wk ob May 22, 2025 10:5 7am OB yeast infection June 03, 2025 9:3 6am 24wk ob June 19, 2025 8: 53am 28wk ob/glucose July 14, 2025 1:22pm Reason for Visit Admit Date ADHD March 27, 2025 8:48a m Occupational [...] fi rst trimester May 22, 2025 10:57am June 03, 2025 9:3 6am Supervision of high risk in fi rst trimester June 03, 2025 9:36am Vaginitis June 03, 2025 9:3 6am ADHD June 19, 2025 8: 53am Occupational risk complicating June 19, 2025 8:53am June 19, 2025 8: 53am Supervision of high risk in fi rst trimester June 19, 2025 8:53am Vaginitis June 19, 2025 8: 53am ADHD July 14, 2025 1:22pm H/O rapid labor July 14, 2025 1:22pm Occupational risk complicating July 14, 2025 1:22pm July 14, 2025 1:22pm RUQ abdominal pain July 14, 2025 1:22pm Supervision of high risk in fi rst trimester July 14, 2025 1:22pm Chief Complaint Admit Date 16wk ob April 24, 2025 2:08 pm fu contractions per JV May 09, 2025 2 :01pm 20wk ob May 22, 2025 10:5 7am OB yeast infection June 03, 2025 9:3 6am 24wk ob June 19, 2025 8: 53am 28wk ob/glucose July 14, 2025 1:22pm RUQ PAIN July 21, 2025 10:23am Reason for Visit Admit Date ADHD April 24, 2025 2:08 pm Occupational [...] fi rst trimester May 22, 2025 10:57am June 03, 2025 9:3 6am Supervision of high risk in fi rst trimester June 03, 2025 9:36am Vaginitis June 03, 2025 9:3 6am ADHD June 19, 2025 8: 53am Occupational risk complicating June 19, 2025 8:53am June 19, 2025 8: 53am Supervision of high risk in fi rst trimester June 19, 2025 8:53am Vaginitis June 19, 2025 8: 53am ADHD July 14, 2025 1:22pm H/O rapid labor July 14, 2025 1:22pm Occupational risk complicating July 14, 2025 1:22pm July 14, 2025 1:22pm RUQ abdominal pain July 14, 2025 1:22pm Supervision of high risk in fi rst trimester July 14, 2025 1:22pm Chief Complaint Admit Date 16wk ob April 24, 2025 2:08 pm fu contractions per JV May 09, 2025 2 :01pm 20wk ob May 22, 2025 10:5 7am OB yeast infection June 03, 2025 9:3 6am 24wk ob June 19, 2025 8: 53am 28wk ob/glucose July 14, 2025 1:22pm RUQ PAIN July 21, 2025 10:23am 30wk ob July 30, 2025 8: 44am Reason for Visit Admit Date ADHD April 24, 2025 2:08 pm Occupational [...] fi rst trimester May 22, 2025 10:57am June 03, 2025 9:3 6am Supervision of high risk in fi rst trimester June 03, 2025 9:36am Vaginitis June 03, 2025 9:3 6am ADHD June 19, 2025 8: 53am Occupational risk complicating June 19, 2025 8:53am June 19, 2025 8: 53am Supervision of high risk in fi rst trimester June 19, 2025 8:53am Vaginitis June 19, 2025 8: 53am ADHD July 14, 2025 1:22pm H/O rapid labor July 14, 2025 1:22pm Occupational risk complicating July 14, 2025 1:22pm July 14, 2025 1:22pm RUQ abdominal pain July 14, 2025 1:22pm Supervision of high risk in fi rst trimester July 14, 2025 1:22pm ADHD July 30, 2025 8: 44am H/O rapid labor July 30, 2025 8: 44am History of precipitous delivery July 30, 2025 8:44am Occupational risk complicating July 30, 2025 8:44am July 30, 2025 8: 44am RUQ abdominal pain July 30, 2025 8: 44am Supervision of high risk in fi rst trimester July 30, 2025 8:44am Elevated liver enzymes July 30, 2025 8:44am Chief Complaint Admit Date fu contractions per JV May 09, 2025 2 :01pm 20wk ob May 22, 2025 10:5 7am OB yeast infection June 03, 2025 9:3 6am 24wk ob June 19, 2025 8: 53am 28wk ob/glucose July 14, 2025 1:22pm RUQ PAIN July 21, 2025 10:23am 30wk ob July 30, 2025 8: 44am 32wk ob August 11, 2025 8 :57am Reason for Visit Admit Date ADHD May 09, 2025 2:01 pm Occupational risk complicating May 09, 2025 2:01pm May 09, 2025 2:01 pm Supervision of high risk in fi rst trimester May 09, 2025 2:01pm ADHD May 22, 2025 10:5 7am Occupational risk complicating May 22, 2025 10:57am May 22, 2025 10:5 7am Supervision of high risk in fi rst trimester May 22, 2025 10:57am June 03, 2025 9:3 6am Supervision of high risk in fi rst trimester June 03, 2025 9:36am Vaginitis June 03, 2025 9:3 6am ADHD June 19, 2025 8: 53am Occupational risk complicating June 19, 2025 8:53am June 19, 2025 8: 53am Supervision of high risk in fi rst trimester June 19, 2025 8:53am Vaginitis June 19, 2025 8: 53am ADHD July 14, 2025 1:22pm H/O rapid labor July 14, 2025 1:22pm Occupational risk complicating July 14, 2025 1:22pm July 14, 2025 1:22pm RUQ abdominal pain July 14, 2025 1:22pm Supervision of high risk in fi rst trimester July 14, 2025 1:22pm ADHD July 30, 2025 8: 44am H/O rapid labor July 30, 2025 8: 44am History of precipitous delivery July 30, 2025 8:44am Occupational risk complicating July 30, 2025 8:44am July 30, 2025 8: 44am RUQ abdominal pain July 30, 2025 8: 44am Supervision of high risk in fi rst trimester July 30, 2025 8:44am Elevated liver enzymes July 30, 2025 8:44am ADHD August 11, 2025 8 :57am H/O rapid labor August 11, 2025 8 :57am History of precipitous delivery August 11, 2025 8:57am Occupational risk complicating August 11, 2025 8:57am August 11, 2025 8 :57am RUQ abdominal pain August 11, 2025 8 :57am Supervision of high risk in fi rst trimester August 11, 2025 8:57am Additional Source Comments <item><item><item> Privacy Markings (unrecogniz [...] Care Teams (unrecognized sec tion and content) Ion Exchange Operator Relationship Specialty Start Date End Date MirellaJeanine CNP [address] [place] [address] PCP - General Nurse Practitioner 12/24/21 Ion Exchange Operator Relationship Specialty Start Date End Date MirellaJeanine CNP [address] [place] [address] PCP - General Nurse Practitioner 12/24/21 Ion Exchange Operator Relationship Specialty Start Date End Date Jeanine Vu, MANGA ARTIST-MACHINE SETTER AUTOMATIC [address] [place] [address] PCP - General 11/22/21 Ion Exchange Operator Relationship Specialty Start Date End Date Jeanine Vu, MANGA ARTIST-MACHINE SETTER [employer]AT[employer] [address] [place] [address] PCP - General 11/22/21 Ion Exchange Operator Relationship Specialty Start Date End Date Jeanine Vu, MANGA ARTIST-MACHINE SETTER [employer] [address] [address] PCP - General 11/22/21 Team Status: Active Member Role Status Dates JEANINE VU AQUARIUM TANK ATTENDANT-C Primary Care Provider Active Team Status: Inactive Member Role Status Dates JEANINE VU AQUARIUM TANK ATTENDANT-C Primary Care Provider Active Start: February 05, 2025 End: February 05, 2025 JEANINE VU AQUARIUM TANK ATTENDANT-C Referring Provider Active S tart: February 05, 2025 End: February 05, 2025 Vernell Brown NP, AQUARIUM TANK ATTENDANT-C Attending Provider Active Start: February 05, 2025 End: February 05, 2025 Team Status: Inactive Member Role Status Dates JEANINE VU AQUARIUM TANK ATTENDANT-C Primary Care Provider Active Start: February 27, 2025 End: February 27, 2025 JEANINE VU AQUARIUM TANK ATTENDANT-C Referring Provider Active S tart: February 27, 2025 End: February 27, 2025 Ramone Bauer CNM Attending Provider Active S tart: February 27, 2025 End: February 27, 2025 Team Status: Inactive Member Role Status Dates JEANINE VU AQUARIUM TANK ATTENDANT-C Primary Care Provider Active Start: February 27, 2025 End: February 27, 2025 Ramone Bauer CNM Attending Provider Active S tart: February 27, 2025 End: February 27, 2025 Ramone Bauer CNM Referring Provider Active S tart: February 27, 2025 End: February 27, 2025 Team Status: Inactive Member Role Status Dates JEANINE VU AQUARIUM TANK ATTENDANT-C Primary Care Provider Active Start: March 27, 2025 End: March 27, 2025 JEANINE VU AQUARIUM TANK ATTENDANT-C Referring Provider Active S tart: March 27, 2025 End: March 27, 2025 Ramone Bauer CNM Attending Provider Active S tart: March 27, 2025 End: March 27, 2025 Team Status: Active Member Role Status Dates JEANINE VU AQUARIUM TANK ATTENDANT-C Primary Care Provider Active Start: March 27, 2025 Ramone Bauer CNM Attending Provider Active S tart: March 27, 2025 Ramone Bauer CNM Referring Provider Active S tart: March 27, 2025 Team Status: Inactive Member Role Status Dates JEANINE VU AQUARIUM TANK ATTENDANT-C Primary Care Provider Active Start: March 27, 2025 End: March 27, 2025 Ramone Bauer CNM Attending Provider Active S tart: March 27, 2025 End: March 27, 2025 Ramone Bauer CNM Referring Provider Active S tart: March 27, 2025 End: March 27, 2025 Team Status: Inactive Member Role Status Dates JEANINE VU AQUARIUM TANK ATTENDANT-C Primary Care Provider Active Start: April 24, 2025 End: April 24, 2025 JEANINE VU AQUARIUM TANK ATTENDANT-C Referring Provider Active S tart: April 24, 2025 End: April 24, 2025 Dr. Miya Garza MD Attending Provider Active Start: April 24, 2025 End: April 24, 2025 Team Status: Active Member Role/Relationship Status Darlene VU AQUARIUM TANK ATTENDANT-C Primary Care Provider Active Team Status: Inactive Member Role/Relationship Status Darlene VU AQUARIUM TANK ATTENDANT-C Primary Care Provider Active Start: February 05, 2025 End: February 05, 2025 JEANINE VU AQUARIUM TANK ATTENDANT-C Referring Provider Active S tart: February 05, 2025 End: February 05, 2025 Vernell Brown NP, AQUARIUM TANK ATTENDANT-C Attending Provider Active Start: February 05, 2025 End: February 05, 2025 Team Status: Inactive Member Role/Relationship Status Dates JEANINE VU AQUARIUM TANK ATTENDANT-C Primary Care Provider Active Start: February 27, 2025 End: February 27, 2025 JEANINE VU AQUARIUM TANK ATTENDANT-C Referring Provider Active S tart: February 27, 2025 End: February 27, 2025 Ramone Bauer CNM Attending Provider Active S tart: February 27, 2025 End: February 27, 2025 Team Status: Inactive Member Role/Relationship Status Dates JEANINE VU AQUARIUM TANK ATTENDANT-C Primary Care Provider Active Start: February 27, 2025 End: February 27, 2025 Ramone Bauer CNM Attending Provider Active S tart: February 27, 2025 End: February 27, 2025 Ramone Bauer CNM Referring Provider Active S tart: February 27, 2025 End: February 27, 2025 Team Status: Inactive Member Role/Relationship Status Dates JEANINE VU , AQUARIUM TANK ATTENDANT-C Primary Care Provider Active Start: March 27, 2025 End: March 27, 2025 JEANINE VU , AQUARIUM TANK ATTENDANT-C Referring Provider Active S tart: March 27, 2025 End: March 27, 2025 Ramone Bauer CNM Attending Provider Active S tart: March 27, 2025 End: March 27, 2025 Team Status: Inactive Member Role/Relationship Status Dates JEANINE VU AQUARIUM TANK ATTENDANT-C Primary Care Provider Active Start: March 27, 2025 End: March 27, 2025 Ramone Bauer CNM Attending Provider Active S tart: March 27, 2025 End: March 27, 2025 Ramone Bauer CNM Referring Provider Active S tart: March 27, 2025 End: March 27, 2025 Team Status: Inactive Member Role/Relationship Status Dates JEANINE UV , AQUARIUM TANK ATTENDANT-C Primary Care Provider Active Start: April 24, 2025 End: April 24, 2025 JEANINE VU , AQUARIUM TANK ATTENDANT-C Referring Provider Active S tart: April 24, 2025 End: April 24, 2025 Dr. Miya Garza MD Attending Provider Active Start: April 24, 2025 End: April 24, 2025 Team Status: Inactive Member Role/Relationship Status Dates JEANINE VU , AQUARIUM TANK ATTENDANT-C Primary Care Provider Active Start: May 09, 2025 End: May 09, 2025 JEANINE VU , AQUARIUM TANK ATTENDANT-C Referring Provider Active S tart: May 09, 2025 End: May 09, 2025 Dr. Miya Garza MD Attending Provider Active Start: May 09, 2025 End: May 09, 2025 Team Status: Inactive Member Role/Relationship Status Dates JEANINE VU , AQUARIUM TANK ATTENDANT-C Primary Care Provider Active Start: May 22, 2025 End: May 22, 2025 JEANINE VU , AQUARIUM TANK ATTENDANT-C Referring Provider Active S tart: May 22, 2025 End: May 22, 2025 Ramone Bauer CNM Attending Provider Active S tart: May 22, 2025 End: May 22, 2025 Team Status: Inactive Member Role/Relationship Status Dates JEANINE VU , AQUARIUM TANK ATTENDANT-C Primary Care Provider Active Start: June 03, 2025 End: June 03, 2025 JEANINE VU , AQUARIUM TANK ATTENDANT-C Referring Provider Active S tart: June 03, 2025 End: June 03, 2025 Vernell Stephanie NP, AQUARIUM TANK ATTENDANT-C Attending Provider Active Start: June 03, 2025 End: June 03, 2025 Team Status: Inactive Member Role/Relationship Status Dates JEANINE VU , AQUARIUM TANK ATTENDANT-C Primary Care Provider Active Start: February 27, 2025 End: February 27, 2025 JEANINE VU , AQUARIUM TANK ATTENDANT-C Referring Provider Active S tart: February 27, 2025 End: February 27, 2025 Ramone Bauer CNM Attending Provider Active S tart: February 27, 2025 End: February 27, 2025 Team Status: Inactive Member Role/Relationship Status Darlene VU , AQUARIUM TANK ATTENDANT-C Primary Care Provider Active Start: February 27, 2025 End: February 27, 2025 Ramone Bauer CNM Attending Provider Active S tart: February 27, 2025 End: February 27, 2025 Ramone Bauer CNM Referring Provider Active S tart: February 27, 2025 End: February 27, 2025 Team Status: Inactive Member Role/Relationship Status Darlene VU , AQUARIUM TANK ATTENDANT-C Primary Care Provider Active Start: March 27, 2025 End: March 27, 2025 JEANINE VU AQUARIUM TANK ATTENDANT-C Referring Provider Active S tart: March 27, 2025 End: March 27, 2025 Ramone Bauer CNM Attending Provider Active S tart: March 27, 2025 End: March 27, 2025 Team Status: Inactive Member Role/Relationship Status Dates JEANINE VU , AQUARIUM TANK ATTENDANT-C Primary Care Provider Active Start: March 27, 2025 End: March 27, 2025 Ramone Bauer CNM Attending Provider Active S tart: March 27, 2025 End: March 27, 2025 Ramone Bauer CNM Referring Provider Active S tart: March 27, 2025 End: March 27, 2025 Team Status: Inactive Member Role/Relationship Status Darlene VU , AQUARIUM TANK ATTENDANT-C Primary Care Provider Active Start: April 24, 2025 End: April 24, 2025 JEANINE VU , AQUARIUM TANK ATTENDANT-C Referring Provider Active S tart: April 24, 2025 End: April 24, 2025 Dr. Miya Garza MD Attending Provider Active Start: April 24, 2025 End: April 24, 2025 Team Status: Inactive Member Role/Relationship Status Darlene SOLORZANO WOOD , AQUARIUM TANK ATTENDANT-C Primary Care Provider Active Start: May 09, 2025 End: May 09, 2025 JEANINE WOOD , AQUARIUM TANK ATTENDANT-C Referring Provider Active S tart: May 09, 2025 End: May 09, 2025 Dr. Miya Garza MD Attending Provider Active Start: May 09, 2025 End: May 09, 2025 Team Status: Inactive Member Role/Relationship Status Darlene JEANINE WOOD , AQUARIUM TANK ATTENDANT-C Primary Care Provider Active Start: May 22, 2025 End: May 22, 2025 JEANINE WOOD , AQUARIUM TANK ATTENDANT-C Referring Provider Active S tart: May 22, 2025 End: May 22, 2025 Ramone Bauer CNM Attending Provider Active S tart: May 22, 2025 End: May 22, 2025 Team Status: Inactive Member Role/Relationship Status Darlene SOLORZANO WOOD , AQUARIUM TANK ATTENDANT-C Primary Care Provider Active Start: June 03, 2025 End: June 03, 2025 JEANINE WOOD , AQUARIUM TANK ATTENDANT-C Referring Provider Active S tart: June 03, 2025 End: June 03, 2025 Vernell Brown AQUARIUM TANK ATTENDANT, AQUARIUM TANK ATTENDANT-C Attending Provider Active Start: June 03, 2025 End: June 03, 2025 Team Status: Inactive Member Role/Relationship Status Darlene JEANINE WOOD , AQUARIUM TANK ATTENDANT-C Primary Care Provider Active Start: June 03, 2025 End: June 03, 2025 Vernell Brown AQUARIUM TANK ATTENDANT, AQUARIUM TANK ATTENDANT-C Attending Provider Active Start: June 03, 2025 End: June 03, 2025 Team Status: Inactive Member Role/Relationship Status Darlene JEANINE WOOD , AQUARIUM TANK ATTENDANT-C Primary Care Provider Active Start: June 19, 2025 End: June 19, 2025 JEANINE WOOD , AQUARIUM TANK ATTENDANT-C Referring Provider Active S tart: June 19, 2025 End: June 19, 2025 Dr. Miya Garza MD Attending Provider Active Start: June 19, 2025 End: June 19, 2025 Team Status: Inactive Member Role/Relationship Status Darlene JEANINE WOOD , AQUARIUM TANK ATTENDANT-C Primary Care Provider Active Start: March 27, 2025 End: March 27, 2025 JEANINE WOOD , AQUARIUM TANK ATTENDANT-C Referring Provider Active S tart: March 27, 2025 End: March 27, 2025 Ramone Bauer CNM Attending Provider Active S tart: March 27, 2025 End: March 27, 2025 Team Status: Inactive Member Role/Relationship Status Darlene VU , AQUARIUM TANK ATTENDANT-C Primary Care Provider Active Start: March 27, 2025 End: March 27, 2025 Ramone Bauer CNM Attending Provider Active S tart: March 27, 2025 End: March 27, 2025 Ramone Bauer CNM Referring Provider Active S tart: March 27, 2025 End: March 27, 2025 Team Status: Inactive Member Role/Relationship Status Darlene VU , AQUARIUM TANK ATTENDANT-C Primary Care Provider Active Start: April 24, 2025 End: April 24, 2025 JEANINE VU , AQUARIUM TANK ATTENDANT-C Referring Provider Active S tart: April 24, 2025 End: April 24, 2025 Dr. Miya Garza MD Attending Provider Active Start: April 24, 2025 End: April 24, 2025 Team Status: Inactive Member Role/Relationship Status Darlene VU , AQUARIUM TANK ATTENDANT-C Primary Care Provider Active Start: May 09, 2025 End: May 09, 2025 JEANINE VU , AQUARIUM TANK ATTENDANT-C Referring Provider Active S tart: May 09, 2025 End: May 09, 2025 Dr. Miya Garza MD Attending Provider Active Start: May 09, 2025 End: May 09, 2025 Team Status: Inactive Member Role/Relationship Status Darlene VU , AQUARIUM TANK ATTENDANT-C Primary Care Provider Active Start: May 22, 2025 End: May 22, 2025 JEANINE VU , AQUARIUM TANK ATTENDANT-C Referring Provider Active S tart: May 22, 2025 End: May 22, 2025 Ramone Bauer CNM Attending Provider Active S tart: May 22, 2025 End: May 22, 2025 Team Status: Inactive Member Role/Relationship Status Darlene VU , AQUARIUM TANK ATTENDANT-C Primary Care Provider Active Start: June 03, 2025 End: June 03, 2025 JEANINE UV , AQUARIUM TANK ATTENDANT-C Referring Provider Active S tart: June 03, 2025 End: June 03, 2025 Vernell Brown NP, AQUARIUM TANK ATTENDANT-C Attending Provider Active Start: June 03, 2025 End: June 03, 2025 Team Status: Inactive Member Role/Relationship Status Darlene SOLORZANO WOOD , AQUARIUM TANK ATTENDANT-C Primary Care Provider Active Start: June 03, 2025 End: June 03, 2025 Vernell Brown AQUARIUM TANK ATTENDANT, AQUARIUM TANK ATTENDANT-C Attending Provider Active Start: June 03, 2025 End: June 03, 2025 Team Status: Inactive Member Role/Relationship Status Dates JEANINE VU , AQUARIUM TANK ATTENDANT-C Primary Care Provider Active Start: June 19, 2025 End: June 19, 2025 JEANINE VU , AQUARIUM TANK ATTENDANT-C Referring Provider Active S tart: June 19, 2025 End: June 19, 2025 Dr. Miya Garza MD Attending Provider Active Start: June 19, 2025 End: June 19, 2025 Team Status: Inactive Member Role/Relationship Status Dates JEANINE VU , AQUARIUM TANK ATTENDANT-C Primary Care Provider Active Start: July 14, 2025 End: July 14, 2025 JEANINE VU , AQUARIUM TANK ATTENDANT-C Referring Provider Active S tart: July 14, 2025 End: July 14, 2025 Vernell Brown AQUARIUM TANK ATTENDANT, AQUARIUM TANK ATTENDANT-C Attending Provider Active Start: July 14, 2025 End: July 14, 2025 Team Status: Active Member Role/Relationship Status Darlene VU , AQUARIUM TANK ATTENDANT-C Primary Care Provider Active Start: July 14, 2025 Dr. Miya Garza MD Attending Provider Active Start: July 14, 2025 Dr. Miya Garza MD Referring Provider Active Start: July 14, 2025 Team Status: Active Member Role/Relationship Status Darlene VU , AQUARIUM TANK ATTENDANT-C Primary care physician Active Team Status: Inactive Member Role/Relationship Status Darlene VU , AQUARIUM TANK ATTENDANT-C Primary care physician Active Start: April 24, 2025 End: April 24, 2025 JEANINE VU , AQUARIUM TANK ATTENDANT-C Referring Provider Active S tart: April 24, 2025 End: April 24, 2025 Dr. Miya Garza MD Attending physician Active Start: April 24, 2025 End: April 24, 2025 Team Status: Inactive Member Role/Relationship Status Dates JEANINE VU , AQUARIUM TANK ATTENDANT-C Primary care physician Active Start: May 09, 2025 End: May 09, 2025 JEANINE VU , AQUARIUM TANK ATTENDANT-C Referring Provider Active S tart: May 09, 2025 End: May 09, 2025 Dr. Miya Garza MD Attending physician Active Start: May 09, 2025 End: May 09, 2025 Team Status: Inactive Member Role/Relationship Status Dates JEANINE VU , AQUARIUM TANK ATTENDANT-C Primary care physician Active Start: May 22, 2025 End: May 22, 2025 JEANINE VU , AQUARIUM TANK ATTENDANT-C Referring Provider Active S tart: May 22, 2025 End: May 22, 2025 Ramone Bauer CNM Attending physician Active Start: May 22, 2025 End: May 22, 2025 Team Status: Inactive Member Role/Relationship Status Dates JEANINE VU , AQUARIUM TANK ATTENDANT-C Primary care physician Active Start: June 03, 2025 End: June 03, 2025 JEANINE VU , AQUARIUM TANK ATTENDANT-C Referring Provider Active S tart: June 03, 2025 End: June 03, 2025 Vernell Brown AQUARIUM TANK ATTENDANT, AQUARIUM TANK ATTENDANT-C Attending physician Active Start: June 03, 2025 End: June 03, 2025 Team Status: Inactive Member Role/Relationship Status Darlene VU AQUARIUM TANK ATTENDANT-C Primary care physician Active Start: June 03, 2025 End: June 03, 2025 Vernell Brown AQUARIUM TANK ATTENDANT, AQUARIUM TANK ATTENDANT-C Attending physician Active Start: June 03, 2025 End: June 03, 2025 Team Status: Inactive Member Role/Relationship Status Darlene VU , AQUARIUM TANK ATTENDANT-C Primary care physician Active Start: June 19, 2025 End: June 19, 2025 JEANINE VU , AQUARIUM TANK ATTENDANT-C Referring Provider Active S tart: June 19, 2025 End: June 19, 2025 Dr. Miya Garza MD Attending physician Active Start: June 19, 2025 End: June 19, 2025 Team Status: Inactive Member Role/Relationship Status Darlene VU AQUARIUM TANK ATTENDANT-C Primary care physician Active Start: July 14, 2025 End: July 14, 2025 JEANINE VU , AQUARIUM TANK ATTENDANT-C Referring Provider Active S tart: July 14, 2025 End: July 14, 2025 Vernell Brown NP, AQUARIUM TANK ATTENDANT-C Attending physician Active Start: July 14, 2025 End: July 14, 2025 Team Status: Inactive Member Role/Relationship Status Darlene VU AQUARIUM TANK ATTENDANT-C Primary care physician Active Start: July 14, 2025 End: July 14, 2025 Dr. Miya Garza MD Attending physician Active Start: July 14, 2025 End: July 14, 2025 Dr. Miya Garza MD Referring Provider Active Start: July 14, 2025 End: July 14, 2025 Team Status: Inactive Member Role/Relationship Status Dates JEANINE WOOD , AQUARIUM TANK ATTENDANT-C Primary care physician Active Start: July 21, 2025 End: July 21, 2025 Vernell Brown AQUARIUM TANK ATTENDANT, AQUARIUM TANK ATTENDANT-C Attending physician Active Start: July 21, 2025 End: July 21, 2025 Vernell Brown AQUARIUM TANK ATTENDANT, AQUARIUM TANK ATTENDANT-C Referring Provider Active Start: July 21, 2025 End: July 21, 2025 Team Status: Inactive Member Role/Relationship Status Dates JEANINE VU , AQUARIUM TANK ATTENDANT-C Primary care physician Active Start: July 30, 2025 End: July 30, 2025 JEANINE VU , AQUARIUM TANK ATTENDANT-C Referring Provider Active S tart: July 30, 2025 End: July 30, 2025 Dr. Nadia Callejas DO Attending physician Acti ve Start: July 30, 2025 End: July 30, 2025 Team Status: Inactive Member Role/Relationship Status Dates JEANINE VU , AQUARIUM TANK ATTENDANT-C Primary care physician Active Start: May 09, 2025 End: May 09, 2025 JEANINE VU , AQUARIUM TANK ATTENDANT-C Referring Provider Active S tart: May 09, 2025 End: May 09, 2025 Dr. Miya Garza MD Attending physician Active Start: May 09, 2025 End: May 09, 2025 Team Status: Inactive Member Role/Relationship Status Dates JEANINE VU , AQUARIUM TANK ATTENDANT-C Primary care physician Active Start: May 22, 2025 End: May 22, 2025 JEANINE VU , AQUARIUM TANK ATTENDANT-C Referring Provider Active S tart: May 22, 2025 End: May 22, 2025 Ramone Bauer CNM Attending physician Active Start: May 22, 2025 End: May 22, 2025 Team Status: Inactive Member Role/Relationship Status Dates JEANNIE VU AQUARIUM TANK ATTENDANT-C Primary care physician Active Start: June 03, 2025 End: June 03, 2025 JEANINE VU , AQUARIUM TANK ATTENDANT-C Referring Provider Active S tart: June 03, 2025 End: June 03, 2025 Vernell Brown NP, AQUARIUM TANK ATTENDANT-C Attending physician Active Start: June 03, 2025 End: June 03, 2025 Team Status: Inactive Member Role/Relationship Status Dates JEANINE VU AQUARIUM TANK ATTENDANT-C Primary care physician Active Start: June 03, 2025 End: June 03, 2025 Vernell Brown AQUARIUM TANK ATTENDANT, AQUARIUM TANK ATTENDANT-C Attending physician Active Start: June 03, 2025 End: June 03, 2025 Team Status: Inactive Member Role/Relationship Status Dates JEANINE WOOD , AQUARIUM TANK ATTENDANT-C Primary care physician Active Start: June 19, 2025 End: June 19, 2025 JEANINE VU , AQUARIUM TANK ATTENDANT-C Referring Provider Active S tart: June 19, 2025 End: June 19, 2025 Dr. Miya Garza MD Attending physician Active Start: June 19, 2025 End: June 19, 2025 Team Status: Inactive Member Role/Relationship Status Dates JEANINE VU , AQUARIUM TANK ATTENDANT-C Primary care physician Active Start: July 14, 2025 End: July 14, 2025 JEANINE VU , AQUARIUM TANK ATTENDANT-C Referring Provider Active S tart: July 14, 2025 End: July 14, 2025 Vernell Brown AQUARIUM TANK ATTENDANT, AQUARIUM TANK ATTENDANT-C Attending physician Active Start: July 14, 2025 End: July 14, 2025 Team Status: Inactive Member Role/Relationship Status Darlene VU , AQUARIUM TANK ATTENDANT-C Primary care physician Active Start: July 14, 2025 End: July 14, 2025 Dr. Miya Garza MD Attending physician Active Start: July 14, 2025 End: July 14, 2025 Dr. Miya Garza MD Referring Provider Active Start: July 14, 2025 End: July 14, 2025 Team Status: Inactive Member Role/Relationship Status Dates JEANINE VU , AQUARIUM TANK ATTENDANT-C Primary care physician Active Start: July 21, 2025 End: July 21, 2025 Vernell Brown AQUARIUM TANK ATTENDANT, AQUARIUM TANK ATTENDANT-C Attending physician Active Start: July 21, 2025 End: July 21, 2025 Vernell Brown AQUARIUM TANK ATTENDANT, AQUARIUM TANK ATTENDANT-C Referring Provider Active Start: July 21, 2025 End: July 21, 2025 Team Status: Inactive Member Role/Relationship Status Dates JEANINE VU , AQUARIUM TANK ATTENDANT-C Primary care physician Active Start: July 30, 2025 End: July 30, 2025 JEANINE VU , AQUARIUM TANK ATTENDANT-C Referring Provider Active S tart: July 30, 2025 End: July 30, 2025 Dr. Nadia Callejas DO Attending physician Acti ve Start: July 30, 2025 End: July 30, 2025 Team Status: Inactive Member Role/Relationship Status Dates JEANINE VU , AQUARIUM TANK ATTENDANT-C Primary care physician Active Start: August 11, 2025 End: August 11, 2025 JEANINE VU , AQUARIUM TANK ATTENDANT-C Referring Provider Active S tart: August 11, 2025 End: August 11, 2025 Ramone Bauer CNM Attending physician Active Start: August 11, 2025 End: August 11, 2025 INFORMATION SOURCE (unrecogn ized section and content) DATE CREATED AUTHOR 01/06/2022 [facility] DATE CREATED AUTHOR AUTHOR'S ORGANIZ ATION 03/18/2022 [facility] DATE CREATED AUTHOR AUTHOR'S ORGANIZ ATION 04/08/2023 [facility] DATE CREATED AUTHOR AUTHOR'S ORGANIZ ATION 04/08/2023 [facility] DATE CREATED AUTHOR AUTHOR'S ORGANIZ ATION 01/10/2025 [facility] DATE CREATED AUTHOR AUTHOR'S ORGANIZ ATION 05/17/2025 [facility] DATE CREATED AUTHOR AUTHOR'S ORGANIZ ATION 09/06/2025 [facility] Goals (unrecognized section and content) Type Care Experience Labor Preferences-CB /BF classes: nolabor support person: Vincentlabor intervention preferences: []pain management options preferred:limitedcut cord/dad catch: cordbreastfeeding: yesPP control planned: discusseddiscussed possible routes of delivery and associated risks: []special requests: [] FOR RECORDS PERTAINING TO PATIENTS WHO ARE [...] BE BASED ON THE PRIMARY CLINICAL RECORDS. [employer] provides no warranty or guarantee of the accuracy or completeness of information in this document.
== END | disposition home or self-care (01) ==
LOC: LABSPEC 12:06
PROVIDERS: PCP Nurse Practitioner Family; Visit Provider Obstetrics & Gynecology
DX: O09.91 Supervision of high risk pregnancy, unspecified, first trimester (principal); Z3A.36 36 weeks gestation of pregnancy
CPT/HCPCS: 87081

== ENCOUNTER 2025-09-17 19:33 | Inpatient (IN) | payer OTHER, SELFPAY ==
[2025-09-17] VITALS (10 sets, daily range): BP systolic 120–133; BP diastolic 60–75; PULSE 75–87; RESP 16–18; TEMP 36.7–37; O2SAT 80–99; BMI 34.4
[2025-09-17] MEDS: 0.9% Saline Lock 10 ML Syringe IV (17:22)
[2025-09-17] MEDS: Lactated Ringers 1,000 ML 200 ML IV (17:29)
[2025-09-17 17:43] LABS: Hematocrit 34.8 % (37-47); Hemoglobin 12.2 g/dL (12.0-15.0); Immature Granulocytes Count 0.060 X10^3/uL (0.0-0.0); Mean Corp Hgb Conc 35.1 g/dL (32-36); Mean Corpuscular Volume 93.3 fL (81-99); Mean Platelet Vol. 11.3 fl (6.2-12.0); NRBC Flagged by Analyzer 0 % (0-5); Platelet Count 279 K/mm3 (150-450); RBC Distribution Width CV 13.2 % (11.6-14.6); RBC Distribution Width SD 44.7 fl (35.1-43.9); Red Blood Count 3.73 M/mm3 (4.2-5.4); White Blood Count 14.1 K/mm3 (4.4-11.0)
[2025-09-17 18:22] LABS: Syphilis Antibodies Nonreactive (Nonreactive)
--- NOTE | 2025-09-17 19:52 | HP.PCM.OB_ITS ---
HPI - General General Date of Admission: 09/17/25 Date of Service: 09/17/25 HPI Narrative TITO MARTIN, is a 35 F at 37.1 weeks who presents to unit in active labor. cervical change from 1cm to 3cm and hx of precipitous deliveries. Maternal Data Information TAQUERIA Calculator Estimated Delivery Date Method Current WG Current Estimate 10/07/25 LMP (Certain) 37w 1d Other Estimates 10/05/25 Ultrasound #1 37w 3d Final TAQUERIA: 10/07/25 Final TAQUERIA Source: US >20 weeks Gestational age: 37.1 [facility] Medical History (Updated 09/17/25 @ 19:54 by Ofe Perez CNM) Family history of hearing loss at age younger than 7 years depression Headache ADHD Home Medications ?Medication ?Instructions ?Recorded ?Last Taken ?Type cholecalciferol (vitamin D3) 50 50 mcg PO QDAY 5 09/16/25 History mcg (2,000 unit) capsule docosahexaenoic acid 200 mg mg PO 02/05/25 09/16/25 Hi story capsule ( DHA) omega-3 fatty acids 1,000 mg 1,000 mg PO QDAY 02/05/25 09/16/25 History capsule famotidine 20 mg tablet (Acid 20 mg PO DAILY 09/17/25 Unknown History Controller) Allergy/AdvReac Type Severity Reaction Status Date / Time Penicillins Allergy Mild Hives Verified 09/17/25 15:06 Sulfa (Sulfonamide Allergy Mild Hives Verified 09/17/25 15:06 Antibiotics) Family History Father GBM (glioblastoma multiforme) Hypertension Mother Hypertension Alopecia Grandmother Heart disease Hypertension Grandfather Heart disease Hypertension Macular degeneration Brother Leukemia as a child Grandmother Macular degeneration Hypertension Aneurysm Surgical History (Updated 09/17/25 @ 15:55 by Bessy Lerma) History of surgery Social History adopted: No household members: spouse and children number of children: 2 current occupational status: employed 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 current occupational exposures/hazards: Yes (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 ) ) pets and animals: No history of recent travel: No Smoking Status: Never smoker alcohol intake: former details: socially, but not since substance use type: marijuana and other details: occasionally but not since , last 10/2024 caffeine: Yes Type: coffee what type of physical activity do you participate in: running and bicycling frequency: 5-6 times per week deon/rastafari: Zoroastrian seatbelt use: always do you feel safe at home: Yes additional social history: - [employer] pediatric PT History 3 Elective abortions Hx Para 2 Spontaneous abortions Hx # Term Pregnancies Ectopic pregnancies Hx # Pregnancies Multiple births # of living children 2 Past Pregnancies Del. Date Name GA/Weeks Outcome Route Bth Weight Infant Gen Labor Lgth Anesthesia Del Locatn Provider FOB 06/02/20 Mari 39 live - full term 7.8 Female 7 hours n one Magdy 02/28/22 Miguel Ángel 39 live - full term Male 6 none Visit Details Expected Delivery Route/Plan Labor Preferences- CB/BF classes: no labor support person: Magdy labor intervention preferences: [] pain management options preferred:limited cut cord/dad catch: cord : yes PP control planned: discussed discussed possible routes of delivery and associated risks: [] special requests: [] Plans Covid status: [] Flu vaccine: [] Tdap vaccine: [] Rhogam: NA LARC form signed: yes Problem list reviewed and updated with the most current plan of care details and appropriate orders placed. Relevant counseling for the gestational age provided. Continue routine care and follow up unless otherwise noted in visit notes/problem list details OB Flowsheet Initial Weight: 178 lb Date -?-?-?-?-?-?-?-?-?-?-?-?- EGA Weight BP Urine Prot -?-?-?-?-?-?-?-?-?-?-?-?- Glucose FHR FuHt Pres Dilation -?-?-?-?-?-?-?-?-?-?-?-?- Effaced St Visit Note 02/27/25 -?-?-?-?-?-?-?-?-?-?-?-?- 8w 2d 178 lb 2 oz (+2 oz) 125/75 -?-?-?-?-?-?-?-?-?-?-?-?- 173 -?-?-?-?-?-?-?-?-?-?-?-?- KW- CRL cons wit h dates. accepts NIPT. 03/27/25 -?-?-?-?-?-?-?-?-?-?-?-?- 12w 2d 181 lb 2 oz (+3 lb 2 oz) 122/77 Negative -?-?-?-?-?-?-?-?-?-?-?-?- Negative 160 -?-?-?-?-?-?-?-?-?-?-?-?- kw- no vb/crampi ng. US with MFM ordered. Bartholin cyst-to try loose clothing and warm compress kw- no vb/cramping. US with MFM ordered. Bartholin cyst-to try loose clothing and warm compress. Labs today 04/24/25 -?-?-?-?-?-?-?-?-?-?-?-?- 16w 2d 188 lb 4 oz (+10 lb 4 oz) 127/77 -?-?-?-?-?-?-?-?-?-?-?-?- 145 -?-?-?-?-?-?-?-?-?-?-?-?- SM- no vb crampi ng 05/09/25 -?-?-?-?-?-?-?-?-?-?-?-?- 18w 3d 191 lb 4 oz (+13 lb 4 oz) 125/73 Negative -?-?-?-?-?-?-?-?-?-?-?-?- Negative 145 -?-?-?-?-?-?-?-?-?-?-?-?- Sm- she was feel ing crampy throughout the day, had diarrhea yesterday and now feeling better today 05/22/25 -?-?-?-?-?-?-?-?-?-?-?-?- 20w 2d 191 lb 4 oz (+13 lb 4 oz) 121/69 Negative -?-?-?-?-?-?--?-?-?-?-?-?- Negative 145 -?-?-?-?-?-?-?-?-?-?-?-?- KW- no vb/marty ng. +FM. anatomy reviewed. 06/03/25 -?-?-?-?-?-?-?-?-?-?-?-?- 22w 0d 195 lb 3 oz (+17 lb 3 oz) 119/68 Negative -?-?-?-?-?-?-?-?-?-?-?-?- Negative 146 -?-?-?-?-?-?-?-?-?-?-?-?- -work in for i tching/discharge. No VB. Good FM. 06/19/25 -?-?-?-?-?-?-?-?-?-?-?-?- 24w 2d 196 lb 1 oz (+18 lb 1 oz) 112/72 -?-?-?-?-?-?-?-?-?-?-?-?- 140 24 -?-?-?-?-?-?-?-?-?-?-?-?- Sm- no bv lof go od fm n oreuglar ctx 07/14/25 -?-?-?-?-?-?-?-?-?-?-?-?- 27w 6d 206 lb (+28 lb) 113/72 Negative -?-?-?-?-?-?-?-?-?-?-?-?- Negative 138 27 -?-?-?-?-?-?-?-?-?-?-?-?- MH-No VB, LOF. G ood FM. RUQ abd pain, worse end of day. GB US and labs ordered. Larc, 28 wk labs. 07/30/25 -?-?-?-?-?-?-?-?-?-?-?-?- 30w 1d 108 lb 3 oz (-69 lb 13 oz) 116/74 Negative -?-?-?-?-?-?-?-?-?-?-?-?- Negative 136 31 Cephalic -?-?-?-?-?-?-?-?-?-?-?-?- JV- long discuss ion about 39 week IOL see problem list. normal lfts, no other complaints. 08/11/25 -?-?-?-?-?-?-?-?-?-?-?-?- 31w 6d 212 lb 2 oz (+34 lb 2 oz) 120/73 Negative -?-?-?-?-?-?-?-?-?-?-?-?- Negative 145 32 Cephalic -?-?-?-?-?-?-?-?-?-?-?-?- KW- no vb/lof/ct x. good fm. more discussion on 39 week IOL 08/28/25 -?-?-?-?-?-?-?-?-?-?-?-?- 34w 2d 220 lb 8 oz (+42 lb 8 oz) 116/69 Negative -?-?-?-?-?-?-?-?-?-?-?-?- Negative 140 35 Cephalic -?-?-?-?-?-?-?-?-?-?-?-?- SM- no vb lof go od fm no regular ctx 09/11/25 -?-?-?-?-?-?-?-?-?-?-?-?- 36w 2d 217 lb 7 oz (+39 lb 7 oz) 112/73 Negative -?-?-?-?-?-?-?-?-?-?-?-?- Negative 135 36 Cephalic 1 -?-?-?-?-?-?-?-?-?-?-?-?- 0 -3 JV- ashtynni ng iol on 09/30. gbs collected. no complaints NST FHR Rate Baby A Baseline: 130 Variability:: Moderate Accelerations:: 15 x 15 Decelerations:: None NST Reactive:: Yes FHR Category:: Category I Uterine Activity:: 3-4 minutes ROS Constitutional Constitutional: Denies change in weight, fatigue, fever(s), headache(s), poor appetite or weakness Eyes Eyes: Denies blurry vision, change in vision, floaters, seeing flashes or spots in vision ENT HEENT: Denies dizziness, headache(s), loss taste/smell or sore throat Cardiovascular Cardiovascular: Denies chest pain, dizziness, dyspnea, irregular heart rhythm, lightheadedness, palpitations or rapid heart rate Respiratory/Chest Respiratory/Chest: Denies change in mental status, chest tightness, cough, dyspnea or breast pain Gastrointestinal Gastrointestinal: Denies anorexia, chewing difficulty, constipation, diarrhea or weight changes Genitourinary Genitourinary: Denies difficulty urinating, dysuria, flank pain, genital pain, urinary frequency or urinary urgency Musculoskeletal Musculoskeletal: Denies back pain, difficulty walking, extremity pain, joint pain, muscle cramps or muscle weakness Integumentary Integumentary: Denies lesions or unusual bruising Neurologic Neurologic: Denies abnormal movements, abnormal speech, dizziness, numbness, seizure-like activity, syncope or weakness Psychiatric Psychiatric: Denies behavioral changes, change in appetite, confusion, depression, homicidal ideation, suicidal ideation or suicidal thoughts Endocrine Endocrinology: Denies excessive sweating, polydipsia or polyuria Hematologic/Lymphatic Hematologic/Lymphatic: Denies anemia Allergic/Immunologic Allergic/Immunologic: Denies itchy eyes, lip swelling, throat swelling, tongue swelling or wheezing Vital Signs Vital Signs Vital Signs: 09/17/25 14:43 09/17/25 14:43 09/17/25 14:43 Temperature Temperature Source Temporal Pulse Rate Respiratory Rate 18 Blood Pressure BP Systolic BP Diastolic Pulse Ox 99 09/17/25 14:43 09/17/25 14:45 09/17/25 14:45 Temperature 98.3 F Temperature Source Pulse Rate 87 Respiratory Rate Blood Pressure 124/74 H BP Systolic 124 BP Diastolic 74 Pulse Ox 09/17/25 14:45 09/17/25 14:45 09/17/25 17:40 Temperature Temperature Source Temporal Pulse Rate 87 Respiratory Rate Blood Pressure BP Systolic BP Diastolic Pulse Ox 98 09/17/25 17:40 09/17/25 17:40 09/17/25 17:40 Temperature Temperature Source Pulse Rate 85 Respiratory Rate 16 Blood Pressure 125/60 H BP Systolic 125 BP Diastolic 60 Pulse Ox 09/17/25 17:40 09/17/25 17:40 09/17/25 19:31 Temperature 98.3 F Temperature Source Temporal Pulse Rate Respiratory Rate Blood Pressure BP Systolic BP Diastolic Pulse Ox 98 09/17/25 19:31 09/17/25 19:31 09/17/25 19:32 Temperature 98.2 F Temperature Source Pulse Rate Respiratory Rate 16 Blood Pressure 133/75 H BP Systolic 133 BP Diastolic 75 Pulse Ox 09/17/25 19:32 Temperature Temperature Source Pulse Rate 79 Respiratory Rate Blood Pressure BP Systolic BP Diastolic Pulse Ox Weight Weight: 219 lb 9.286 oz Body Mass Index (BMI) 34.4 PRE- weight 178 lb 3.2 oz PRE- Body Mass Index 27.8 (BMI) Physical Exam Const alert, oriented x3 and no apparent distress General Appearance: cooperative Orientation / Consciousness: awake HEENT normocephalic Neck full ROM Lymph Lymphatic: no lymphadenopathy noted Chest inspection of chest normal Resp normal respiratory effort and normal air movement Effort and Inspection: able to speak in complete sentences and symmetric chest movement GI soft to palpation and non-tender Inspection: gravid Palpation: soft; Negative for tender external exam normal Back/Spine normal to inspection Extremity normal to inspection and full ROM Skin no rashes or lesions noted Psych mental status grossly normal Appearance: grossly normal Speech: normal speech Labs Labs Labs: Blood Type O POSITIVE Antibody Screen NEGATIVE Hct, (37-47) 34.8 % L Hgb, (12.0-15.0) 12.2 g/dL Pap Smear Negative Syphilis Total Ab, (Nonreactive) Nonreactive Rubella IgG Antibody, (Nonreactive) REAC Hep Bs Antigen, (Nonreactive) Nonreactive Hepatitis C Antibody, (Nonreactive) Nonreactive Chlamydia DNA (RADHA), (Negative) Negative N.gonorrhoeae DNA (RADHA), (Negative) Negative HIV 1&2 Antibody, (Nonreactive) Nonreactive Glucose 1 Hr 50 gm, (70-140) 88 mg/dL Miscellaneous Test, (.) COMMENT Assessment & Plan (1) Active labor: PLAN: Patient presents IAL, plan expectant management for , pitocin/AROM PRN if needed. Pain management: plans no epidural. GBS neg. Management of any complications: none I have reviewed the [facility] and made any clinically relevant updates. Dr Garza aware of assessment, plan and admission. agrees with above (2) History of precipitous delivery: COMMENT: has h/o fast 2nd stage of labor, normal first stage. watch on L&D if comes in for at least 2 hour before dc to home plan 39 IOL. 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 (6) : QUALIFIERS: Weeks of gestation: 36 weeks Qualified Code(s): Z3A.36 - 36 weeks gestation of COMMENT: NIPT low risk, declines gender & carrier, nl anatomy (7) Supervision of high risk in first trimester: COMMENT: GBS neg, PRR, surprise PC Miguel Ángel Guerra, TAQUERIA 10/07/25 Magdy (8) ADHD: QUALIFIERS: Attention deficit-hyperactivity disorder type: unspecified Qualified Code(s): F90.9 - Attention-deficit hyperactivity disorder, unspecified type COMMENT: Linda-stopped taking medication once she found out she was Charges/Coding Multi Select Codes Urinary/Genital Urinary/Genital CPT Codes: No Charge
--- NOTE | 2025-09-17 20:07 | PCM.PN.BLA ---
Progress Note Coping well with contractions current tracing: FHT: 125 Moderate variability reactive no decelerations category I tracing [place]: 3-4 Contractions Membranes:ruptured for clear at 1999 SVE:3/60/-2 A/P: Continue with position changes Titrate pitocin per protocol Epidural per anesthesia GBS neg Anticipate Dr Garza aware of above assessment and agrees with plan of care Assessment & Plan Assessment/Plan (1) Active labor: (2) History of precipitous delivery: (3) RUQ abdominal pain: (4) H/O rapid labor: (5) Occupational risk complicating : QUALIFIERS: Trimester: third trimester Qualified Code(s): O09.893 - Supervision of other high risk pregnancies, third trimester (6) : QUALIFIERS: Weeks of gestation: 36 weeks Qualified Code(s): Z3A.36 - 36 weeks gestation of (7) Supervision of high risk in first trimester: (8) ADHD: QUALIFIERS: Attention deficit-hyperactivity disorder type: unspecified Qualified Code(s): F90.9 - Attention-deficit hyperactivity disorder, unspecified type Multi Select Codes Urinary/Genital Urinary/Genital CPT Codes: No Charge
[2025-09-17] MEDS: LACTATED RINGERS 500 ML 999 ML IV (23:45)
[2025-09-18] VITALS (35 sets, daily range): BP systolic 102–131; BP diastolic 52–77; PULSE 68–104; RESP 16–18; TEMP 36.2–36.8; O2SAT 91–100
--- NOTE | 2025-09-18 00:07 | PCM.PN.BLA ---
Progress Note Coping well with contractions current tracing: FHT: 125 Moderate variability reactive no decelerations category I tracing. period of marked variability-resolved with fluid bolus and position change [place]: 2-4 minutes Contractions Membranes:remains clear SVE:6/80/0 A/P: Continue with position changes Titrate pitocin per protocol Epidural per anesthesia GBS neg Anticipate Dr Garza aware of above assessment and agrees with plan of care Assessment & Plan Assessment/Plan (1) Active labor: (2) History of precipitous delivery: (3) RUQ abdominal pain: (4) H/O rapid labor: (5) Occupational risk complicating : QUALIFIERS: Trimester: third trimester Qualified Code(s): O09.893 - Supervision of other high risk pregnancies, third trimester (6) : QUALIFIERS: Weeks of gestation: 36 weeks Qualified Code(s): Z3A.36 - 36 weeks gestation of (7) Supervision of high risk in first trimester: (8) ADHD: QUALIFIERS: Attention deficit-hyperactivity disorder type: unspecified Qualified Code(s): F90.9 - Attention-deficit hyperactivity disorder, unspecified type Multi Select Codes Urinary/Genital Urinary/Genital CPT Codes: No Charge
[2025-09-18] MEDS: Oxytocin 15 Units/NS 250ml 15 UNITS/250 ML IV.SOLN 334 UNITS IV (01:27)
--- NOTE | 2025-09-18 01:43 | EX.PCM.OBVAG ---
Assessment & Plan (1) Vaginal delivery: COMMENT: IAL 37.1 girl Filomena (2) Active labor: (3) History of precipitous delivery: COMMENT: has h/o fast 2nd stage of labor, normal first stage. watch on L&D if comes in for at least 2 hour before dc to home plan 39 IOL. 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 (7) : QUALIFIERS: Weeks of gestation: 36 weeks Qualified Code(s): Z3A.36 - 36 weeks gestation of COMMENT: NIPT low risk, declines gender & carrier, nl anatomy (8) Supervision of high risk in first trimester: COMMENT: GBS neg, PRR, surprise PC Miguel Ángel Guerra, TAQUERIA 10/07/25 Magdy (9) ADHD: QUALIFIERS: Attention deficit-hyperactivity disorder type: unspecified Qualified Code(s): F90.9 - Attention-deficit hyperactivity disorder, unspecified type COMMENT: Linda-stopped taking medication once she found out she was Maternal Data Information TAQUERIA Calculator Estimated Delivery Date Method Current WG Current Estimate 10/07/25 LMP (Certain) 37w 2d Other Estimates 10/05/25 Ultrasound #1 37w 4d Final TAQUERIA: 10/07/25 Final TAQUERIA Source: US >20 weeks Gestational age: 37.2 Vaginal Delivery Maternal Presentation Maternal Presentation: Active Labor Maternal Presentation: Presented to unit for active labor at 37.1 weeks Vaginal Delivery Information Procedure Performed: Spontaneous Vaginal Delivery Surgeon/Practitioner: Ofe Perez Date of Procedure: 09/18/25 Pre-Procedure Diagnosis: see problem list Post-Procedure Diagnosis: same Type of anesthesia: Local with 1% Lidocaine Estimated Blood Loss: 200 Time of Delivery: 01:16 Findings Description of procedure: Progressed well to 10cm dilated and made steady progress with effective maternal pushing. Delivered the head in [place] presentation. The head was delivered atraumatically and a loose nuchal cord was identified and was easily reduced over the 's head. The anterior and posterior shoulders delivered without complication followed by the rest of the infant and the was placed on the maternal abdomen. Delayed cord clamping was employed for approximately 3 minutes. Cord was clamped and cut and gentle traction was applied to the cord and the placenta delivered spontaneously. Immediately following, it was noted to be intact with a 3 vessel cord. Uterine bleeding stable. The perineum and vagina were inspected and noted to have a first degree laceration which was repaired with 3-0 Vicryl in the usual fashion. EBL was 200. Patient and tolerated delivery well. Apgars 8/9. Dr Garza notified of vaginal delivery and orders reviewed. Physician agrees with current plan of care. Presentation: Vertex Amniotic Membrane Rupture Type: Artificial Amniotic Fluid Description: Clear Placental Delivery Description: Spontaneous Placenta Disposition: [facility] Specimen collected: No Cord Vessel Description: 3 Vessels Cord Entanglement: Around neck x 1, loose A Gender: Female (1 minute): 8 (5 minute): 9 Delayed Cord Clamping: Yes Residence Manager programming internship: No Post Vaginal Deli Medications given after delivery: IV Pitocin Episiotomy Description: None Laceration: 1st degree Complication Complications: No Multi Select Codes Urinary/Genital Urinary/Genital CPT Codes: 98433 Vaginal Delivery [facility]
--- NOTE | 2025-09-18 01:45 | PCM.DC ---
Discharge Instructions DC O2, CPAP, BIPAP needs Home O2 Discharge instructions: No Follow Up Care Test Results: Test results from this visit will be discussed in further detail at your follow-up appointment, if applicable. Discharge Plan Admission Admit Date/Time: 09/17/25 19:33 Attending Provider: Ofe Perez Primary Care Provider: JEANINE VU Discharge Orders/Prescriptions Prescriptions: No Action DHA 200 mg capsule PO cholecalciferol (vitamin D3) 50 mcg (2,000 unit) capsule 50 mcg PO QDAY omega-3 fatty acids 1,000 mg capsule 1,000 mg PO QDAY famotidine [Acid Controller] 20 mg tablet 20 mg PO DAILY Referrals / Follow Up: JEANINE VU, GRID CASTING MACHINE OPERATOR HELPER-C [Primary Care Provider, Family Practice]
[2025-09-18] MEDS: Oxytocin 15 Units/NS 250ml 15 UNITS/250 ML IV.SOLN 83 UNITS IV (02:00)
[2025-09-18] MEDS: Senna/Docusate Sodium 1 Tablet PO (07:55)
[2025-09-19 01:10] VITALS: BP 129/72; PULSE 64; RESP 16; TEMP 36.6; O2SAT 97
--- NOTE | 2025-09-19 07:56 | PCM.PN.OB ---
Subjective Subjective Patient doing well without complaints. Tolerating PO. Ambulating and voiding without difficulty. Feeding well. Denies chest pain, shortness of breath, calf pain/swelling, fevers, chills, lightheadedness. Objective Data Objective Data Vital Signs: Vital Signs Temp Pulse Resp BP Pulse Ox O2 Del Method 97.8 F 64 16 129/72 H 97 Room Air 09/19/25 01:10 09/19/25 01:10 09/19/25 01:10 09/19/25 01:10 09/19/25 01:10 09/19/25 01:10 Oxygen Delivery Method Room Air Weight: 219 lb 9.286 oz Body Mass Index (BMI) 34.4 Intake & Output: Intake and Output for Last 24 Hours 09/17/25 09/18/25 09/19/25 23:59 23:59 23:59 Intake Total 803.33 / 803.33 933.7 / 933.7 Output Total 850 / 850 Balance 803.33 / 803.33 83.7 / 83.7 Lab / Micro Data 09/17/25 17:10 ROS Constitutional Constitutional: Denies chills, fatigue, fever(s), poor appetite or weakness Eyes Eyes: Denies blurry vision, change in vision, seeing flashes or spots in vision ENT HEENT: Denies dizziness, headache(s), loss taste/smell or sore throat Cardiovascular Cardiovascular: Denies chest pain, dizziness, dyspnea, irregular heart rhythm, palpitations or rapid heart rate Respiratory/Chest Respiratory/Chest: Denies chest tightness, cough, dyspnea or breast pain Gastrointestinal Gastrointestinal: Denies abdominal pain, constipation or vomiting Genitourinary Genitourinary: Denies dysuria or flank pain Musculoskeletal Musculoskeletal: Denies difficulty walking, joint pain, limited range of motion or numbness Neurologic Neurologic: Denies abnormal movements, abnormal speech, dizziness, numbness, seizure-like activity or syncope Psychiatric Psychiatric: Denies anxiety, behavioral changes, change in appetite, confusion, depression or suicidal thoughts Physical Exam Const alert, oriented x3 and no apparent distress General Appearance: cooperative and comfortable Resp normal respiratory effort Cardio regular rate GI normal to inspection, nondistended, normoactive bowel sounds GI Narrative: uterus is firm below umbilicus Palpation: soft Back/Spine no CVA tenderness and thoraco-lumbar ROM normal Extremity normal to inspection, no clubbing, cyanosis or edema, no calf tenderness and no pedal edema Psych mental status grossly normal, thought process normal, cooperative, affect normal, speech normal, activity/motor behavior normal, denies homicidal ideation and denies suicidal ideation Assessment & Plan (1) Vaginal delivery: COMMENT: IAL 37.1 girl Filomena PLAN: s/p PPD # 2 1. routine post delivery care 2. breast feeding- support given 3. rh positive 4. rubella immune
[2025-09-19 08:25] VITALS: BP 126/70; PULSE 83; RESP 16; TEMP 36.3; O2SAT 98
--- NOTE | 2025-09-19 09:49 | NURSING ---
spoke to patient about order for social service consult for history of PPD, after speaking to patient about options of postponing discharge for consult, patient states that she would prefer to be discharge and feels like she has adequate resources and support at home. This RN states that Mary, the social research assistant may call her at home and patient in agreement with this. This RN verbalized to patient that she could call into unit or OB office in any concerns arise .
--- NOTE | 2025-09-19 14:01 | CASEMGMT ---
Social work SW consult was in for MOB having a history of PPD. Prior to SW arrival, MOB requested to discharge. Nursing allowed MOB to do so and stated to MOB that SW would likely call to check in and provide any additional resources needed. SW called MOB (ph: [phone]) and introduced self and role at [facility]. MOB stated being grateful for SW call and stated not needing further resources at this time. MOB stated belief that MOB has more resources and supports than MOB did after previous deliveries. SW mentioned [facility]'s maternal mental health programming and MOB stated having an established counselor at [address] MOB stated having a standing appointment on Mondays that MOB plans to attend this coming Monday. MOB stated having [facility] support and being willing to ask for other support as needed, whether from [facility] or the OB office. MOB denied further needs at this time. Moriah Zuñiga, PROPERTY ADJUSTER, ELDERLY COMPANION
--- NOTE | 2025-09-23 16:58 | NURSING ---
F/up call performed-- no ans, LVM
--- NOTE | 2025-09-23 17:28 | NURSING ---
F/up call attempted, no ans, LVM
== END 2025-09-19 09:47 | disposition home or self-care (01) | DRG 807 ==
LOC: WPOUT 19:55 → WP 19:55
PROVIDERS: Admitting Provider Advanced Practice Midwife; PCP Nurse Practitioner Family; Referring Provider Advanced Practice Midwife; Visit Provider Advanced Practice Midwife
DX: O99.344 Other mental disorders complicating childbirth (principal); Z37.0 Single live birth; F90.9 Attention-deficit hyperactivity disorder, unspecified type; O69.81X0 Labor and delivery complicated by cord around neck, without compression, not applicable or unspecified; O70.0 First degree perineal laceration during delivery; Z87.59 Personal history of other complications of pregnancy, childbirth and the puerperium; Z3A.37 37 weeks gestation of pregnancy
CPT/HCPCS: 59025; 59050; 85025; 86780; 86850; 86900; 86901; 99221; A4216; G0378